=== PATIENT | male | born 1975 | race Caucasian/White ===

== ENCOUNTER 2023-03-16 14:22 | Inpatient (IN) | payer MEDICARE, MEDICAID, SELFPAY ==
[2023-03-16 14:37] VITALS: BP 143/76; PULSE 61; RESP 18; TEMP 36.5; O2SAT 93; BMI 34.2
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
[2023-03-16 15:23] LABS: Basophils % 0.4 %; Eosinophils # 0.1 10^3/uL (0.0-0.8); Eosinophils % 0.7 %; Hematocrit 42.4 % (37-53); Lymphocytes # 1.2 10^3/uL (0.8-4.8); Mean Corpuscular HGB Conc 33.7 g/dL (30-55); Mean Corpuscular Hemoglobin 30.2 pg (27-33); Mean Corpuscular Volume 89.6 fl (82-101); Mean Platelet Volume 9.9 fL (7.4-10.4); Monocytes # 0.6 10^3/uL (0.2-0.9); Monocytes % 8.4 %; Neutrophils # 4.98 10^3/uL (1.8-7.7); Neutrophils % 72.4 %; Nucleated Red Blood Cells % 0 %; Platelet Count 265 10^3/cmm (157-399); Red Blood Count 4.73 10^6/uL (3.85-5.65); Red Cell Distribution Width 12.5 % (12.1-15.1); White Blood Count 6.89 10^3/uL (3.29-11.43)
[2023-03-16 15:47] LABS: Alanine Aminotransferase 16 U/L (0-41); Albumin Level 4.1 g/dL (3.5-5.2); Alkaline Phosphatase 72 U/L (40-130); Anion Gap 16.1 (5-19); Aspartate Amino Transferase 15 U/L (0-40); Blood Urea Nitrogen 7 mg/dL (6-20); Carbon Dioxide 25 mmol/L (22-29); Chloride 99 mmol/L (98-107); Globulin 2.3 g/dL (1.3-4.6); Glomerular Filtration Rate 103.6 mL/min (90-130); Glucose 119 mg/dL (65-115); Osmolality Calculated 281 mOsm/kg (285-295); Potassium 4.1 mmol/L (3.5-5.1); Sodium 136 mmol/L (136-145); Total Bilirubin 0.7 mg/dL (0.15-1.2); Total Protein 6.4 g/dL (6.6-8.7)
[2023-03-16 15:49] LABS: Acetaminophen < 5.0 ug/mL (10-30); Salicylate < 0.3 mg/dL (3-10)
--- NOTE | 2023-03-16 16:21 | PC.PHAR ---
Addendum entered by Vale Verduzco 03/16/23 16:24: PT USES A CPAP MACHINE!!!! Original Note: PT COMES FROM FACILITY IN [place] WHICH CAN'T PROVIDE 2 OF HIS MEDICATIONS. MIRTAZAPINE 15 MG FOR DEPRESSION AND PAROXETINE 40 MG FOR ANXIETY. ADDED TO PT LIST BUT HAVE NO KNOWN LAST FILL DATE. INFORMATION PROVIDED BY FACILITY 03/16/23
[2023-03-16 16:23] VITALS: BP 116/75; PULSE 88; RESP 18; TEMP 36.6; O2SAT 92
[2023-03-16 18:00] VITALS: O2SAT 92
--- NOTE | 2023-03-16 18:18 | PC.NURSE ---
PT CAME TO THE ER WITH A CAREGIVER FROM [employer]. PT WAS RECENTLY RELEASED FROM [facility] A WEEK AGO. UPON ADMIT TO THE UNIT PT INFORMED STAFF HE HAS A GUARDIAN. PT GUARDIAN CONTACTED AND PAPERWORK FAXED OVER. PT STATED THAT HE CAME FOR SUICIDAL THOUGHTS THAT HAVE LASTED ABOUT A WEEK. PT STATES THAT HE WEARS OXYGEN CONTINUOUSLY AT 3 L AND A BIPAP AT NIGHT.
[2023-03-16 20:32] VITALS: BP 108/65; PULSE 56; RESP 17; TEMP 37.2; O2SAT 96
[2023-03-16] MEDS: trazodone 50 mg Tablet PO (20:37)
[2023-03-16 20:50] VITALS: PULSE 68; RESP 22; O2SAT 96
[2023-03-17 06:00] VITALS: BP 118/69; PULSE 60; RESP 18; O2SAT 96
[2023-03-17 09:01] VITALS: PULSE 74; RESP 18; O2SAT 97
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
--- NOTE | 2023-03-17 13:58 | ECG_ITS ---
[facility] Test Date: 2023-03-17 Pat Name: Ronnie Guzman Department: Room: 129 Gender: Male Manager Database: : 1975 Requested By: Syed Monge Order Number: [id number] Jamila MD: Bobo Bird M.D. Measurements Intervals [place] Rate: 62 P: 45 OR: 180 QRS: 77 QRSD: 102 T: 52 QT: 378 QTc: 384 Interpretive Statements SINUS RHYTHM WITH OCCASIONAL VENTRICULAR PREMATURE COMPLEXES LOW QRS VOLTAGE IN EXTREMITY LEADS [QRS DEFLECTION < 0.5 mV IN LIMB LEADS] No previous ECG available for comparison Electronically Signed On 03-17-2023 15:29:15 CRUDE OIL TREATER by Bobo Bird M.D. [email or web address]. d. partlow developmental centerBUYSTANDsuburban community hospital & brentwood hospitalChipolo/store/OM/[id number]
[2023-03-17 14:00] VITALS: BP 166/76; PULSE 53; RESP 17; O2SAT 98
--- NOTE | 2023-03-17 16:56 | PC.NURSE ---
Desirae from [employer] called. her number is [phone]
[2023-03-17 19:46] VITALS: BP 137/81; PULSE 53; RESP 16; TEMP 36.6; O2SAT 96
[2023-03-17] MEDS: trazodone 50 mg Tablet PO (20:28)
[2023-03-17 21:52] VITALS: PULSE 76; RESP 24; O2SAT 96
--- NOTE | 2023-03-18 03:57 | PC.NURSE ---
PT WAS GIVEN TRAZODONE 50 MG AT 2057, PT HAS RESTED ON AND OFF THROUGH OUT THE SHIFT. PT WAS OBSERVED FIXATED ON HIS CPAP MASK, RESPIRATORY THERAPIST CAME DOWN AND FIXED MASK, THIS RN ADJUSTED AND FIXED MASK SEVERAL TIMES. PT HAS SLEPT APPROXIMATELY 5-6 HOURS THIS SHIFT. PT CONTINUES TO REST WITH EYES CLOSED WITH NO DISTRESS NOTED. TRAZODONE DEEMED EFFECTIVE.
--- NOTE | 2023-03-18 05:42 | PC.NURSE ---
PT TOOK CPAP OFF AT 540 THIS AM. STATED I'M DONE WITH THAT. RN APPLIED O2 TO THE WALL AT 3L VIA NC ORDERED. PT RESP RATE HAS BEEN EVEN AND NON LABORED WITH SPO2 96% ON 3L MOS VIA NC. LUNGS CLEAR IN BILATERAL UPPER LOBES AND DIMINISHED AND DISTANT IN BILATERAL LOWER BASES.
[2023-03-18 06:00] VITALS: BP 118/73; PULSE 50; RESP 20; O2SAT 96
[2023-03-18 10:05] VITALS: PULSE 72; RESP 16; O2SAT 98
[2023-03-18 14:00] VITALS: BP 158/81; PULSE 90; RESP 18; TEMP 36.7; O2SAT 93
--- NOTE | 2023-03-18 17:59 | P.NPUPN_ITS ---
Subjective NPU 2 Subjective: Patient presented today reporting that he is doing better. We discussed his situation back to the house and he reports that he does not have any ill feelings towards that gentleman. We discussed adding his Seroquel which he thought was a good idea. We discussed the fact that he needed to make choices that were better and he said he understood that. We discussed getting the information from his guardian about his previous health seeking behaviors and his previous location and countless 911 calls and we discussed that if he did not figure out a way to avoid this pattern that he would end up in some kind of a locked facility and not where he is wanting to be. We discussed the likelihood of discharge in the next 48 hours. Mental Status Exam 2 MSE Comments: This is an obese white male in hospital scrubs with limited grooming but adequate eye contact. No abnormal movements except for mild psychomotor retardation. Cooperative with exam in no acute distress. Speech was slightly decreased rate and volume. Mood described as much better, affect slightly subdued but euthymic. Thought process linear. Thought content: Patient denied suicidal or homicidal ideation, there were no delusions reported or noted, he denied any auditory or visual hallucinations. Attention and concentration were intact and memory appeared mostly reliable but none were formally tested. He is alert and oriented x 3. Insight and judgment appear limited, impulse control is limited versus impaired. Intellectual ability is limited versus impaired. Vitals/I&O/Wt Last Vital Signs Temp 97.9 F 03/17/23 19:46 Pulse 72 03/18/23 10:05 Resp 16 03/18/23 10:05 BP 118/73 03/18/23 06:00 Pulse Ox 98 03/18/23 10:05 O2 Del Method Nasal Cannula 03/18/23 10:05 O2 Flow Rate 3 03/18/23 10:05 FiO2 32 03/17/23 21:52 Data NPU 03/16/23 15:17 03/16/23 15:17 A&P Assessment and plan (1) Borderline intellectual functioning: (2) Mild intellectual disability: (3) Intermittent explosive disorder: (4) Suicidal ideation: Plan This is a 47-year-old white male with a history of mild intellectual disorder versus borderline intellectual functioning significant history mental health challenges and psychosocial challenges including living in a longterm who presents from a new longterm with current struggles to adjust. 1. Continue current medication. Add Seroquel 100 mg p.o. nightly. 2. Continue one-to-one with his oxygen tubing for safety. 3. Individual, group and milieu therapy. 4. Get collateral information about previous medications prior to [facility]. 5. Consider discharge. Involuntary Hold Information 2 96 Hour Hold: 96 Hour Involuntary Admission: No Attestations NPU 2 Medical Necessity Statement*: Inpatient hospitalization is medically necessary and the clinically appropriate attention at this time. We will monitor/initiate medications and make changes as indicated. Likely length of stay 1-4 days. Coding Level of Care Code Acute Code for Chg Fwd Diagnoses Borderline intellectual functioning R41.83 Mild intellectual disability F70 Intermittent explosive disorder F63.81 Suicidal ideation R45.851
[2023-03-18 20:21] VITALS: BP 131/73; PULSE 74; RESP 20; TEMP 36.8; O2SAT 95
--- NOTE | 2023-03-18 20:31 | PC.NURSE ---
IN DAY ROOM WATCHING TV WITH SITTER AT BEDSIDE DUE TO HAVING O2 AT 3L VIA NC. PT DENIES SI/HI AND AVH AT THIS TIME. RATES ANXIETY 10/10 THIS RN TO GIVE VISTARIL WITH HS MEDS REQUESTED BY PT. RATES ANXIETY 9/10. PT STATES I'M STILL WAITING FOR THAT TO RESTART MY MEDS. PT WAS ASSURED THAT WOULD ADJUST MEDS IF NEEDED. PT REQUESTED TRAZODONE FOR SLEEP WELL. PT IS OBSERVED HAVING EDEMA +1 TO LOWER EXTREMITIES. PT STATED OH THEY ARE ALWAYS LIKE THAT. AND THEN LAUGHED. PT HAS BEEN EATING MULTIPLE SNACKS, SANDWICHES, CHIPS AND CRACKERS. PT WAS EDUCATE ON EATING SALTY PROCESSED FOODS AND SWELLING CAN OCCUR WHEN EATEN IN EXCESS. PT STATED I'VE ALWAYS EATEN WHAT I WANTED AND I'M GOING TO KEEP EATING WHAT I WANT. ALL QUESTIONS ANSWERED AND SUPPORT VOICED.
[2023-03-18] MEDS: acetaminophen 325 mg Tablet 650 MG PO (21:07)
[2023-03-18] MEDS: hyDROXYzine 25 mg Capsule 50 MG PO (21:07)
[2023-03-18] MEDS: trazodone 50 mg Tablet PO (21:07)
[2023-03-18 21:26] VITALS: PULSE 68; RESP 21; O2SAT 98
--- NOTE | 2023-03-18 21:36 | PC.NURSE ---
PT CONTINUES TO REQUEST HE BE PUT BACK ON SEROQUEL. RN REVIEWED PRESCRIPTION HISTORY, PT WAS PRESCRIBED 150 MG OF SEROQUEL BACK IN JANUARY OF THIS YEAR. ALL INFORMATION REPORTED TO DR. MARIE. NEW ORDERS RECEIVED TO START SEROQUEL 100 MG PO Q HS INSOMNIA. ORDERS PLACED. EDUCATION PROVIDED TO PT. VERBALIZED UNDERSTANDING. ALL QUESTIONS ANSWERED AND SUPPORT WAS VOICED.
[2023-03-18] MEDS: quetiapine 100 mg Tablet PO (21:51)
[2023-03-19 04:20] VITALS: PULSE 71; RESP 19; O2SAT 99
[2023-03-19 06:00] VITALS: BP 131/70; PULSE 73; RESP 20; O2SAT 100
--- NOTE | 2023-03-19 06:23 | PC.NURSE ---
TRAZODONE AND VISTARIL 50 MG THAT WAS GIVEN LAST NIGHT IS DEEMED EFFECTIVE. PT WAS ALSO STARTED ON 100 MG OF SERQUEL. PT HAS SLEPT APPROXIMATELY 9.5 HOURS FOR THE SHIFT WITH CPAP ON AND SITTER AT BEDSIDE.
[2023-03-19 11:53] LABS: Glucose Point of Care 117 mg/dL (70-110)
[2023-03-19] MEDS: PARoxetine 20 mg Tablet PO (12:22)
[2023-03-19] MEDS: atorvastatin 40 mg Tablet 20 MG PO (12:22)
[2023-03-19] MEDS: FUROsemide 40 mg Tablet PO (12:22)
--- NOTE | 2023-03-19 13:39 | W.PM.NPUDCS ---
Diagnoses at Discharge Discharge Diagnosis (1) Borderline intellectual functioning: Status: Acute (2) Mild intellectual disability: Status: Acute (3) Intermittent explosive disorder: Status: Acute (4) Suicidal ideation: Status: Acute Reason for Visit Reason for Visit: SI Involuntary Hold Information 96 Hour Hold: 96 Hour Involuntary Admission: No Mental Status Exam MSE Comments: This is an obese white male in hospital scrubs with limited grooming but adequate eye contact. No abnormal movements except for mild psychomotor retardation. Cooperative with exam in no acute distress. Speech was slightly decreased rate and volume. Mood described as much better, affect slightly subdued but euthymic. Thought process linear. Thought content: Patient denied suicidal or homicidal ideation, there were no delusions reported or noted, he denied any auditory or visual hallucinations. Attention and concentration were intact and memory appeared mostly reliable but none were formally tested. He is alert and oriented x 3. Insight and judgment appear limited, impulse control is limited versus impaired. Intellectual ability is limited versus impaired. Discharge Data Studies Completed and Pending: Laboratory Results WBC 6.89 10^3/uL (3.2 9-11.43) 03/16/23 15:17 RBC 4.73 10^6/uL (3.8 5-5.65) 03/16/23 15:17 Hgb 14.30 g/dL (11.27 -16.99) 03/16/23 15:17 Hct 42.4 % (37-53) 03/16/23 15:17 MCV 89.6 fl (82-101) 03/16/23 15:17 MCH 30.2 pg (27-33) 03/16/23 15:17 MCHC 33.7 g/dL (30-55) 03/16/23 15:17 RDW 12.5 % (12.1-15.1 ) 03/16/23 15:17 Plt Count 265 10^3/cmm (157 -399) 03/16/23 15:17 MPV 9.9 fL (7.4-10.4) 03/16/23 15:17 Neut % (Auto) 72.4 % 03/16/23 15:17 Lymph % (Auto) 18.0 % 03/16/23 15:17 [place] % (Auto) 8.4 % 03/16/23 15:17 Eos % (Auto) 0.7 % 03/16/23 15:17 Baso % (Auto) 0.4 % 03/16/23 15:17 Neut # (Auto) 4.98 10^3/uL (1.8 -7.7) 03/16/23 15:17 Lymph # (Auto) 1.2 10^3/uL (0.8- 4.8) 03/16/23 15:17 [place] # (Auto) 0.6 10^3/uL (0.2- 0.9) 03/16/23 15:17 Eos # (Auto) 0.1 10^3/uL (0.0- 0.8) 03/16/23 15:17 Baso # (Auto) 0.0 10^3/uL (0.0- 0.1) 03/16/23 15:17 Nucleated RBC % (a uto) 0 % 03/16/23 15:17 Nucleated RBCs # 0.0 /100WBC 03/16/23 15:17 Sodium 136 mmol/L (136-1 45) 03/16/23 15:17 Potassium 4.1 mmol/L (3.5-5 .1) 03/16/23 15:17 Chloride 99 mmol/L (98-107 ) 03/16/23 15:17 Carbon Dioxide 25 mmol/L (22-29) 03/16/23 15:17 Anion Gap 16.1 (5-19) 03/16/23 15:17 BUN 7 mg/dL (6-20) 03/16/23 15:17 Creatinine 0.8 mg/dL (0.7-1. 2) 03/16/23 15:17 GFR Calculation 103.6 mL/min (90- 130) 03/16/23 15:17 Glucose 119 mg/dL (65-115 ) H 03/16/23 15:17 POC Glucose 117 mg/dL (70-110 ) H 03/19/23 11:49 Calculated Osmolal ity 281 mOsm/kg (285- 295) L 03/16/23 15:17 Calcium 9.0 mg/dL (8.5-10 .5) 03/16/23 15:17 Total Bilirubin 0.7 mg/dL (0.15-1 .2) 03/16/23 15:17 AST 15 U/L (0-40) 03/16/23 15:17 ALT 16 U/L (0-41) 03/16/23 15:17 Alkaline Phosphata se 72 U/L (40-130) 03/16/23 15:17 Total Protein 6.4 g/dL (6.6-8.7 ) L 03/16/23 15:17 Albumin 4.1 g/dL (3.5-5.2 ) 03/16/23 15:17 Globulin 2.3 g/dL (1.3-4.6 ) 03/16/23 15:17 Salicylates < 0.3 mg/dL (3-10 ) L 03/16/23 15:17 Acetaminophen < 5.0 ug/mL (10-3 0) L 03/16/23 15:17 Vitals: Last Vital Signs Temp 98.3 F 03/18/23 20:21 Pulse 73 03/19/23 06:00 Resp 20 H 03/19/23 06:00 BP 131/70 03/19/23 06:00 Pulse Ox 100 03/19/23 06:00 O2 Del Method BiPAP 03/19/23 06:00 O2 Flow Rate 3 03/18/23 10:05 FiO2 32 03/19/23 04:20 Discharge Plan Discharge Patient Disposition: Home Condition: Stable Prescriptions: New quetiapine 100 mg Tablet 100 mg PO BEDTIME 30 Days Qty: 30 1RF paroxetine HCl 20 mg Tablet 20 mg PO DAILY 30 Days Qty: 30 1RF Continued furosemide 40 mg tablet 40 mg PO DAILY metformin 500 mg tablet 500 mg PO BID Aspir-81 81 mg Tablet,Delayed Release (Dr/Ec) 81 mg PO DAILY simvastatin 20 mg tablet 20 mg PO DAILY lisinopril 10 mg tablet 10 mg PO DAILY mirtazapine 15 mg Tablet 15 mg PO DAILY Discontinued citalopram 20 mg Tablet 20 mg PO DAILY paroxetine HCl 40 mg Tablet 40 mg PO DAILY Discharge Orders: Discharge Order (Routine); Ordered 03/19/23 Ordered By: Syed Monge Other Ambulatory Orders: DME: Porfirio (Order) Location: None Selected Ordered By: Syed Monge Referrals: [facility] [Outside] - 03/22/23 12:30 pm (Initial appointment 03/22/23 @ 12:30 w/ Betty Jiménez) Raj Kent MD [Referring] - 03/24/23 1:00 pm (Establishing care/hospital follow up.) Discharge Diet: Regular Discharge Activity: Resume usual activity Patient Instructions: Opioid Safety Discharge Attestations NPU Time Spent in Discharge Care*: less than 30 min Specific Discharge Activities: Specific discharge activities: educating patient, discussing with top case assembler/social workers/dc planners, documenting/other paperwork and evaluating patient/reviewing data Coding Level of Care Code Acute Code for Chg Fwd Diagnoses Borderline intellectual functioning R41.83 Mild intellectual disability F70 Intermittent explosive disorder F63.81 Suicidal ideation R45.851
[2023-03-19 13:44] VITALS: BP 131/70; PULSE 73; RESP 20; O2SAT 100
[2023-03-19 14:00] VITALS: BP 113/66; PULSE 45; RESP 16; TEMP 36.6; O2SAT 95
--- NOTE | 2023-03-19 14:08 | DCPLANNER ---
Imm was printed and given to patient and copy placed in file.
--- NOTE | 2023-03-19 15:48 | PC.NURSE ---
written discharge instructions discussed and left with patient. pt states understanding and compliance. prescription from pharmacy delivered and given to patient.
--- NOTE | 2023-03-19 16:04 | PC.NURSE ---
spoke with desirae from [facility] with clarification on home O2 delivery. Desirae stated his ISP Paperwork states 3liters prn. Desirae stated when he sees his new primary care wednesday they will notify him and let New Primary write orders if he wants him on O2 at that time. pt o2 running at 94% roomair at this time.
== END 2023-03-18 17:16 | disposition home or self-care (01) | DRG 884 ==
LOC: ER 15:16 → NP 15:51
PROVIDERS: Admitting Provider Psychiatry & Neurology Psychiatry; Emergency Provider Family Medicine; Visit Provider Psychiatry & Neurology Psychiatry
DX: F70 Mild intellectual disabilities (principal); R45.851 Suicidal ideations; Z91.51 Personal history of suicidal behavior; Z91.148 Patient's other noncompliance with medication regimen for other reason; F63.81 Intermittent explosive disorder
CPT/HCPCS: 36415; 36416; 80053; 80307; 82962; 85025; 93005; 94660; 94664; 97110; 97150; 97161; 97165; 99285

== ENCOUNTER 2023-03-20 20:23 | Emergency (ER) | payer MEDICARE, MEDICAID, SELFPAY ==
[2023-03-20 20:25] VITALS: BP 122/67; PULSE 46; RESP 22; TEMP 36.7; O2SAT 92
--- NOTE | 2023-03-20 20:46 | ED.C_ITS ---
HPI - Psych General: Chief Complaint: Psychiatric Symptoms Stated Complaint: SI Time Seen by Provider: 03/20/23 20:40 Source: patient and other (care staff) Mode of arrival: ambulatory Limitations: other (intellectual disability) History of Present Illness: Patient is a 47-year-old male who presents to ED today stating he is suicidal. He reportedly texted the suicide hotline. Patient was just admitted to [facility] for identical complaints. He was discharged yesterday. Patient has a history of intellectual disability. According to documentation while NPU patient has a history of medical seeking behaviors including countless calls to 911 and previous suicide threats. Care staff states that all of his medications in his home are locked up including [id number]-[id number] medications. She states he does still have access to sharps/knives but that these can easily be locked up as well. complaint: suicidal ideation Duration: constant History of same: Yes Relieving factors: none Exacerbating factors: none Associated psychiatric symptoms: suicidal ideation Associated symptoms: Reports depression and suicidal ideation; Deny auditory hallucinations, visual hallucinations or homicidal ideation Treatments prior to arrival: none If self harm: admits thoughts of self harm Review of Systems Const: Denies: fever(s) or chills Card: Denies: chest pain, palpitations, lightheadedness or syncope Resp: Denies: dyspnea GI: Denies: abdominal pain, nausea, vomiting or diarrhea Skin/Breast: Denies: rash Neuro: Denies: headache(s) Psych: Reports: depression and suicidal ideation; Denies: anxiety, visual hallucinations, auditory hallucinations or homicidal ideation Physical Exam Const: COMMON NORMALS: no acute distress and alert EXAM LIMITATIONS: other limitations (pt with intellectual disability) GENERAL APPEARANCE: cooperative NUTRITIONAL APPEARANCE: obese Neuro: SENSORIUM/ORIENTATION: Yes alert Psych: COMMON NORMALS: mental status grossly normal, cooperative, normal affect and speech normal APPEARANCE: Yes grossly normal ATTITUDE: Yes calm ACTIVITY/MOTOR BEHAVIOR: Yes Avoids eye contact (attititude/behavior) SPEECH: Yes normal speech MOOD & AFFECT: Yes euthymic mood INSIGHT: Limited insight present (Psych) JUDGEMENT: Limited judgement present (Psych) Course Consultations: Consultation #1: Dr. Monge-stated there was no indication for re-admission; states previous records were obtained from other facilities in regards to patient's psych history and he has a long standing history of medical seeking behaviors including calling 911 hundreds of times; felt if meds/sharps/knifes were locked up in the home then he could safely be discharged Vital Signs: Vital signs: Vital Signs Temperature 98.1 F 03/20/23 20:25 Pulse Rate 46 L 03/20/23 20:25 Respiratory Rate 22 H 03/20/23 20:25 Blood Pressure 122/67 03/20/23 20:25 Pulse Oximetry 92 03/20/23 20:25 Oxygen Delivery Me thod Room Air 03/20/23 20:25 MDM - Psych Medical Decision Making Patient was just released from NPU yesterday. I spoke to the psychiatrist who treated him while he was there, Dr. Monge, I did not feel patient needed to be readmitted at this time. All of his medications in his home are already locked up. Spoke to care staff extensively about removing all sharp/knives in the home as well. She verbalized understanding. Recommend he follow-up with the primary care provider who follows [facility] this week for reevaluation. I will place referral to get him services with [facility]. No radiology studies performed this visit Discharge Plan Discharge Patient Disposition: Home Clinical Impression: Suicidal ideation, Intermittent explosive disorder, Borderline intellectual functioning Condition: Stable Prescriptions: No Action furosemide 40 mg tablet 40 mg PO DAILY metformin 500 mg tablet 500 mg PO BID aspirin 81 mg Tablet,Delayed Release (Dr/Ec) 81 mg PO DAILY simvastatin 20 mg tablet 20 mg PO DAILY lisinopril 10 mg tablet 10 mg PO DAILY mirtazapine 15 mg Tablet 15 mg PO DAILY quetiapine 100 mg Tablet 100 mg PO BEDTIME 30 Days Qty: 30 1RF paroxetine HCl 20 mg Tablet 20 mg PO DAILY 30 Days Qty: 30 1RF Discharge Orders: Discharge ED (Routine); Ordered 03/20/23 Ordered By: Shikha De Jesus Activity Restrictions/Additional Instructions: TO [facility] STA[facility] CARING FOR PATIENT: Per recommendations of psychiatrist, all sharps/knives need to be locked up and removed from patient. He needs to continue to not have access to his pills/medications including bfoi-oqt-qaxxxon medicine. He needs to follow-up with the medical provider through [facility]. I will place referral to [facility] to get him set up with psychiatric services. Coding Level of Care Code ED Phone Counselor for Nathan Agudelo
--- NOTE | 2023-03-22 08:18 | DCPLANNER ---
Message was sent to [facility] scheduling on 03/22/23 at 0818. Clinic to contact patient.
== END 2023-03-20 21:24 | disposition home or self-care (01) ==
PROVIDERS: Emergency Provider Physician Assistant
DX: R45.851 Suicidal ideations (principal); F63.81 Intermittent explosive disorder; R41.83 Borderline intellectual functioning
CPT/HCPCS: 99283

== ENCOUNTER 2023-03-29 11:52 | Emergency (ER) | payer MEDICARE, MEDICAID, SELFPAY ==
[2023-03-29 11:53] VITALS: BP 122/76; PULSE 46; RESP 18; TEMP 36.8; O2SAT 94; BMI 41.1
--- NOTE | 2023-03-29 12:00 | W.ED.PSYCHS ---
HPI - Psych General: Chief Complaint: Psychiatric Symptoms Stated Complaint: si with plan Time Seen by Provider: 03/29/23 11:52 Source: patient and EMS Mode of arrival: EMS Limitations: no limitations History of Present Illness: 47-year-old male who is very well known ER history intellectual disability lives in a senior living with [facility] he has been seen here multiple times with suicidal thoughts he was admitted a week ago discharged from our psych unit. He states that he is just continually been depressed with passing suicidal thoughts denies any specific plan currently. Physical Exam Const: COMMON NORMALS: no acute distress, patient oriented x3 and healthy appearing HENMT: COMMON NORMALS: normocephalic and atraumatic HEAD & SCALP: normocephalic and atraumatic Neck/C-Spine: COMMON NORMALS: full ROM and supple Chest: COMMONS NORMALS: normal inspection of the chest Resp: COMMON NORMALS: normal respiratory effort Extremity: COMMON NORMALS: normal to inspection and full ROM Neuro: COMMON NORMALS: patient oriented x3, moves all extremities and no focal motor deficits Psych: COMMON NORMALS: mental status grossly normal, Normal thought process present and cooperative THOUGHT PROCESS: Normal thought process present Skin: COMMON NORMALS: no rashes or lesions noted and no wounds GENERAL SKIN EXAM: no rashes or lesions noted Course Vital Signs: Vital signs: Vital Signs Temperature 98.3 F 03/29/23 11:53 Pulse Rate 46 L 03/29/23 11:53 Respiratory Rate 18 03/29/23 11:53 Blood Pressure 122/76 03/29/23 11:53 Pulse Oximetry 94 03/29/23 11:53 Oxygen Delivery Me thod Room Air 03/29/23 11:53 MDM - Psych Medical Decision Making 47-year-old male presented here with depression he is well-appearing here he is very well-known to ER discussed case with Dr. Monge who knows patient is well does not feel that he is truly suicidal [facility] staff is here and wants to take him back home as well would discharge him with them Medical Records I reviewed the patient's medical records. No radiology studies performed this visit Discharge Plan Discharge Patient Disposition: Home Clinical Impression: Depression Condition: Stable Prescriptions: No Action furosemide 40 mg tablet 40 mg PO DAILY metformin 500 mg tablet 500 mg PO BID aspirin 81 mg Tablet,Delayed Release (Dr/Ec) 81 mg PO DAILY simvastatin 20 mg tablet 20 mg PO DAILY lisinopril 10 mg tablet 10 mg PO DAILY mirtazapine 15 mg Tablet 15 mg PO DAILY quetiapine 100 mg Tablet 100 mg PO BEDTIME 30 Days Qty: 30 1RF paroxetine HCl 20 mg Tablet 20 mg PO DAILY 30 Days Qty: 30 1RF Discharge Orders: Discharge ED (Routine); Ordered 03/29/23 Ordered By: Keyana Mcmillan Discharge Diet: Advance as tolerated Discharge Activity: Resume usual activity Patient Instructions: Depression (ED) Coding Level of Care Code ED Assistive Technology Specialist for Natahn Agudelo
== END 2023-03-29 12:08 | disposition home or self-care (01) ==
PROVIDERS: Emergency Provider Emergency Medicine
DX: F32.A Depression, unspecified (principal); Z79.82 Long term (current) use of aspirin; Z79.84 Long term (current) use of oral hypoglycemic drugs
CPT/HCPCS: 99283

== ENCOUNTER → 2023-06-07 09:20 | Outpatient (BNVA) | payer MEDICARE, MEDICAID, OTHER, SELFPAY | PROVIDERS: Visit Provider Nurse Practitioner | DX: F63.81 Intermittent explosive disorder (principal); F33.1 Major depressive disorder, recurrent, moderate; Z79.899 Other long term (current) drug therapy | CPT/HCPCS: 80061; 83036 ==

== ENCOUNTER → 2023-07-05 11:43 | Outpatient (BNVA) | payer MEDICARE, MEDICAID, SELFPAY | PROVIDERS: Referring Provider Family Medicine; Visit Provider Internal Medicine Cardiovascular Disease | DX: R07.9 Chest pain, unspecified (principal); I11.0 Hypertensive heart disease with heart failure; I50.9 Heart failure, unspecified; I25.118 Atherosclerotic heart disease of native coronary artery with other forms of angina pectoris; E78.5 Hyperlipidemia, unspecified; I49.9 Cardiac arrhythmia, unspecified; R94.31 Abnormal electrocardiogram [ECG] [EKG] | CPT/HCPCS: 93005; 99204 ==

== ENCOUNTER 2023-07-09 08:44 | Outpatient (CLI) | payer MEDICARE, MEDICAID, SELFPAY ==
--- NOTE | 2023-07-09 11:45 | USCV_ITS ---
Ronnie Guzman Age: 47 Gender: M : 1975 Exam Date: 07/09/2023 11:04 Ordering Phys: Franck Redman MD ([email or web address]) Technologist: CT [place]am [place] [facility] [place] Indication: hf BP: 119 / 63 HR: 72 Rhythm: Sinus Technical Quality: Adequate MEASUREMENTS (Male / Female) Normal Values 2D ECHO LVOT Diameter 2.6 cm LV Ejection Fraction MOD 2C 49.5 % LV Ejection Fraction 2C AL 49.3 % LA Diameter 3.3 cm RA Systolic Volume 4C AL 73.1 ml RA Systolic Volume 4C MOD 68.9 ml Aorta at Sinotubular Diameter 3.8 cm IVC Diameter 1.9 cm M-MODE LA Ao Ratio MM 0.8 AV Cusp Separation MM 2.7 cm DOPPLER AV Peak Velocity 115.0 cm/s LVOT Peak Velocity 88.0 cm/s AV Area Cont Eq vti 3.9 cm squared AV Area Cont Eq pk 4.0 cm squared MV Peak Velocity 66.0 cm/s MV Area PHT 3.7 cm squared Mitral E to A Ratio 0.9 TV Peak Velocity 156.5 cm/s TR Peak Velocity 172.0 cm/s TR Peak Gradient 11.8 mmHg Right Atrial Pressure 3.0 mmHg Pulmonary Artery Systolic Pressu 14.8 mmHg PV Peak Velocity 110.5 cm/s FINDINGS Left Ventricle Normal LV size with a slightly diminished ejection fraction of 49%. Mild diffuse hypokinesia of the left 22. Right Ventricle The right ventricle is normal in size and function. Right Atrium Mildly increased right atrial size. Left Atrium Mildly increased left atrial size. Mitral Valve No gross abnormalities noted Aortic Valve Thickened aortic valve. Tricuspid Valve No gross abnormalities noted Pulmonic Valve No gross abnormalities noted Pericardium No pericardial effusion. Aorta Normal aortic annulus size. IVC Normal inferior vena cava. CONCLUSIONS Normal LV size with a slightly diminished ejection fraction of 49%. Mild diffuse hypokinesia of the left ventricle. Mild biatrial enlargement. Thickened aortic valve. There is no pericardial effusion. There are no intracardiac masses. Estimated pulmonary artery peak systolic pressure probably within normal limits No similar previous studies are available for comparison Dr Franck Redman MD [facility] (Electronically Signed) Final Date: 09 July 2023 17:09 S
== END 2023-07-09 08:45 | disposition home or self-care (01) ==
LOC: RAD 08:45
PROVIDERS: Visit Provider Internal Medicine Cardiovascular Disease
DX: R06.09 Other forms of dyspnea (principal); I35.8 Other nonrheumatic aortic valve disorders; I51.7 Cardiomegaly; Z12.11 Encounter for screening for malignant neoplasm of colon; R10.9 Unspecified abdominal pain
CPT/HCPCS: 93306; 99204

== ENCOUNTER → 2023-07-13 09:11 | Outpatient (BNVA) | payer MEDICARE, MEDICAID, SELFPAY | PROVIDERS: PCP Family Medicine; Visit Provider Podiatrist Foot & Ankle Surgery | DX: L60.3 Nail dystrophy; E11.69 Type 2 diabetes mellitus with other specified complication; Z79.84 Long term (current) use of oral hypoglycemic drugs | CPT/HCPCS: 99203 ==

== ENCOUNTER 2023-07-21 10:00 | Outpatient (CLI) | payer MEDICARE, MEDICAID, SELFPAY ==
--- NOTE | 2023-07-21 | ECG_ITS ---
[facility] Test Date: 2023-07-21 Pat Name: Ronnie Guzman Department: Room: Gender: Male Research And Development Director: : 1975 Requested By: Franck Redman Order Number: [id number] Jamila MD: Franck Redman M.D. Interpretive Statements NAME OF STUDY: LEXISCAN SESTAMIBI STRESS TEST INDICATION: CP/CHF/ASHD, PROCEDURE: At the baseline, the EKG revealed sinus bradycardia, poor R wave progression and nonspecific ST-T changes. The baseline heart was 50 bpm with a blood pressue of 122/86 mm of Hg Lexiscan was infused over a period of 20 seconds. A total of 0.4 milligrams of Lexiscan was infused. The stress phase was continued for a total of 5 minutes. Heart rate at the end of the stress phase was 90 bpm with a blood pressure 109/77 mm of Hg. The EKG at the peak infusion revealed no significant changes. Occasional PVCs were noted during the Lexiscan infusion Sestamibi was injected 20 seconds after the Lexiscan infusion. Heart rate at the end of the recovery phase was 88 bpm with a blood pressure of 112/77 mm of Hg. CONCLUSION: 1. No significant EKG changes with the LexiScan infusion 2. No LexiScan induced chest pain .occasional PVCs were noted during the Lexiscan infusion . 3. Normal blood pressure and heart rate response 4. Sestamibi/sestamibi perfusion scan pending; see separate report. Electronically Signed On 08-02-2023 8:59:03 CDT by Franck Redman M.D. [id number]
--- NOTE | 2023-07-21 10:11 | NMCV_ITS ---
NM pete perf SPECT r/s* [id number] Ronnie Guzman Age: 47 Gender: M : 1975 Exam Date: 07/21/2023 10:49 Ordering Phys: Franck Redman MD ([email or web address]) Technologist: KATHERINE Liu Exam Location: [facility] Indications: CORONARY ANGIOPLASTY STATUS STRESS TEST Please [facility] for [facility] IMAGE PROTOCOL Rest/Stress 1 Lexiscan Day Radiopharmaceutical Dose (mCi) Administration Site Administered by Rest: Tc-99m 10.8 IV KATHERINE Vo Sestamibi Stress:Tc-99m 33.0 IV KATHERINE Vo Sestamibi Rest: 21-Jul-2023 60 Discovery 630 Stress: 21-Jul-2023 30 Discovery 630 0.4mg Lexiscan. Supine position only as patient was unable to lay prone. SPECT RESULTS Technical Quality: Excellent Raw Data Analysis: Normal Image Corrections: No attenuation or motion correction applied Summed Stress Score: 10 Summed Rest Score: 16 Summed Difference Score: 0 PERFUSION FINDINGS Moderate area of moderate to severely decreased tracer uptake involving the inferior, mid inferolateral, apical lateral and LV apex with no significant reversibility FUNCTIONAL RESULTS (calculated via Gated SPECT) Stress Image LV EF (%): 52 Stress EDV (mL):178 TID: 1.02 Stress ESV (mL):85 FUNCTIONAL FINDINGS: Segmental wall motion analysis revealed mild hypokinesia of the LV apex IMPRESSIONS 1. Myocardial perfusion imaging revealing moderate area of persistent decreased tracer uptake involving the inferior, inferolateral , apical lateral and LV apex suggesting myocardial scarring in distribution of the right coronary artery/circumflex artery. 2. Normal LV ejection fraction 52%. 3. LV wall motion analysis revealing mild hypokinesia of the LV apex. 4. Mildly dilated LV cavity with end-systolic volume of 85 ml. No significant coronary ischemia based on the above finding Dr Franck Redman MD [facility] (Electronically Signed) Final Date: 21 July 2023 18:58 S
[2023-07-21 10:23] VITALS: BMI 43.8
[2023-07-21] MEDS: regadenoson 0.4 Mg/5 ml Syringe 0.400000000000000022 MG IVP (11:32)
[2023-07-21 11:57] VITALS: BP 116/75; PULSE 92
== END 2023-07-21 10:01 | disposition home or self-care (01) ==
LOC: CDL 10:01
PROVIDERS: PCP Family Medicine; Visit Provider Internal Medicine Cardiovascular Disease
DX: Z98.61 Coronary angioplasty status (principal)
CPT/HCPCS: 36415; 78452; 93017; 96374; A9500; J2785

== ENCOUNTER 2023-08-06 10:06 | Emergency (ER) | payer MEDICARE, MEDICAID, SELFPAY ==
[2023-08-06 10:10] VITALS: BP 132/72; PULSE 74; RESP 15; TEMP 36.6; O2SAT 91
--- NOTE | 2023-08-06 10:22 | ED_ITS ---
HPI - Eye Problem General: Chief complaint: Eye Problems Stated complaint: blurred vision/ eye sx yesterday Time Seen by Provider: 08/06/23 10:13 Source: patient and other (care staff) Mode of arrival: EMS Limitations: other (Intellectual disability) History of Present Illness: Patient is a 47-year-old male here via EMS for complaints of blurry vision and blood around my eye . Patient has an intellectual disability so history is somewhat difficult to ascertain. It sounds like he had a bilateral blepharoplasty by Dr. Shah yesterday. He tells me I lost a lot of weight and my eyelids were drooping so they removed them . He states he is having ecchymosis surrounding his eye and some edema making it hard to see. Does not complain of pain. MD chief complaint: vision change Onset (ago): day(s) (surgery yesterday) Onset description: gradual Duration: constant Location: both eyes Eye Symptoms: blurry vision Mechanism: none Severity: mild Associated symptoms: Reports no associated symptoms Treatments Prior to Arrival: none Review of Systems Eyes: Reports: blurry vision; Denies: blind spots, photophobia, eye discharge, floaters or seeing flashes PFSH ED PFSH: Medical History Moderate episode of recurrent major depressive disorder Psychiatric care Family History Brother Diabetes Denies family history of CAD (coronary artery disease) Congestive heart failure (CHF) Anemia Aneurysm Arrhythmia Atrial fibrillation TIA (transient ischemic attack) Heart disease Sudden cardiac Chronic kidney disease (CKD) Congenital heart disease Carotid artery disease Pulmonary embolism Cardiomyopathy Social History Smoking and tobacco/nicotine status: never used tobacco/nicotine Alcohol intake: never Physical Exam Const: COMMON NORMALS: no acute distress and alert EXAM LIMITATIONS: other limitations (Intellectual disability) GENERAL APPEARANCE: cooperative NUTRITIONAL APPEARANCE: obese Eye: COMMON NORMALS: Equal, round and reactive pupils present, EOMs intact bilaterally and conjunctivae normal GENERAL EYE: normal light reflex CONJUNCTIVA: Yes conjunctivae normal PUPIL: Yes Equal, round and reactive pupils present DIRECT OPHTHALMOSCOPY: Yes normal light reflex OTHER: Patient has intact sutures to his superior orbit consistent with recent bilateral blepharoplasty. He has bilateral periorbital ecchymosis that appears normal postoperative. Edema is minimal. Patient tells me he feels like his vision is blurry because he cannot fully open his eyelids due to the swelling. When I physically hold eyelids open he states that he can see me clearly. He is watching cartoons in his room and reportedly can see them fairly well. Neuro: SENSORIUM/ORIENTATION: Yes alert Course Vital Signs: Vital signs: Vital Signs Temperature 97.9 F 08/06/23 10:10 Pulse Rate 74 08/06/23 10:10 Respiratory Rate 15 08/06/23 10:10 Blood Pressure 132/72 08/06/23 10:10 Pulse Oximetry 91 08/06/23 10:10 Oxygen Delivery Me thod Room Air 08/06/23 10:10 MDM - Eye Problem Medical Decision Making Patient's eyes look to be healing really well postop day 1 from bilateral blepharoplasty. I don't have any emergent concerns at this time. Digital Marketing Executive did call Dr. Shah' clinic and they will see patient for a quick evaluation following his discharge from the ED. He was instructed to go straight to their office. No radiology studies performed this visit Discharge Plan Discharge Patient Disposition: Home Clinical Impression: Status post blepharoplasty of both eyes Condition: Stable Prescriptions: No Action quetiapine [Seroquel] 200 mg tablet 200 mg PO .HS Qty: 30 2RF paroxetine HCl [Paxil] 40 mg tablet 40 mg PO .HS Qty: 30 2RF mirtazapine 15 mg tablet 15 mg PO .HS Qty: 30 2RF naproxen 500 mg tablet 500 mg PO ONCE PRN magnesium citrate Solution 300 ml PO DAILY PRN (Reason: constipation) Qty: 296 2RF Rx Instructions: take as directed for colonoscopy bisacodyl [Dulcolax (bisacodyl)] 5 mg tablet,delayed release (DR/EC) 5 mg PO DAILY Qty: 4 0RF furosemide 40 mg tablet 40 mg PO DAILY metformin 500 mg tablet 500 mg PO BID aspirin 81 mg Tablet,Delayed Release (Dr/Ec) 81 mg PO DAILY simvastatin 20 mg tablet 20 mg PO DAILY lisinopril 10 mg tablet 10 mg PO DAILY Discharge Orders: Discharge ED (Routine); Ordered 08/06/23 Ordered By: Shikha De Jesus Referrals: Raj Kent MD [Primary Care Provider] - Activity Restrictions/Additional Instructions: Go straight to Dr. Shah's eye clinic for further evaluation. Coding Level of Care Code ED Robotic Toy Inventor for Nathan Agudelo
== END 2023-08-06 10:48 | disposition home or self-care (01) ==
PROVIDERS: Emergency Provider Physician Assistant; PCP Family Medicine
DX: H53.8 Other visual disturbances (principal); Z98.890 Other specified postprocedural states; Z79.82 Long term (current) use of aspirin; Z79.84 Long term (current) use of oral hypoglycemic drugs
CPT/HCPCS: 99281

== ENCOUNTER 2023-08-07 17:24 | Emergency (ER) | payer MEDICARE, MEDICAID, SELFPAY ==
[2023-08-07 17:25] VITALS: BP 115/69; PULSE 54; RESP 18; TEMP 36.9; O2SAT 92
--- NOTE | 2023-08-07 17:58 | ECG_ITS ---
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 Measurements Intervals [place] Rate: 56 P: 42 NC: 203 QRS: 0 QRSD: 98 T: 47 QT: 390 QTc: 378 Interpretive Statements SINUS BRADYCARDIA WITH OCCASIONAL VENTRICULAR PREMATURE COMPLEXES INDETERMINATE AXIS LOW QRS VOLTAGE [QRS DEFLECTION < 0.5/1.0 mV IN LIMB/CHEST LEADS] ANTEROSEPTAL MYOCARDIAL INFARCTION , PROBABLY OLD [40+ ms Q WAVE IN V1-V4] Compared to ECG 07/05/2023 11:47:01 Indeterminate axis now present Myocardial infarct finding now present Sinus rhythm no longer present Electronically Signed On 08-07-2023 19:41:20 CDT by Franck Redman M.D. [id number]
--- NOTE | 2023-08-07 18:07 | PC.NURSE ---
spoke to guardian over the phone - permission to treat
--- NOTE | 2023-08-07 18:40 | W.ED.PSYCHS ---
HPI - Psych General: Chief Complaint: Psychiatric Symptoms Stated Complaint: si Time Seen by Provider: 08/07/23 17:35 History of Present Illness: 47-year-old male presents emergency department via EMS services from his residential facility where he has a 24-hour staff member. Patient has recently had blepharoplasty and upper eyelid lift. He states he has had increased stress because of his health problems and occurrence of his eye surgeries. He states that he has been having thoughts of killing himself and his plan is to cut his throat or hang himself. Patient is very cooperative and does not appear to be in any acute distress at present. Associated symptoms: Reports suicidal ideation; Deny auditory hallucinations, visual hallucinations or homicidal ideation Review of Systems General: Reports: 10 or more systems reviewed and unremarkable except in HPI and below Eyes: Reports: other (Postoperative swelling) Psych: Reports: tactile hallucinations and suicidal ideation; Denies: visual hallucinations, auditory hallucinations or homicidal ideation [facility] PFSH: Medical History Moderate episode of recurrent major depressive disorder Psychiatric care Family History Brother Diabetes Denies family history of CAD (coronary artery disease) Congestive heart failure (CHF) Anemia Aneurysm Arrhythmia Atrial fibrillation TIA (transient ischemic attack) Heart disease Sudden cardiac Chronic kidney disease (CKD) Congenital heart disease Carotid artery disease Pulmonary embolism Cardiomyopathy Social History Smoking and tobacco/nicotine status: never used tobacco/nicotine Alcohol intake: never Physical Exam Narrative: EXAM NARRATIVE: General: Alert, no acute distress. Skin: Warm, dry, Intact. Head: Normocephalic, atraumatic. Neck: Supple, trachea midline. Eye: Extraocular movements are intact. PERRLA, upper lid blepharoplasty with sutures intact and in place no obvious signs of infection he does have significant bruising to the periorbital area of both eyes. Ears, nose, mouth and throat: mucosa moist. Cardiovascular: Regular, Normal peripheral perfusion. Respiratory: Lungs are clear to auscultation, respirations are non-labored, breath sounds are equal, Symmetrical chest wall expansion. Gastrointestinal: Soft, Nontender, Non distended, Normal bowel sounds. Musculoskeletal: Normal ROM, no deformity. Neurological: Alert and oriented, No focal neurological deficit observed. Psychiatric: Cooperative, appropriate mood & affect. Suicidal ideation without access to plan. Course Vital Signs: Vital signs: Vital Signs Temperature 98.4 F 08/07/23 17:25 Pulse Rate 55 L 08/07/23 19:32 Respiratory Rate 17 08/07/23 19:32 Blood Pressure 114/74 08/07/23 19:32 Pulse Oximetry 95 08/07/23 19:32 Oxygen Delivery Me thod Room Air 08/07/23 17:25 MDM - Psych Medical Decision Making Physical exam completed and documented I did obtain medical psychiatric clearance labs to include CBC CMP urinalysis urine drug screen alcohol level salicylate level and Tylenol level. I did have a detailed discussion with Dr. Monge the psychiatrist on-call regarding the patient and Dr. Monge's recommendation would be that he be discharged home placed on 50 mg of Paxil and have his 24-hour care staff ensure that he maintains a safe environment without access to devices that would allow him to harm himself. I did contact the on-call sales service supervisor for roman Prater at [phone] and advised her of the recommendations for Dr. Monge and Josi advise she would contact the patient's guardian and we will discharge the patient back to his care facility. Medical Records I reviewed the patient's medical records. Lab Data I reviewed the patient's lab results. 08/07/23 18:24 08/07/23 18:24 Laboratory Results WBC 5.70 10^3/uL (3.29-11.43) 08/07/23 18: RBC 4.44 10^6/uL (3.85-5.65) 08/07/23 18:24 Hgb 13.00 g/dL (11.27-16.99) 08/07/23 18: Hct 39.6 % (37-53) 08/07/23 18: MCV 89.2 fl (82-101) 08/07/23 18: MCH 29.3 pg (27-33) 08/07/23 18: MCHC 32.8 g/dL (30-55) 08/07/23 18: RDW 13.8 % (12.1-15.1) 08/07/23 18: Plt Count 242 10^3/cmm (157-399) 08/07/23 18:24 MPV 10.1 fL (7.4-10.4) 08/07/23 18:24 Neut % (Auto) 59.6 % 08/07/23 18:24 Lymph % (Auto) 30.9 % 08/07/23 18:24 [place] % (Auto) 7.0 % 08/07/23 18: Eos % (Auto) 1.4 % 08/07/23 18: Baso % (Auto) 0.9 % 08/07/23 18:24 Neut # (Auto) 3.40 10^3/uL (1.8-7.7) 08/07/23 18: Lymph # (Auto) 1.8 10^3/uL (0.8-4.8) 08/07/23 18: [place] # (Auto) 0.4 10^3/uL (0.2-0.9) 08/07/23 18: Eos # (Auto) 0.1 10^3/uL (0.0-0.8) 08/07/23 18: Baso # (Auto) 0.1 10^3/uL (0.0-0.1) 08/07/23 18: Nucleated RBC % (auto) 0 % 08/07/23 18: Nucleated RBCs # 0.0 /100WBC 08/07/23 18:24 Sodium 139 mmol/L (136-145) 08/07/23 18:24 Potassium 4.0 mmol/L (3.5-5.1) 08/07/23 18:24 Chloride 102 mmol/L (98-107) 08/07/23 18:24 Carbon Dioxide 27 mmol/L (22-29) 08/07/23 18:24 Anion Gap 14.0 (5-19) 08/07/23 18:24 BUN 11 mg/dL (6-20) 08/07/23 18:24 Creatinine 0.7 mg/dL (0.7-1.2) 08/07/23 18:24 GFR Calculation 120.9 mL/min (90-130) 08/07/23 18:24 Glucose 91 mg/dL (65-115) 08/07/23 18:24 Calculated Osmolality 287 mOsm/kg (285-295) 08/07/23 18:24 Calcium 8.4 mg/dL (8.5-10.5) L 08/07/23 18:24 Total Bilirubin 0.6 mg/dL (0.15-1.2) 08/07/23 18:24 AST 13 U/L (0-40) 08/07/23 18:24 ALT 19 U/L (0-41) 08/07/23 18:24 Alkaline Phosphatase 75 U/L (40-130) 08/07/23 18:24 Total Protein 6.4 g/dL (6.6-8.7) L 08/07/23 18:24 Albumin 4.1 g/dL (3.5-5.2) 08/07/23 18: Globulin 2.3 g/dL (1.3-4.6) 08/07/23 18:24 TSH 3.84 uIU/mL (0.27-4.20) 08/07/23 18:24 Salicylates < 0.3 mg/dL (3-10) L 08/07/23 18:24 Acetaminophen < 5.0 ug/mL (10-30) L 08/07/23 18:24 Ethyl Alcohol < 10 mg/dL (0-10) 08/07/23 18:24 No radiology studies performed this visit EKG Data EKG 1: Interpretation: Twelve-lead EKG obtained at 1758 and reviewed at 1800 demonstrates sinus bradycardia, first-degree AV block. With occasional PVC, ventricular rate 56 bpm, ND interval 203, QRS duration 98, QT 390, QTc 382 Discharge Plan Discharge Patient Disposition: Home Clinical Impression: Acute stress disorder, Suicidal ideation Condition: Stable Prescriptions: New Paxil 40 mg tablet 50 mg PO DAILY Qty: 30 0RF No Action quetiapine [Seroquel] 200 mg tablet 200 mg PO .HS Qty: 30 2RF paroxetine HCl [Paxil] 40 mg tablet 40 mg PO .HS Qty: 30 2RF mirtazapine 15 mg tablet 15 mg PO .HS Qty: 30 2RF naproxen 500 mg tablet 500 mg PO ONCE PRN magnesium citrate Solution 300 ml PO DAILY PRN (Reason: constipation) Qty: 296 2RF Rx Instructions: take as directed for colonoscopy bisacodyl [Dulcolax (bisacodyl)] 5 mg tablet,delayed release (DR/EC) 5 mg PO DAILY Qty: 4 0RF furosemide 40 mg tablet 40 mg PO DAILY metformin 500 mg tablet 500 mg PO BID aspirin 81 mg Tablet,Delayed Release (Dr/Ec) 81 mg PO DAILY simvastatin 20 mg tablet 20 mg PO DAILY lisinopril 10 mg tablet 10 mg PO DAILY Discharge Orders: Discharge ED (Routine); Ordered 08/07/23 Ordered By: Shaun Olivares Referrals: Raj Kent MD [Primary Care Provider] - Discharge Diet: Usual diet Discharge Activity: Resume usual activity Patient Instructions: Opioid Safety, Pain Management Activity Restrictions/Additional Instructions: Activity Restrictions/Additional Instructions: Thank you for choosing [facility] for your healthcare needs today. Please realize that you were seen in the Emergency Department and that we are providing you with an emergency medical screening exam and this may not be a complete and all inclusive of all the testing and or medical work-up that you may need to determine your ailment or severity of your illness. It is very important that you follow-up as instructed with your Primary care provider or Specialist for additional evaluation and to discuss your medical treatment plan. Coding Level of Care Code ED Field Crop I Farmworker for Nathan Agudelo
[2023-08-07 19:08] LABS: Basophils # 0.1 10^3/uL (0.0-0.1); Basophils % 0.9 %; Eosinophils # 0.1 10^3/uL (0.0-0.8); Eosinophils % 1.4 %; Hematocrit 39.6 % (37-53); Lymphocytes # 1.8 10^3/uL (0.8-4.8); Lymphocytes % 30.9 %; Mean Corpuscular HGB Conc 32.8 g/dL (30-55); Mean Corpuscular Hemoglobin 29.3 pg (27-33); Mean Corpuscular Volume 89.2 fl (82-101); Mean Platelet Volume 10.1 fL (7.4-10.4); Monocytes # 0.4 10^3/uL (0.2-0.9); Neutrophils % 59.6 %; Nucleated Red Blood Cells % 0 %; Platelet Count 242 10^3/cmm (157-399); Red Blood Count 4.44 10^6/uL (3.85-5.65); Red Cell Distribution Width 13.8 % (12.1-15.1)
[2023-08-07 19:32] VITALS: BP 114/74; PULSE 55; RESP 17; O2SAT 95
[2023-08-07 19:37] LABS: Alanine Aminotransferase 19 U/L (0-41); Albumin Level 4.1 g/dL (3.5-5.2); Alkaline Phosphatase 75 U/L (40-130); Aspartate Amino Transferase 13 U/L (0-40); Blood Urea Nitrogen 11 mg/dL (6-20); Calcium 8.4 mg/dL (8.5-10.5); Carbon Dioxide 27 mmol/L (22-29); Chloride 102 mmol/L (98-107); Creatinine Clr Calc Pharmacy 194.0526; Globulin 2.3 g/dL (1.3-4.6); Glomerular Filtration Rate 120.9 mL/min (90-130); Glucose 91 mg/dL (65-115); Osmolality Calculated 287 mOsm/kg (285-295); Sodium 139 mmol/L (136-145); Thyroid Stimulating Hormone 3.84 uIU/mL (0.27-4.20); Total Bilirubin 0.6 mg/dL (0.15-1.2); Total Protein 6.4 g/dL (6.6-8.7)
[2023-08-07 19:39] LABS: Acetaminophen < 5.0 ug/mL (10-30); Alcohol Level < 10 mg/dL (0-10); Salicylate < 0.3 mg/dL (3-10)
== END 2023-08-07 19:33 | disposition home or self-care (01) ==
PROVIDERS: Emergency Medicine; Emergency Provider Internal Medicine; PCP Family Medicine
DX: R45.851 Suicidal ideations (principal); F43.0 Acute stress reaction; Z79.82 Long term (current) use of aspirin; Z79.84 Long term (current) use of oral hypoglycemic drugs
CPT/HCPCS: 36415; 80053; 80307; 84443; 85025; 93005; 99284

== ENCOUNTER 2023-08-25 09:33 | Outpatient (RCR) | payer MEDICARE, MEDICAID, SELFPAY | END 2023-09-10 23:59 | disposition home or self-care (01) | LOC: SPT 09:33 | PROVIDERS: PCP Family Medicine; Visit Provider Family Medicine | DX: M75.101 Unspecified rotator cuff tear or rupture of right shoulder, not specified as traumatic (principal) | CPT/HCPCS: 97110; 97161 ==

== ENCOUNTER → 2023-09-07 09:48 | Outpatient (BNVA) | payer MEDICARE, MEDICAID, SELFPAY | PROVIDERS: PCP Family Medicine; Visit Provider Nurse Practitioner Family | DX: I11.0 Hypertensive heart disease with heart failure (principal); I50.9 Heart failure, unspecified; I25.118 Atherosclerotic heart disease of native coronary artery with other forms of angina pectoris; Z87.891 Personal history of nicotine dependence | CPT/HCPCS: 99214 ==

== ENCOUNTER 2023-09-11 06:00 | Outpatient (RCR) | payer MEDICARE, MEDICAID, SELFPAY | END 2023-09-23 23:59 | disposition home or self-care (01) | LOC: SPT 06:00 | PROVIDERS: PCP Family Medicine; Visit Provider Family Medicine | DX: M75.101 Unspecified rotator cuff tear or rupture of right shoulder, not specified as traumatic (principal) | CPT/HCPCS: 97110 ==

== ENCOUNTER 2023-09-22 07:27 | Day surgery (SDC) | payer MEDICARE, MEDICAID, SELFPAY ==
[2023-09-22 07:47] VITALS: BP 134/89; PULSE 56; RESP 18; TEMP 36.1; O2SAT 95; BMI 43.8
[2023-09-22] MEDS: sodium chloride 0.9% 1,000 ML 30 ML IV (07:53)
--- NOTE | 2023-09-22 07:56 | ANES.PREANE2 ---
Pre-Anesthetic Assessment Height/Weight: Height 1.83 m Weight 146.51 kg Temp Pulse Resp BP Pulse Ox O2 Del Method 97 F L 56 L 18 134/89 95 Room Air 09/22/23 07:47 09/22/23 07:47 09/22/23 07:47 09/22/23 07:47 09/22/23 07:47 09/22/23 07:47 Operation Date: 09/22/23 08:30 Proposed Procedures p EGD(Not Applicable) - Gokul Lim DO s Colonoscopy(Not Applicable) - Gokul Lim DO Was Beta Carter taken within 24 hours: N/A Was Clonidine taken within 24 hours: N/A Last intake: Intake Last Liquid Date 09/21/23 Last Liquid Time 19:00 Last Solid Date 09/20/23 Last Solid Time 18:00 Social No alcohol and No tobacco Exam alert, oriented x 3, clear to auscultation bilaterally and regular rate & rhythm dev delay. caregiver at bedside Airway Submandibular: within normal limits Cervical ROM: within normal limits Mallampati: Class II Comments: Comments: poor dentition but denies loose teeth History/ROS No significant history except as noted and No significant complaints Pulmonary Chronic Obstructive Pulmonary Disease and Sleep Apnea oxygen 3 L NC as needed. Bipap during sleep. Not wearing any oxygen today CV/HEM Stable Angina, Coronary Artery Disease, Congestive Heart Failure and Hypertension just finished a holter monitor. sees cardiology in a few weeks. multiple cardiac stents more than a year ago None reported Hepatic None reported GI Gastroesophageal Reflux Disease Metabolic Diabetes Mellitus and Morbid Obesity [facility] None reported Neuropsych Anxiety, Deficit and Depression Anesthetic Plan ASA status: 3 Anesthesia: Anesthesia Evaluation and MAC Risk of > 500 ml blood loss (7ml/kg in children): Yes, adequate IV access and fluids planned Medications/Allergies Home Medications Medication Instructions Recorded Confirmed Last Taken Type aspirin 81 mg tablet,delayed 81 mg PO DAILY 03/16/23 09/20/23 09/18/23 History release furosemide 40 mg tablet 40 mg PO DAILY 03/16/23 09/20/23 09/21/23 History lisinopril 10 mg tablet 10 mg PO DAILY 03/16/23 09/20/23 09/21/23 History metformin 500 mg tablet 500 mg PO BID 03/16/23 09/20/23 09/20/23 History simvastatin 20 mg tablet 20 mg PO DAILY 03/16/23 09/20/23 09/21/23 History paroxetine HCl 40 mg tablet (Paxil) 40 mg PO .HS #30 tabs 06/07/23 09/20/23 09/21/23 Rx mirtazapine 15 mg tablet 15 mg PO .HS #30 tabs 08/31/23 09/20/23 09/21/23 Rx buspirone 5 mg tablet 5 mg PO BID #60 tabs 09/02/23 09/20/23 09/21/23 Rx quetiapine 200 mg tablet (Seroquel) 200 mg PO .HS #30 tabs 09/10/23 09/20/23 09/21/23 Rx diphenhydramine HCl 2 % topical 1 applic topical TID PRN itching 09/20/23 09/20/23 09/21/23 Rx gel (Benadryl) #103 mL paroxetine HCl 10 mg tablet 10 mg PO BEDTIME 09/20/23 09/20/23 09/21/23 History Allergies Allergy/AdvReac Type Severity Reaction Status Date / Time No Known Allergies Allergy Verified 09/20/23 14:50 Current Medications Generic Name Dose Route Start Last Admin Trade Name Freq PRN Reason Stop Dose Admin Sodium Chloride 1,000 mls @ 30 mls/hr 09/22/23 07:30 09/22/23 07:53 Sodium Chloride 0.9% IV 09/23/23 07:29 30 mls/hr .Q24H CINTHYA Administration PFSH Anesthesia Medical History Moderate episode of recurrent major depressive disorder Psychiatric care Family History Brother Diabetes Denies family history of CAD (coronary artery disease) Congestive heart failure (CHF) Anemia Aneurysm Arrhythmia Atrial fibrillation TIA (transient ischemic attack) Heart disease Sudden cardiac Chronic kidney disease (CKD) Congenital heart disease Carotid artery disease Pulmonary embolism Cardiomyopathy Social History Smoking and tobacco/nicotine status: former use of tobacco/nicotine Alcohol intake: never Data Anesthesia Cardiac Studies: Echocardiogram 07/09/23 Sestamibi Stress Test (Cardiology) 07/21/23
[2023-09-22 07:59] LABS: Glucose Point of Care 109 mg/dL (70-110)
--- NOTE | 2023-09-22 08:17 | PM.HP ---
Providers/Chief Complaint Primary Care Provider: Raj Kent MD Chief Complaint: R10.9, Z12.11 History of Present Illness Ronnie Guzman is a 47 year old male Review of Systems General: Reports: 10 or more systems reviewed and unremarkable except in HPI and below Medications/Allergies Home Medications Medication Instructions Recorded Confirmed Last Taken Type aspirin 81 mg tablet,delayed 81 mg PO DAILY 03/16/23 09/20/23 09/18/23 History release furosemide 40 mg tablet 40 mg PO DAILY 03/16/23 09/20/23 09/21/23 History lisinopril 10 mg tablet 10 mg PO DAILY 03/16/23 09/20/23 09/21/23 History metformin 500 mg tablet 500 mg PO BID 03/16/23 09/20/23 09/20/23 History simvastatin 20 mg tablet 20 mg PO DAILY 03/16/23 09/20/23 09/21/23 History paroxetine HCl 40 mg tablet (Paxil) 40 mg PO .HS #30 tabs 06/07/23 09/20/23 09/21/23 Rx mirtazapine 15 mg tablet 15 mg PO .HS #30 tabs 08/31/23 09/20/23 09/21/23 Rx buspirone 5 mg tablet 5 mg PO BID #60 tabs 09/02/23 09/20/23 09/21/23 Rx quetiapine 200 mg tablet (Seroquel) 200 mg PO .HS #30 tabs 09/10/23 09/20/23 09/21/23 Rx diphenhydramine HCl 2 % topical 1 applic topical TID PRN itching 09/20/23 09/20/23 09/21/23 Rx gel (Benadryl) #103 mL paroxetine HCl 10 mg tablet 10 mg PO BEDTIME 09/20/23 09/20/23 09/21/23 History Allergies Allergy/AdvReac Type Severity Reaction Status Date / Time No Known Allergies Allergy Verified 09/20/23 14:50 PFSH Acute PFSH: Medical History Moderate episode of recurrent major depressive disorder Psychiatric care Family History Brother Diabetes Denies family history of CAD (coronary artery disease) Congestive heart failure (CHF) Anemia Aneurysm Arrhythmia Atrial fibrillation TIA (transient ischemic attack) Heart disease Sudden cardiac Chronic kidney disease (CKD) Congenital heart disease Carotid artery disease Pulmonary embolism Cardiomyopathy Social History Smoking and tobacco/nicotine status: former use of tobacco/nicotine Alcohol intake: never Vitals/I&O/Wt Last Vital Signs Temp 97 F L 09/22/23 07:47 Pulse 56 L 09/22/23 07:47 Resp 18 09/22/23 07:47 BP 134/89 09/22/23 07:47 Pulse Ox 95 09/22/23 07:47 O2 Del Method Room Air 09/22/23 07:47 Weight last 48 hrs Weight 323 lb A&P Assessment and plan (1) Abdominal pain: (2) Colon cancer screening: Plan EGD and colonoscopy Attestations Medical Necessity Statement*: Home Coding Level of Care Code Acute Code for Chg Fwd Diagnoses Abdominal pain R10.9 Colon cancer screening Z12.11
[2023-09-22 08:41] VITALS: BP 102/70; PULSE 53; RESP 14; TEMP 36.4; O2SAT 92
[2023-09-22 08:56] VITALS: BP 126/64; PULSE 56; RESP 18; O2SAT 96
[2023-09-22 09:07] VITALS: BP 120/84; PULSE 60; RESP 18; O2SAT 94
--- NOTE | 2023-09-22 15:39 | ANE.PACU2 ---
Inpatient post-anesthesia follow up: Airway intact: Yes Vital signs: Temperature 97.5 F Pulse Rate 60 Respiratory Rate 18 Blood Pressure 120/84 Pulse Oximetry 94 Oxygen Delivery Me thod Room Air Oxygen Flow Rate 4 Fraction of Inspir ed Oxygen Hydration adequate: Yes Nausea and vomiting: No Pain level: 2 Mental status: Baseline
== END 2023-09-22 09:34 | disposition home or self-care (01) ==
PROVIDERS: PCP Family Medicine; Visit Provider Surgery
PROC: 0DJ08ZZ Inspection of Upper Intestinal Tract, Via Natural or Artificial Opening Endoscopic (ICD-10-PCS; CPT 43235; principal; 2023-09-22 08:30)
PROC: 0DJD8ZZ Inspection of Lower Intestinal Tract, Via Natural or Artificial Opening Endoscopic (ICD-10-PCS; CPT 45378; 2023-09-22 08:30)
DX: Z12.11 Encounter for screening for malignant neoplasm of colon (principal); R10.9 Unspecified abdominal pain; J44.9 Chronic obstructive pulmonary disease, unspecified; G47.30 Sleep apnea, unspecified; Z99.81 Dependence on supplemental oxygen; I11.0 Hypertensive heart disease with heart failure; I50.9 Heart failure, unspecified; K21.9 Gastro-esophageal reflux disease without esophagitis; E11.9 Type 2 diabetes mellitus without complications; E66.01 Morbid (severe) obesity due to excess calories; Z68.41 Body mass index [BMI] 40.0-44.9, adult; Z79.82 Long term (current) use of aspirin; Z87.891 Personal history of nicotine dependence
CPT/HCPCS: 36416; 43239; 45378; 82962; 88305; G0121; J2704; J3010; J3535; J7030

== ENCOUNTER 2023-09-28 19:08 | Inpatient (IN) | payer MEDICARE, MEDICAID, SELFPAY ==
[2023-09-28 19:09] VITALS: BP 137/80; PULSE 69; RESP 16; TEMP 36.6; O2SAT 96; BMI 6268.4
--- NOTE | 2023-09-28 19:18 | ED.C_ITS ---
HPI - Psych 2 General: Chief Complaint: Psychiatric Symptoms Stated Complaint: Overdose, SI Time Seen by Provider: 09/28/23 19:09 Source: EMS Mode of arrival: EMS Limitations: no limitations History of Present Illness: 47-year-old male who is resident perfect partners he states he has been depressed he attempted to overdose today to kill himself he taken roughly 30 of his vitamin D and glucosamine. He states he just does not want to live anymore and wants to . Patient is awake and alert no complaints at this time otherwise Associated symptoms: Reports depression and suicidal ideation Review of Systems 2 Const: Denies: fever(s), chills, body aches or change in appetite ENMT: Denies: throat pain or dental pain Card: Denies: chest pain Resp: Denies: dyspnea GI: Denies: abdominal pain, nausea, vomiting or diarrhea Musc: Denies: neck pain or back pain Skin/Breast: Denies: rash Neuro: Denies: headache(s) Psych: Reports: depression and suicidal ideation PFSH ED 2 PFSH: Medical History Moderate episode of recurrent major depressive disorder Psychiatric care Family History Brother Diabetes Denies family history of CAD (coronary artery disease) Congestive heart failure (CHF) Anemia Aneurysm Arrhythmia Atrial fibrillation TIA (transient ischemic attack) Heart disease Sudden cardiac Chronic kidney disease (CKD) Congenital heart disease Carotid artery disease Pulmonary embolism Cardiomyopathy Social History Smoking and tobacco/nicotine status: former use of tobacco/nicotine Alcohol intake: never Physical Exam 2 Const: COMMON NORMALS: no acute distress, patient oriented x3 and healthy appearing HENMT: COMMON NORMALS: normocephalic and atraumatic HEAD & SCALP: n ormocephalic and atraumatic Eye: COMMON NORMALS: conjunctivae normal CONJUNCTIVA: Yes conjunctivae normal Neck/C-Spine: COMMON NORMALS: full ROM and supple Chest: COMMONS NORMALS: normal inspection of the chest and normal palpation of entire chest wall Resp: COMMON NORMALS: normal respiratory effort, No retractions, No use of accessory muscles and clear to auscultation bilaterally AUSCULTATION: clear to auscultation bilaterally Cardio: COMMON NORMALS: regular rate, regular rhythm and No murmurs present (Cardio) RATE: regular rate RHYTHM: regular rhythm Extremity: COMMON NORMALS: normal to inspection and full ROM Neuro: COMMON NORMALS: patient oriented x3, moves all extremities and no focal motor deficits Psych: COMMON NORMALS: mental status grossly normal, Normal thought process present and cooperative THOUGHT PROCESS: Normal thought process present T HOUGHT CONTENT: Yes Suicidality present Skin: COMMON NORMALS: no rashes or lesions noted and no wounds GENERAL SKIN EXAM: no rashes or lesions noted Course 2 Vital Signs: Vital signs: Vital Signs Temperature 97.8 F 09/28/23 19:09 Pulse Rate 69 09/28/23 19:09 Respiratory Rate 16 09/28/23 19:09 Blood Pressure 137/80 09/28/23 19:09 Pulse Oximetry 96 09/28/23 19:09 Oxygen Delivery Me thod Room Air 09/28/23 19:09 [facility] - Psych Medical Decision Making Patient presents here with suicidal attempt with suicidality he is well- appearing here medically cleared no signs of toxic doses did speak to psychiatrist will admit to the psych frias at this time Medical Records I reviewed the patient's medical records. Lab Data I reviewed the patient's lab results. 09/28/23 19:35 09/28/23 19:35 Laboratory Results WBC 5.53 10^3/uL (3.29-11.43) 09/28/23 19:35 RBC 4.45 10^6/uL (3.85-5.65) 09/28/23 19:35 Hgb 13.10 g/dL (11.27-16.99) 09/28/23 19:35 Hct 39.6 % (37-53) 09/28/23 19:35 MCV 89.0 fl (82-101) 09/28/23 19:35 MCH 29.4 pg (27-33) 09/28/23 19:35 MCHC 33.1 g/dL (30-55) 09/28/23 19:35 RDW 13.5 % (12.1-15.1) 09/28/23 19:35 Plt Count 205 10^3/cmm (157-399) 09/28/23 19:35 MPV 10.0 fL (7.4-10.4) 09/28/23 19:35 Neut % (Auto) 63.3 % 09/28/23 19:35 Lymph % (Auto) 25.3 % 09/28/23 19:35 [place] % (Auto) 8.9 % 09/28/23 19:35 Eos % (Auto) 1.4 % 09/28/23 19:35 Baso % (Auto) 0.7 % 09/28/23 19:35 Neut # (Auto) 3.50 10^3/uL (1.8-7.7) 09/28/23 19:35 Lymph # (Auto) 1.4 10^3/uL (0.8-4.8) 09/28/23 19:35 [place] # (Auto) 0.5 10^3/uL (0.2-0.9) 09/28/23 19:35 Eos # (Auto) 0.1 10^3/uL (0.0-0.8) 09/28/23 19:35 Baso # (Auto) 0.0 10^3/uL (0.0-0.1) 09/28/23 19:35 Nucleated RBC % (auto) 0 % 09/28/23 19:35 Nucleated RBCs # 0.0 /100WBC 09/28/23 19:35 Sodium 138 mmol/L (136-145) 09/28/23 19:35 Potassium 3.8 mmol/L (3.5-5.1) 09/28/23 19:35 Chloride 102 mmol/L (98-107) 09/28/23 19:35 Carbon Dioxide 26 mmol/L (22-29) 09/28/23 19:35 Anion Gap 13.8 (5-19) 09/28/23 19:35 BUN 14 mg/dL (6-20) 09/28/23 19:35 Creatinine 0.8 mg/dL (0.7-1.2) 09/28/23 19:35 GFR Calculation 103.6 mL/min (90-130) 09/28/23 19:35 Glucose 127 mg/dL (65-115) H 09/28/23 19:35 Calculated Osmolality 288 mOsm/kg (285-295) 09/28/23 19:35 Calcium 8.7 mg/dL (8.5-10.5) 09/28/23 19:35 Total Bilirubin 0.5 mg/dL (0.15-1.2) 09/28/23 19:35 AST 18 U/L (0-40) 09/28/23 19:35 ALT 19 U/L (0-41) 09/28/23 19:35 Alkaline Phosphatase 71 U/L (40-130) 09/28/23 19:35 Total Protein 6.2 g/dL (6.6-8.7) L 09/28/23 19:35 Albumin 4.0 g/dL (3.5-5.2) 09/28/23 19:35 Globulin 2.2 g/dL (1.3-4.6) 09/28/23 19:35 Salicylates < 0.3 mg/dL (3-10) L 09/28/23 19:35 Acetaminophen < 5.0 ug/mL (10-30) L 09/28/23 19:35 Ethyl Alcohol < 10 mg/dL (0-10) 09/28/23 19:35 No radiology studies performed this visit Discharge Plan Discharge Patient Disposition: Admitted As Inpatient Clinical Impression: Suicidal ideation Condition: Stable Prescriptions: No Action buspirone 5 mg tablet 5 mg PO BID Qty: 60 1RF paroxetine HCl [Paxil] 40 mg tablet 40 mg PO .HS Qty: 30 2RF Rx Instructions: Take with 10mg Benadryl 2 % gel 1 applic topical TID PRN (Reason: itching) Qty: 103 0RF mirtazapine 15 mg tablet 15 mg PO .HS Qty: 30 2RF quetiapine [Seroquel] 200 mg tablet 200 mg PO .HS Qty: 30 2RF furosemide 40 mg tablet 40 mg PO DAILY metformin 500 mg tablet 500 mg PO BID aspirin 81 mg Tablet,Delayed Release (Dr/Ec) 81 mg PO DAILY simvastatin 20 mg tablet 20 mg PO DAILY lisinopril 10 mg tablet 10 mg PO DAILY paroxetine HCl 10 mg tablet 10 mg PO BEDTIME Rx Instructions: take with 40mg Referrals: Raj Kent MD [Primary Care Provider] - Coding Level of Care Code ED Market Asset Protection Manager for [facility]
[2023-09-28 19:44] LABS: Basophils % 0.7 %; Eosinophils # 0.1 10^3/uL (0.0-0.8); Eosinophils % 1.4 %; Hematocrit 39.6 % (37-53); Lymphocytes # 1.4 10^3/uL (0.8-4.8); Lymphocytes % 25.3 %; Mean Corpuscular HGB Conc 33.1 g/dL (30-55); Mean Corpuscular Hemoglobin 29.4 pg (27-33); Monocytes # 0.5 10^3/uL (0.2-0.9); Monocytes % 8.9 %; Neutrophils % 63.3 %; Nucleated Red Blood Cells % 0 %; Platelet Count 205 10^3/cmm (157-399); Red Blood Count 4.45 10^6/uL (3.85-5.65); Red Cell Distribution Width 13.5 % (12.1-15.1); White Blood Count 5.53 10^3/uL (3.29-11.43)
[2023-09-28 20:08] LABS: Alanine Aminotransferase 19 U/L (0-41); Alkaline Phosphatase 71 U/L (40-130); Anion Gap 13.8 (5-19); Aspartate Amino Transferase 18 U/L (0-40); Blood Urea Nitrogen 14 mg/dL (6-20); Calcium 8.7 mg/dL (8.5-10.5); Carbon Dioxide 26 mmol/L (22-29); Chloride 102 mmol/L (98-107); Creatinine Clr Calc Pharmacy 169.2103; Globulin 2.2 g/dL (1.3-4.6); Glomerular Filtration Rate 103.6 mL/min (90-130); Glucose 127 mg/dL (65-115); Osmolality Calculated 288 mOsm/kg (285-295); Potassium 3.8 mmol/L (3.5-5.1); Sodium 138 mmol/L (136-145); Total Bilirubin 0.5 mg/dL (0.15-1.2); Total Protein 6.2 g/dL (6.6-8.7)
[2023-09-28 20:09] LABS: Acetaminophen < 5.0 ug/mL (10-30); Alcohol Level < 10 mg/dL (0-10); Salicylate < 0.3 mg/dL (3-10)
[2023-09-28 20:22] LABS: Amphetamines Screen Urine Negative (Negative); Barbiturates Screen Urine Negative (Negative); Benzodiazepines Screen Urine Negative (Negative); Cocaine Screen Urine Negative (Negative); Opiate Screen Urine Negative (Negative); PCP Screen Urine Negative (Negative); THC Screen Urine Negative (Negative)
--- NOTE | 2023-09-28 20:25 | XRR_ITS ---
PROCEDURE INFORMATION: Exam: XR Right Shoulder Exam date and time: 09/28/2023 8:30 PM Age: 47 years old Clinical indication: Pain; Shoulder; Right; Additional info: Injury TECHNIQUE: Imaging protocol: Radiologic exam of the right shoulder. Views: 2 or more views. COMPARISON: No relevant prior studies available. FINDINGS: Bones/joints: Normal. Soft tissues: Normal. XR/XR shoulder RT min 2V* [id number] IMPRESSION: No acute findings.
--- NOTE | 2023-09-28 20:35 | PC.NURSE ---
spoke with public admin, Nallely Mcgee, gave permission to treat patient entirely.
[2023-09-28 20:53] VITALS: BP 128/82; PULSE 73; RESP 18; TEMP 36.6; O2SAT 93
[2023-09-28 21:54] VITALS: BP 128/82; PULSE 73; RESP 18; TEMP 36.6; O2SAT 93
[2023-09-29 06:00] VITALS: BP 107/73; PULSE 61; RESP 17; O2SAT 94
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
[2023-09-29 07:44] LABS: Glucose Point of Care 100 mg/dL (70-110)
[2023-09-29] MEDS: ibuprofen 600 mg Tablet PO (08:56)
[2023-09-29] MEDS: aspirin 81 mg EC Tablet PO (10:08)
[2023-09-29] MEDS: atorvastatin 40 mg Tablet 20 MG PO (10:08)
[2023-09-29] MEDS: lisinopril 10 mg Tablet PO (10:09)
[2023-09-29] MEDS: FUROsemide 40 mg Tablet PO (10:09)
[2023-09-29] MEDS: acetaminophen 325 mg Tablet 650 MG PO (12:11)
[2023-09-29 14:00] VITALS: BP 108/70; PULSE 50; RESP 16; TEMP 36.6; O2SAT 94
[2023-09-29 18:10] LABS: Glucose Point of Care 179 mg/dL (70-110)
[2023-09-29] MEDS: BuSPIRONE 10 mg Tablet 5 MG PO (18:19)
[2023-09-29] MEDS: metformin 500 mg Tablet PO (18:19)
[2023-09-29] MEDS: hyDROXYzine 25 mg Capsule 50 MG PO (19:45)
[2023-09-29 19:46] VITALS: PULSE 66
[2023-09-29] MEDS: quetiapine 100 mg Tablet 200 MG PO (20:26)
[2023-09-29] MEDS: PARoxetine 20 mg Tablet 10 MG PO (20:27)
[2023-09-29] MEDS: PARoxetine 20 mg Tablet 40 MG PO (20:27)
[2023-09-29] MEDS: mirtazapine 15 mg Tablet PO (20:27)
[2023-09-29 20:52] VITALS: BP 108/64; PULSE 50; RESP 20; TEMP 36.4; O2SAT 93
[2023-09-30 06:00] VITALS: BP 113/74; PULSE 71; RESP 18; O2SAT 95
[2023-09-30 08:02] LABS: Glucose Point of Care 121 mg/dL (70-110)
[2023-09-30] MEDS: BuSPIRONE 10 mg Tablet 5 MG PO (08:25)
[2023-09-30] MEDS: atorvastatin 40 mg Tablet 20 MG PO (08:25)
[2023-09-30] MEDS: metformin 500 mg Tablet PO (08:26)
[2023-09-30] MEDS: aspirin 81 mg EC Tablet PO (08:26)
[2023-09-30] MEDS: lisinopril 10 mg Tablet PO (08:26)
[2023-09-30] MEDS: FUROsemide 40 mg Tablet PO (08:26)
[2023-09-30] MEDS: ibuprofen 600 mg Tablet PO (08:29)
--- NOTE | 2023-09-30 12:14 | DCPLANNER ---
Cm printed IMM and was given to [facility] and copy placed in pts chart.
[2023-09-30] MEDS: acetaminophen 325 mg Tablet 650 MG PO (12:39)
--- NOTE | 2023-09-30 13:01 | P.NPUDS_ITS ---
Diagnoses at Discharge Discharge Diagnosis (1) Borderline intellectual functioning: Status: Acute (2) Mild intellectual disability: Status: Acute (3) Intermittent explosive disorder: Status: Acute (4) Suicidal ideation: Status: Resolved Reason for Visit Reason for Visit: Overdose, SI Involuntary Hold Information 96 Hour Hold: 96 Hour Involuntary Admission: No Mental Status Exam MSE Comments: This is an obese white male in hospital scrubs with limited grooming and eye contact. No abnormal movements except for mild psychomotor retardation. Cooperative with exam in no acute distress. Speech was slightly normal rate and volume. Mood described as better, affect euthymic with a lot of smiling possible nervous smiling. Thought process linear. Thought content: Patient denied suicidal or homicidal ideation but did report feeling suicidal when he took the pills/supplements, there were no delusions reported or noted, he denied any auditory or visual hallucinations. Attention and concentration were intact and memory appeared mostly reliable but none were formally tested. He is alert and oriented x 3. Insight and judgment appear limited, impulse control is limited versus impaired. Intellectual ability is limited versus impaired. Discharge Data Studies Completed and Pending: Completed Studies During Hospitalization Category Date Time Status XR shoulder RT mi n 2V* [id number] Routin e Exams 09/28/23 20:25 Completed Radiology Impressions Shoulder X-Ray 09/28/23 20:25 IMPRESSION: No acute findings. Laboratory Results WBC 5.53 10^3/uL (3.2 9-11.43) 09/28/23 19:35 RBC 4.45 10^6/uL (3.8 5-5.65) 09/28/23 19:35 Hgb 13.10 g/dL (11.27 -16.99) 09/28/23 19:35 Hct 39.6 % (37-53) 09/28/23 19:35 MCV 89.0 fl (82-101) 09/28/23 19:35 MCH 29.4 pg (27-33) 09/28/23 19:35 MCHC 33.1 g/dL (30-55) 09/28/23 19:35 RDW 13.5 % (12.1-15.1 ) 09/28/23 19:35 Plt Count 205 10^3/cmm (157 -399) 09/28/23 19:35 MPV 10.0 fL (7.4-10.4 ) 09/28/23 19:35 Neut % (Auto) 63.3 % 09/28/23 19:35 Lymph % (Auto) 25.3 % 09/28/23 19:35 Falls % (Auto) 8.9 % 09/28/23 19:35 Eos % (Auto) 1.4 % 09/28/23 19:35 Baso % (Auto) 0.7 % 09/28/23 19:35 Neut # (Auto) 3.50 10^3/uL (1.8 -7.7) 09/28/23 19:35 Lymph # (Auto) 1.4 10^3/uL (0.8- 4.8) 09/28/23 19:35 Falls # (Auto) 0.5 10^3/uL (0.2- 0.9) 09/28/23 19:35 Eos # (Auto) 0.1 10^3/uL (0.0- 0.8) 09/28/23 19:35 Baso # (Auto) 0.0 10^3/uL (0.0- 0.1) 09/28/23 19:35 Nucleated RBC % (a uto) 0 % 09/28/23 19:35 Nucleated RBCs # 0.0 /100WBC 09/28/23 19:35 Sodium 138 mmol/L (136-1 45) 09/28/23 19:35 Potassium 3.8 mmol/L (3.5-5 .1) 09/28/23 19:35 Chloride 102 mmol/L (98-10 7) 09/28/23 19:35 Carbon Dioxide 26 mmol/L (22-29) 09/28/23 19:35 Anion Gap 13.8 (5-19) 09/28/23 19:35 BUN 14 mg/dL (6-20) 09/28/23 19:35 Creatinine 0.8 mg/dL (0.7-1. 2) 09/28/23 19:35 GFR Calculation 103.6 mL/min (90- 130) 09/28/23 19:35 Glucose 127 mg/dL (65-115 ) H 09/28/23 19:35 POC Glucose 121 mg/dL (70-110 ) H 09/30/23 07:57 Calculated Osmolal ity 288 mOsm/kg (285- 295) 09/28/23 19:35 Calcium 8.7 mg/dL (8.5-10 .5) 09/28/23 19:35 Total Bilirubin 0.5 mg/dL (0.15-1 .2) 09/28/23 19:35 AST 18 U/L (0-40) 09/28/23 19:35 ALT 19 U/L (0-41) 09/28/23 19:35 Alkaline Phosphata se 71 U/L (40-130) 09/28/23 19:35 Total Protein 6.2 g/dL (6.6-8.7 ) L 09/28/23 19:35 Albumin 4.0 g/dL (3.5-5.2 ) 09/28/23 19:35 Globulin 2.2 g/dL (1.3-4.6 ) 09/28/23 19:35 Salicylates < 0.3 mg/dL (3-10 ) L 09/28/23 19:35 Urine Opiates Scre en Negative ng/mL (N egative) 09/28/23 20:04 Acetaminophen < 5.0 ug/mL (10-3 0) L 09/28/23 19:35 Ur Barbiturates Sc reen Negative ng/mL (N egative) 09/28/23 20:04 Ur Phencyclidine S crn Negative ng/mL (N egative) 09/28/23 20:04 Ur Amphetamines Sc reen Negative ng/mL (N egative) 09/28/23 20:04 U Benzodiazepines Scrn Negative ng/mL (N egative) 09/28/23 20:04 Urine Cocaine Scre en Negative ng/mL (N egative) 09/28/23 20:04 U Marijuana (THC) Screen Negative ng/mL (N egative) 09/28/23 20:04 Ethyl Alcohol < 10 mg/dL (0-10) 09/28/23 19:35 Vitals: Last Vital Signs Temp 97.5 F L 09/29/23 20:52 Pulse 71 09/30/23 06:00 Resp 18 09/30/23 06:00 BP 113/74 09/30/23 06:00 Pulse Ox 95 09/30/23 06:00 O2 Del Method CPAP 09/30/23 06:00 Discharge Plan Discharge Patient Disposition: Home Condition: Stable Prescriptions: Continued buspirone 5 mg tablet 5 mg PO BID Qty: 60 1RF paroxetine HCl [Paxil] 40 mg tablet 40 mg PO .HS Qty: 30 2RF Rx Instructions: Take with 10mg Benadryl 2 % gel 1 applic topical TID PRN (Reason: itching) Qty: 103 0RF mirtazapine 15 mg tablet 15 mg PO .HS Qty: 30 2RF quetiapine [Seroquel] 200 mg tablet 200 mg PO .HS Qty: 30 2RF furosemide 40 mg tablet 40 mg PO DAILY metformin 500 mg tablet 500 mg PO BID aspirin 81 mg Tablet,Delayed Release (Dr/Ec) 81 mg PO DAILY simvastatin 20 mg tablet 20 mg PO DAILY lisinopril 10 mg tablet 10 mg PO DAILY paroxetine HCl 10 mg tablet 10 mg PO BEDTIME Rx Instructions: take with 40mg Discharge Orders: Discharge Order (Routine); Ordered 09/30/23 Ordered By: Syed Monge Referrals: Annie Cohen PMHNP [Staff Physician] - 10/06/23 1:15 pm (Follow up) Raj Kent MD [Primary Care Provider] - 10/01/23 8:30 am (Follow up.) Discharge Diet: Regular Discharge Activity: Resume usual activity Patient Instructions: Opioid Safety Discharge Attestations NPU Time Spent in Discharge Care*: less than 30 min Specific Discharge Activities: Specific discharge activities: educating patient, discussing with casework specialist/social workers/dc planners, documenting/other paperwork and evaluating patient/reviewing data Coding Level of Care Code Acute Code for Chg Fwd Diagnoses Borderline intellectual functioning R41.83 Mild intellectual disability F70 Intermittent explosive disorder F63.81 Suicidal ideation R45.851
[2023-09-30 13:18] VITALS: BP 113/74; PULSE 71; RESP 18; O2SAT 95
[2023-09-30 13:39] VITALS: BP 124/94; PULSE 56; RESP 16; TEMP 36.5; O2SAT 96
== END 2023-09-30 13:52 | disposition home or self-care (01) | DRG 884 ==
LOC: ER 20:13 → NP 20:24
PROVIDERS: Admitting Provider Psychiatry & Neurology Psychiatry; Emergency Provider Emergency Medicine; PCP Family Medicine; Visit Provider Psychiatry & Neurology Psychiatry
DX: F70 Mild intellectual disabilities (principal); R45.851 Suicidal ideations; Z91.51 Personal history of suicidal behavior; F63.81 Intermittent explosive disorder; T45.2X2A Poisoning by vitamins, intentional self-harm, initial encounter; T39 Poisoning by, adverse effect of and underdosing of nonopioid analgesics, antipyretics and antirheumatics; Y92.9 Unspecified place or not applicable; Z87.891 Personal history of nicotine dependence; F32.9 Major depressive disorder, single episode, unspecified
CPT/HCPCS: 36415; 36416; 73030; 80053; 80306; 80307; 82962; 85025; 97150; 97165; 99285

== ENCOUNTER → 2023-10-04 11:19 | Outpatient (BNVA) | payer MEDICARE, MEDICAID, OTHER, SELFPAY | PROVIDERS: PCP Family Medicine; Visit Provider Nurse Practitioner Family | DX: M79.641 Pain in right hand (principal) | CPT/HCPCS: 73130 ==

== ENCOUNTER 2023-10-11 19:33 | Emergency (ER) | payer MEDICARE, MEDICAID, SELFPAY ==
[2023-10-11 19:34] VITALS: BP 177/150; PULSE 88; RESP 18; TEMP 36.7; O2SAT 92; BMI 47.5
--- NOTE | 2023-10-11 19:35 | ECG_ITS ---
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 Measurements Intervals [place] Rate: 87 P: 17 [place]: 160 QRS: 65 QRSD: 100 T: 35 QT: 361 QTc: 435 Interpretive Statements SINUS RHYTHM WITH FREQUENT VENTRICULAR PREMATURE COMPLEXES LOW QRS VOLTAGE [QRS DEFLECTION < 0.5/1.0 mV IN LIMB/CHEST LEADS] PATTERN CONSISTENT WITH PULMONARY DISEASE Compared to ECG 08/07/2023 17:58:40 Sinus bradycardia no longer present Indeterminate axis no longer present Myocardial infarct finding no longer present Electronically Signed On 10-12-2023 21:54:02 CDT by Franck Redman M.D. [id number]
--- NOTE | 2023-10-11 19:35 | XRR_ITS ---
PROCEDURE INFORMATION: Exam: XR Chest Exam date and time: 10/11/2023 7:51 PM Age: 47 years old Clinical indication: Pain; Shortness of breath; Chest pressure; Additional info: Cp TECHNIQUE: Imaging protocol: Radiologic exam of the chest. Views: 1 view. COMPARISON: CR (CHEST, ) 09/28/2023 8:30 PM FINDINGS: Lungs: Mild bilateral peribronchial thicking and/or mild increased perihilar linear markings suggesting bronchitis and/or viral pneumonitis and/or reactive airway disease. Pleural spaces: Unremarkable. No pleural effusion. No pneumothorax. Heart/Mediastinum: Unremarkable. No cardiomegaly. Bones/joints: Levoscoliosis. XR/XR chest 1V portable [id number] IMPRESSION: Mild bilateral peribronchial thicking and/or mild increased perihilar linear markings suggesting bronchitis and/or viral pneumonitis and/or reactive airway disease.
[2023-10-11 19:55] LABS: Basophils % 0.5 %; Eosinophils # 0.1 10^3/uL (0.0-0.8); Eosinophils % 1.2 %; Hematocrit 40.2 % (37-53); Lymphocytes # 1.6 10^3/uL (0.8-4.8); Lymphocytes % 27.4 %; Mean Corpuscular HGB Conc 33.3 g/dL (30-55); Mean Corpuscular Hemoglobin 29.6 pg (27-33); Mean Corpuscular Volume 88.7 fl (82-101); Mean Platelet Volume 10.2 fL (7.4-10.4); Monocytes # 0.4 10^3/uL (0.2-0.9); Monocytes % 6.7 %; Neutrophils # 3.84 10^3/uL (1.8-7.7); Nucleated Red Blood Cells % 0 %; Platelet Count 235 10^3/cmm (157-399); Red Blood Count 4.53 10^6/uL (3.85-5.65); Red Cell Distribution Width 13.3 % (12.1-15.1); White Blood Count 5.99 10^3/uL (3.29-11.43)
[2023-10-11 20:07] LABS: INR 0.95 (0.8-1.2)
[2023-10-11 20:12] LABS: Troponin(5th) Baseline 13 ng/L (0-15)
--- NOTE | 2023-10-11 20:16 | ED_ITS ---
HPI - Chest Pain 2 General: Chief Complaint: Chest Pain Stated Complaint: CP Time Seen by Provider: 10/11/23 19:34 Source: patient Mode of arrival: ambulatory Limitations: no limitations History of Present Illness: 47-year-old male is well-known to the ER has a history of intellectual disability also has a history of congestive heart failure he states that today has been having some chest pains along with shortness of breath. He states he taken a walk earlier today and the pain and dyspnea and worsened after. He states been a pressure type pain he rates it a 2 out of 10 currently did receive nitro and aspirin in route. Associated symptoms: Reports dyspnea; Deny abdominal pain, fever(s), nausea or vomiting Review of Systems 2 Const: Denies: fever(s), chills, body aches or change in appetite ENMT: Denies: throat pain or dental pain Card: Reports: chest pain Resp: Reports: dyspnea GI: Denies: abdominal pain, nausea, vomiting or diarrhea Musc: Denies: neck pain or back pain Skin/Breast: Denies: rash Neuro: Denies: headache(s) PFSH ED 2 PFSH: Medical History Moderate episode of recurrent major depressive disorder Psychiatric care Family History Brother Diabetes Denies family history of CAD (coronary artery disease) Congestive heart failure (CHF) Anemia Aneurysm Arrhythmia Atrial fibrillation TIA (transient ischemic attack) Heart disease Sudden cardiac Chronic kidney disease (CKD) Congenital heart disease Carotid artery disease Pulmonary embolism Cardiomyopathy Social History Smoking and tobacco/nicotine status: former use of tobacco/nicotine Alcohol intake: never Physical Exam 2 Const: COMMON NORMALS: no acute distress, patient oriented x3 and healthy appearing HENMT: COMMON NORMALS: normocephalic and atraumatic HEAD & SCALP: n ormocephalic and atraumatic Eye: COMMON NORMALS: Equal, round and reactive pupils present and EOMs intact bilaterally PUPIL: Yes Equal, round and reactive pupils present Neck/C-Spine: COMMON NORMALS: full ROM and supple Chest: COMMONS NORMALS: normal inspection of the chest and normal palpation of entire chest wall Resp: COMMON NORMALS: normal respiratory effort, No retractions, No use of accessory muscles and clear to auscultation bilaterally AUSCULTATION: clear to auscultation bilaterally Cardio: COMMON NORMALS: regular rate, regular rhythm and No murmurs present (Cardio) RATE: regular rate RHYTHM: regular rhythm GI: COMMON NORMALS: Normal to inspection, nondistended, normoactive bowel sounds present, Soft to palpation, non-tender and no masses PALPATION: Yes Soft to palpation Extremity: COMMON NORMALS: normal to inspection and full ROM Neuro: COMMON NORMALS: patient oriented x3, moves all extremities and no focal motor deficits Psych: COMMON NORMALS: mental status grossly normal, Normal thought process present and cooperative THOUGHT PROCESS: Normal thought process present Skin: COMMON NORMALS: no rashes or lesions noted and no wounds GENERAL SKIN EXAM: no rashes or lesions noted Course 2 Vital Signs: Vital signs: Vital Signs Temperature 98.1 F 10/11/23 19:34 Pulse Rate 70 10/11/23 21:00 Respiratory Rate 16 10/11/23 21:00 Blood Pressure 117/65 10/11/23 21:00 Pulse Oximetry 92 10/11/23 21:00 Oxygen Delivery Me thod Room Air 10/11/23 19:34 MDM - Chest Pain Medical Decision Making Patient presents with some chest pain has been well-appearing here his D-dimer is negative troponins are negative he is not requiring any oxygen here is no signs of acute coronary syndrome or pulm embolism patient stable for discharge follow-up PCP return if worsening Medical Records I reviewed the patient's medical records. Lab Data I reviewed the patient's lab results. 10/11/23 19:18 10/11/23 19:18 Radiology Impressions Chest X-Ray 10/11/23 19:35 IMPRESSION: Mild bilateral peribronchial thicking and/or mild increased perihilar linear markings suggesting bronchitis and/or viral pneumonitis and/or reactive airway disease. Laboratory Results WBC 5.99 10^3/uL (3.29-11.43) 10/11/23 19:18 RBC 4.53 10^6/uL (3.85-5.65) 10/11/23 19:18 Hgb 13.40 g/dL (11.27-16.99) 10/11/23 19:18 Hct 40.2 % (37-53) 10/11/23 19:18 MCV 88.7 fl (82-101) 10/11/23 19:18 MCH 29.6 pg (27-33) 10/11/23 19:18 MCHC 33.3 g/dL (30-55) 10/11/23 19:18 RDW 13.3 % (12.1-15.1) 10/11/23 19:18 Plt Count 235 10^3/cmm (157-399) 10/11/23 19:18 MPV 10.2 fL (7.4-10.4) 10/11/23 19:18 Neut % (Auto) 64.0 % 10/11/23 19:18 Lymph % (Auto) 27.4 % 10/11/23 19:18 [place] % (Auto) 6.7 % 10/11/23 19:18 Eos % (Auto) 1.2 % 10/11/23 19:18 Baso % (Auto) 0.5 % 10/11/23 19:18 Neut # (Auto) 3.84 10^3/uL (1.8-7.7) 10/11/23 19:18 Lymph # (Auto) 1.6 10^3/uL (0.8-4.8) 10/11/23 19:18 [place] # (Auto) 0.4 10^3/uL (0.2-0.9) 10/11/23 19:18 Eos # (Auto) 0.1 10^3/uL (0.0-0.8) 10/11/23 19:18 Baso # (Auto) 0.0 10^3/uL (0.0-0.1) 10/11/23 19:18 Nucleated RBC % (auto) 0 % 10/11/23 19:18 Nucleated RBCs # 0.0 /100WBC 10/11/23 19:18 PT 12.90 SECONDS (12.1-14.9) 10/11/23 19:18 INR 0.95 (0.8-1.2) 10/11/23 19:18 D-Dimer 0.35 ug/mLFEU (0-0.59) 10/11/23 19:18 Sodium 136 mmol/L (136-145) 10/11/23 19:18 Potassium 4.6 mmol/L (3.5-5.1) 10/11/23 19:18 Chloride 101 mmol/L (98-107) 10/11/23 19:18 Carbon Dioxide 23 mmol/L (22-29) 10/11/23 19:18 Anion Gap 16.6 (5-19) 10/11/23 19:18 BUN 13 mg/dL (6-20) 10/11/23 19:18 Creatinine 0.8 mg/dL (0.7-1.2) 10/11/23 19:18 GFR Calculation 103.6 mL/min (90-130) 10/11/23 19:18 Glucose 104 mg/dL (65-115) 10/11/23 19:18 Calculated Osmolality 282 mOsm/kg (285-295) L 10/11/23 19:18 Calcium 8.6 mg/dL (8.5-10.5) 10/11/23 19:18 Total Bilirubin 0.5 mg/dL (0.15-1.2) 10/11/23 19:18 AST 13 U/L (0-40) 10/11/23 19:18 ALT 12 U/L (0-41) 10/11/23 19:18 Alkaline Phosphatase 110 U/L (40-130) 10/11/23 19:18 Troponin T Baseline 13 ng/L (0-15) 10/11/23 19:18 Troponin T 120 Minute 9.81 ng/L (0-15) 10/11/23 21:25 Delta Troponin T -3.19 ABS# (0-10) L 10/11/23 21:25 NT-Pro-B Natriuret Pep < 36 pg/mL (0-125) 10/11/23 19:18 Total Protein 6.4 g/dL (6.6-8.7) L 10/11/23 19:18 Albumin 4.3 g/dL (3.5-5.2) 10/11/23 19:18 Globulin 2.1 g/dL (1.3-4.6) 10/11/23 19:18 Lipase 37 U/L (13-60) 10/11/23 19:18 No radiology studies performed this visit EKG Data EKG 1: I personally reviewed and interpreted this EKG as follows: EKG interpretation date: 10/11/23 EKG interpretation time: 19:44 Interpretation: nsr hr [address] elevation qrs 100 qtc 405 Discharge Plan Discharge Patient Disposition: Home Clinical Impression: Chest pain Condition: Stable Prescriptions: No Action buspirone 5 mg tablet 5 mg PO BID Qty: 60 1RF paroxetine HCl [Paxil] 40 mg tablet 40 mg PO .HS Qty: 30 2RF Rx Instructions: Take with 10mg Benadryl 2 % gel 1 applic topical TID PRN (Reason: itching) Qty: 103 0RF paroxetine HCl 10 mg tablet 10 mg PO BEDTIME Qty: 30 2RF Rx Instructions: take with 40mg quetiapine [Seroquel] 50 mg tablet 50 mg PO BID Qty: 60 2RF cetirizine [All Day Allergy (cetirizine)] 10 mg tablet 10 mg PO DAILY PRN (Reason: allergy symptoms) Qty: 60 0RF triamcinolone acetonide 0.1 % cream 1 applic topical BID 7 Days Qty: 30 0RF Rx Instructions: Apply to affected area as directed. mirtazapine 15 mg tablet 15 mg PO .HS Qty: 30 2RF quetiapine [Seroquel] 200 mg tablet 200 mg PO .HS Qty: 30 2RF furosemide 40 mg tablet 40 mg PO DAILY metformin 500 mg tablet 500 mg PO BID aspirin 81 mg Tablet,Delayed Release (Dr/Ec) 81 mg PO DAILY simvastatin 20 mg tablet 20 mg PO DAILY lisinopril 10 mg tablet 10 mg PO DAILY Discharge Orders: Discharge ED (Routine); Ordered 10/11/23 Ordered By: Keyana Mcmillan Referrals: Raj Kent MD [Primary Care Provider] - Discharge Diet: Advance as tolerated Discharge Activity: Resume usual activity Patient Instructions: Chest Pain (ED) Coding Level of Care Code ED Distribution Estimator for Nathan Agudelo
[2023-10-11 20:22] LABS: Alanine Aminotransferase 12 U/L (0-41); Albumin Level 4.3 g/dL (3.5-5.2); Alkaline Phosphatase 110 U/L (40-130); Anion Gap 16.6 (5-19); Aspartate Amino Transferase 13 U/L (0-40); Blood Urea Nitrogen 13 mg/dL (6-20); Calcium 8.6 mg/dL (8.5-10.5); Carbon Dioxide 23 mmol/L (22-29); Chloride 101 mmol/L (98-107); Creatinine Clr Calc Pharmacy 177.7056; Globulin 2.1 g/dL (1.3-4.6); Glomerular Filtration Rate 103.6 mL/min (90-130); Glucose 104 mg/dL (65-115); Lipase 37 U/L (13-60); NT Pro B Type Natriuretic Pept < 36 pg/mL (0-125); Osmolality Calculated 282 mOsm/kg (285-295); Potassium 4.6 mmol/L (3.5-5.1); Sodium 136 mmol/L (136-145); Total Bilirubin 0.5 mg/dL (0.15-1.2); Total Protein 6.4 g/dL (6.6-8.7)
[2023-10-11 20:34] VITALS: BP 124/72; PULSE 88; RESP 20; O2SAT 91
[2023-10-11 20:37] LABS: D Dimer 0.35 ug/mLFEU (0-0.59)
[2023-10-11 21:00] VITALS: BP 117/65; PULSE 70; RESP 16; O2SAT 92
[2023-10-11 21:30] VITALS: BP 116/64; PULSE 53; RESP 18; O2SAT 92
[2023-10-11 21:53] LABS: Troponin 5 2HR 9.81 ng/L (0-15)
[2023-10-11 21:56] LABS: Troponin 5 2HR Delta -3.19 ABS# (0-10)
[2023-10-11 22:00] VITALS: BP 123/74; PULSE 62; RESP 20; O2SAT 91
[2023-10-11 22:30] VITALS: BP 119/76; PULSE 63; RESP 20; O2SAT 92
== END 2023-10-11 22:50 | disposition home or self-care (01) ==
PROVIDERS: Emergency Provider Emergency Medicine; PCP Family Medicine
DX: R07.9 Chest pain, unspecified (principal); Z79.82 Long term (current) use of aspirin; Z79.84 Long term (current) use of oral hypoglycemic drugs; Z87.891 Personal history of nicotine dependence
CPT/HCPCS: 36415; 71045; 80053; 83690; 83880; 84484; 85025; 85378; 85610; 93005; 99285

== ENCOUNTER 2023-10-13 18:51 | Emergency (ER) | payer MEDICARE, MEDICAID, SELFPAY ==
--- NOTE | 2023-10-13 18:49 | ECG_ITS ---
[facility] Test Date: 2023-10-13 Pat Name: Ronnie Guzman Department: Room: Gender: Male [employer] Att[employer]: : 1975 Requested By: Alvarado Prakash Order Number: [id number] Jamila MD: Yaya Cadena M.D. Measurements Intervals [place] Rate: 76 P: 13 [place]: 176 QRS: 86 QRSD: 92 T: 59 QT: 355 QTc: 401 Interpretive Statements SINUS RHYTHM LOW QRS VOLTAGE [QRS DEFLECTION < 0.5/1.0 mV IN LIMB/CHEST LEADS] ANTEROSEPTAL MYOCARDIAL INFARCTION , OF INDETERMINATE AGE [40+ ms Q WAVE IN V1-V4] Compared to ECG 10/11/2023 19:44:27 Myocardial infarct finding still present ST (T wave) deviation now present Ventricular premature complex(es) no longer present Electronically Signed On 10-13-2023 19:40:06 CDT by Yaya Cadena M.D. [id number]
[2023-10-13 18:52] VITALS: BP 104/64; PULSE 58; RESP 16; TEMP 36.8; O2SAT 96; BMI 43.7
--- NOTE | 2023-10-13 18:56 | XRR_ITS ---
PROCEDURE INFORMATION: Exam: XR Chest Exam date and time: 10/13/2023 7:36 PM Age: 47 years old Clinical indication: Dyspnea/cough TECHNIQUE: Imaging protocol: Radiologic exam of the chest. Views: 1 view. COMPARISON: CR (CHEST, ) 10/11/2023 7:51 PM FINDINGS: Lungs: Unremarkable. No consolidation. Pleural spaces: Unremarkable. No pleural effusion. No pneumothorax. Heart/Mediastinum: Unremarkable. No cardiomegaly. Bones/joints: Unremarkable. XR/XR chest 1V portable [id number] IMPRESSION: No acute findings.
--- NOTE | 2023-10-13 18:59 | PC.NURSE ---
Pt on bedside radiographer cardiac catheterization
[2023-10-13 19:05] LABS: Basophils % 0.4 %; Eosinophils # 0.1 10^3/uL (0.0-0.8); Eosinophils % 1.5 %; Hematocrit 39.6 % (37-53); Lymphocytes # 1.6 10^3/uL (0.8-4.8); Lymphocytes % 28.6 %; Mean Corpuscular HGB Conc 33.6 g/dL (30-55); Mean Corpuscular Hemoglobin 29.9 pg (27-33); Mean Platelet Volume 10.1 fL (7.4-10.4); Monocytes # 0.4 10^3/uL (0.2-0.9); Monocytes % 7.7 %; Neutrophils # 3.36 10^3/uL (1.8-7.7); Neutrophils % 61.6 %; Nucleated Red Blood Cells % 0 %; Platelet Count 220 10^3/cmm (157-399); Red Blood Count 4.45 10^6/uL (3.85-5.65); Red Cell Distribution Width 13.5 % (12.1-15.1); White Blood Count 5.45 10^3/uL (3.29-11.43)
--- NOTE | 2023-10-13 19:17 | W.ED.CHESTPA ---
Documented by User: Alvarado Khoury DO 10/18/23 05:55 HPI - Chest Pain General: Chief Complaint: Chest Pain Stated Complaint: CP Time Seen by Provider: 10/13/23 18:54 Source: patient Mode of arrival: EMS History of Present Illness: 47 yo present to the ER via EMS with intermittent chest pain. He was seen 2 days ago with complaint of chest pain he also has some back discomfort similar to what he had a couple of days ago. He localizes the pain to the left substernal region radiating to his back he has not noticed anything over the last 3 days it seems to exacerbate or relieve it he does report that is little bit worse tonight. Patient has a history of coronary artery disease. Patient had a Lexiscan sestamibi stress test with no evidence of coronary ischemia this was done on July 21, 2023, it did show a fixed perfusion defect in the distribution of the RCA/circumflex without reversibility. According to old records from the cardiology clinic she previously had 2 stents placed at a hospital in [place] in 2016. MD complaint: chest pain Pertinent past history: coronary artery disease Timing of current episode: episodic Onset: during rest Pain location: substernal Pain radiation: none Associated symptoms: Deny abdominal pain, diaphoresis, dyspnea, fever(s), leg edema, nausea, palpitations, sense of impending doom, syncope or vomiting Review of Systems Const: Denies: fever(s), chills, fatigue, malaise or diaphoresis Card: Reports: chest pain; Denies: palpitations, irregular heart rhythm, edema, swelling of feet/ankles or syncope Resp: Denies: dyspnea GI: Denies: abdominal pain, nausea or vomiting : Denies: flank pain, dysuria, urinary frequency or urinary urgency Musc: Denies: neck pain or back pain Skin/Breast: Denies: rash PFSH ED PFSH: Medical History Moderate episode of recurrent major depressive disorder Psychiatric care Family History Brother Diabetes Denies family history of CAD (coronary artery disease) Congestive heart failure (CHF) Anemia Aneurysm Arrhythmia Atrial fibrillation TIA (transient ischemic attack) Heart disease Sudden cardiac Chronic kidney disease (CKD) Congenital heart disease Carotid artery disease Pulmonary embolism Cardiomyopathy Social History Smoking and tobacco/nicotine status: former use of tobacco/nicotine Alcohol intake: never Physical Exam Const: COMMON NORMALS: no acute distress GENERAL APPEARANCE: cooperative and comfortable ORIENTATION/CONSCIOUSNESS: Yes awake, Yes oriented to person, Yes oriented to place and Yes oriented to time HENMT: COMMON NORMALS: normocephalic, atraumatic and hearing grossly normal bilaterally HEAD & SCALP: normocephalic and atraumatic Resp: COMMON NORMALS: normal respiratory effort, No retractions, No use of accessory muscles and clear to auscultation bilaterally AUSCULTATION: clear to auscultation bilaterally Cardio: COMMON NORMALS: regular rate, regular rhythm and No murmurs present (Cardio) RATE: regular rate RHYTHM: regular rhythm GI: COMMON NORMALS: Soft to palpation and No hepatosplenomegaly present AUSCULTATION: Yes normoactive bowel sounds PALPATION: Yes Soft to palpation, No Tenderness to palpation present (GI), No Guarding due to palpation present (GI) and Yes No hepatosplenomegaly present Extremity: COMMON NORMALS: normal to inspection, capillary refill normal, no clubbing, cyanosis or edema, no calf tenderness and no pedal edema Neuro: SENSORIUM/ORIENTATION: Yes oriented to person, Yes oriented to place and Yes oriented to time Skin: COMMON NORMALS: no rashes or lesions noted GENERAL SKIN EXAM: no rashes or lesions noted Course Vital Signs: Vital signs: Vital Signs Temperature 98.3 F 10/13/23 18:52 Pulse Rate 59 L 10/13/23 21:20 Respiratory Rate 16 10/13/23 21:20 Blood Pressure 116/85 10/13/23 21:20 Pulse Oximetry 94 10/13/23 21:20 Oxygen Delivery Me thod Room Air 10/13/23 20:00 MDM - Chest Pain Medical Decision Making Care signed out to Dr. Augustin at change of shift. See final notes for diagnosis and disposition. Medical Records I reviewed the patient's medical records. Lab Data I reviewed the patient's lab results. 10/13/23 18:40 10/13/23 18:40 Radiology Impressions Chest X-Ray 10/13/23 18:56 IMPRESSION: No acute findings. Laboratory Results WBC 5.45 10^3/uL (3.29-11.43) 10/13/23 18:40 RBC 4.45 10^6/uL (3.85-5.65) 10/13/23 18:40 Hgb 13.30 g/dL (11.27-16.99) 10/13/23 18:40 Hct 39.6 % (37-53) 10/13/23 18:40 MCV 89.0 fl (82-101) 10/13/23 18:40 MCH 29.9 pg (27-33) 10/13/23 18:40 MCHC 33.6 g/dL (30-55) 10/13/23 18:40 RDW 13.5 % (12.1-15.1) 10/13/23 18:40 Plt Count 220 10^3/cmm (157-399) 10/13/23 18:40 MPV 10.1 fL (7.4-10.4) 10/13/23 18:40 Neut % (Auto) 61.6 % 10/13/23 18:40 Lymph % (Auto) 28.6 % 10/13/23 18:40 [place] % (Auto) 7.7 % 10/13/23 18:40 Eos % (Auto) 1.5 % 10/13/23 18:40 Baso % (Auto) 0.4 % 10/13/23 18:40 Neut # (Auto) 3.36 10^3/uL (1.8-7.7) 10/13/23 18:40 Lymph # (Auto) 1.6 10^3/uL (0.8-4.8) 10/13/23 18:40 [place] # (Auto) 0.4 10^3/uL (0.2-0.9) 10/13/23 18:40 Eos # (Auto) 0.1 10^3/uL (0.0-0.8) 10/13/23 18:40 Baso # (Auto) 0.0 10^3/uL (0.0-0.1) 10/13/23 18:40 Nucleated RBC % (auto) 0 % 10/13/23 18:40 Nucleated RBCs # 0.0 /100WBC 10/13/23 18:40 Sodium 137 mmol/L (136-145) 10/13/23 18:40 Potassium 4.3 mmol/L (3.5-5.1) 10/13/23 18:40 Chloride 101 mmol/L (98-107) 10/13/23 18:40 Carbon Dioxide 25 mmol/L (22-29) 10/13/23 18:40 Anion Gap 15.3 (5-19) 10/13/23 18:40 BUN 11 mg/dL (6-20) 10/13/23 18:40 Creatinine 0.7 mg/dL (0.7-1.2) 10/13/23 18:40 GFR Calculation 120.9 mL/min (90-130) 10/13/23 18:40 Glucose 97 mg/dL (65-115) 10/13/23 18:40 Calculated Osmolality 283 mOsm/kg (285-295) L 10/13/23 18:40 Calcium 8.7 mg/dL (8.5-10.5) 10/13/23 18:40 Total Bilirubin 0.5 mg/dL (0.15-1.2) 10/13/23 18:40 AST 14 U/L (0-40) 10/13/23 18:40 ALT 11 U/L (0-41) 10/13/23 18:40 Alkaline Phosphatase 84 U/L (40-130) 10/13/23 18:40 Troponin T Baseline 10 ng/L (0-15) 10/13/23 18:40 Troponin T 120 Minute 9.93 ng/L (0-15) 10/13/23 20:35 Delta Troponin T -0.07 ABS# (0-10) L 10/13/23 20:35 Total Protein 6.3 g/dL (6.6-8.7) L 10/13/23 18:40 Albumin 4.3 g/dL (3.5-5.2) 10/13/23 18:40 Globulin 2.0 g/dL (1.3-4.6) 10/13/23 18:40 Urine Color Yellow (Yellow) 10/13/23 20:37 Urine Appearance Clear (CLEAR) 10/13/23 20:37 Urine pH 6.5 (5-7) 10/13/23 20:37 Ur Specific [place] 1.010 (1.005-1.030) 10/13/23 20:37 Urine Protein Neg (Negative) 10/13/23 20:37 Urine Glucose (UA) Norm (Normal) 10/13/23 20:37 Urine Ketones Negative (Negative) 10/13/23 20:37 Urine Blood Neg (Negative) 10/13/23 20:37 Urine Nitrate Negative (Negative) 10/13/23 20:37 Urine Bilirubin Neg (Negative) 10/13/23 20:37 Urine Urobilinogen Norm mg/dL (Negative) 10/13/23 20:37 Ur Leukocyte Esterase Negative (Negative) 10/13/23 20:37 Discharge Plan Discharge Patient Disposition: Home Clinical Impression: Atypical chest pain Condition: Stable Prescriptions: No Action buspirone 5 mg tablet 5 mg PO BID Qty: 60 1RF paroxetine HCl [Paxil] 40 mg tablet 40 mg PO .HS Qty: 30 2RF Rx Instructions: Take with 10mg Benadryl 2 % gel 1 applic topical TID PRN (Reason: itching) Qty: 103 0RF paroxetine HCl 10 mg tablet 10 mg PO BEDTIME Qty: 30 2RF Rx Instructions: take with 40mg quetiapine [Seroquel] 50 mg tablet 50 mg PO BID Qty: 60 2RF cetirizine [All Day Allergy (cetirizine)] 10 mg tablet 10 mg PO DAILY PRN (Reason: allergy symptoms) Qty: 60 0RF triamcinolone acetonide 0.1 % cream 1 applic topical BID 7 Days Qty: 30 0RF Rx Instructions: Apply to affected area as directed. mirtazapine 15 mg tablet 15 mg PO .HS Qty: 30 2RF quetiapine [Seroquel] 200 mg tablet 200 mg PO .HS Qty: 30 2RF furosemide 40 mg tablet 40 mg PO DAILY metformin 500 mg tablet 500 mg PO BID aspirin 81 mg Tablet,Delayed Release (Dr/Ec) 81 mg PO DAILY simvastatin 20 mg tablet 20 mg PO DAILY lisinopril 10 mg tablet 10 mg PO DAILY ketorolac 10 mg tablet 10 mg PO TID PRN (Reason: pain) Qty: 10 0RF Discharge Orders: Discharge ED (Routine); Ordered 10/13/23 Ordered By: Alonso Augustin Referrals: Raj Kent MD [Primary Care Provider] - 1 week Patient Instructions: Chest Pain (ED) Activity Restrictions/Additional Instructions: Your evaluation was essentially benign did not reveal an acute cardiac cause of your chest pain. Please follow-up with your family practice physician in the next 7 to 10 days for further evaluation and treatment. If your chest pain returns please feel free to return back to the ER. Coding Level of Care Code ED Interceptor Operator for Chg Fwd Documented by User: Alonso Augustin DO 10/14/23 03:15 HPI - Chest Pain General: Chief Complaint: Chest Pain Stated Complaint: CP Time Seen by Provider: 10/13/23 18:54 PFSH ED PFSH: Medical History Moderate episode of recurrent major depressive disorder Psychiatric care Family History Brother Diabetes Denies family history of CAD (coronary artery disease) Congestive heart failure (CHF) Anemia Aneurysm Arrhythmia Atrial fibrillation TIA (transient ischemic attack) Heart disease Sudden cardiac Chronic kidney disease (CKD) Congenital heart disease Carotid artery disease Pulmonary embolism Cardiomyopathy Social History Smoking and tobacco/nicotine status: former use of tobacco/nicotine Alcohol intake: never Course Vital Signs: Vital signs: Vital Signs Temperature 98.3 F 10/13/23 18:52 Pulse Rate 59 L 10/13/23 21:20 Respiratory Rate 16 10/13/23 21:20 Blood Pressure 116/85 10/13/23 21:20 Pulse Oximetry 94 10/13/23 21:20 Oxygen Delivery Wi thod Room Air 10/13/23 20:00 MDM - Chest Pain Medical Decision Making Care signed out to Dr. Augustin at change of shift. See final notes for diagnosis and disposition. Care transferred over to wa at shift change, lab work was reviewed including serial EKGs, serial troponins, chest x-ray, physical exam reviewed and discussed these results with the patient and caregiver. No acute cardiac cause was found for patient's chest pain, it is felt to be more than likely noncardiac in nature. Patient be discharged back to his facility and should follow-up with his PCP in 7 to 10 days. Lab Data 10/13/23 18:40 10/13/23 18:40 Radiology Impressions Chest X-Ray 10/13/23 18:56 IMPRESSION: No acute findings. Laboratory Results WBC 5.45 10^3/uL (3.29-11.43) 10/13/23 18:40 RBC 4.45 10^6/uL (3.85-5.65) 10/13/23 18:40 Hgb 13.30 g/dL (11.27-16.99) 10/13/23 18:40 Hct 39.6 % (37-53) 10/13/23 18:40 MCV 89.0 fl (82-101) 10/13/23 18:40 MCH 29.9 pg (27-33) 10/13/23 18:40 MCHC 33.6 g/dL (30-55) 10/13/23 18:40 RDW 13.5 % (12.1-15.1) 10/13/23 18:40 Plt Count 220 10^3/cmm (157-399) 10/13/23 18:40 MPV 10.1 fL (7.4-10.4) 10/13/23 18:40 Neut % (Auto) 61.6 % 10/13/23 18:40 Lymph % (Auto) 28.6 % 10/13/23 18:40 [place] % (Auto) 7.7 % 10/13/23 18:40 Eos % (Auto) 1.5 % 10/13/23 18:40 Baso % (Auto) 0.4 % 10/13/23 18:40 Neut # (Auto) 3.36 10^3/uL (1.8-7.7) 10/13/23 18:40 Lymph # (Auto) 1.6 10^3/uL (0.8-4.8) 10/13/23 18:40 [place] # (Auto) 0.4 10^3/uL (0.2-0.9) 10/13/23 18:40 Eos # (Auto) 0.1 10^3/uL (0.0-0.8) 10/13/23 18:40 Baso # (Auto) 0.0 10^3/uL (0.0-0.1) 10/13/23 18:40 Nucleated RBC % (auto) 0 % 10/13/23 18:40 Nucleated RBCs # 0.0 /100WBC 10/13/23 18:40 Sodium 137 mmol/L (136-145) 10/13/23 18:40 Potassium 4.3 mmol/L (3.5-5.1) 10/13/23 18:40 Chloride 101 mmol/L (98-107) 10/13/23 18:40 Carbon Dioxide 25 mmol/L (22-29) 10/13/23 18:40 Anion Gap 15.3 (5-19) 10/13/23 18:40 BUN 11 mg/dL (6-20) 10/13/23 18:40 Creatinine 0.7 mg/dL (0.7-1.2) 10/13/23 18:40 GFR Calculation 120.9 mL/min (90-130) 10/13/23 18:40 Glucose 97 mg/dL (65-115) 10/13/23 18:40 Calculated Osmolality 283 mOsm/kg (285-295) L 10/13/23 18:40 Calcium 8.7 mg/dL (8.5-10.5) 10/13/23 18:40 Total Bilirubin 0.5 mg/dL (0.15-1.2) 10/13/23 18:40 AST 14 U/L (0-40) 10/13/23 18:40 ALT 11 U/L (0-41) 10/13/23 18:40 Alkaline Phosphatase 84 U/L (40-130) 10/13/23 18:40 Troponin T Baseline 10 ng/L (0-15) 10/13/23 18:40 Troponin T 120 Minute 9.93 ng/L (0-15) 10/13/23 20:35 Delta Troponin T -0.07 ABS# (0-10) L 10/13/23 20:35 Total Protein 6.3 g/dL (6.6-8.7) L 10/13/23 18:40 Albumin 4.3 g/dL (3.5-5.2) 10/13/23 18:40 Globulin 2.0 g/dL (1.3-4.6) 10/13/23 18:40 Urine Color Yellow (Yellow) 10/13/23 20:37 Urine Appearance Clear (CLEAR) 10/13/23 20:37 Urine pH 6.5 (5-7) 10/13/23 20:37 Ur Specific [place] 1.010 (1.005-1.030) 10/13/23 20:37 Urine Protein Neg (Negative) 10/13/23 20:37 Urine Glucose (UA) Norm (Normal) 10/13/23 20:37 Urine Ketones Negative (Negative) 10/13/23 20:37 Urine Blood Neg (Negative) 10/13/23 20:37 Urine Nitrate Negative (Negative) 10/13/23 20:37 Urine Bilirubin Neg (Negative) 10/13/23 20:37 Urine Urobilinogen Norm mg/dL (Negative) 10/13/23 20:37 Ur Leukocyte Esterase Negative (Negative) 10/13/23 20:37 All radiology interpretation(s) finalized by discharge Discharge Plan Discharge Patient Disposition: Home Clinical Impression: Atypical chest pain Condition: Stable Prescriptions: No Action buspirone 5 mg tablet 5 mg PO BID Qty: 60 1RF paroxetine HCl [Paxil] 40 mg tablet 40 mg PO .HS Qty: 30 2RF Rx Instructions: Take with 10mg Benadryl 2 % gel 1 applic topical TID PRN (Reason: itching) Qty: 103 0RF paroxetine HCl 10 mg tablet 10 mg PO BEDTIME Qty: 30 2RF Rx Instructions: take with 40mg quetiapine [Seroquel] 50 mg tablet 50 mg PO BID Qty: 60 2RF cetirizine [All Day Allergy (cetirizine)] 10 mg tablet 10 mg PO DAILY PRN (Reason: allergy symptoms) Qty: 60 0RF triamcinolone acetonide 0.1 % cream 1 applic topical BID 7 Days Qty: 30 0RF Rx Instructions: Apply to affected area as directed. mirtazapine 15 mg tablet 15 mg PO .HS Qty: 30 2RF quetiapine [Seroquel] 200 mg tablet 200 mg PO .HS Qty: 30 2RF furosemide 40 mg tablet 40 mg PO DAILY metformin 500 mg tablet 500 mg PO BID aspirin 81 mg Tablet,Delayed Release (Dr/Ec) 81 mg PO DAILY simvastatin 20 mg tablet 20 mg PO DAILY lisinopril 10 mg tablet 10 mg PO DAILY ketorolac 10 mg tablet 10 mg PO TID PRN (Reason: pain) Qty: 10 0RF Discharge Orders: Discharge ED (Routine); Ordered 10/13/23 Ordered By: Alonso Augustin Referrals: Raj Kent MD [Primary Care Provider] - 1 week Patient Instructions: Chest Pain (ED) Activity Restrictions/Additional Instructions: Your evaluation was essentially benign did not reveal an acute cardiac cause of your chest pain. Please follow-up with your family practice physician in the next 7 to 10 days for further evaluation and treatment. If your chest pain returns please feel free to return back to the ER. Coding Level of Care Code ED Interceptor Operator for Nathan Agudelo
[2023-10-13 19:28] VITALS: BP 120/75; PULSE 54; RESP 20; O2SAT 93
[2023-10-13 19:28] LABS: Troponin(5th) Baseline 10 ng/L (0-15)
[2023-10-13 19:29] LABS: Alanine Aminotransferase 11 U/L (0-41); Albumin Level 4.3 g/dL (3.5-5.2); Alkaline Phosphatase 84 U/L (40-130); Anion Gap 15.3 (5-19); Aspartate Amino Transferase 14 U/L (0-40); Blood Urea Nitrogen 11 mg/dL (6-20); Calcium 8.7 mg/dL (8.5-10.5); Carbon Dioxide 25 mmol/L (22-29); Chloride 101 mmol/L (98-107); Creatinine Clr Calc Pharmacy 193.7183; Glomerular Filtration Rate 120.9 mL/min (90-130); Glucose 97 mg/dL (65-115); Osmolality Calculated 283 mOsm/kg (285-295); Potassium 4.3 mmol/L (3.5-5.1); Sodium 137 mmol/L (136-145); Total Bilirubin 0.5 mg/dL (0.15-1.2); Total Protein 6.3 g/dL (6.6-8.7)
[2023-10-13 20:00] VITALS: BP 127/86; PULSE 55; O2SAT 96
[2023-10-13 20:48] LABS: Add Urine Microscopic? NO; Charge for UA Resulting for Rev
[2023-10-13 20:50] LABS: Bilirubin Urine Neg (Negative); Blood Urine Neg (Negative); Glucose Urine UA Norm (Normal); Ketones Urine Negative (Negative); Leukocyte Esterase Urine Negative (Negative); Nitrate Urine Negative (Negative); Protein Urine Neg (Negative); Urine Appearance Clear (CLEAR); Urine Color Yellow (Yellow); Urobilinogen Urine Norm (Negative); pH Urine 6.5 (5-7)
[2023-10-13 20:58] LABS: Troponin 5 2HR 9.93 ng/L (0-15); Troponin 5 2HR Delta -0.07 ABS# (0-10)
[2023-10-13 21:20] VITALS: BP 116/85; PULSE 59; RESP 16; O2SAT 94
== END 2023-10-13 21:22 | disposition home or self-care (01) ==
PROVIDERS: Emergency Provider Family Medicine; PCP Family Medicine
DX: R07.89 Other chest pain (principal); Z79.82 Long term (current) use of aspirin; Z79.84 Long term (current) use of oral hypoglycemic drugs; Z87.891 Personal history of nicotine dependence
CPT/HCPCS: 36415; 71045; 80053; 81003; 84484; 85025; 93005; 99285

== ENCOUNTER 2023-10-16 20:59 | Emergency (ER) | payer MEDICARE, MEDICAID, SELFPAY ==
--- NOTE | 2023-10-16 20:58 | ECG_ITS ---
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 Measurements Intervals [place] Rate: 82 P: 35 MD: 191 QRS: 24 QRSD: 101 T: 14 QT: 395 QTc: 461 Interpretive Statements SINUS RHYTHM WITH FREQUENT VENTRICULAR PREMATURE COMPLEXES INDETERMINATE AXIS LOW QRS VOLTAGE [QRS DEFLECTION < 0.5/1.0 mV IN LIMB/CHEST LEADS] PATTERN CONSISTENT WITH PULMONARY DISEASE MINIMAL ST DEPRESSION [0.025+ mV ST DEPRESSION] Compared to ECG 10/13/2023 18:49:57 Ventricular premature complex(es) now present Indeterminate axis now present ST (T wave) deviation now present Myocardial infarct finding no longer present Electronically Signed On 10-17-2023 19:20:45 CDT by Bobo Bird M.D. [id number]
[2023-10-16 21:00] VITALS: BP 118/84; PULSE 49; RESP 18; TEMP 37.1; O2SAT 94; BMI 38.0
[2023-10-16 21:14] LABS: Basophils % 0.4 %; Eosinophils # 0.1 10^3/uL (0.0-0.8); Eosinophils % 1.6 %; Hematocrit 38.1 % (37-53); Lymphocytes # 1.6 10^3/uL (0.8-4.8); Lymphocytes % 29.5 %; Mean Corpuscular HGB Conc 33.9 g/dL (30-55); Mean Corpuscular Hemoglobin 29.8 pg (27-33); Mean Platelet Volume 10.4 fL (7.4-10.4); Monocytes # 0.4 10^3/uL (0.2-0.9); Monocytes % 7.7 %; Neutrophils # 3.37 10^3/uL (1.8-7.7); Neutrophils % 60.6 %; Nucleated Red Blood Cells % 0 %; Platelet Count 213 10^3/cmm (157-399); Red Blood Count 4.33 10^6/uL (3.85-5.65); Red Cell Distribution Width 13.2 % (12.1-15.1); White Blood Count 5.56 10^3/uL (3.29-11.43)
--- NOTE | 2023-10-16 21:19 | W.ED.CHESTPA ---
HPI - Chest Pain General: Chief Complaint: Chest Pain Stated Complaint: CP Time Seen by Provider: 10/16/23 21:02 History of Present Illness: 47-year-old male with a history of coronary disease. He presents with chest discomfort. He has presented with chest discomfort twice previously this week. He says that it feels like an elephant is sitting on his chest. He is short of breath. He denies cough. Denies fever. Pain is to the left side of his chest, somewhat worse with breathing. Associated symptoms: Reports abdominal pain, dyspnea, nausea and palpitations; Deny fever(s) or vomiting Review of Systems Const: Denies: fever(s) ENMT: Denies: throat pain Card: Reports: chest pain and palpitations Resp: Reports: dyspnea; Denies: productive cough or non-productive cough GI: Reports: abdominal pain and nausea; Denies: vomiting PFSH ED PFSH: Medical History Moderate episode of recurrent major depressive disorder Psychiatric care Family History Brother Diabetes Denies family history of CAD (coronary artery disease) Congestive heart failure (CHF) Anemia Aneurysm Arrhythmia Atrial fibrillation TIA (transient ischemic attack) Heart disease Sudden cardiac Chronic kidney disease (CKD) Congenital heart disease Carotid artery disease Pulmonary embolism Cardiomyopathy Social History Smoking and tobacco/nicotine status: former use of tobacco/nicotine Alcohol intake: never Physical Exam Const: GENERAL APPEARANCE: cooperative; not ill appearing and not frail appearing HENMT: COMMON NORMALS: normocephalic, atraumatic and Normal external nose present HEAD & SCALP: normocephalic and atraumatic FACE & SINUS: normal facial exam and face symmetric NOSE: Normal external nose present Eye: COMMON NORMALS: Equal, round and reactive pupils present and EOMs intact bilaterally PUPIL: Yes Equal, round and reactive pupils present Neck/C-Spine: GENERAL: Yes trachea midline Chest: CHEST: Yes Symmetrical chest wall rise Resp: COMMON NORMALS: normal respiratory effort, No retractions, No use of accessory muscles and clear to auscultation bilaterally AUSCULTATION: clear to auscultation bilaterally Cardio: COMMON NORMALS: regular rate and regular rhythm RATE: regular rate RHYTHM: regular rhythm GI: COMMON NORMALS: Normal to inspection, nondistended, normoactive bowel sounds present Extremity: COMMON NORMALS: no pedal edema Neuro: CIERA COMA SCALE: document GCS findings [place] coma scale eye opening: Spontaneous [place] coma scale verbal response: Orientated [place] coma scale motor response: Obey commands [place] coma scale total score: 15 SENSORY EXAM: Yes extremities (intact) Psych: COMMON NORMALS: speech normal SPEECH: Yes normal speech Skin: COMMON NORMALS: no rashes or lesions noted GENERAL SKIN EXAM: no rashes or lesions noted Course Vital Signs: Vital signs: Vital Signs Temperature 98.8 F 10/16/23 21:00 Pulse Rate 56 L 10/17/23 00:00 Respiratory Rate 16 10/17/23 00:00 Blood Pressure 133/86 10/17/23 00:00 Pulse Oximetry 93 10/17/23 00:00 MDM - Chest Pain Medical Decision Making Patient presents with chest discomfort. It is reproducible on exam. He is given GI cocktail with some improvement as well. His EKG shows a sinus rhythm with frequent PVCs. Rate is 80. No ST elevation. Rate does get down into the low 50s at times. PVCs continue to be frequent. These may be symptomatic for the patient. His potassium and magnesium are normal. Other laboratory is not remarkable. His BNP is nondetectable. His troponin remained 11 at 2 hours after his initial. Chest x-ray Is negative. Relief of pain with GI cocktail and morphine here. He will be allowed discharge. Outpatient follow-up. Lab Data 10/16/23 20:48 10/16/23 20:48 Radiology Impressions Chest X-Ray 10/16/23 23:29 IMPRESSION: No acute cardiopulmonary abnormality. Laboratory Results WBC 5.56 10^3/uL (3.29-11.43) 10/16/23 20:48 RBC 4.33 10^6/uL (3.85-5.65) 10/16/23 20:48 Hgb 12.90 g/dL (11.27-16.99) 10/16/23 20:48 Hct 38.1 % (37-53) 10/16/23 20:48 MCV 88.0 fl (82-101) 10/16/23 20:48 MCH 29.8 pg (27-33) 10/16/23 20:48 MCHC 33.9 g/dL (30-55) 10/16/23 20:48 RDW 13.2 % (12.1-15.1) 10/16/23 20:48 Plt Count 213 10^3/cmm (157-399) 10/16/23 20:48 MPV 10.4 fL (7.4-10.4) 10/16/23 20:48 Neut % (Auto) 60.6 % 10/16/23 20:48 Lymph % (Auto) 29.5 % 10/16/23 20:48 [place] % (Auto) 7.7 % 10/16/23 20:48 Eos % (Auto) 1.6 % 10/16/23 20:48 Baso % (Auto) 0.4 % 10/16/23 20:48 Neut # (Auto) 3.37 10^3/uL (1.8-7.7) 10/16/23 20:48 Lymph # (Auto) 1.6 10^3/uL (0.8-4.8) 10/16/23 20:48 [place] # (Auto) 0.4 10^3/uL (0.2-0.9) 10/16/23 20:48 Eos # (Auto) 0.1 10^3/uL (0.0-0.8) 10/16/23 20:48 Baso # (Auto) 0.0 10^3/uL (0.0-0.1) 10/16/23 20:48 Nucleated RBC % (auto) 0 % 10/16/23 20:48 Nucleated RBCs # 0.0 /100WBC 10/16/23 20:48 Sodium 136 mmol/L (136-145) 10/16/23 20:48 Potassium 4.3 mmol/L (3.5-5.1) 10/16/23 20:48 Chloride 101 mmol/L (98-107) 10/16/23 20:48 Carbon Dioxide 24 mmol/L (22-29) 10/16/23 20:48 Anion Gap 15.3 (5-19) 10/16/23 20:48 BUN 11 mg/dL (6-20) 10/16/23 20:48 Creatinine 0.8 mg/dL (0.7-1.2) 10/16/23 20:48 GFR Calculation 103.6 mL/min (90-130) 10/16/23 20:48 Glucose 111 mg/dL (65-115) 10/16/23 20:48 Calculated Osmolality 282 mOsm/kg (285-295) L 10/16/23 20:48 Calcium 8.9 mg/dL (8.5-10.5) 10/16/23 20:48 Magnesium 1.8 mg/dL (1.7-2.3) 10/16/23 20:48 Total Bilirubin 0.4 mg/dL (0.15-1.2) 10/16/23 20:48 AST 19 U/L (0-40) 10/16/23 20:48 ALT 16 U/L (0-41) 10/16/23 20:48 Alkaline Phosphatase 88 U/L (40-130) 10/16/23 20:48 Troponin T Baseline 11 ng/L (0-15) 10/16/23 20:48 Troponin T 120 Minute 10.52 ng/L (0-15) 10/16/23 22:22 Delta Troponin T -0.48 ABS# (0-10) L 10/16/23 22:22 NT-Pro-B Natriuret Pep < 36 pg/mL (0-125) 10/16/23 20:48 Total Protein 6.0 g/dL (6.6-8.7) L 10/16/23 20:48 Albumin 4.1 g/dL (3.5-5.2) 10/16/23 20:48 Globulin 1.9 g/dL (1.3-4.6) 10/16/23 20:48 All radiology interpretation(s) finalized by discharge Discharge Plan Discharge Patient Disposition: Home Clinical Impression: Chest pain Condition: Stable Prescriptions: New ketorolac 10 mg tablet 10 mg PO TID PRN (Reason: pain) Qty: 10 0RF No Action buspirone 5 mg tablet 5 mg PO BID Qty: 60 1RF paroxetine HCl [Paxil] 40 mg tablet 40 mg PO .HS Qty: 30 2RF Rx Instructions: Take with 10mg Benadryl 2 % gel 1 applic topical TID PRN (Reason: itching) Qty: 103 0RF paroxetine HCl 10 mg tablet 10 mg PO BEDTIME Qty: 30 2RF Rx Instructions: take with 40mg quetiapine [Seroquel] 50 mg tablet 50 mg PO BID Qty: 60 2RF cetirizine [All Day Allergy (cetirizine)] 10 mg tablet 10 mg PO DAILY PRN (Reason: allergy symptoms) Qty: 60 0RF triamcinolone acetonide 0.1 % cream 1 applic topical BID 7 Days Qty: 30 0RF Rx Instructions: Apply to affected area as directed. mirtazapine 15 mg tablet 15 mg PO .HS Qty: 30 2RF quetiapine [Seroquel] 200 mg tablet 200 mg PO .HS Qty: 30 2RF furosemide 40 mg tablet 40 mg PO DAILY metformin 500 mg tablet 500 mg PO BID aspirin 81 mg Tablet,Delayed Release (Dr/Ec) 81 mg PO DAILY simvastatin 20 mg tablet 20 mg PO DAILY lisinopril 10 mg tablet 10 mg PO DAILY Discharge Orders: Discharge ED (Routine); Ordered 10/17/23 Ordered By: Reggie August Referrals: Raj Kent MD [Primary Care Provider] - 1-3 days Patient Instructions: Chest Pain (ED), Opioid Safety, Pain Management Activity Restrictions/Additional Instructions: Take medication as directed scheduled for the next 48 hours, then as needed for pain. Return for worsening pain despite treatment, worsening shortness of breath despite treatment, fever, other concerning symptoms. See your doctor this coming week. Coding Level of Care Code ED Button Facing Machine Operator for Nathan Agudelo
[2023-10-16 21:31] VITALS: BP 126/73; PULSE 57; RESP 17; O2SAT 92
[2023-10-16] MEDS: morphine 4 mg/mL SDV 1 mL IVP (21:31)
[2023-10-16] MEDS: lidocaine 2% viscous 15 ML, aluminum-mag hydrox-simethicon 30 ML, sucralfate oral liq 1 GM PO (21:31)
[2023-10-16] MEDS: ondansetron 2 mg/ML SDV 2 mL 4 MG IVP (21:31)
[2023-10-16 21:32] LABS: Troponin(5th) Baseline 11 ng/L (0-15)
[2023-10-16 21:36] LABS: Magnesium 1.8 mg/dL (1.7-2.3)
[2023-10-16 21:47] LABS: Alanine Aminotransferase 16 U/L (0-41); Albumin Level 4.1 g/dL (3.5-5.2); Alkaline Phosphatase 88 U/L (40-130); Blood Urea Nitrogen 11 mg/dL (6-20); Calcium 8.9 mg/dL (8.5-10.5); Carbon Dioxide 24 mmol/L (22-29); Chloride 101 mmol/L (98-107); Creatinine Clr Calc Pharmacy 157.1997; Globulin 1.9 g/dL (1.3-4.6); Glomerular Filtration Rate 103.6 mL/min (90-130); Glucose 111 mg/dL (65-115); NT Pro B Type Natriuretic Pept < 36 pg/mL (0-125); Osmolality Calculated 282 mOsm/kg (285-295); Sodium 136 mmol/L (136-145); Total Bilirubin 0.4 mg/dL (0.15-1.2)
[2023-10-16 21:52] LABS: Anion Gap 15.3 (5-19); Aspartate Amino Transferase 19 U/L (0-40); Potassium 4.3 mmol/L (3.5-5.1)
[2023-10-16 22:07] VITALS: BP 120/76; PULSE 53; RESP 16; O2SAT 93
--- NOTE | 2023-10-16 22:13 | ECG_ITS ---
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 Measurements Intervals [place] Rate: 53 P: 0 MA: 0 QRS: 203 QRSD: 105 T: 152 QT: 402 QTc: 378 Interpretive Statements ATRIAL FIBRILLATION WITH SLOW VENTRICULAR RESPONSE INDETERMINATE AXIS LOW QRS VOLTAGE IN PRECORDIAL LEADS [QRS DEFLECTION < 1.0 mV IN CHEST LEADS] LEFT POSTERIOR FASCICULAR BLOCK [QRS AXIS > 109, INFERIOR Q] Compared to ECG 10/16/2023 20:58:26 Left posterior fascicular block now present Sinus rhythm no longer present Ventricular premature complex(es) no longer present ST (T wave) deviation no longer present Electronically Signed On 10-17-2023 19:28:41 CDT by Bobo Bird M.D. [id number]
[2023-10-16 22:30] VITALS: BP 122/89; PULSE 54; RESP 17; O2SAT 92
[2023-10-16 22:46] LABS: Troponin 5 2HR 10.52 ng/L (0-15)
[2023-10-16 22:51] LABS: Troponin 5 2HR Delta -0.48 ABS# (0-10)
[2023-10-16 23:12] VITALS: BP 125/85; PULSE 54; RESP 18; O2SAT 96
--- NOTE | 2023-10-16 23:29 | XRR_ITS ---
PROCEDURE INFORMATION: Exam: XR Chest Exam date and time: 10/16/2023 11:39 PM Age: 47 years old Clinical indication: Chest pressure; Patient HX: Chest pain; SOB TECHNIQUE: Imaging protocol: Radiologic exam of the chest. Views: 1 view. COMPARISON: CR (CHEST, ) 10/13/2023 7:36 PM FINDINGS: Lungs: Clear, symmetrically inflated lungs. Pleural spaces: No pleural effusion. No pneumothorax. Heart/Mediastinum: Cardiac silhouette is normal in size for technique. Bones/joints: Age appropriate. XR/XR chest 1V portable [id number] IMPRESSION: No acute cardiopulmonary abnormality.
[2023-10-16] MEDS: ketorolac 30 mg/mL INJ IVP (23:53)
[2023-10-17] VITALS: BP 133/86; PULSE 56; RESP 16; O2SAT 93
== END 2023-10-17 00:47 | disposition home or self-care (01) ==
PROVIDERS: Emergency Provider Emergency Medicine; PCP Family Medicine
DX: R07.9 Chest pain, unspecified (principal); Z79.82 Long term (current) use of aspirin; Z79.84 Long term (current) use of oral hypoglycemic drugs; Z87.891 Personal history of nicotine dependence
CPT/HCPCS: 71045; 80053; 83735; 83880; 84484; 85025; 93005; 96374; 96375; 99285; J1885; J2270; J2405

== ENCOUNTER 2023-10-19 15:03 | Inpatient (IN) | payer MEDICARE, MEDICAID, SELFPAY ==
[2023-10-19 15:06] VITALS: BP 131/83; PULSE 51; RESP 16; TEMP 36.9; O2SAT 91
--- NOTE | 2023-10-19 15:17 | ED.C_ITS ---
HPI - Psych 2 General: Chief Complaint: Psychiatric Symptoms Stated Complaint: SI/HI Time Seen by Provider: 10/19/23 15:06 Source: patient and EMS Mode of arrival: EMS Limitations: no limitations History of Present Illness: 47-year-old male who is well-known to [facility] with history of intellectual disability along with intermittent explosive disorder he lives at a [facility] he states he got mad at his roommate today as they were fighting over the thermostat he states that he does not want to go back and having thoughts of harming himself he denies any worsening improving factors Associated symptoms: Reports depression and suicidal ideation Review of Systems 2 Const: Denies: fever(s), chills, body aches or change in appetite ENMT: Denies: throat pain or dental pain Card: Denies: chest pain Resp: Denies: dyspnea GI: Denies: abdominal pain, nausea, vomiting or diarrhea Musc: Denies: neck pain or back pain Skin/Breast: Denies: rash Neuro: Denies: headache(s) Psych: Reports: depression and suicidal ideation PFSH ED 2 PFSH: Medical History Moderate episode of recurrent major depressive disorder Psychiatric care Family History Brother Diabetes Denies family history of CAD (coronary artery disease) Congestive heart failure (CHF) Anemia Aneurysm Arrhythmia Atrial fibrillation TIA (transient ischemic attack) Heart disease Sudden cardiac Chronic kidney disease (CKD) Congenital heart disease Carotid artery disease Pulmonary embolism Cardiomyopathy Social History Smoking and tobacco/nicotine status: former use of tobacco/nicotine Alcohol intake: never Physical Exam 2 Const: COMMON NORMALS: no acute distress, patient oriented x3 and healthy appearing HENMT: COMMON NORMALS: normocephalic and atraumatic HEAD & SCALP: n ormocephalic and atraumatic Eye: COMMON NORMALS: Equal, round and reactive pupils present and EOMs intact bilaterally PUPIL: Yes Equal, round and reactive pupils present Neck/C-Spine: COMMON NORMALS: full ROM and supple Chest: COMMONS NORMALS: normal inspection of the chest Resp: COMMON NORMALS: normal respiratory effort Cardio: COMMON NORMALS: regular rate, regular rhythm and No murmurs present (Cardio) RATE: regular rate RHYTHM: regular rhythm Extremity: COMMON NORMALS: normal to inspection and full ROM Neuro: COMMON NORMALS: patient oriented x3, moves all extremities and no focal motor deficits Psych: COMMON NORMALS: mental status grossly normal, Normal thought process present and cooperative THOUGHT PROCESS: Normal thought process present Skin: COMMON NORMALS: no rashes or lesions noted and no wounds GENERAL SKIN EXAM: no rashes or lesions noted Course 2 Vital Signs: Vital signs: Vital Signs Temperature 98.4 F 10/19/23 15:06 Pulse Rate 51 L 10/19/23 15:06 Respiratory Rate 16 10/19/23 15:06 Blood Pressure 131/83 10/19/23 15:06 Pulse Oximetry 91 10/19/23 15:06 MDM - Psych Medical Decision Making Patient presents here with suicidal ideations he was seen by Dr. Johnson in the ER who agrees to admit patient is medically cleared and will admit at this time Medical Records I reviewed the patient's medical records. Lab Data I reviewed the patient's lab results. 10/19/23 15:21 10/19/23 15:21 Laboratory Results WBC 4.82 10^3/uL (3.29-11.43) 10/19/23 15:21 RBC 4.47 10^6/uL (3.85-5.65) 10/19/23 15:21 Hgb 13.20 g/dL (11.27-16.99) 10/19/23 15:21 Hct 40.0 % (37-53) 10/19/23 15:21 MCV 89.5 fl (82-101) 10/19/23 15:21 MCH 29.5 pg (27-33) 10/19/23 15:21 MCHC 33.0 g/dL (30-55) 10/19/23 15:21 RDW 13.2 % (12.1-15.1) 10/19/23 15:21 Plt Count 216 10^3/cmm (157-399) 10/19/23 15:21 MPV 10.0 fL (7.4-10.4) 10/19/23 15:21 Neut % (Auto) 69.1 % 10/19/23 15:21 Lymph % (Auto) 20.7 % 10/19/23 15:21 [place] % (Auto) 7.7 % 10/19/23 15:21 Eos % (Auto) 1.5 % 10/19/23 15:21 Baso % (Auto) 0.8 % 10/19/23 15:21 Neut # (Auto) 3.33 10^3/uL (1.8-7.7) 10/19/23 15:21 Lymph # (Auto) 1.0 10^3/uL (0.8-4.8) 10/19/23 15:21 [place] # (Auto) 0.4 10^3/uL (0.2-0.9) 10/19/23 15:21 Eos # (Auto) 0.1 10^3/uL (0.0-0.8) 10/19/23 15:21 Baso # (Auto) 0.0 10^3/uL (0.0-0.1) 10/19/23 15:21 Nucleated RBC % (auto) 0 % 10/19/23 15:21 Nucleated RBCs # 0.0 /100WBC 10/19/23 15:21 Sodium 136 mmol/L (136-145) 10/19/23 15:21 Potassium 3.9 mmol/L (3.5-5.1) 10/19/23 15:21 Chloride 97 mmol/L (98-107) L 10/19/23 15:21 Carbon Dioxide 30 mmol/L (22-29) H 10/19/23 15:21 Anion Gap 12.9 (5-19) 10/19/23 15:21 BUN 18 mg/dL (6-20) 10/19/23 15:21 Creatinine 1.0 mg/dL (0.7-1.2) 10/19/23 15:21 GFR Calculation 80.1 mL/min (90-130) L 10/19/23 15:21 Glucose 92 mg/dL (65-115) 10/19/23 15:21 Calculated Osmolality 284 mOsm/kg (285-295) L 10/19/23 15:21 Calcium 9.1 mg/dL (8.5-10.5) 10/19/23 15:21 Total Bilirubin 0.6 mg/dL (0.15-1.2) 10/19/23 15:21 AST 12 U/L (0-40) 10/19/23 15:21 ALT 12 U/L (0-41) 10/19/23 15:21 Alkaline Phosphatase 68 U/L (40-130) 10/19/23 15:21 Total Protein 6.4 g/dL (6.6-8.7) L 10/19/23 15:21 Albumin 4.0 g/dL (3.5-5.2) 10/19/23 15:21 Globulin 2.4 g/dL (1.3-4.6) 10/19/23 15:21 Salicylates < 0.3 mg/dL (3-10) L 10/19/23 15:21 Urine Opiates Screen Negative ng/mL (Negative) 10/19/23 15:35 Acetaminophen < 5.0 ug/mL (10-30) L 10/19/23 15:21 Ur Barbiturates Screen Negative ng/mL (Negative) 10/19/23 15:35 Ur Phencyclidine Scrn Negative ng/mL (Negative) 10/19/23 15:35 Ur Amphetamines Screen Negative ng/mL (Negative) 10/19/23 15:35 U Benzodiazepines Scrn Negative ng/mL (Negative) 10/19/23 15:35 Urine Cocaine Screen Negative ng/mL (Negative) 10/19/23 15:35 U Marijuana (THC) Screen Negative ng/mL (Negative) 10/19/23 15:35 Ethyl Alcohol < 10 mg/dL (0-10) 10/19/23 15:21 No radiology studies performed this visit EKG Data EKG 1: I personally reviewed and interpreted this EKG as follows: EKG interpretation date: 10/19/23 EKG interpretation time: 15:37 Interpretation: sinus bertha hr [address] or t wave abnormalities qrs 102 qtc 358 Discharge Plan Discharge Patient Disposition: Admitted As Inpatient Clinical Impression: Suicidal ideation Condition: Stable Prescriptions: No Action buspirone 5 mg tablet 5 mg PO BID Qty: 60 1RF paroxetine HCl [Paxil] 40 mg tablet 40 mg PO .HS Qty: 30 2RF Rx Instructions: Take with 10mg Benadryl 2 % gel 1 applic topical TID PRN (Reason: itching) Qty: 103 0RF paroxetine HCl 10 mg tablet 10 mg PO BEDTIME Qty: 30 2RF Rx Instructions: take with 40mg quetiapine [Seroquel] 50 mg tablet 50 mg PO BID Qty: 60 2RF cetirizine [All Day Allergy (cetirizine)] 10 mg tablet 10 mg PO DAILY PRN (Reason: allergy symptoms) Qty: 60 0RF triamcinolone acetonide 0.1 % cream 1 applic topical BID 7 Days Qty: 30 0RF Rx Instructions: Apply to affected area as directed. mirtazapine 15 mg tablet 15 mg PO .HS Qty: 30 2RF quetiapine [Seroquel] 200 mg tablet 200 mg PO .HS Qty: 30 2RF furosemide 40 mg tablet 40 mg PO DAILY metformin 500 mg tablet 500 mg PO BID aspirin 81 mg Tablet,Delayed Release (Dr/Ec) 81 mg PO DAILY simvastatin 20 mg tablet 20 mg PO DAILY lisinopril 10 mg tablet 10 mg PO DAILY ketorolac 10 mg tablet 10 mg PO TID PRN (Reason: pain) Qty: 10 0RF Referrals: Raj Kent MD [Primary Care Provider] - Coding Level of Care Code ED Tannery Gummer for Nathan Agudelo
[2023-10-19 15:27] LABS: Basophils % 0.8 %; Eosinophils # 0.1 10^3/uL (0.0-0.8); Eosinophils % 1.5 %; Lymphocytes % 20.7 %; Mean Corpuscular Hemoglobin 29.5 pg (27-33); Mean Corpuscular Volume 89.5 fl (82-101); Monocytes # 0.4 10^3/uL (0.2-0.9); Monocytes % 7.7 %; Neutrophils # 3.33 10^3/uL (1.8-7.7); Neutrophils % 69.1 %; Nucleated Red Blood Cells % 0 %; Platelet Count 216 10^3/cmm (157-399); Red Blood Count 4.47 10^6/uL (3.85-5.65); Red Cell Distribution Width 13.2 % (12.1-15.1); White Blood Count 4.82 10^3/uL (3.29-11.43)
--- NOTE | 2023-10-19 15:37 | ECG_ITS ---
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 Measurements Intervals [place] Rate: 51 P: 62 MD: 199 QRS: 128 QRSD: 102 T: 44 QT: 382 QTc: 352 Interpretive Statements SINUS BRADYCARDIA WITH SINUS ARRHYTHMIA POSSIBLE RIGHT VENTRICULAR HYPERTROPHY [SOME/ALL OF: PROMINENT R IN V1, LATE TRANSITION, RAD, NEIL, SSS] SEPTAL MYOCARDIAL INFARCTION , PROBABLY OLD [40+ ms Q WAVE IN V1/V2] Compared to ECG 10/16/2023 22:13:58 Myocardial infarct finding now present Atrial fibrillation no longer present Indeterminate axis no longer present Left posterior fascicular block no longer present Electronically Signed On 10-19-2023 23:41:49 CDT by Franck Redman M.D. [id number]
[2023-10-19 15:46] LABS: Acetaminophen < 5.0 ug/mL (10-30); Alanine Aminotransferase 12 U/L (0-41); Alcohol Level < 10 mg/dL (0-10); Alkaline Phosphatase 68 U/L (40-130); Anion Gap 12.9 (5-19); Aspartate Amino Transferase 12 U/L (0-40); Blood Urea Nitrogen 18 mg/dL (6-20); Calcium 9.1 mg/dL (8.5-10.5); Carbon Dioxide 30 mmol/L (22-29); Chloride 97 mmol/L (98-107); Creatinine Clr Calc Pharmacy 135.6028; Globulin 2.4 g/dL (1.3-4.6); Glomerular Filtration Rate 80.1 mL/min (90-130); Glucose 92 mg/dL (65-115); Osmolality Calculated 284 mOsm/kg (285-295); Potassium 3.9 mmol/L (3.5-5.1); Salicylate < 0.3 mg/dL (3-10); Sodium 136 mmol/L (136-145); Total Bilirubin 0.6 mg/dL (0.15-1.2); Total Protein 6.4 g/dL (6.6-8.7)
[2023-10-19 16:22] LABS: Amphetamines Screen Urine Negative (Negative); Barbiturates Screen Urine Negative (Negative); Benzodiazepines Screen Urine Negative (Negative); Cocaine Screen Urine Negative (Negative); Opiate Screen Urine Negative (Negative); PCP Screen Urine Negative (Negative); THC Screen Urine Negative (Negative)
[2023-10-19 16:58] LABS: SARS Covid-2 Antigen negative (Negative)
[2023-10-19 16:59] LABS: Influenza A by IFA negative (Negative); Influenza B by IFA negative (Negative)
[2023-10-19 17:00] LABS: RSV Transfer Patient (ED) Negative (Negative)
--- NOTE | 2023-10-19 19:54 | PC.NURSE ---
pt belongings pt dressed out in npu scrubs. pt cane, clothing and shoes placed with stickers in/ near cabinet.
[2023-10-19 20:42] VITALS: BP 130/74; PULSE 48; RESP 16; O2SAT 92
[2023-10-19 22:00] VITALS: BP 123/65; PULSE 52; RESP 18; TEMP 36.4; O2SAT 92
[2023-10-20 01:30] VITALS: PULSE 52; O2SAT 92
[2023-10-20 06:00] VITALS: BP 125/72; PULSE 46; RESP 14; TEMP 36.6; O2SAT 97
--- NOTE | 2023-10-20 12:36 | ECG_ITS ---
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 Measurements Intervals [place] Rate: 54 P: 60 HI: 198 QRS: 70 QRSD: 106 T: 57 QT: 413 QTc: 393 Interpretive Statements SINUS BRADYCARDIA WITH OCCASIONAL VENTRICULAR PREMATURE COMPLEXES LOW QRS VOLTAGE [QRS DEFLECTION < 0.5/1.0 mV IN LIMB/CHEST LEADS] SEPTAL MYOCARDIAL INFARCTION , PROBABLY OLD [40+ ms Q WAVE IN V1/V2] Compared to ECG 10/19/2023 15:37:49 Ventricular premature complex(es) now present Low QRS voltage now present Sinus arrhythmia no longer present Atrial abnormality no longer present Myocardial infarct finding still present Electronically Signed On 10-20-2023 17:11:23 CDT by Bobo Bird M.D. [id number]
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
[2023-10-20] MEDS: lisinopril 10 mg Tablet PO (13:33)
[2023-10-20] MEDS: aspirin 81 mg EC Tablet PO (13:33)
[2023-10-20] MEDS: FUROsemide 40 mg Tablet PO (13:34)
[2023-10-20] MEDS: atorvastatin 40 mg Tablet 20 MG PO (13:35)
--- NOTE | 2023-10-20 13:44 | PC.NURSE ---
Called Bernarda Small's office at 1346 for approval to begin administering risperdal to patient. Social deputy, Wanda Taveras, confirmed Bernarda Small was agreeable to the doctor beginning this medication for patient.
[2023-10-20 14:00] VITALS: BP 160/92; PULSE 44; RESP 16; TEMP 36.6; O2SAT 96
[2023-10-20] MEDS: metformin 500 mg Tablet PO (17:09)
[2023-10-20] MEDS: PARoxetine 20 mg Tablet 60 MG PO (20:00)
[2023-10-20] MEDS: risperiDONE 1 mg Tablet PO (20:00)
[2023-10-20] MEDS: trazodone 50 mg Tablet PO (20:02)
[2023-10-20 21:29] VITALS: BP 110/70; PULSE 67; RESP 15; TEMP 36.9; O2SAT 93
[2023-10-20 22:50] VITALS: PULSE 60; O2SAT 91
[2023-10-21 06:00] VITALS: BP 110/70; PULSE 52; RESP 14; TEMP 36.4; O2SAT 95
[2023-10-21] MEDS: FUROsemide 40 mg Tablet PO (08:55)
[2023-10-21] MEDS: aspirin 81 mg EC Tablet PO (08:56)
[2023-10-21] MEDS: atorvastatin 40 mg Tablet 20 MG PO (08:56)
[2023-10-21] MEDS: metformin 500 mg Tablet PO ×2 (08:56→17:34)
[2023-10-21] MEDS: acetaminophen 325 mg Tablet 650 MG PO (08:56)
[2023-10-21] MEDS: lisinopril 10 mg Tablet PO (08:57)
[2023-10-21 09:20] VITALS: BP 124/75; PULSE 76; RESP 18; TEMP 36.5; O2SAT 96
[2023-10-21 14:00] VITALS: BP 126/77; PULSE 74; RESP 17; TEMP 36.6; O2SAT 96
--- NOTE | 2023-10-21 19:38 | W.PM.NPUPNS ---
Subjective NPU Subjective: Patient presented today reporting that he was doing okay. He discussed being aware of the medication changes and being supportive of making changes that might assist in his functionality. He acknowledges that he was here for continued outbursts and aggressive behavior. He denied any side effects to the medication or medication changes. We discussed that referrals for possible changes in his residential setting are likely underway. He denies any significant issues at this time. Mental Status Exam MSE Comments: This is an obese white male in hospital scrubs with limited grooming and eye contact. No abnormal movements except for mild psychomotor retardation. Cooperative with exam in no acute distress. Speech was normal in rate and normal in volume. Mood described as depressed. His affect was restricted in range with inappropriate smiling. Thought process was linear. Thought content: Patient denied suicidal or homicidal ideation There were no delusions reported or noted, he denied any auditory or visual hallucinations. Attention and concentration were intact and memory appeared mostly reliable but none were formally tested. He is alert and oriented x 3. Insight and judgment appear limited, impulse control is impaired with reports of wanting to punch donnelly. Intellectual ability is commensurate with mild cognitive impairment. Vitals/I&O/Wt Last Vital Signs Temp 98 F 10/21/23 14:00 Pulse 74 10/21/23 14:00 Resp 17 10/21/23 14:00 BP 126/77 10/21/23 14:00 Pulse Ox 96 10/21/23 14:00 O2 Del Method Room Air 10/21/23 09:20 O2 Flow Rate 3 10/20/23 22:50 Data NPU 10/19/23 15:21 10/19/23 15:21 A&P Assessment and plan (1) Borderline intellectual functioning: (2) Mild intellectual disability: (3) Intermittent explosive disorder: (4) Suicidal ideation: Plan This is a 47-year-old white male with a history of mild cognitive impairment, depression and intermittent explosive disorder who presents 20 days after recent discharge with continued explosive violent outbursts, and suicidal ideation in shelter setting. 1. Psychiatric medication adjustments are necessary. Will initiate other outpatient medications but will make changes regarding aggression. First, increased paxil to 60mg at night to target depression. Hold Seroquel at this time as it has limited efficacy in aggression in this population. Started Risperdal to target aggression. Disconinue Buspar. 2. Continue every 15 minute checks for safety 3. Individual, group and milieu therapy. 4. Get collateral information from shelter regarding his previous functioning to assess risk. Involuntary Hold Information 96 Hour Hold: 96 Hour Involuntary Admission: No Attestations NPU Medical Necessity Statement*: Inpatient hospitalization is medically necessary and the clinically appropriate attention at this time. We will monitor/initiate medications and make changes as indicated. Likely length of stay 4-6 days. Coding Level of Care Code Acute Code for Chg Fwd Diagnoses Borderline intellectual functioning R41.83 Mild intellectual disability F70 Intermittent explosive disorder F63.81 Suicidal ideation R45.851
[2023-10-21] MEDS: risperiDONE 1 mg Tablet PO (20:02)
[2023-10-21] MEDS: PARoxetine 20 mg Tablet 60 MG PO (20:02)
[2023-10-21 21:05] VITALS: PULSE 79; O2SAT 96
[2023-10-21 21:58] VITALS: BP 110/66; PULSE 52; RESP 14; O2SAT 94
[2023-10-22 06:00] VITALS: BP 119/70; PULSE 76; RESP 17; TEMP 36.8; O2SAT 98
[2023-10-22] MEDS: aspirin 81 mg EC Tablet PO (08:18)
[2023-10-22] MEDS: atorvastatin 40 mg Tablet 20 MG PO (08:18)
[2023-10-22] MEDS: lisinopril 10 mg Tablet PO (08:18)
[2023-10-22] MEDS: metformin 500 mg Tablet PO ×2 (08:18→17:55)
[2023-10-22] MEDS: FUROsemide 40 mg Tablet PO (08:18)
[2023-10-22 14:00] VITALS: BP 108/67; PULSE 67; RESP 18; TEMP 36.7; O2SAT 97
--- NOTE | 2023-10-22 18:15 | P.NPUPN_ITS ---
Subjective NPU 2 Subjective: Patient presented today reporting that he is doing all right. We had a discussion about the different medication changes that Dr. Lema is made and he reports feeling significantly better. We discussed making sure that we were able to create a longer amount of time without need for hospitalization with these changes and that the current tentative plan for discharge is Wednesday. He was okay with that plan denied any side effects to the current medication or any issues that he is noting with the changes. Mental Status Exam 2 MSE Comments: This is an obese white male in hospital scrubs with limited grooming and eye contact. No abnormal movements except for mild psychomotor retardation. Cooperative with exam in no acute distress. Speech was normal in rate and normal in volume. Mood described as depressed. His affect was restricted in range with inappropriate smiling. Thought process was linear. Thought content: Patient denied suicidal or homicidal ideation There were no delusions reported or noted, he denied any auditory or visual hallucinations. Attention and concentration were intact and memory appeared mostly reliable but none were formally tested. He is alert and oriented x 3. Insight and judgment appear limited, impulse control is impaired with reports of wanting to punch donnelly. Intellectual ability is commensurate with mild cognitive impairment. 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 1. Psychiatric medication adjustments are necessary. Will initiate other outpatient medications but will make changes regarding aggression. First, increased paxil to 60mg at night to target depression. Hold Seroquel at this time as it has limited efficacy in aggression in this population. Started Risperdal to target aggression. Disconinue Buspar. 2. Continue every 15 minute checks for safety 3. Individual, group and milieu therapy. 4. Get collateral information from halfway regarding his previous functioning to assess risk. Involuntary Hold Information 2 96 Hour Hold: 96 Hour Involuntary Admission: No Attestations NPU 2 Medical Necessity Statement*: Inpatient hospitalization is medically necessary and the clinically appropriate attention at this time. We will monitor/initiate medications and make changes as indicated. Likely length of stay 3-5 days. Coding Level of Care Code Acute Code for Chg Fwd Diagnoses Borderline intellectual functioning R41.83 Mild intellectual disability F70 Intermittent explosive disorder F63.81 Suicidal ideation R45.851
[2023-10-22 20:02] VITALS: BP 113/67; PULSE 57; RESP 17; TEMP 36.7; O2SAT 95
[2023-10-22] MEDS: risperiDONE 1 mg Tablet PO (20:34)
[2023-10-22] MEDS: PARoxetine 20 mg Tablet 60 MG PO (20:34)
[2023-10-23 06:00] VITALS: BP 119/77; PULSE 54; RESP 16; TEMP 37.1; O2SAT 95
[2023-10-23] MEDS: lisinopril 10 mg Tablet PO (08:20)
[2023-10-23] MEDS: FUROsemide 40 mg Tablet PO (08:20)
[2023-10-23] MEDS: aspirin 81 mg EC Tablet PO (08:20)
[2023-10-23] MEDS: atorvastatin 40 mg Tablet 20 MG PO (08:20)
[2023-10-23] MEDS: metformin 500 mg Tablet PO ×2 (08:21→17:18)
--- NOTE | 2023-10-23 09:57 | P.NPUPN_ITS ---
Subjective NPU 2 Subjective: Patient presented today reporting that he is feeling and doing better. There have been no issues with behaviors or attitude per staff reports and direct observation. He continues to be quite focused on when he gets to go home. We discussed the likelihood of discharge on Wednesday and he reports that he is doing well on the medication changes denying any side effects or other issues. Mental Status Exam 2 MSE Comments: This is an obese white male in hospital scrubs with limited grooming and eye contact. No abnormal movements except for mild psychomotor retardation. Cooperative with exam in no acute distress. Speech was normal in rate and normal in volume. Mood described as depressed. His affect was restricted in range with inappropriate smiling. Thought process was linear. Thought content: Patient denied suicidal or homicidal ideation There were no delusions reported or noted, he denied any auditory or visual hallucinations. Attention and concentration were intact and memory appeared mostly reliable but none were formally tested. He is alert and oriented x 3. Insight and judgment appear limited, impulse control is impaired with reports of wanting to punch donnelly. Intellectual ability is commensurate with mild cognitive impairment. 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 1. Psychiatric medication adjustments are necessary. Will initiate other outpatient medications but will make changes regarding aggression. First, increased paxil to 60mg at night to target depression. Hold Seroquel at this time as it has limited efficacy in aggression in this population. Started Risperdal to target aggression. Disconinue Buspar. 2. Continue every 15 minute checks for safety 3. Individual, group and milieu therapy. 4. Get collateral information from long-term regarding his previous functioning to assess risk. Involuntary Hold Information 2 96 Hour Hold: 96 Hour Involuntary Admission: No Attestations NPU 2 Medical Necessity Statement*: Inpatient hospitalization is medically necessary and the clinically appropriate attention at this time. We will monitor/initiate medications and make changes as indicated. Likely length of stay 2-4 days. Coding Level of Care Code Acute Code for Chg Fwd Diagnoses Borderline intellectual functioning R41.83 Mild intellectual disability F70 Intermittent explosive disorder F63.81 Suicidal ideation R45.851
[2023-10-23 14:00] VITALS: BP 111/68; PULSE 59; RESP 16; TEMP 36.6; O2SAT 94
[2023-10-23] MEDS: PARoxetine 20 mg Tablet 60 MG PO (20:14)
[2023-10-23] MEDS: risperiDONE 1 mg Tablet PO (20:14)
[2023-10-23 20:17] LABS: Glucose Point of Care 116 mg/dL (70-110)
[2023-10-23 22:00] VITALS: BP 113/69; PULSE 60; RESP 17; TEMP 37.1; O2SAT 94
[2023-10-24 06:00] VITALS: BP 111/68; PULSE 79; RESP 16; O2SAT 97
[2023-10-24 08:10] LABS: Glucose Point of Care 170 mg/dL (70-110)
[2023-10-24] MEDS: lisinopril 10 mg Tablet PO (08:36)
[2023-10-24] MEDS: metformin 500 mg Tablet PO ×2 (08:36→18:21)
[2023-10-24] MEDS: atorvastatin 40 mg Tablet 20 MG PO (08:36)
[2023-10-24] MEDS: FUROsemide 40 mg Tablet PO (08:36)
[2023-10-24] MEDS: aspirin 81 mg EC Tablet PO (08:37)
--- NOTE | 2023-10-24 08:50 | ECG_ITS ---
[facility] Test Date: 2023-10-24 Pat Name: Ronnie Guzman Department: Room: 129 Gender: Male Immunologist: : 1975 Requested By: Syed Monge Order Number: [id number] Jamila MD: Alla Zelaya M.D. Measurements Intervals [place] Rate: 68 P: 51 HI: 203 QRS: 70 QRSD: 106 T: 47 QT: 370 QTc: 395 Interpretive Statements SINUS RHYTHM WITH OCCASIONAL VENTRICULAR PREMATURE COMPLEXES LOW QRS VOLTAGE [QRS DEFLECTION < 0.5/1.0 mV IN LIMB/CHEST LEADS] POSSIBLE ANTERIOR MYOCARDIAL INFARCTION , PROBABLY OLD [30 ms Q WAVE IN V3/V4, OR R < 0.2 mV IN V4] Compared to ECG 10/20/2023 12:47:05 Sinus bradycardia no longer present Myocardial infarct finding still present Electronically Signed On 10-24-2023 13:21:32 CDT by Alla Zelaya M.D. [email or web address]/[id number]
--- NOTE | 2023-10-24 09:32 | PC.NURSE ---
@0832 pt notified staff of chest pain and sob, KSENIA Lopez stated lung sounds clear when assessed,pt vital signs taken at that time. bp 125/69 pulse 63 temp 97.8 o2 96% room air resp 16. discharge planner assisted pt to room, stat ekg order placed. as this DRY WALL FINISHER was in room assessing pt he stated having pressure in middle of chest like an elephant does not radiate up or down chest, does state have pain in right upper abdominal quadrant. at this time pt states Oh I think I am going to pass out ohhh . falling onto his side on the bed. at that time rolled pt onto his back, pt breathing and pulse palpable. Let discharge planner know of pt condition, pt did not respond to question when asked by this vault maker sternum rub applied to chest pt responded to first rub by flinching back, when asked pt to open his eyes pt open his eyes, all question asked by KSENIA Lopez, discharge planner Aiyana and this DRY WALL FINISHER were answered correctly. Ekg preformed showing sinus rhythm with occasional ventricular premature complexes. Dr. Monge notified of pt condition and findings of EKG. Continue to monitor pt.
--- NOTE | 2023-10-24 10:27 | PC.NURSE ---
pt up at nurses station requesting a snack for snack time. denies any chest pressure, pain or discomfort.
[2023-10-24 14:00] VITALS: BP 115/67; PULSE 73; RESP 16; TEMP 36.6; O2SAT 92
--- NOTE | 2023-10-24 17:27 | W.PM.NPUPNS ---
Subjective NPU Subjective: Patient presented today reporting that he is continuing to feel better. He continues to be interested and desires to return home. No reports of issues from staff. He did have an episode where he complained of chest pain but there was no correlate and laboratory studies. No change in his vital signs. We discussed the likelihood of discharge tomorrow which made him happy. He denied any side effects to the medications or medication changes. Mental Status Exam MSE Comments: This is an obese white male in hospital scrubs with limited grooming and eye contact. No abnormal movements except for mild psychomotor retardation. Poor hygiene with identified body odor cooperative with exam in no acute distress. Speech was normal in rate and normal in volume. Mood described as much better. His affect appeared euthymic. Thought process was linear. Thought content: Patient denied suicidal or homicidal ideation There were no delusions reported or noted, he denied any auditory or visual hallucinations. Attention and concentration were intact and memory appeared mostly reliable but none were formally tested. He is alert and oriented x 3. Insight and judgment appear limited, impulse control is impaired with reports of wanting to punch donnelly. Intellectual ability is commensurate with mild cognitive impairment. 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 1. Psychiatric medication adjustments are necessary. Will initiate other outpatient medications but will make changes regarding aggression. First, increased paxil to 60mg at night to target depression. Hold Seroquel at this time as it has limited efficacy in aggression in this population. Started Risperdal to target aggression. Disconinue Buspar. 2. Continue every 15 minute checks for safety 3. Individual, group and milieu therapy. 4. Get collateral information from skilled nursing regarding his previous functioning to assess risk. Involuntary Hold Information 96 Hour Hold: 96 Hour Involuntary Admission: No Attestations NPU Medical Necessity Statement*: Inpatient hospitalization is medically necessary and the clinically appropriate attention at this time. We will monitor/initiate medications and make changes as indicated. Likely length of stay 1-3 days. Coding Level of Care Code Acute Code for Chg Fwd Diagnoses Borderline intellectual functioning R41.83 Mild intellectual disability F70 Intermittent explosive disorder F63.81 Suicidal ideation R45.851
[2023-10-24] MEDS: alum-mag-hydroxide-sime 30 mL UDC PO (18:18)
[2023-10-24 20:04] VITALS: BP 125/69; PULSE 66; RESP 18; TEMP 36.9; O2SAT 94
[2023-10-24] MEDS: ibuprofen 600 mg Tablet PO (20:10)
[2023-10-24] MEDS: PARoxetine 20 mg Tablet 60 MG PO (20:11)
[2023-10-24] MEDS: risperiDONE 1 mg Tablet PO (20:11)
[2023-10-24 21:57] VITALS: PULSE 72; O2SAT 95
[2023-10-24 22:04] VITALS: BP 102/63; PULSE 89; RESP 18; TEMP 36.6; O2SAT 93
[2023-10-25 06:00] VITALS: BP 116/69; PULSE 57; RESP 18; TEMP 36.8; O2SAT 95
[2023-10-25] MEDS: metformin 500 mg Tablet PO (08:03)
[2023-10-25] MEDS: atorvastatin 40 mg Tablet 20 MG PO (08:03)
[2023-10-25] MEDS: lisinopril 10 mg Tablet PO (08:03)
[2023-10-25] MEDS: FUROsemide 40 mg Tablet PO (08:03)
[2023-10-25] MEDS: acetaminophen 325 mg Tablet 650 MG PO (08:03)
[2023-10-25] MEDS: aspirin 81 mg EC Tablet PO (08:03)
--- NOTE | 2023-10-25 09:40 | ECG_ITS ---
[facility] Test Date: 2023-10-25 Pat Name: Ronnie Guzman Department: Room: 129 Gender: Male Inspector Automatic Typewriter: : 1975 Requested By: Syed Monge Order Number: [id number] Jamila MD: Bobo Bird M.D. Measurements Intervals [place] Rate: 65 P: 38 MD: 189 QRS: 96 QRSD: 106 T: 51 QT: 384 QTc: 401 Interpretive Statements SINUS RHYTHM WITH OCCASIONAL VENTRICULAR PREMATURE COMPLEXES BORDERLINE RIGHT AXIS DEVIATION [QRS AXIS > 90] LOW QRS VOLTAGE [QRS DEFLECTION < 0.5/1.0 mV IN LIMB/CHEST LEADS] POSSIBLE ANTERIOR MYOCARDIAL INFARCTION , PROBABLY OLD [30 ms Q WAVE IN V3/V4, OR R < 0.2 mV IN V4] Compared to ECG 10/24/2023 08:50:52 No significant changes Electronically Signed On 10-25-2023 9:51:31 CDT by Bobo Bird M.D. [id number]
--- NOTE | 2023-10-25 09:43 | PC.NURSE ---
Patient c/o chest pain at a 10 to this RN. This RN put in an order for a stat ekg and called respiratory therapy immediately. Patient then started to get up to walk and this RN asked him to sit back down until we could get the ekg. He refused and walked to the restroom. Patient used the restroom and then sat back down in the dayroom until RT arrived.
--- NOTE | 2023-10-25 10:42 | PC.NURSE ---
This RN reported to charge nurse the findings of the ekg so she could relay the information to Dr. Monge and inquire about getting parameters. Patient has been hyperfixated on having chest pain, as evidenced by multiple ekgs ordered within his current stay and a history of notes stating his complaints.
--- NOTE | 2023-10-25 13:26 | W.PM.NPUDCS ---
Diagnoses at Discharge Discharge Diagnosis (1) Borderline intellectual functioning: Status: Acute (2) Mild intellectual disability: Status: Acute (3) Intermittent explosive disorder: Status: Acute (4) Suicidal ideation: Status: Resolved Reason for Visit Reason for Visit: SI/HI Involuntary Hold Information 96 Hour Hold: 96 Hour Involuntary Admission: No Mental Status Exam MSE Comments: This is an obese white male in hospital scrubs with limited grooming and eye contact. No abnormal movements except for mild psychomotor retardation. Poor hygiene with identified body odor cooperative with exam in no acute distress. Speech was normal in rate and normal in volume. Mood described as much better. His affect appeared euthymic. Thought process was linear. Thought content: Patient denied suicidal or homicidal ideation There were no delusions reported or noted, he denied any auditory or visual hallucinations. Attention and concentration were intact and memory appeared mostly reliable but none were formally tested. He is alert and oriented x 3. Insight and judgment appear limited, impulse control is impaired with reports of wanting to punch donnelly. Intellectual ability is commensurate with mild cognitive impairment. Discharge Data Studies Completed and Pending: Laboratory Results WBC 4.82 10^3/uL (3.2 9-11.43) 10/19/23 15:21 RBC 4.47 10^6/uL (3.8 5-5.65) 10/19/23 15:21 Hgb 13.20 g/dL (11.27 -16.99) 10/19/23 15:21 Hct 40.0 % (37-53) 10/19/23 15:21 MCV 89.5 fl (82-101) 10/19/23 15:21 MCH 29.5 pg (27-33) 10/19/23 15:21 MCHC 33.0 g/dL (30-55) 10/19/23 15:21 RDW 13.2 % (12.1-15.1 ) 10/19/23 15:21 Plt Count 216 10^3/cmm (157 -399) 10/19/23 15:21 MPV 10.0 fL (7.4-10.4 ) 10/19/23 15:21 Neut % (Auto) 69.1 % 10/19/23 15:21 Lymph % (Auto) 20.7 % 10/19/23 15:21 Titus % (Auto) 7.7 % 10/19/23 15:21 Eos % (Auto) 1.5 % 10/19/23 15:21 Baso % (Auto) 0.8 % 10/19/23 15:21 Neut # (Auto) 3.33 10^3/uL (1.8 -7.7) 10/19/23 15:21 Lymph # (Auto) 1.0 10^3/uL (0.8- 4.8) 10/19/23 15:21 Titus # (Auto) 0.4 10^3/uL (0.2- 0.9) 10/19/23 15:21 Eos # (Auto) 0.1 10^3/uL (0.0- 0.8) 10/19/23 15:21 Baso # (Auto) 0.0 10^3/uL (0.0- 0.1) 10/19/23 15:21 Nucleated RBC % (a uto) 0 % 10/19/23 15:21 Nucleated RBCs # 0.0 /100WBC 10/19/23 15:21 Sodium 136 mmol/L (136-1 45) 10/19/23 15:21 Potassium 3.9 mmol/L (3.5-5 .1) 10/19/23 15:21 Chloride 97 mmol/L (98-107 ) L 10/19/23 15:21 Carbon Dioxide 30 mmol/L (22-29) H 10/19/23 15:21 Anion Gap 12.9 (5-19) 10/19/23 15:21 BUN 18 mg/dL (6-20) 10/19/23 15:21 Creatinine 1.0 mg/dL (0.7-1. 2) 10/19/23 15:21 GFR Calculation 80.1 mL/min (90-1 30) L 10/19/23 15:21 Glucose 92 mg/dL (65-115) 10/19/23 15:21 POC Glucose 170 mg/dL (70-110 ) H 10/24/23 08:06 Calculated Osmolal ity 284 mOsm/kg (285- 295) L 10/19/23 15:21 Calcium 9.1 mg/dL (8.5-10 .5) 10/19/23 15:21 Total Bilirubin 0.6 mg/dL (0.15-1 .2) 10/19/23 15:21 AST 12 U/L (0-40) 10/19/23 15:21 ALT 12 U/L (0-41) 10/19/23 15:21 Alkaline Phosphata se 68 U/L (40-130) 10/19/23 15:21 Total Protein 6.4 g/dL (6.6-8.7 ) L 10/19/23 15:21 Albumin 4.0 g/dL (3.5-5.2 ) 10/19/23 15:21 Globulin 2.4 g/dL (1.3-4.6 ) 10/19/23 15:21 Salicylates < 0.3 mg/dL (3-10 ) L 10/19/23 15:21 Urine Opiates Scre en Negative ng/mL (N egative) 10/19/23 15:35 Acetaminophen < 5.0 ug/mL (10-3 0) L 10/19/23 15:21 Ur Barbiturates Sc reen Negative ng/mL (N egative) 10/19/23 15:35 Ur Phencyclidine S crn Negative ng/mL (N egative) 10/19/23 15:35 Ur Amphetamines Sc reen Negative ng/mL (N egative) 10/19/23 15:35 U Benzodiazepines Scrn Negative ng/mL (N egative) 10/19/23 15:35 Urine Cocaine Scre en Negative ng/mL (N egative) 10/19/23 15:35 U Marijuana (THC) Screen Negative ng/mL (N egative) 10/19/23 15:35 Ethyl Alcohol < 10 mg/dL (0-10) 10/19/23 15:21 Influenza Type A A g negative (Negati ve) 10/19/23 16:14 Influenza Type B A g negative (Negati ve) 10/19/23 16:14 RSV Antigen Negative (Negati ve) 10/19/23 16:14 SARS-CoV-2 Ag (Rap id) negative (Negati ve) 10/19/23 16:14 Vitals: Last Vital Signs Temp 98.3 F 10/25/23 06:00 Pulse 57 L 10/25/23 06:00 Resp 18 10/25/23 06:00 BP 116/69 10/25/23 06:00 Pulse Ox 95 10/25/23 06:00 O2 Del Method Room Air 10/24/23 14:00 O2 Flow Rate 3 10/24/23 21:57 Discharge Plan Discharge Patient Disposition: Home Condition: Stable Prescriptions: New paroxetine HCl 20 mg Tablet 60 mg PO 1999 30 Days Qty: 90 1RF risperidone 1 mg Tablet 1 mg PO BEDTIME 30 Days Qty: 30 1RF Continued cetirizine [All Day Allergy (cetirizine)] 10 mg tablet 10 mg PO DAILY PRN (Reason: allergy symptoms) Qty: 60 0RF furosemide 40 mg tablet 40 mg PO DAILY metformin 500 mg tablet 500 mg PO BID aspirin 81 mg Tablet,Delayed Release (Dr/Ec) 81 mg PO DAILY simvastatin 20 mg tablet 20 mg PO DAILY lisinopril 10 mg tablet 10 mg PO DAILY ketorolac 10 mg tablet 10 mg PO TID PRN (Reason: pain) Qty: 10 0RF Discontinued buspirone 5 mg tablet 5 mg PO BID Qty: 60 1RF paroxetine HCl [Paxil] 40 mg tablet 40 mg PO .HS Qty: 30 2RF Rx Instructions: Take with 10mg paroxetine HCl 10 mg tablet 10 mg PO BEDTIME Qty: 30 2RF Rx Instructions: take with 40mg quetiapine [Seroquel] 50 mg tablet 50 mg PO BID Qty: 60 2RF mirtazapine 15 mg tablet 15 mg PO .HS Qty: 30 2RF Discharge Orders: Discharge Order (Routine); Ordered 10/25/23 Ordered By: Syed Monge Referrals: Annie Cohen PMHNP [Staff Physician] - Raj Kent MD [Primary Care Provider] - Discharge Diet: Diabetic Discharge Activity: Resume usual activity Patient Instructions: Opioid Safety Discharge Attestations NPU Time Spent in Discharge Care*: less than 30 min Specific Discharge Activities: Specific discharge activities: educating patient, discussing with casework specialist/social workers/dc planners, documenting/other paperwork and evaluating patient/reviewing data Coding Level of Care Code Acute Code for Chg Fwd Diagnoses Borderline intellectual functioning R41.83 Mild intellectual disability F70 Intermittent explosive disorder F63.81 Suicidal ideation R45.851
[2023-10-25 14:00] VITALS: BP 139/86; PULSE 96; RESP 16; TEMP 36.6; O2SAT 93
[2023-10-25 14:01] VITALS: BP 116/69; PULSE 57; RESP 18; TEMP 36.8; O2SAT 95
--- NOTE | 2023-10-25 14:02 | DCPLANNER ---
IMM was printed and informed ISL and guardian of pt rights and copy placed in pt?s file.
== END 2023-10-25 16:27 | disposition home or self-care (01) | DRG 881 ==
LOC: ER 16:45 → ER IP 17:37 → NP 21:20
PROVIDERS: Admitting Provider Psychiatry & Neurology Psychiatry; Emergency Provider Emergency Medicine; PCP Family Medicine; Visit Provider Psychiatry & Neurology Psychiatry
DX: F32.A Depression, unspecified (principal); R45.851 Suicidal ideations; F70 Mild intellectual disabilities; F63.81 Intermittent explosive disorder; E11.9 Type 2 diabetes mellitus without complications; Z79.84 Long term (current) use of oral hypoglycemic drugs; E78.00 Pure hypercholesterolemia, unspecified; I10 Essential (primary) hypertension; Z79.82 Long term (current) use of aspirin; G47.30 Sleep apnea, unspecified; Z87.891 Personal history of nicotine dependence
CPT/HCPCS: 36415; 36416; 80053; 80306; 80307; 82962; 85025; 87426; 87804; 87899; 93005; 94660; 97150; 97165; 99291

== ENCOUNTER 2023-10-26 19:12 | Emergency (ER) | payer MEDICARE, MEDICAID, SELFPAY ==
[2023-10-26 19:13] VITALS: BP 122/66; PULSE 68; RESP 18; TEMP 36.7; O2SAT 98; BMI 48.8
--- NOTE | 2023-10-26 19:13 | XRR_ITS ---
PROCEDURE INFORMATION: Exam: XR Chest Exam date and time: 10/26/2023 7:17 PM Age: 47 years old Clinical indication: Pain; Chest pressure; Additional info: Cp TECHNIQUE: Imaging protocol: Radiologic exam of the chest. Views: 1 view. COMPARISON: CR (CHEST, ) 10/16/2023 11:39 PM FINDINGS: Lungs: No focal consolidation. Pleural spaces: No evidence of pneumothorax. No evidence of pleural effusion. Heart/Mediastinum: Cardiomediastinal silhouette is within normal limits. Bones/joints: No evidence of acute osseous abnormality. XR/XR chest 1V portable [id number] IMPRESSION: 1. No acute cardiopulmonary abnormality.
--- NOTE | 2023-10-26 19:15 | ED_ITS ---
HPI - Chest Pain 2 General: Chief Complaint: Chest Pain Stated Complaint: CP Time Seen by Provider: 10/26/23 19:13 Source: patient and EMS Mode of arrival: EMS Limitations: no limitations History of Present Illness: 47-year-old male is well-known to the ER and actually just got out of the psych frias yesterday states been having chest pains for the last 2 days. States been a sharp pain across his chest he states pain is currently a 3 out of 10 he denies any worse improved factors denies any increasing shortness of breath denies any nausea or vomiting. Associated symptoms: Deny abdominal pain, dyspnea, fever(s), nausea or vomiting Review of Systems 2 Const: Denies: fever(s), chills, body aches or change in appetite ENMT: Denies: throat pain or dental pain Card: Reports: chest pain Resp: Denies: dyspnea GI: Denies: abdominal pain, nausea, vomiting or diarrhea : Denies: dysuria Musc: Denies: neck pain or back pain Skin/Breast: Denies: rash Neuro: Denies: headache(s) PFSH ED 2 PFSH: Medical History Moderate episode of recurrent major depressive disorder Psychiatric care Family History Brother Diabetes Denies family history of CAD (coronary artery disease) Congestive heart failure (CHF) Anemia Aneurysm Arrhythmia Atrial fibrillation TIA (transient ischemic attack) Heart disease Sudden cardiac Chronic kidney disease (CKD) Congenital heart disease Carotid artery disease Pulmonary embolism Cardiomyopathy Social History Smoking and tobacco/nicotine status: former use of tobacco/nicotine Alcohol intake: never Physical Exam 2 Const: COMMON NORMALS: no acute distress, patient oriented x3 and healthy appearing HENMT: COMMON NORMALS: normocephalic and atraumatic HEAD & SCALP: n ormocephalic and atraumatic Eye: COMMON NORMALS: Equal, round and reactive pupils present and EOMs intact bilaterally PUPIL: Yes Equal, round and reactive pupils present Neck/C-Spine: COMMON NORMALS: full ROM and supple Chest: COMMONS NORMALS: normal inspection of the chest and normal palpation of entire chest wall Resp: COMMON NORMALS: normal respiratory effort, No retractions, No use of accessory muscles and clear to auscultation bilaterally AUSCULTATION: clear to auscultation bilaterally Cardio: COMMON NORMALS: regular rate, regular rhythm and No murmurs present (Cardio) RATE: regular rate RHYTHM: regular rhythm GI: COMMON NORMALS: Normal to inspection, nondistended, normoactive bowel sounds present, Soft to palpation, non-tender and no masses PALPATION: Yes Soft to palpation Extremity: COMMON NORMALS: normal to inspection and full ROM Neuro: COMMON NORMALS: patient oriented x3, moves all extremities and no focal motor deficits Psych: COMMON NORMALS: mental status grossly normal, Normal thought process present and cooperative THOUGHT PROCESS: Normal thought process present Skin: COMMON NORMALS: no rashes or lesions noted and no wounds GENERAL SKIN EXAM: no rashes or lesions noted Course 2 Vital Signs: Vital signs: Vital Signs Temperature 98.0 F 10/26/23 19:13 Pulse Rate 80 10/26/23 19:50 Respiratory Rate 18 10/26/23 19:50 Blood Pressure 130/78 10/26/23 19:50 Pulse Oximetry 94 10/26/23 19:50 Oxygen Delivery Me thod Room Air 10/26/23 19:50 MDM - Chest Pain Medical Decision Making Patient presents here with chest pain is atypical in nature his troponin here is negative he has no signs of ACS he stable for discharge follow-up with PCP return if worsening. Medical Records I reviewed the patient's medical records. Lab Data I reviewed the patient's lab results. 10/26/23 19:25 10/26/23 19:25 Radiology Impressions Chest X-Ray 10/26/23 19:13 IMPRESSION: 1. No acute cardiopulmonary abnormality. Laboratory Results WBC 6.08 10^3/uL (3.29-11.43) 10/26/23 19:25 RBC 4.48 10^6/uL (3.85-5.65) 10/26/23 19:25 Hgb 13.30 g/dL (11.27-16.99) 10/26/23 19:25 Hct 39.7 % (37-53) 10/26/23 19:25 MCV 88.6 fl (82-101) 10/26/23 19:25 MCH 29.7 pg (27-33) 10/26/23 19:25 MCHC 33.5 g/dL (30-55) 10/26/23 19:25 RDW 13.2 % (12.1-15.1) 10/26/23 19:25 Plt Count 229 10^3/cmm (157-399) 10/26/23 19:25 MPV 10.4 fL (7.4-10.4) 10/26/23 19:25 Neut % (Auto) 59.9 % 10/26/23 19:25 Lymph % (Auto) 28.1 % 10/26/23 19:25 [place] % (Auto) 9.9 % 10/26/23 19:25 Eos % (Auto) 1.2 % 10/26/23 19:25 Baso % (Auto) 0.7 % 10/26/23: Neut # (Auto) 3.65 10^3/uL (1.8-7.7) 10/26/23 19:25 Lymph # (Auto) 1.7 10^3/uL (0.8-4.8) 10/26/23 19:25 [place] # (Auto) 0.6 10^3/uL (0.2-0.9) 10/26/23 19:25 Eos # (Auto) 0.1 10^3/uL (0.0-0.8) 10/26/23 19:25 Baso # (Auto) 0.0 10^3/uL (0.0-0.1) 10/26/23 19:25 Nucleated RBC % (auto) 0 % 10/26/23: Nucleated RBCs # 0.0 /100WBC 10/26/23 19:25 Sodium 136 mmol/L (136-145) 10/26/23 19:25 Chloride 99 mmol/L (98-107) 10/26/23 19:25 Carbon Dioxide 27 mmol/L (22-29) 10/26/23 19:25 BUN 16 mg/dL (6-20) 10/26/23 19:25 Creatinine 0.9 mg/dL (0.7-1.2) 10/26/23 19:25 GFR Calculation 90.4 mL/min (90-130) 10/26/23 19:25 Calcium 8.9 mg/dL (8.5-10.5) 07/16/24 19:25 Total Bilirubin 0.7 mg/dL (0.15-1.2) 10/26/23 19:25 ALT 14 U/L (0-41) 10/26/23 19:25 Alkaline Phosphatase 102 U/L (40-130) 10/26/23 19:25 Troponin T Baseline 9 ng/L (0-15) 10/26/23 19:25 Albumin 4.2 g/dL (3.5-5.2) 10/26/23 19:25 Globulin 2.0 g/dL (1.3-4.6) 10/26/23 19:25 Lipase 37 U/L (13-60) 10/26/23 19:25 All radiology interpretation(s) finalized by discharge EKG Data EKG 1: I personally reviewed and interpreted this EKG as follows: EKG interpretation date: 10/26/23 EKG interpretation time: 19:17 Interpretation: nsr with pvc hr [address] elevation qrs 106 qtc 403 Discharge Plan Discharge Patient Disposition: Home Clinical Impression: Chest pain Condition: Stable Prescriptions: No Action cetirizine [All Day Allergy (cetirizine)] 10 mg tablet 10 mg PO DAILY PRN (Reason: allergy symptoms) Qty: 60 0RF paroxetine HCl [Paxil] 40 mg tablet 40 mg PO DAILY Qty: 30 1RF Rx Instructions: Take with Paxil 20mg daily. paroxetine HCl [Paxil] 20 mg tablet 20 mg PO DAILY Qty: 30 1RF Rx Instructions: Take with Paxil 40mg daily. furosemide 40 mg tablet 40 mg PO DAILY metformin 500 mg tablet 500 mg PO BID aspirin 81 mg Tablet,Delayed Release (Dr/Ec) 81 mg PO DAILY simvastatin 20 mg tablet 20 mg PO DAILY lisinopril 10 mg tablet 10 mg PO DAILY ketorolac 10 mg tablet 10 mg PO TID PRN (Reason: pain) Qty: 10 0RF risperidone 1 mg Tablet 1 mg PO BEDTIME 30 Days Qty: 30 1RF Discharge Orders: Discharge ED (Routine); Ordered 10/26/23 Ordered By: Keyana Mcmillan Referrals: Raj Kent MD [Primary Care Provider] - 4-7 days Discharge Diet: Advance as tolerated Discharge Activity: Resume usual activity Patient Instructions: Chest Pain (ED) Coding Level of Care Code 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
--- NOTE | 2023-10-26 19:17 | ECG_ITS ---
[facility] Test Date: 2023-10-26 Pat Name: Ronnie Guzman Department: Room: Gender: Male Assistant Gm Of Content & Delivery: : 1975 Requested By: Keyana Mcmillan Order Number: [id number] Jamila MD: Franck Redman M.D. Measurements Intervals [place] Rate: 84 P: 26 RI: 157 QRS: 79 QRSD: 106 T: 55 QT: 362 QTc: 428 Interpretive Statements SINUS RHYTHM WITH FREQUENT VENTRICULAR PREMATURE COMPLEXES LOW QRS VOLTAGE [QRS DEFLECTION < 0.5/1.0 mV IN LIMB/CHEST LEADS] POSSIBLE ANTERIOR MYOCARDIAL INFARCTION , PROBABLY OLD [30 ms Q WAVE IN V3/V4, OR R < 0.2 mV IN V4] Compared to ECG 10/25/2023 09:46:11 No significant changes Electronically Signed On 10-26-2023 21:34:11 CDT by Franck Redman M.D. [id number] f
[2023-10-26 19:20] VITALS: BP 122/66; PULSE 68; RESP 18; O2SAT 91
[2023-10-26 19:35] VITALS: BP 152/88; PULSE 86; RESP 16; O2SAT 92
[2023-10-26 19:36] LABS: Basophils % 0.7 %; Eosinophils # 0.1 10^3/uL (0.0-0.8); Eosinophils % 1.2 %; Hematocrit 39.7 % (37-53); Lymphocytes # 1.7 10^3/uL (0.8-4.8); Lymphocytes % 28.1 %; Mean Corpuscular HGB Conc 33.5 g/dL (30-55); Mean Corpuscular Hemoglobin 29.7 pg (27-33); Mean Corpuscular Volume 88.6 fl (82-101); Mean Platelet Volume 10.4 fL (7.4-10.4); Monocytes # 0.6 10^3/uL (0.2-0.9); Monocytes % 9.9 %; Neutrophils # 3.65 10^3/uL (1.8-7.7); Neutrophils % 59.9 %; Nucleated Red Blood Cells % 0 %; Platelet Count 229 10^3/cmm (157-399); Red Blood Count 4.48 10^6/uL (3.85-5.65); Red Cell Distribution Width 13.2 % (12.1-15.1); White Blood Count 6.08 10^3/uL (3.29-11.43)
[2023-10-26 19:50] VITALS: BP 130/78; PULSE 80; RESP 18; O2SAT 94
[2023-10-26 19:56] LABS: Alanine Aminotransferase 14 U/L (0-41); Albumin Level 4.2 g/dL (3.5-5.2); Alkaline Phosphatase 102 U/L (40-130); Blood Urea Nitrogen 16 mg/dL (6-20); Calcium 8.9 mg/dL (8.5-10.5); Carbon Dioxide 27 mmol/L (22-29); Chloride 99 mmol/L (98-107); Creatinine Clr Calc Pharmacy 160.5645; Glomerular Filtration Rate 90.4 mL/min (90-130); Glucose 122 mg/dL (65-115); Lipase 37 U/L (13-60); Osmolality Calculated 284 mOsm/kg (285-295); Sodium 136 mmol/L (136-145); Total Bilirubin 0.7 mg/dL (0.15-1.2); Total Protein 6.2 g/dL (6.6-8.7); Troponin(5th) Baseline 9 ng/L (0-15)
[2023-10-26 20:05] VITALS: BP 130/78; PULSE 80; RESP 18; TEMP 36.7; O2SAT 94
[2023-10-26 20:05] LABS: Glucose Point of Care 137 mg/dL (70-110)
[2023-10-26 20:07] LABS: Anion Gap 14.2 (5-19); Aspartate Amino Transferase 15 U/L (0-40); Potassium 4.2 mmol/L (3.5-5.1)
== END 2023-10-26 20:11 | disposition home or self-care (01) ==
PROVIDERS: Emergency Provider Emergency Medicine; PCP Family Medicine
DX: R07.89 Other chest pain (principal); Z79.899 Other long term (current) drug therapy; Z79.82 Long term (current) use of aspirin; Z87.891 Personal history of nicotine dependence
CPT/HCPCS: 36415; 36416; 71045; 80053; 82962; 83690; 84484; 85025; 93005; 99285

== ENCOUNTER 2023-10-27 19:29 | Emergency (ER) | payer MEDICARE, MEDICAID, SELFPAY ==
[2023-10-27] VITALS (7 sets, daily range): BP systolic 92–122; BP diastolic 49–84; PULSE 53–99; RESP 15–27; TEMP 36.9; O2SAT 90–94; BMI 30.4
--- NOTE | 2023-10-27 19:35 | XRR_ITS ---
PROCEDURE INFORMATION: Exam: XR Chest Exam date and time: 10/27/2023 8:24 PM Age: 47 years old Clinical indication: Pain; Chest pressure; Additional info: Cp TECHNIQUE: Imaging protocol: Radiologic exam of the chest. Views: 1 view. COMPARISON: CR (CHEST, ) 10/26/2023 7:17 PM FINDINGS: Lungs: Low lung volumes with basilar atelectasis. Consolidation. Pleural spaces: No pleural effusion or pneumothorax. Heart/Mediastinum: The heart is magnified. Bones/joints: No acute osseous abnormalities are seen. XR/XR chest 1V portable [id number] IMPRESSION: No acute cardiopulmonary disease.
[2023-10-27 19:48] LABS: Basophils % 0.7 %; Eosinophils # 0.1 10^3/uL (0.0-0.8); Eosinophils % 1.9 %; Hematocrit 41.3 % (37-53); Lymphocytes # 1.6 10^3/uL (0.8-4.8); Lymphocytes % 28.2 %; Mean Corpuscular HGB Conc 33.2 g/dL (30-55); Mean Corpuscular Hemoglobin 29.4 pg (27-33); Mean Corpuscular Volume 88.6 fl (82-101); Mean Platelet Volume 10.3 fL (7.4-10.4); Monocytes # 0.5 10^3/uL (0.2-0.9); Monocytes % 8.2 %; Neutrophils # 3.46 10^3/uL (1.8-7.7); Neutrophils % 60.6 %; Nucleated Red Blood Cells % 0 %; Platelet Count 230 10^3/cmm (157-399); Red Blood Count 4.66 10^6/uL (3.85-5.65); Red Cell Distribution Width 13.2 % (12.1-15.1); White Blood Count 5.71 10^3/uL (3.29-11.43)
--- NOTE | 2023-10-27 19:54 | ECG_ITS ---
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 Measurements Intervals [place] Rate: 91 P: 27 NV: 140 QRS: 90 QRSD: 104 T: 67 QT: 340 QTc: 419 Interpretive Statements SINUS RHYTHM WITH FREQUENT VENTRICULAR PREMATURE COMPLEXES LOW QRS VOLTAGE [QRS DEFLECTION < 0.5/1.0 mV IN LIMB/CHEST LEADS] Compared to ECG 10/26/2023 19:17:33 Myocardial infarct finding no longer present Electronically Signed On 10-28-2023 22:18:21 CDT by Franck Redman M.D. [email or web address]/store/[id number]
[2023-10-27 20:09] LABS: Troponin(5th) Baseline 10 ng/L (0-15)
[2023-10-27 20:16] LABS: Alanine Aminotransferase 15 U/L (0-41); Albumin Level 4.4 g/dL (3.5-5.2); Alkaline Phosphatase 95 U/L (40-130); Anion Gap 16.7 (5-19); Aspartate Amino Transferase 15 U/L (0-40); Blood Urea Nitrogen 16 mg/dL (6-20); Carbon Dioxide 24 mmol/L (22-29); Chloride 100 mmol/L (98-107); Globulin 2.1 g/dL (1.3-4.6); Glomerular Filtration Rate 90.4 mL/min (90-130); Glucose 119 mg/dL (65-115); Osmolality Calculated 286 mOsm/kg (285-295); Potassium 3.7 mmol/L (3.5-5.1); Sodium 137 mmol/L (136-145); Total Bilirubin 0.8 mg/dL (0.15-1.2); Total Protein 6.5 g/dL (6.6-8.7)
--- NOTE | 2023-10-27 21:29 | ED_ITS ---
HPI - Chest Pain 2 General: Chief Complaint: Chest Pain Stated Complaint: CP Time Seen by Provider: 10/27/23 19:35 History of Present Illness: Presents to the ER by EMS with chest pain for the last 5 hours. Patient is from [employer] Caregiver states that he has been drinking a lot more Gi[employer] than normal. He was given 3 and 25 mg aspirin, 0.4 mg nitro on route as well as a fluid bolus. Upon arrival currently rated the pain still 10 out of 10 however he appears in no acute distress. Patient is a a frequent flyer of the ER for chest pain. Review of Systems 2 General: Reports: 10 or more systems reviewed and unremarkable except in HPI and below PFSH ED 2 PFSH: Medical History Moderate episode of recurrent major depressive disorder Psychiatric care Family History Brother Diabetes Denies family history of CAD (coronary artery disease) Congestive heart failure (CHF) Anemia Aneurysm Arrhythmia Atrial fibrillation TIA (transient ischemic attack) Heart disease Sudden cardiac Chronic kidney disease (CKD) Congenital heart disease Carotid artery disease Pulmonary embolism Cardiomyopathy Social History Smoking and tobacco/nicotine status: former use of tobacco/nicotine Alcohol intake: never Physical Exam 2 Const: COMMON NORMALS: no acute distress, average body habitus, patient oriented x3, no limitations, healthy appearing, alert and well nourished Neck/C-Spine: COMMON NORMALS: no JVD Chest: COMMONS NORMALS: normal inspection of the chest and normal palpation of entire chest wall Resp: COMMON NORMALS: normal respiratory effort, No retractions, No use of accessory muscles and clear to auscultation bilaterally AUSCULTATION: clear to auscultation bilaterally Cardio: COMMON NORMALS: no JVD, regular rate, regular rhythm, S1 normal heart sound present, S2 normal heart sound present, No gallops present (Cardio), No clicks present (Cardio), No murmurs present (Cardio) and No rub (Cardio) R ATE: regular rate RHYTHM: regular rhythm HEART SOUNDS: S1 normal heart sound present and S2 normal heart sound present GI: COMMON NORMALS: Normal to inspection, nondistended, normoactive bowel sounds present, Soft to palpation, non-tender, No hepatosplenomegaly present and no masses PALPATION: Yes Soft to palpation and Yes No hepatosplenomegaly present Neuro: COMMON NORMALS: patient oriented x3 SENSORIUM/ORIENTATION: Yes alert Course 2 Vital Signs: Vital signs: Vital Signs Temperature 98.4 F 10/27/23 20:10 Pulse Rate 56 L 10/27/23 21:30 Respiratory Rate 15 10/27/23 21:30 Blood Pressure 122/49 10/27/23 21:30 Pulse Oximetry 92 10/27/23 21:30 Oxygen Delivery Me thod Room Air 10/27/23 20:30 MDM - Chest Pain Medical Decision Making Patient was brought in for chest pain lightheaded dizziness, patient had lab work chest x-ray EKG all of which was essentially benign. Patient will be discharged home. Differential Diagnosis Unlikely acute massive pulmonary embolism, acute respiratory failure, acute myocardial infarction, cardiac arrest or sudden cardiac Medical Records I reviewed the patient's medical records. Lab Data I reviewed the patient's lab results. 10/27/23 19:15 10/27/23 19:15 Radiology Impressions Chest X-Ray 10/27/23 19:35 IMPRESSION: No acute cardiopulmonary disease. Laboratory Results WBC 5.71 10^3/uL (3.29-11.43) 10/27/23 19:15 RBC 4.66 10^6/uL (3.85-5.65) 10/27/23 19:15 Hgb 13.70 g/dL (11.27-16.99) 10/27/23 19:15 Hct 41.3 % (37-53) 10/27/23 19:15 MCV 88.6 fl (82-101) 10/27/23 19:15 MCH 29.4 pg (27-33) 10/27/23 19:15 MCHC 33.2 g/dL (30-55) 10/27/23 19:15 RDW 13.2 % (12.1-15.1) 10/27/23 19:15 Plt Count 230 10^3/cmm (157-399) 10/27/23 19:15 MPV 10.3 fL (7.4-10.4) 10/27/23 19:15 Neut % (Auto) 60.6 % 10/27/23 19:15 Lymph % (Auto) 28.2 % 10/27/23 19:15 [place] % (Auto) 8.2 % 10/27/23 19:15 Eos % (Auto) 1.9 % 10/27/23 19:15 Baso % (Auto) 0.7 % 10/27/23 19:15 Neut # (Auto) 3.46 10^3/uL (1.8-7.7) 10/27/23 19:15 Lymph # (Auto) 1.6 10^3/uL (0.8-4.8) 10/27/23 19:15 [place] # (Auto) 0.5 10^3/uL (0.2-0.9) 10/27/23 19:15 Eos # (Auto) 0.1 10^3/uL (0.0-0.8) 10/27/23 19:15 Baso # (Auto) 0.0 10^3/uL (0.0-0.1) 10/27/23 19:15 Nucleated RBC % (auto) 0 % 10/27/23 19:15 Nucleated RBCs # 0.0 /100WBC 10/27/23 19:15 Sodium 137 mmol/L (136-145) 10/27/23 19:15 Potassium 3.7 mmol/L (3.5-5.1) 10/27/23 19:15 Chloride 100 mmol/L (98-107) 10/27/23 19:15 Carbon Dioxide 24 mmol/L (22-29) 10/27/23 19:15 Anion Gap 16.7 (5-19) 10/27/23 19:15 BUN 16 mg/dL (6-20) 10/27/23 19:15 Creatinine 0.9 mg/dL (0.7-1.2) 10/27/23 19:15 GFR Calculation 90.4 mL/min (90-130) 10/27/23 19:15 Glucose 119 mg/dL (65-115) H 10/27/23 19:15 Calculated Osmolality 286 mOsm/kg (285-295) 10/27/23 19:15 Calcium 9.0 mg/dL (8.5-10.5) 10/27/23 19:15 Total Bilirubin 0.8 mg/dL (0.15-1.2) 10/27/23 19:15 AST 15 U/L (0-40) 10/27/23 19:15 ALT 15 U/L (0-41) 10/27/23 19:15 Alkaline Phosphatase 95 U/L (40-130) 10/27/23 19:15 Troponin T Baseline 10 ng/L (0-15) 10/27/23 19:15 Total Protein 6.5 g/dL (6.6-8.7) L 10/27/23 19:15 Albumin 4.4 g/dL (3.5-5.2) 10/27/23 19:15 Globulin 2.1 g/dL (1.3-4.6) 10/27/23 19:15 All radiology interpretation(s) finalized by discharge EKG Data EKG 1: I personally reviewed and interpreted this EKG as follows: EKG interpretation date: 10/27/23 EKG interpretation time: 19:54 Interpretation: Ventricular rate 91 bpm, OH interval 140, QRS duration 104, QTc 389, sinus rhythm with occasional PVC Discharge Plan Discharge Patient Disposition: Home Clinical Impression: Atypical chest pain Condition: Stable Prescriptions: No Action cetirizine [All Day Allergy (cetirizine)] 10 mg tablet 10 mg PO DAILY PRN (Reason: allergy symptoms) Qty: 60 0RF paroxetine HCl [Paxil] 40 mg tablet 40 mg PO DAILY Qty: 30 1RF Rx Instructions: Take with Paxil 20mg daily. paroxetine HCl [Paxil] 20 mg tablet 20 mg PO DAILY Qty: 30 1RF Rx Instructions: Take with Paxil 40mg daily. furosemide 40 mg tablet 40 mg PO DAILY metformin 500 mg tablet 500 mg PO BID aspirin 81 mg Tablet,Delayed Release (Dr/Ec) 81 mg PO DAILY simvastatin 20 mg tablet 20 mg PO DAILY lisinopril 10 mg tablet 10 mg PO DAILY ketorolac 10 mg tablet 10 mg PO TID PRN (Reason: pain) Qty: 10 0RF risperidone 1 mg Tablet 1 mg PO BEDTIME 30 Days Qty: 30 1RF Discharge Orders: Discharge ED (Routine); Ordered 10/27/23 Ordered By: Alonso Augustin Referrals: Raj Kent MD [Primary Care Provider] - 1 week Patient Instructions: Chest Pain (DC) Activity Restrictions/Additional Instructions: Your evaluation ER did not show any acute cause of cardiac related chest pain, it is felt that your chest pain is noncardiac in nature. Please follow-up with your family proximal physician in the next 7 days for further evaluation and treatment. Coding Level of Care Code ED Senior Ui Web Developer for Nathan Agudelo
== END 2023-10-27 21:43 | disposition home or self-care (01) ==
PROVIDERS: Emergency Medicine; Emergency Provider Emergency Medicine; PCP Family Medicine
DX: R07.89 Other chest pain (principal); Z79.84 Long term (current) use of oral hypoglycemic drugs; Z79.82 Long term (current) use of aspirin; I49.3 Ventricular premature depolarization; Z87.891 Personal history of nicotine dependence
CPT/HCPCS: 71045; 80053; 84484; 85025; 93005; 99285

== ENCOUNTER → 2023-10-28 16:10 | Outpatient (BNVA) | payer MEDICARE, MEDICAID, SELFPAY | PROVIDERS: PCP Family Medicine; Visit Provider Registered Nurse Neonatal Intensive Care | DX: M79.641 Pain in right hand (principal) | CPT/HCPCS: 73130 ==

== ENCOUNTER → 2023-11-01 09:35 | Outpatient (BNVA) | payer MEDICARE, MEDICAID, SELFPAY | PROVIDERS: PCP Family Medicine; Visit Provider Surgery | DX: Z09 Encounter for follow-up examination after completed treatment for conditions other than malignant neoplasm (principal); K80.20 Calculus of gallbladder without cholecystitis without obstruction | CPT/HCPCS: 73030; 99214 ==

== ENCOUNTER 2023-11-02 19:22 | Emergency (ER) | payer MEDICARE, MEDICAID, SELFPAY ==
[2023-11-02 19:22] VITALS: BP 112/85; PULSE 81; RESP 18; TEMP 36.4; O2SAT 92; BMI 47.5
--- NOTE | 2023-11-02 19:46 | XRR_ITS ---
PROCEDURE INFORMATION: Exam: XR Chest Exam date and time: 11/02/2023 7:50 PM Age: 47 years old Clinical indication: Pain; Chest pressure; Additional info: Cp TECHNIQUE: Imaging protocol: Radiologic exam of the chest. Views: 1 view. COMPARISON: CR (CHEST, ) 10/27/2023 8:24 PM FINDINGS: Lungs: Unremarkable. No consolidation. Pleural spaces: Unremarkable. No pleural effusion. No pneumothorax. Heart/Mediastinum: Unremarkable. No cardiomegaly. Bones/joints: Unremarkable. XR/XR chest 1V portable [id number] IMPRESSION: No acute findings.
--- NOTE | 2023-11-02 19:46 | ECG_ITS ---
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 Measurements Intervals [place] Rate: 81 P: 31 PA: 208 QRS: 53 QRSD: 95 T: 38 QT: 348 QTc: 406 Interpretive Statements SINUS RHYTHM WITH OCCASIONAL VENTRICULAR PREMATURE COMPLEXES LOW QRS VOLTAGE IN PRECORDIAL LEADS [QRS DEFLECTION < 1.0 mV IN CHEST LEADS] ANTEROSEPTAL MYOCARDIAL INFARCTION , PROBABLY OLD [40+ ms Q WAVE IN V1-V4] Compared to ECG 10/27/2023 19:54:25 Myocardial infarct finding now present ST (T wave) deviation now present Electronically Signed On 11-03-2023 10:32:20 CDT by Bobo Bird M.D. [id number] f
[2023-11-02 19:54] LABS: Basophils % 0.5 %; Eosinophils # 0.1 10^3/uL (0.0-0.8); Eosinophils % 1.3 %; Hematocrit 40.3 % (37-53); Lymphocytes # 1.5 10^3/uL (0.8-4.8); Lymphocytes % 24.1 %; Mean Corpuscular Hemoglobin 29.8 pg (27-33); Mean Corpuscular Volume 87.6 fl (82-101); Mean Platelet Volume 10.1 fL (7.4-10.4); Monocytes # 0.6 10^3/uL (0.2-0.9); Monocytes % 8.8 %; Neutrophils # 4.07 10^3/uL (1.8-7.7); Nucleated Red Blood Cells % 0 %; Platelet Count 238 10^3/cmm (157-399); Red Cell Distribution Width 13.2 % (12.1-15.1); White Blood Count 6.26 10^3/uL (3.29-11.43)
--- NOTE | 2023-11-02 19:59 | ED_ITS ---
HPI - Chest Pain 2 General: Chief Complaint: Chest Pain Stated Complaint: CP Time Seen by Provider: 11/02/23 19:24 Source: patient Mode of arrival: ambulatory Limitations: no limitations History of Present Illness: 47-year-old male that is very well-known to the ER states been having chest pain throughout the day. He has been seen multiple times for chest pain he is resting comfortably in his room states pain is a 3 out of 10 he denies any shortness of breath denies any nausea denies any worse improving factors. Associated symptoms: Deny abdominal pain, dyspnea, fever(s), nausea or vomiting Review of Systems 2 Const: Denies: fever(s), chills, body aches or change in appetite ENMT: Denies: throat pain or dental pain Card: Reports: chest pain Resp: Denies: dyspnea GI: Denies: abdominal pain, nausea, vomiting or diarrhea : Denies: dysuria Musc: Denies: neck pain or back pain Skin/Breast: Denies: rash Neuro: Denies: headache(s) PFSH ED 2 PFSH: Medical History Moderate episode of recurrent major depressive disorder Psychiatric care Family History Brother Diabetes Denies family history of CAD (coronary artery disease) Congestive heart failure (CHF) Anemia Aneurysm Arrhythmia Atrial fibrillation TIA (transient ischemic attack) Heart disease Sudden cardiac Chronic kidney disease (CKD) Congenital heart disease Carotid artery disease Pulmonary embolism Cardiomyopathy Social History Smoking and tobacco/nicotine status: never used tobacco/nicotine Alcohol intake: never Physical Exam 2 Const: COMMON NORMALS: no acute distress, patient oriented x3 and healthy appearing HENMT: COMMON NORMALS: normocephalic and atraumatic HEAD & SCALP: n ormocephalic and atraumatic Neck/C-Spine: COMMON NORMALS: full ROM and supple Chest: COMMONS NORMALS: normal inspection of the chest Resp: COMMON NORMALS: normal respiratory effort, No retractions, No use of accessory muscles and clear to auscultation bilaterally AUSCULTATION: clear to auscultation bilaterally Cardio: COMMON NORMALS: regular rate, regular rhythm and No murmurs present (Cardio) RATE: regular rate RHYTHM: regular rhythm GI: COMMON NORMALS: Normal to inspection, nondistended, normoactive bowel sounds present, Soft to palpation, non-tender and no masses PALPATION: Yes Soft to palpation Extremity: COMMON NORMALS: normal to inspection and full ROM Neuro: COMMON NORMALS: patient oriented x3, moves all extremities and no focal motor deficits Psych: COMMON NORMALS: mental status grossly normal, Normal thought process present and cooperative THOUGHT PROCESS: Normal thought process present Skin: COMMON NORMALS: no rashes or lesions noted and no wounds GENERAL SKIN EXAM: no rashes or lesions noted Course 2 Vital Signs: Vital signs: Vital Signs Temperature 97.6 F 11/02/23 19:22 Pulse Rate 52 L 11/02/23 21:04 Respiratory Rate 21 H 11/02/23 21:04 Blood Pressure 126/80 11/02/23 21:04 Pulse Oximetry 91 11/02/23 21:04 Oxygen Delivery Me thod Room Air 11/02/23 21:04 MDM - Chest Pain Medical Decision Making Patient presents for chest pain is atypical in nature his troponins here are normal no signs of ACS he stable for discharge she is follow-up with his PCP and return if worsening he understands agrees to plan Medical Records I reviewed the patient's medical records. Lab Data I reviewed the patient's lab results. 11/02/23 19:12 11/02/23 19:12 Radiology Impressions Chest X-Ray 11/02/23 19:46 IMPRESSION: No acute findings. Laboratory Results WBC 6.26 10^3/uL (3.29-11.43) 11/02/23 19:12 RBC 4.60 10^6/uL (3.85-5.65) 11/02/23 19:12 Hgb 13.70 g/dL (11.27-16.99) 11/02/23 19:12 Hct 40.3 % (37-53) 11/02/23 19:12 MCV 87.6 fl (82-101) 11/02/23 19:12 MCH 29.8 pg (27-33) 11/02/23 19:12 MCHC 34.0 g/dL (30-55) 11/02/23 19:12 RDW 13.2 % (12.1-15.1) 11/02/23 19:12 Plt Count 238 10^3/cmm (157-399) 11/02/23 19:12 MPV 10.1 fL (7.4-10.4) 11/02/23 19:12 Neut % (Auto) 65.0 % 11/02/23 19:12 Lymph % (Auto) 24.1 % 11/02/23 19:12 [place] % (Auto) 8.8 % 11/02/23 19:12 Eos % (Auto) 1.3 % 11/02/23 19:12 Baso % (Auto) 0.5 % 11/02/23 19:12 Neut # (Auto) 4.07 10^3/uL (1.8-7.7) 11/02/23 19:12 Lymph # (Auto) 1.5 10^3/uL (0.8-4.8) 11/02/23 19:12 [place] # (Auto) 0.6 10^3/uL (0.2-0.9) 11/02/23 19:12 Eos # (Auto) 0.1 10^3/uL (0.0-0.8) 11/02/23 19:12 Baso # (Auto) 0.0 10^3/uL (0.0-0.1) 11/02/23 19:12 Nucleated RBC % (auto) 0 % 11/02/23 19:12 Nucleated RBCs # 0.0 /100WBC 11/02/23 19:12 Sodium 135 mmol/L (136-145) L 11/02/23 19:12 Potassium 4.1 mmol/L (3.5-5.1) 11/02/23 19:12 Chloride 97 mmol/L (98-107) L 11/02/23 19:12 Carbon Dioxide 27 mmol/L (22-29) 11/02/23 19:12 Anion Gap 15.1 (5-19) 11/02/23 19:12 BUN 18 mg/dL (6-20) 11/02/23 19:12 Creatinine 0.8 mg/dL (0.7-1.2) 11/02/23 19:12 GFR Calculation 103.6 mL/min (90-130) 11/02/23 19:12 Glucose 95 mg/dL (65-115) 11/02/23 19:12 Calculated Osmolality 282 mOsm/kg (285-295) L 11/02/23 19:12 Calcium 9.2 mg/dL (8.5-10.5) 11/02/23 19:12 Total Bilirubin 0.7 mg/dL (0.15-1.2) 11/02/23 19:12 AST 14 U/L (0-40) 11/02/23 19:12 ALT 13 U/L (0-41) 11/02/23 19:12 Alkaline Phosphatase 72 U/L (40-130) 11/02/23 19:12 Troponin T Baseline 12 ng/L (0-15) 11/02/23 19:12 Troponin T 120 Minute 14.05 ng/L (0-15) 11/02/23 21:15 Delta Troponin T 2.05 ABS# (0-10) 11/02/23 21:15 Total Protein 6.5 g/dL (6.6-8.7) L 11/02/23 19:12 Albumin 4.4 g/dL (3.5-5.2) 11/02/23 19:12 Globulin 2.1 g/dL (1.3-4.6) 11/02/23 19:12 All radiology interpretation(s) finalized by discharge EKG Data EKG 1: I personally reviewed and interpreted this EKG as follows: EKG interpretation date: 11/02/23 EKG interpretation time: 19:27 Interpretation: nsr hr [address] elevation qrs 95 qtc 386 Discharge Plan Discharge Patient Disposition: Home Clinical Impression: Chest pain Condition: Stable Prescriptions: No Action cetirizine [All Day Allergy (cetirizine)] 10 mg tablet 10 mg PO DAILY PRN (Reason: allergy symptoms) Qty: 60 0RF paroxetine HCl [Paxil] 30 mg tablet 60 mg PO DAILY furosemide 40 mg tablet 40 mg PO DAILY metformin 500 mg tablet 500 mg PO BID aspirin 81 mg Tablet,Delayed Release (Dr/Ec) 81 mg PO DAILY simvastatin 20 mg tablet 20 mg PO DAILY lisinopril 10 mg tablet 10 mg PO DAILY ketorolac 10 mg tablet 10 mg PO TID PRN (Reason: pain) Qty: 10 0RF risperidone 1 mg Tablet 1 mg PO BEDTIME 30 Days Qty: 30 1RF Discharge Orders: Discharge ED (Routine); Ordered 11/02/23 Ordered By: Keyana Mcmillan Referrals: Raj Kent MD [Primary Care Provider] - Discharge Diet: Advance as tolerated Discharge Activity: Resume usual activity Patient Instructions: Chest Pain (ED) Coding Level of Care Code ED Die Stamping Press Operator for Nathan Agudelo
[2023-11-02 20:04] LABS: Troponin(5th) Baseline 12 ng/L (0-15)
[2023-11-02 20:05] LABS: Alanine Aminotransferase 13 U/L (0-41); Albumin Level 4.4 g/dL (3.5-5.2); Alkaline Phosphatase 72 U/L (40-130); Anion Gap 15.1 (5-19); Aspartate Amino Transferase 14 U/L (0-40); Blood Urea Nitrogen 18 mg/dL (6-20); Calcium 9.2 mg/dL (8.5-10.5); Carbon Dioxide 27 mmol/L (22-29); Chloride 97 mmol/L (98-107); Creatinine Clr Calc Pharmacy 177.7056; Globulin 2.1 g/dL (1.3-4.6); Glomerular Filtration Rate 103.6 mL/min (90-130); Glucose 95 mg/dL (65-115); Osmolality Calculated 282 mOsm/kg (285-295); Potassium 4.1 mmol/L (3.5-5.1); Sodium 135 mmol/L (136-145); Total Bilirubin 0.7 mg/dL (0.15-1.2); Total Protein 6.5 g/dL (6.6-8.7)
[2023-11-02 20:37] VITALS: BP 120/87; PULSE 56; RESP 17; O2SAT 91
--- NOTE | 2023-11-02 21:02 | PC.NURSE ---
800cc clear pale yellow urine emptied from urinal.
[2023-11-02 21:04] VITALS: BP 126/80; PULSE 52; RESP 21; O2SAT 91
--- NOTE | 2023-11-02 21:31 | ECG_ITS ---
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 Measurements Intervals [place] Rate: 66 P: 22 LA: 167 QRS: 56 QRSD: 94 T: 57 QT: 401 QTc: 420 Interpretive Statements SINUS RHYTHM WITH OCCASIONAL VENTRICULAR PREMATURE COMPLEXES LOW QRS VOLTAGE IN PRECORDIAL LEADS [QRS DEFLECTION < 1.0 mV IN CHEST LEADS] PATTERN CONSISTENT WITH PULMONARY DISEASE SEPTAL MYOCARDIAL INFARCTION , PROBABLY OLD [40+ ms Q WAVE IN V1/V2] Compared to ECG 11/02/2023 19:27:30 ST (T wave) deviation no longer present Myocardial infarct finding still present Electronically Signed On 11-03-2023 10:34:10 CDT by Bobo Bird M.D. [id number]
[2023-11-02 21:50] LABS: Troponin 5 2HR 14.05 ng/L (0-15); Troponin 5 2HR Delta 2.05 ABS# (0-10)
[2023-11-02 22:08] VITALS: BP 103/72; PULSE 70; RESP 16; O2SAT 14
[2023-11-02 22:19] VITALS: BP 103/72; PULSE 54; O2SAT 92
== END 2023-11-02 22:10 | disposition home or self-care (01) ==
PROVIDERS: Emergency Provider Emergency Medicine; PCP Family Medicine
DX: R07.9 Chest pain, unspecified (principal); Z79.82 Long term (current) use of aspirin; Z79.84 Long term (current) use of oral hypoglycemic drugs
CPT/HCPCS: 36415; 71045; 80053; 84484; 85025; 93005; 99285

== ENCOUNTER 2023-11-06 11:23 | Emergency (ER) | payer MEDICARE, MEDICAID, SELFPAY ==
[2023-11-06 11:24] VITALS: BP 107/63; PULSE 92; RESP 18; TEMP 36.8; O2SAT 92; BMI 44.0
--- NOTE | 2023-11-06 11:27 | ECG_ITS ---
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 Measurements Intervals [place] Rate: 53 P: 11 FL: 160 QRS: 45 QRSD: 94 T: 53 QT: 410 QTc: 387 Interpretive Statements SINUS BRADYCARDIA WITH OCCASIONAL VENTRICULAR PREMATURE COMPLEXES INDETERMINATE AXIS LOW QRS VOLTAGE [QRS DEFLECTION < 0.5/1.0 mV IN LIMB/CHEST LEADS] ANTEROSEPTAL MYOCARDIAL INFARCTION , PROBABLY OLD Compared to ECG 11/02/2023 21:31:00 Indeterminate axis now present Sinus rhythm no longer present Myocardial infarct finding still present Electronically Signed On 11-06-2023 16:19:11 CDT by Alla Zelaya M.D. [id number]
--- NOTE | 2023-11-06 11:27 | XRR_ITS ---
PROCEDURE INFORMATION: Exam: XR Chest Exam date and time: 11/06/2023 11:37 AM Age: 47 years old Clinical indication: Chest pressure; Patient HX: Chest pain; HTN; Diabetes TECHNIQUE: Imaging protocol: Radiologic exam of the chest. Views: 1 view. COMPARISON: CR (CHEST, ) 11/02/2023 7:50 PM FINDINGS: Lungs: Unremarkable. No consolidation. Pleural spaces: Unremarkable. No pleural effusion. No pneumothorax. Heart/Mediastinum: Unremarkable. No cardiomegaly. Bones/joints: Unremarkable. XR/XR chest 1V portable [id number] IMPRESSION: No acute findings.
--- NOTE | 2023-11-06 11:36 | W.ED.CHESTPA ---
HPI - Chest Pain General: Chief Complaint: Chest Pain Stated Complaint: Chest pain Time Seen by Provider: 11/06/23 11:26 History of Present Illness: 47-year-old male presents emergency room with complaint of chest pain. This been a recurring issue with him. He had a stress test that does not show any significant coronary artery disease. He has intellectual disability is here with a caregiver caregiver states he made comments that he basically wanted to get out of the house today. Does have history hypertension history of diabetes as well. Not having any chest pain at this time no associated shortness of breath or diaphoresis Associated symptoms: Deny abdominal pain, dyspnea or fever(s) Review of Systems Const: Denies: fever(s) or chills Card: Reports: chest pain Resp: Denies: dyspnea GI: Denies: abdominal pain : Denies: dysuria, urinary frequency or urinary urgency Musc: Denies: neck pain or back pain Skin/Breast: Denies: rash PFSH ED PFSH: Medical History Moderate episode of recurrent major depressive disorder Psychiatric care Family History Brother Diabetes Denies family history of CAD (coronary artery disease) Congestive heart failure (CHF) Anemia Aneurysm Arrhythmia Atrial fibrillation TIA (transient ischemic attack) Heart disease Sudden cardiac Chronic kidney disease (CKD) Congenital heart disease Carotid artery disease Pulmonary embolism Cardiomyopathy Social History Smoking and tobacco/nicotine status: never used tobacco/nicotine Alcohol intake: never Physical Exam Const: COMMON NORMALS: no acute distress GENERAL APPEARANCE: cooperative and comfortable ORIENTATION/CONSCIOUSNESS: Yes awake, Yes oriented to person, Yes oriented to place and Yes oriented to time HENMT: COMMON NORMALS: normocephalic, atraumatic and hearing grossly normal bilaterally HEAD & SCALP: normocephalic and atraumatic Resp: COMMON NORMALS: normal respiratory effort, No retractions, No use of accessory muscles and clear to auscultation bilaterally AUSCULTATION: clear to auscultation bilaterally Cardio: COMMON NORMALS: regular rate, regular rhythm and No murmurs present (Cardio) RATE: regular rate RHYTHM: regular rhythm GI: COMMON NORMALS: Soft to palpation and No hepatosplenomegaly present AUSCULTATION: Yes normoactive bowel sounds PALPATION: Yes Soft to palpation, No Tenderness to palpation present (GI), No Guarding due to palpation present (GI) and Yes No hepatosplenomegaly present Extremity: COMMON NORMALS: normal to inspection, capillary refill normal, no clubbing, cyanosis or edema, no calf tenderness and no pedal edema Neuro: SENSORIUM/ORIENTATION: Yes oriented to person, Yes oriented to place and Yes oriented to time Skin: COMMON NORMALS: no rashes or lesions noted GENERAL SKIN EXAM: no rashes or lesions noted Course Vital Signs: Vital signs: Vital Signs Temperature 98.2 F 11/06/23 11:24 Pulse Rate 51 L 11/06/23 12:00 Respiratory Rate 20 H 11/06/23 12:00 Blood Pressure 107/63 11/06/23 12:00 Pulse Oximetry 93 11/06/23 12:00 Oxygen Delivery Me thod Room Air 11/06/23 12:00 MDM - Chest Pain Medical Decision Making Iliac enzymes and EKG are negative. No further chest comfort no chest discomfort at this time. Will discharge patient home follow-up with primary care. He has previously had multiple evaluations and normal stress test in July of this year. Follow-up with primary care cardiology. Medical Records I reviewed the patient's medical records. Lab Data I reviewed the patient's lab results. 11/06/23 11:00 11/06/23 11:40 Radiology Impressions Chest X-Ray 11/06/23 11:27 IMPRESSION: No acute findings. Laboratory Results WBC 5.04 10^3/uL (3.29-11.43) 11/06/23 11:00 RBC 4.36 10^6/uL (3.85-5.65) 11/06/23 11:00 Hgb 13.20 g/dL (11.27-16.99) 11/06/23 11:00 Hct 38.8 % (37-53) 11/06/23 11:00 MCV 89.0 fl (82-101) 11/06/23 11:00 MCH 30.3 pg (27-33) 11/06/23 11:00 MCHC 34.0 g/dL (30-55) 11/06/23 11:00 RDW 13.3 % (12.1-15.1) 11/06/23 11:00 Plt Count 209 10^3/cmm (157-399) 11/06/23 11:00 MPV 10.7 fL (7.4-10.4) H 11/06/23 11:00 Neut % (Auto) 68.3 % 11/06/23 11:00 Lymph % (Auto) 20.6 % 11/06/23 11:00 Butts % (Auto) 9.3 % 11/06/23 11:00 Eos % (Auto) 1.2 % 11/06/23 11:00 Baso % (Auto) 0.4 % 11/06/23 11:00 Neut # (Auto) 3.44 10^3/uL (1.8-7.7) 11/06/23 11:00 Lymph # (Auto) 1.0 10^3/uL (0.8-4.8) 11/06/23 11:00 Butts # (Auto) 0.5 10^3/uL (0.2-0.9) 11/06/23 11:00 Eos # (Auto) 0.1 10^3/uL (0.0-0.8) 11/06/23 11:00 Baso # (Auto) 0.0 10^3/uL (0.0-0.1) 11/06/23 11:00 Nucleated RBC % (auto) 0 % 11/06/23 11:00 Nucleated RBCs # 0.0 /100WBC 11/06/23 11:00 Sodium 137 mmol/L (136-145) 11/06/23 11:40 Potassium 4.4 mmol/L (3.5-5.1) 11/06/23 11:40 Chloride 103 mmol/L (98-107) 11/06/23 11:40 Carbon Dioxide 24 mmol/L (22-29) 11/06/23 11:40 Anion Gap 14.4 (5-19) 11/06/23 11:40 BUN 16 mg/dL (6-20) 11/06/23 11:40 Creatinine 0.8 mg/dL (0.7-1.2) 11/06/23 11:40 GFR Calculation 103.6 mL/min (90-130) 11/06/23 11:40 Glucose 94 mg/dL (65-115) 11/06/23 11:40 Calculated Osmolality 285 mOsm/kg (285-295) 11/06/23 11:40 Calcium 8.4 mg/dL (8.5-10.5) L 11/06/23 11:40 Total Bilirubin 0.6 mg/dL (0.15-1.2) 11/06/23 11:40 AST 13 U/L (0-40) 11/06/23 11:40 ALT 12 U/L (0-41) 11/06/23 11:40 Alkaline Phosphatase 74 U/L (40-130) 11/06/23 11:40 Troponin T Baseline 12 ng/L (0-15) 11/06/23 11:40 Troponin T 120 Minute 10.82 ng/L (0-15) 11/06/23 13:48 Delta Troponin T -1.18 ABS# (0-10) L 11/06/23 13:48 Total Protein 5.8 g/dL (6.6-8.7) L 11/06/23 11:40 Albumin 4.0 g/dL (3.5-5.2) 11/06/23 11:40 Globulin 1.8 g/dL (1.3-4.6) 11/06/23 11:40 All radiology interpretation(s) finalized by discharge Discharge Plan Discharge Patient Disposition: Home Clinical Impression: Atypical chest pain Condition: Stable Prescriptions: No Action cetirizine [All Day Allergy (cetirizine)] 10 mg tablet 10 mg PO DAILY PRN (Reason: allergy symptoms) Qty: 60 0RF paroxetine HCl [Paxil] 30 mg tablet 60 mg PO DAILY furosemide 40 mg tablet 40 mg PO DAILY metformin 500 mg tablet 500 mg PO BID aspirin 81 mg Tablet,Delayed Release (Dr/Ec) 81 mg PO DAILY simvastatin 20 mg tablet 20 mg PO DAILY lisinopril 10 mg tablet 10 mg PO DAILY ketorolac 10 mg tablet 10 mg PO TID PRN (Reason: pain) Qty: 10 0RF risperidone 1 mg Tablet 1 mg PO BEDTIME 30 Days Qty: 30 1RF Discharge Orders: Discharge ED (Routine); Ordered 11/06/23 Ordered By: Alvarado Khoury Referrals: Raj Kent MD [Primary Care Provider] - Patient Instructions: Opioid Safety, Pain Management Activity Restrictions/Additional Instructions: Thank you for choosing [facility] for your healthcare needs today. It is very important that you follow up as instructed or that you return to the Emergency Department should you have concerns or if your condition changes or worsens in any way. You were seen today for chest comfort EKG and cardiac enzymes were normal. 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 Continue other medications as previously prescribed. Coding Level of Care Code ED J2Ee Engineer for Nathan Agudelo
[2023-11-06 11:45] LABS: Basophils % 0.4 %; Eosinophils # 0.1 10^3/uL (0.0-0.8); Eosinophils % 1.2 %; Hematocrit 38.8 % (37-53); Lymphocytes % 20.6 %; Mean Corpuscular Hemoglobin 30.3 pg (27-33); Mean Platelet Volume 10.7 fL (7.4-10.4); Monocytes # 0.5 10^3/uL (0.2-0.9); Monocytes % 9.3 %; Neutrophils # 3.44 10^3/uL (1.8-7.7); Neutrophils % 68.3 %; Nucleated Red Blood Cells % 0 %; Platelet Count 209 10^3/cmm (157-399); Red Blood Count 4.36 10^6/uL (3.85-5.65); Red Cell Distribution Width 13.3 % (12.1-15.1); White Blood Count 5.04 10^3/uL (3.29-11.43)
[2023-11-06 12:00] VITALS: BP 107/63; PULSE 51; RESP 20; O2SAT 93
[2023-11-06 12:07] LABS: Alanine Aminotransferase 12 U/L (0-41); Alkaline Phosphatase 74 U/L (40-130); Anion Gap 14.4 (5-19); Aspartate Amino Transferase 13 U/L (0-40); Blood Urea Nitrogen 16 mg/dL (6-20); Calcium 8.4 mg/dL (8.5-10.5); Carbon Dioxide 24 mmol/L (22-29); Chloride 103 mmol/L (98-107); Creatinine Clr Calc Pharmacy 170.3825; Globulin 1.8 g/dL (1.3-4.6); Glomerular Filtration Rate 103.6 mL/min (90-130); Glucose 94 mg/dL (65-115); Osmolality Calculated 285 mOsm/kg (285-295); Potassium 4.4 mmol/L (3.5-5.1); Sodium 137 mmol/L (136-145); Total Bilirubin 0.6 mg/dL (0.15-1.2); Total Protein 5.8 g/dL (6.6-8.7)
[2023-11-06 12:09] LABS: Troponin(5th) Baseline 12 ng/L (0-15)
--- NOTE | 2023-11-06 13:27 | ECG_ITS ---
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 Measurements Intervals [place] Rate: 51 P: 0 ID: 0 QRS: 49 QRSD: 92 T: 55 QT: 409 QTc: 378 Interpretive Statements Sinus bradycardia VENTRICULAR PREMATURE COMPLEXES LOW QRS VOLTAGE [QRS DEFLECTION < 0.5/1.0 mV IN LIMB/CHEST LEADS] ANTEROSEPTAL MYOCARDIAL INFARCTION , PROBABLY OLD [40+ ms Q WAVE IN V1-V4] Compared to ECG 11/06/2023 11:40:25 Aberrant conduction of supraventricular beat(s) now present Electronically Signed On 11-06-2023 17:02:51 CDT by Alla Zelaya M.D. [id number]
[2023-11-06 14:16] LABS: Troponin 5 2HR 10.82 ng/L (0-15)
[2023-11-06 14:21] LABS: Troponin 5 2HR Delta -1.18 ABS# (0-10)
== END 2023-11-06 14:55 | disposition home or self-care (01) ==
PROVIDERS: Emergency Provider Family Medicine; PCP Family Medicine
DX: R07.89 Other chest pain (principal); Z79.82 Long term (current) use of aspirin; Z79.84 Long term (current) use of oral hypoglycemic drugs
CPT/HCPCS: 71045; 80053; 84484; 85025; 93005; 99285

== ENCOUNTER 2023-11-07 19:19 | Emergency (ER) | payer MEDICARE, MEDICAID, SELFPAY ==
[2023-11-07 19:21] VITALS: BP 127/83; PULSE 72; RESP 16; TEMP 36.8; O2SAT 93; BMI 44.0
--- NOTE | 2023-11-07 19:29 | XRR_ITS ---
PROCEDURE INFORMATION: Exam: XR Chest Exam date and time: 11/07/2023 8:11 PM Age: 47 years old Clinical indication: Shortness of breath; Patient HX: Chf; SOB TECHNIQUE: Imaging protocol: Radiologic exam of the chest. Views: 1 view. COMPARISON: CR (CHEST, ) 11/06/2023 11:37 AM FINDINGS: Lungs: Unremarkable. No consolidation. Pleural spaces: Unremarkable. No pleural effusion. No pneumothorax. Heart/Mediastinum: Unremarkable. No cardiomegaly. Bones/joints: Unremarkable. XR/XR chest 1V portable [id number] IMPRESSION: No acute findings.
--- NOTE | 2023-11-07 19:36 | W.ED.PSYCHS ---
Documented by User: [email or web address] Manzanares 11/07/23 21:11 HPI - Psych General: Chief Complaint: Psychiatric Symptoms Stated Complaint: SI Time Seen by Provider: 11/07/23 19:26 History of Present Illness: 47-year-old male patient comes in today for complaints of increased thoughts of suicide. Patient states that he was watching TV and became upset while watching TV. Patient reports he was missing his brother and father who have both passed. This upset patient and he hit the wall and then went for a walk. Patient Patient has a history of major depressive disorder, intermittent explosive disorder, borderline intellectual functioning, type 2 diabetes, hypertension, CAD, and CHF. Patient appears nontoxic. Patient appears no pain. Patient does report some nausea and constipation. Patient is cooperative at this time. Associated symptoms: Reports depression and suicidal ideation Review of Systems General: Reports: 10 or more systems reviewed and unremarkable except in HPI and below GI: Reports: nausea and constipation Psych: Reports: depression and suicidal ideation [facility] ED PFSH: Medical History Moderate episode of recurrent major depressive disorder Psychiatric care Family History Brother Diabetes Denies family history of CAD (coronary artery disease) Congestive heart failure (CHF) Anemia Aneurysm Arrhythmia Atrial fibrillation TIA (transient ischemic attack) Heart disease Sudden cardiac Chronic kidney disease (CKD) Congenital heart disease Carotid artery disease Pulmonary embolism Cardiomyopathy Social History Smoking and tobacco/nicotine status: never used tobacco/nicotine Alcohol intake: never Physical Exam Const: COMMON NORMALS: alert HENMT: COMMON NORMALS: normocephalic HEAD & SCALP: normocephalic Neck/C-Spine: COMMON NORMALS: full ROM Resp: COMMON NORMALS: normal respiratory effort and clear to auscultation bilaterally AUSCULTATION: clear to auscultation bilaterally Cardio: COMMON NORMALS: regular rate and regular rhythm RATE: regular rate RHYTHM: regular rhythm GI: COMMON NORMALS: Soft to palpation and non-tender PALPATION: Yes Soft to palpation Back/Pelvis: COMMON NORMALS: thoracic and lumbar spine normal to inspection Extremity: RIGHT UPPER EXTREMITY: Yes hand & digits (Abrasions to the third and fourth MCP joint area) Neuro: SENSORIUM/ORIENTATION: Yes alert Psych: COMMON NORMALS: cooperative and speech normal APPEARANCE: Yes unkempt ATTITUDE: Yes calm and Yes Guarded attititude/behavior present ACTIVITY/MOTOR BEHAVIOR: Yes Avoids eye contact (attititude/behavior) SPEECH: Yes normal speech MOOD & AFFECT: Yes depressed mood and Yes tearful (When talking about his father and brother) INSIGHT: Fair insight present (Psych) JUDGEMENT: Fair judgement present (Psych) Skin: TRAUMA: abrasion (Right hand) Course Vital Signs: Vital signs: Vital Signs Temperature 98.2 F 11/07/23 19:21 Pulse Rate 72 11/07/23 19:21 Respiratory Rate 16 11/07/23 19:21 Blood Pressure 127/83 11/07/23 19:21 Pulse Oximetry 93 11/07/23 19:21 Oxygen Delivery Me thod Room Air 11/07/23 19:21 MDM - Psych Medical Decision Making 47-year-old male patient comes in from a skilled nursing where he became upset while watching TV and hitting a wall and walking out of the skilled nursing. Patient was brought in by EMS. EMS states patient had been called to the scene for suicidal ideation. Patient is cooperative. On exam I noted some fresh abrasions to the right hand which at first patient stated that they were old. I reviewed the injuries with the patient stated that they look like they were fresh he did say he was upset and struck the wall prior to going for his walk outside. Differential diagnosis includes not limited to intermittent explosive disorder, major depressive disorder, suicidal ideation. On arrival of staff member it was reported patient was upset and went for a walk. Staff became concerned when patient started to be heading towards the highway. Staff member states that this is often normal for the patient. When discussing suicidal ideation with patient patient refuses to admit he is suicidal. Patient was wanting to go back home. I discussed this with staff member who felt comfortable patient coming back to the facility as this is often patient acts. Lab Data Radiology Impressions Chest X-Ray 11/07/23 19:29 IMPRESSION: No acute findings. KUB X-Ray 11/07/23 19:38 IMPRESSION: No evidence of obstruction. Moderate to large stool burden, predominantly within the rectum. Hand X-Ray 11/07/23 19:39 IMPRESSION: Unchanged abnormal contour of the 5th metacarpal head neck junction. Small osseous fragment overlies the lateral soft tissues adjacent to the head of the proximal phalanx of the 5th digit, similar compared to prior. No evidence of acute fractures or subluxations. Laboratory Results Urine Color Yellow (Yellow) 11/07/23 20:15 Urine Appearance Clear (CLEAR) 11/07/23 20:15 Urine pH 7 (5-7) 11/07/23 20:15 Ur Specific [place] 1.000 (1.005-1.030) L 11/07/23 20:15 Urine Protein Neg (Negative) 11/07/23 20:15 Urine Glucose (UA) Norm (Normal) 11/07/23 20:15 Urine Ketones Negative (Negative) 11/07/23 20:15 Urine Blood Neg (Negative) 11/07/23 20:15 Urine Nitrate Negative (Negative) 11/07/23 20:15 Urine Bilirubin Neg (Negative) 11/07/23 20:15 Urine Urobilinogen Neg mg/dL (Negative) 11/07/23 20:15 Ur Leukocyte Esterase Negative (Negative) 11/07/23 20:15 Urine Opiates Screen Negative ng/mL (Negative) 11/07/23 20:15 Ur Barbiturates Screen Negative ng/mL (Negative) 11/07/23 20:15 Ur Phencyclidine Scrn Negative ng/mL (Negative) 11/07/23 20:15 Ur Amphetamines Screen Negative ng/mL (Negative) 11/07/23 20:15 U Benzodiazepines Scrn Negative ng/mL (Negative) 11/07/23 20:15 Urine Cocaine Screen Negative ng/mL (Negative) 11/07/23 20:15 U Marijuana (THC) Screen Negative ng/mL (Negative) 11/07/23 20:15 SARS-CoV-2 Ag (Rapid) negative (Negative) 11/07/23 20:38 No radiology studies performed this visit Discharge Plan Discharge Patient Disposition: Home Clinical Impression: Intermittent explosive disorder, Borderline intellectual functioning Condition: Stable Prescriptions: No Action cetirizine [All Day Allergy (cetirizine)] 10 mg tablet 10 mg PO DAILY PRN (Reason: allergy symptoms) Qty: 60 0RF paroxetine HCl [Paxil] 30 mg tablet 60 mg PO DAILY furosemide 40 mg tablet 40 mg PO DAILY metformin 500 mg tablet 500 mg PO BID aspirin 81 mg Tablet,Delayed Release (Dr/Ec) 81 mg PO DAILY simvastatin 20 mg tablet 20 mg PO DAILY lisinopril 10 mg tablet 10 mg PO DAILY ketorolac 10 mg tablet 10 mg PO TID PRN (Reason: pain) Qty: 10 0RF risperidone 1 mg Tablet 1 mg PO BEDTIME 30 Days Qty: 30 1RF Discharge Orders: Discharge ED (Routine); Ordered 11/07/23 Ordered By: Steven Schaefer Referrals: Raj Kent MD [Primary Care Provider] - Discharge Diet: Usual diet Discharge Activity: Increase activity as tolerated Activity Restrictions/Additional Instructions: Intermittent explosive disorder. Follow-up with primary care and health informatics specialist for further recommendations of treatment. Patient may need to have further therapy in order to redirect anger when upset. Return to ER for worsening symptoms or new concerns. Coding Level of Care Code ED Game Author for Chg Fwd Documented by User: Reggie August DO 11/08/23 00:32 HPI - Psych General: Chief Complaint: Psychiatric Symptoms Stated Complaint: SI Time Seen by Provider: 11/07/23 19:26 PFSH ED PFSH: Medical History Moderate episode of recurrent major depressive disorder Psychiatric care Family History Brother Diabetes Denies family history of CAD (coronary artery disease) Congestive heart failure (CHF) Anemia Aneurysm Arrhythmia Atrial fibrillation TIA (transient ischemic attack) Heart disease Sudden cardiac Chronic kidney disease (CKD) Congenital heart disease Carotid artery disease Pulmonary embolism Cardiomyopathy Social History Smoking and tobacco/nicotine status: never used tobacco/nicotine Alcohol intake: never Course Vital Signs: Vital signs: Vital Signs Temperature 98.2 F 11/07/23 19:21 Pulse Rate 72 11/07/23 19:21 Respiratory Rate 16 11/07/23 19:21 Blood Pressure 127/83 11/07/23 19:21 Pulse Oximetry 93 11/07/23 19:21 Oxygen Delivery Me thod Room Air 11/07/23 19:21 MDM - Psych Medical Decision Making 47-year-old male patient comes in from a skilled nursing where he became upset while watching TV and hitting a wall and walking out of the skilled nursing. Patient was brought in by EMS. EMS states patient had been called to the scene for suicidal ideation. Patient is cooperative. On exam I noted some fresh abrasions to the right hand which at first patient stated that they were old. I reviewed the injuries with the patient stated that they look like they were fresh he did say he was upset and struck the wall prior to going for his walk outside. Differential diagnosis includes not limited to intermittent explosive disorder, major depressive disorder, suicidal ideation. On arrival of staff member it was reported patient was upset and went for a walk. Staff became concerned when patient started to be heading towards the highway. Staff member states that this is often normal for the patient. When discussing suicidal ideation with patient patient refuses to admit he is suicidal. Patient was wanting to go back home. I discussed this with staff member who felt comfortable patient coming back to the facility as this is often patient acts. This patient was originally seen by VENKATESH Mayer.? I agree with his history, evaluation, and treatment. Lab Data Radiology Impressions Chest X-Ray 11/07/23 19:29 IMPRESSION: No acute findings. KUB X-Ray 11/07/23 19:38 IMPRESSION: No evidence of obstruction. Moderate to large stool burden, predominantly within the rectum. Hand X-Ray 11/07/23 19:39 IMPRESSION: Unchanged abnormal contour of the 5th metacarpal head neck junction. Small osseous fragment overlies the lateral soft tissues adjacent to the head of the proximal phalanx of the 5th digit, similar compared to prior. No evidence of acute fractures or subluxations. Laboratory Results Urine Color Yellow (Yellow) 11/07/23 20:15 Urine Appearance Clear (CLEAR) 11/07/23 20:15 Urine pH 7 (5-7) 11/07/23 20:15 Ur Specific [place] 1.000 (1.005-1.030) L 11/07/23 20:15 Urine Protein Neg (Negative) 11/07/23 20:15 Urine Glucose (UA) Norm (Normal) 11/07/23 20:15 Urine Ketones Negative (Negative) 11/07/23 20:15 Urine Blood Neg (Negative) 11/07/23 20:15 Urine Nitrate Negative (Negative) 11/07/23 20:15 Urine Bilirubin Neg (Negative) 11/07/23 20:15 Urine Urobilinogen Neg mg/dL (Negative) 11/07/23 20:15 Ur Leukocyte Esterase Negative (Negative) 11/07/23 20:15 Urine Opiates Screen Negative ng/mL (Negative) 11/07/23 20:15 Ur Barbiturates Screen Negative ng/mL (Negative) 11/07/23 20:15 Ur Phencyclidine Scrn Negative ng/mL (Negative) 11/07/23 20:15 Ur Amphetamines Screen Negative ng/mL (Negative) 11/07/23 20:15 U Benzodiazepines Scrn Negative ng/mL (Negative) 11/07/23 20:15 Urine Cocaine Screen Negative ng/mL (Negative) 11/07/23 20:15 U Marijuana (THC) Screen Negative ng/mL (Negative) 11/07/23 20:15 SARS-CoV-2 Ag (Rapid) negative (Negative) 11/07/23 20:38 Discharge Plan Discharge Patient Disposition: Home Clinical Impression: Intermittent explosive disorder, Borderline intellectual functioning Condition: Stable Prescriptions: No Action cetirizine [All Day Allergy (cetirizine)] 10 mg tablet 10 mg PO DAILY PRN (Reason: allergy symptoms) Qty: 60 0RF paroxetine HCl [Paxil] 30 mg tablet 60 mg PO DAILY furosemide 40 mg tablet 40 mg PO DAILY metformin 500 mg tablet 500 mg PO BID aspirin 81 mg Tablet,Delayed Release (Dr/Ec) 81 mg PO DAILY simvastatin 20 mg tablet 20 mg PO DAILY lisinopril 10 mg tablet 10 mg PO DAILY ketorolac 10 mg tablet 10 mg PO TID PRN (Reason: pain) Qty: 10 0RF risperidone 1 mg Tablet 1 mg PO BEDTIME 30 Days Qty: 30 1RF Discharge Orders: Discharge ED (Routine); Ordered 11/07/23 Ordered By: Steven Schaefer Referrals: Raj Kent MD [Primary Care Provider] - Discharge Diet: Usual diet Discharge Activity: Increase activity as tolerated Activity Restrictions/Additional Instructions: Intermittent explosive disorder. Follow-up with primary care and health informatics specialist for further recommendations of treatment. Patient may need to have further therapy in order to redirect anger when upset. Return to ER for worsening symptoms or new concerns. Coding Level of Care Code ED Game Author for Nathan Agudelo
--- NOTE | 2023-11-07 19:38 | XRR_ITS ---
PROCEDURE INFORMATION: Exam: XR Abdomen Exam date and time: 11/07/2023 8:05 PM Age: 47 years old Clinical indication: Constipation and nausea; Patient HX: Nausea; Constipation TECHNIQUE: Imaging protocol: Radiologic exam of the abdomen. Views: Frontal supine view of the abdomen. 1 View. COMPARISON: CR (CHEST, ) 11/06/2023 11:37 AM FINDINGS: Gastrointestinal tract: No evidence of obstruction. Moderate to large stool burden, predominantly within the rectum. Bones/joints: Degenerative changes of the bilateral hips with joint space narrowing and subchondral sclerosis. XR/XR KUB [id number] IMPRESSION: No evidence of obstruction. Moderate to large stool burden, predominantly within the rectum.
--- NOTE | 2023-11-07 19:39 | XRR_ITS ---
PROCEDURE INFORMATION: Exam: XR Right Hand Exam date and time: 11/07/2023 8:11 PM Age: 47 years old Clinical indication: Right; Patient HX: RT hand pain; No known injury TECHNIQUE: Imaging protocol: Radiologic exam of the right hand. Views: 3 or more views. COMPARISON: CR XR hand RT min 3V* [id number] 10/28/2023 4:18 PM FINDINGS: Bones/joints: Unchanged abnormal contour of the 5th metacarpal head neck junction. Small osseous fragment overlies the lateral soft tissues adjacent to the head of the proximal phalanx of the 5th digit, similar compared to prior. No evidence of acute fractures or subluxations. Soft tissues: Normal. XR/XR hand RT min 3V* [id number] IMPRESSION: Unchanged abnormal contour of the 5th metacarpal head neck junction. Small osseous fragment overlies the lateral soft tissues adjacent to the head of the proximal phalanx of the 5th digit, similar compared to prior. No evidence of acute fractures or subluxations.
--- NOTE | 2023-11-07 19:58 | ECG_ITS ---
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 Measurements Intervals [place] Rate: 57 P: 16 RI: 191 QRS: 14 QRSD: 109 T: 41 QT: 399 QTc: 390 Interpretive Statements SINUS BRADYCARDIA WITH MARKED SINUS ARRHYTHMIA INDETERMINATE AXIS LOW QRS VOLTAGE [QRS DEFLECTION < 0.5/1.0 mV IN LIMB/CHEST LEADS] MODERATE INTRAVENTRICULAR CONDUCTION DELAY [105+ ms QRS DURATION, 80+ ms Q/S IN V1/V2, NO Q AND 60+ ms R IN I/aVL/V5/V6] Compared to ECG 11/06/2023 13:36:37 Indeterminate axis now present Intraventricular conduction delay now present Ventricular premature complex(es) no longer present Myocardial infarct finding no longer present Electronically Signed On 11-08-2023 7:53:20 CDT by Bobo Bird M.D. [email or web address]/store/[id number]
[2023-11-07 20:56] LABS: Add Urine Microscopic? NO; Charge for UA Resulting for Rev
[2023-11-07 20:58] LABS: Bilirubin Urine Neg (Negative); Blood Urine Neg (Negative); Glucose Urine UA Norm (Normal); Ketones Urine Negative (Negative); Leukocyte Esterase Urine Negative (Negative); Nitrate Urine Negative (Negative); Protein Urine Neg (Negative); Urine Appearance Clear (CLEAR); Urine Color Yellow (Yellow); Urobilinogen Urine Neg (Negative); pH Urine 7 (5-7)
[2023-11-07 21:07] LABS: Amphetamines Screen Urine Negative (Negative); Barbiturates Screen Urine Negative (Negative); Benzodiazepines Screen Urine Negative (Negative); Cocaine Screen Urine Negative (Negative); Opiate Screen Urine Negative (Negative); PCP Screen Urine Negative (Negative); THC Screen Urine Negative (Negative)
[2023-11-07 21:16] LABS: SARS Covid-2 Antigen negative (Negative)
== END 2023-11-07 21:27 | disposition home or self-care (01) ==
PROVIDERS: Emergency Provider Nurse Practitioner Family; PCP Family Medicine
DX: F63.81 Intermittent explosive disorder (principal); R41.83 Borderline intellectual functioning; Z79.82 Long term (current) use of aspirin; Z79.84 Long term (current) use of oral hypoglycemic drugs; Z11.52 Encounter for screening for COVID-19
CPT/HCPCS: 71045; 73130; 74018; 80306; 81003; 87426; 93005; 99285

== ENCOUNTER 2023-11-09 08:37 | Day surgery (SDC) | payer MEDICARE, MEDICAID, SELFPAY ==
[2023-11-09] VITALS (11 sets, daily range): BP systolic 118–151; BP diastolic 51–97; PULSE 45–89; RESP 17–19; TEMP 36.3–37; O2SAT 90–97; BMI 44.0
[2023-11-09] MEDS: sodium chloride 0.9% 1,000 ML 30 ML IV (09:08)
[2023-11-09 09:13] LABS: Glucose Point of Care 95 mg/dL (70-110)
--- NOTE | 2023-11-09 09:13 | ANES.PREANE2 ---
Pre-Anesthetic Assessment Height/Weight: Height 1.83 m Weight 147.418 kg Temp Pulse Resp BP Pulse Ox O2 Del Method 97.3 F L 45 L 17 130/63 97 Room Air 11/09/23 09:02 11/09/23 09:02 11/09/23 09:02 11/09/23 09:02 11/09/23 09:02 11/09/23 09:05 Operation Date: 11/09/23 10:10 Proposed Procedures p Laparoscopic Cholecystectomy 44806, K80.20(Not Applicable) - Gokul Lim DO Last intake: Intake Last Liquid Date 11/08/23 Last Liquid Time 18:00 Last Solid Date 11/08/23 Last Solid Time 18:00 CV/HEM Stable Angina (atypical), Congestive Heart Failure and Hypertension Stress test 2023 CONCLUSION: 1. No significant EKG changes with the LexiScan infusion 2. No LexiScan induced chest pain .occasional PVCs were noted during the Lexiscan infusion . 3. Normal blood pressure and heart rate response 4. Sestamibi/sestamibi perfusion scan pending; see separate report Echo CONCLUSIONS Normal LV size with a slightly diminished ejection fraction of 49%. Mild diffuse hypokinesia of the left ventricle. Mild biatrial enlargement. Thickened aortic valve. There is no pericardial effusion. There are no intracardiac masses. Estimated pulmonary artery peak systolic pressure probably within normal limits No similar previous studies are available for comparison Cardiac Event Monitor 1. The baseline rhythm was found to be normal sinus with an overall average heart rate of 60 bpm. Episodes of sinus bradycardia with the frequent PVCs and supraventricular ectopics. Ventricular ectopics accounted for 10% of the total heartbeats. Supraventricular ectopics accounted for 6% of the total heartbeats 2. The above-mentioned symptoms were found to be mostly associated with the sinus bradycardia and frequent PVCs 3. No similar previous studies are available for comparison Metabolic Diabetes Mellitus, Hyperlipidemia and Morbid Obesity Anesthetic Plan ASA status: 3 Anesthesia: General Risk of > 500 ml blood loss (7ml/kg in children): No Medications/Allergies Home Medications Medication Instructions Recorded Confirmed Last Taken Type aspirin 81 mg tablet,delayed 81 mg PO DAILY 03/16/23 11/08/23 11/08/23 History release furosemide 40 mg tablet 40 mg PO DAILY 03/16/23 11/09/23 11/09/23 History lisinopril 10 mg tablet 10 mg PO DAILY 03/16/23 11/08/23 11/08/23 History metformin 500 mg tablet 500 mg PO BID 03/16/23 11/08/23 11/08/23 History simvastatin 20 mg tablet 20 mg PO DAILY 03/16/23 11/09/23 11/09/23 History cetirizine 10 mg tablet (All Day 10 mg PO DAILY PRN allergy 10/06/23 11/08/23 Unknown Rx Allergy (cetirizine)) symptoms #60 tabs risperidone 1 mg tablet 1 mg PO BEDTIME 30 days #30 tabs 10/25/23 11/09/23 11/08/23 Rx paroxetine HCl 30 mg tablet (Paxil) 60 mg PO DAILY 10/28/23 11/08/23 11/08/23 History naproxen 500 mg tablet 500 mg PO BID 11/08/23 11/09/23 11/09/23 History nitroglycerin 0.4 mg sublingual 0.4 mg sublingual Q5M PRN Chest 11/08/23 11/08/23 11/07/23 History tablet Pain quetiapine 200 mg tablet 200 mg PO DAILY 11/08/23 11/08/23 11/08/23 History Allergies Allergy/AdvReac Type Severity Reaction Status Date / Time No Known Allergies Allergy Verified 11/09/23 08:49 Current Medications Generic Name Dose Route Start Last Admin Trade Name Freq PRN Reason Stop Dose Admin Sodium Chloride 1,000 mls @ 30 mls/hr 11/09/23 08:45 11/09/23 09:08 Sodium Chloride 0.9% IV 11/10/23 08:44 30 mls/hr .Q24H CINTHYA Administration PFSH Anesthesia Medical History Moderate episode of recurrent major depressive disorder Psychiatric care Family History Brother Diabetes Denies family history of CAD (coronary artery disease) Congestive heart failure (CHF) Anemia Aneurysm Arrhythmia Atrial fibrillation TIA (transient ischemic attack) Heart disease Sudden cardiac Chronic kidney disease (CKD) Congenital heart disease Carotid artery disease Pulmonary embolism Cardiomyopathy Social History Smoking and tobacco/nicotine status: never used tobacco/nicotine Alcohol intake: never Data Anesthesia Cardiac Studies: Echocardiogram 07/09/23 Sestamibi Stress Test (Cardiology) 07/21/23 Cardiac Event Monitor 09/14/23
--- NOTE | 2023-11-09 09:16 | W.PM.OPSUD ---
Surgery/Procedure H&P Update DATE OF PROCEDURE: November 09, 2023 DATE H&P PERFORMED: 11/01/23 H&P UPDATE INFORMATION: I have reviewed H&P completed within last 30 days, I have examined patient prior to procedure and No changes to prior documentation PLANNED PROCEDURE: Operation Date: 11/09/23 10:10 Proposed Procedures p Laparoscopic Cholecystectomy 24826, K80.20(Not Applicable) - Gokul Lim,
[2023-11-09] MEDS: ceFAZolin 3,000 MG in sodium chloride 0.9% (plus) 100 ML 200 MG IV (09:46)
[2023-11-09] MEDS: lidocaine-epi 2% PF 1:200,000 20 mL SDV XX (10:05)
--- NOTE | 2023-11-09 10:41 | P.OP_ITS ---
Operative Report Date of procedure: November 09, 2023 Surgeon: Gokul Lim DO Brief History: This is a very pleasant 47-year-old gentleman who presented my office with abdominal pain. He was diagnosed with symptomatic cholelithiasis. Laparoscopic cholecystectomy was indicated. The risks and benefits were explained and documented. Procedure: Preoperative diagnosis: Symptomatic cholelithiasis Postoperative diagnosis: Same Procedure performed: Laparoscopic cholecystectomy Surgeon: Dr. Gokul Lim DO Estimated blood loss: 5 mL Specimens: Gallbladder to pathology Complications: None apparent Description of procedure: Patient was wheeled into the operative room and placed on the OR table in a supine position. Abdomen was inspected prepped and draped in usual sterile fashion. Time-out was performed and all present were in agreement. A 15 blade scalp was used to make a stab incision in the left upper quadrant and intra- abdominal insufflation was achieved using a Veress needle. After localizing the tissue incisions were made and a 5 millimeter trocar was placed into the umbilicus as well as 2 in the right upper quadrant. A 12 millimeter trocar was placed in the epigastrium. Gallbladder was grasped and elevated. The triangle of Calot was carefully dissected using blunt dissection and electrocautery until the triangle of Calot clearly identified. The cystic duct was clipped proximally and double clipped distally. The duct was then ligated proximally. The cystic artery was doubly clipped and ligated. The gallbladder was then removed from the liver bed using electrocautery. The gallbladder was removed from the abdomen using an Endo-Catch bag through the epigastric incision. The liver bed was inspected and no bleeding was seen. The abdomen was irrigated and suctioned. All ports removed. Skin was washed and dried. Incisions were closed with 4-0 Monocryl in a subcuticular interrupted fashion. Skin glue was applied. Patient tolerated the procedure well.
[2023-11-09] MEDS: fentaNYL 50 mcg/mL INJ 2mL IVP (11:12)
--- NOTE | 2023-11-09 12:05 | ANE.PACU2 ---
Inpatient post-anesthesia follow up: Airway intact: Yes Vital signs: Temperature 97.5 F Pulse Rate 85 Respiratory Rate 18 Blood Pressure 120/51 Pulse Oximetry 92 Oxygen Delivery Me thod Room Air Oxygen Flow Rate 0.5 Fraction of Inspir ed Oxygen Hydration adequate: Yes Nausea and vomiting: No Pain level: 1 Mental status: Baseline
== END 2023-11-09 12:05 | disposition home or self-care (01) ==
PROVIDERS: PCP Family Medicine; Visit Provider Surgery
PROC: 0FT44ZZ Resection of Gallbladder, Percutaneous Endoscopic Approach (ICD-10-PCS; CPT 47562; principal; 2023-11-09 10:10)
DX: K80.10 Calculus of gallbladder with chronic cholecystitis without obstruction (principal); I11.0 Hypertensive heart disease with heart failure; I50.9 Heart failure, unspecified; E11.9 Type 2 diabetes mellitus without complications; E78.5 Hyperlipidemia, unspecified; E66.01 Morbid (severe) obesity due to excess calories; Z68.41 Body mass index [BMI] 40.0-44.9, adult; Z79.82 Long term (current) use of aspirin
CPT/HCPCS: 47562; 36416; 82962; 88304; J0330; J0690; J1100; J2250; J2405; J2704; J2710; J3010; J3490; J7030

== ENCOUNTER 2023-11-11 14:41 | Emergency (ER) | payer MEDICARE, MEDICAID, SELFPAY ==
--- NOTE | 2023-11-11 14:45 | ECG_ITS ---
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 Measurements Intervals [place] Rate: 53 P: 48 MA: 191 QRS: 46 QRSD: 100 T: 48 QT: 401 QTc: 379 Interpretive Statements SINUS BRADYCARDIA WITH OCCASIONAL VENTRICULAR PREMATURE COMPLEXES LOW QRS VOLTAGE [QRS DEFLECTION < 0.5/1.0 mV IN LIMB/CHEST LEADS] ANTEROSEPTAL MYOCARDIAL INFARCTION , PROBABLY OLD [40+ ms Q WAVE IN V1-V4] Compared to ECG 11/07/2023 19:58:04 Ventricular premature complex(es) now present Myocardial infarct finding now present Sinus arrhythmia no longer present Indeterminate axis no longer present Intraventricular conduction delay no longer present Electronically Signed On 11-11-2023 15:33:59 CDT by Boob Bird M.D. [id number] f
--- NOTE | 2023-11-11 14:45 | ED_ITS ---
HPI - Abdominal Pain 2 General: Chief Complaint: Abdominal Pain Stated Complaint: abd and chest pain Time Seen by Provider: 11/11/23 14:42 Source: patient and EMS Mode of arrival: EMS Limitations: no limitations History of Present Illness: 47-year-old male is very well-known to t ER he had a cholecystectomy done 2 days ago he states having some slight pain in his abdomen along with his chest. He denies any vomiting denies any diarrhea he is resting comfortably here. Associated Symptoms: Denies chills, diarrhea, dysuria, fever(s), nausea and vomiting Review of Systems 2 Const: Denies: fever(s), chills, body aches or change in appetite ENMT: Denies: throat pain or dental pain Card: Reports: chest pain Resp: Denies: dyspnea GI: Reports: abdominal pain; Denies: nausea, vomiting or diarrhea : Denies: dysuria Musc: Denies: neck pain or back pain Skin/Breast: Denies: rash Neuro: Denies: headache(s) PFSH ED 2 PFSH: Medical History Moderate episode of recurrent major depressive disorder Psychiatric care Family History Brother Diabetes Denies family history of CAD (coronary artery disease) Congestive heart failure (CHF) Anemia Aneurysm Arrhythmia Atrial fibrillation TIA (transient ischemic attack) Heart disease Sudden cardiac Chronic kidney disease (CKD) Congenital heart disease Carotid artery disease Pulmonary embolism Cardiomyopathy Social History Smoking and tobacco/nicotine status: never used tobacco/nicotine Alcohol intake: never Physical Exam 2 Const: COMMON NORMALS: no acute distress, patient oriented x3 and healthy appearing HENMT: COMMON NORMALS: normocephalic and atraumatic HEAD & SCALP: n ormocephalic and atraumatic Neck/C-Spine: COMMON NORMALS: full ROM and supple Chest: COMMONS NORMALS: normal inspection of the chest Resp: COMMON NORMALS: normal respiratory effort, No retractions, No use of accessory muscles and clear to auscultation bilaterally AUSCULTATION: clear to auscultation bilaterally Cardio: COMMON NORMALS: regular rate, regular rhythm and No murmurs present (Cardio) RATE: regular rate RHYTHM: regular rhythm GI: COMMON NORMALS: Normal to inspection, nondistended, normoactive bowel sounds present, Soft to palpation, non-tender and no masses PALPATION: Yes Soft to palpation OTHER: Incisions are clean dry and intact Extremity: COMMON NORMALS: normal to inspection and full ROM Neuro: COMMON NORMALS: patient oriented x3, moves all extremities and no focal motor deficits Psych: COMMON NORMALS: mental status grossly normal, Normal thought process present and cooperative THOUGHT PROCESS: Normal thought process present Skin: COMMON NORMALS: no rashes or lesions noted and no wounds GENERAL SKIN EXAM: no rashes or lesions noted Course 2 Vital Signs: Vital signs: Vital Signs Temperature 97.9 F 11/11/23 14:48 Pulse Rate 66 11/11/23 15:24 Respiratory Rate 18 11/11/23 15:24 Blood Pressure 121/65 11/11/23 15:24 Pulse Oximetry 91 11/11/23 15:24 Oxygen Delivery Me thod Room Air 11/11/23 14:48 MDM - Abdominal Pain Medical Decision Making Patient presents here with chest pains atypical in nature he is also having some abdominal pain abdominal exam is benign here blood works all normal he is well- appearing here stable for discharge Medical Records I reviewed the patient's medical records. Lab Data I reviewed the patient's lab results. 11/11/23 14:28 11/11/23 14:28 Labs/Radiology: Laboratory Results WBC 5.54 10^3/uL (3.29-11.43) 11/11/23 14:28 RBC 4.30 10^6/uL (3.85-5.65) 11/11/23 14:28 Hgb 12.70 g/dL (11.27-16.99) 11/11/23 14:28 Hct 38.2 % (37-53) 11/11/23 14:28 MCV 88.8 fl (82-101) 11/11/23 14:28 MCH 29.5 pg (27-33) 11/11/23 14:28 MCHC 33.2 g/dL (30-55) 11/11/23 14:28 RDW 13.5 % (12.1-15.1) 11/11/23 14:28 Plt Count 213 10^3/cmm (157-399) 11/11/23 14:28 MPV 10.1 fL (7.4-10.4) 11/11/23 14:28 Neut % (Auto) 63.1 % 11/11/23 14:28 Lymph % (Auto) 26.5 % 11/11/23 14:28 [place] % (Auto) 7.9 % 11/11/23 14:28 Eos % (Auto) 1.4 % 11/11/23 14:28 Baso % (Auto) 0.7 % 11/11/23 14:28 Neut # (Auto) 3.49 10^3/uL (1.8-7.7) 11/11/23 14:28 Lymph # (Auto) 1.5 10^3/uL (0.8-4.8) 11/11/23 14: [place] # (Auto) 0.4 10^3/uL (0.2-0.9) 11/11/23 14:28 Eos # (Auto) 0.1 10^3/uL (0.0-0.8) 11/11/23 14:28 Baso # (Auto) 0.0 10^3/uL (0.0-0.1) 11/11/23 14:28 Nucleated RBC % (auto) 0 % 11/11/23 14: Nucleated RBCs # 0.0 /100WBC 11/11/23 14:28 Sodium 140 mmol/L (136-145) 11/11/23 14:28 Potassium 4.2 mmol/L (3.5-5.1) 11/11/23 14:28 Chloride 102 mmol/L (98-107) 11/11/23 14:28 Carbon Dioxide 27 mmol/L (22-29) 11/11/23 14:28 Anion Gap 15.2 (5-19) 11/11/23 14:28 BUN 16 mg/dL (6-20) 11/11/23 14:28 Creatinine 0.9 mg/dL (0.7-1.2) 11/11/23 14:28 GFR Calculation 90.4 mL/min (90-130) 11/11/23 14:28 Glucose 96 mg/dL (65-115) 11/11/23 14:28 Calculated Osmolality 291 mOsm/kg (285-295) 11/11/23 14:28 Calcium 8.6 mg/dL (8.5-10.5) 11/11/23 14:28 Total Bilirubin 0.5 mg/dL (0.15-1.2) 11/11/23 14:28 AST 15 U/L (0-40) 11/11/23 14:28 ALT 16 U/L (0-41) 11/11/23 14:28 Alkaline Phosphatase 60 U/L (40-130) 11/11/23 14:28 Troponin T Baseline 9 ng/L (0-15) 11/11/23 14:28 Total Protein 6.3 g/dL (6.6-8.7) L 11/11/23 14:28 Albumin 3.9 g/dL (3.5-5.2) 11/11/23 14:28 Globulin 2.4 g/dL (1.3-4.6) 11/11/23 14:28 Lipase 24 U/L (13-60) 11/11/23 14:28 All radiology interpretation(s) finalized by discharge EKG Data EKG 1: I personally reviewed and interpreted this EKG as follows: EKG interpretation date: 11/11/23 EKG interpretation time: 14:45 Interpretation: sinus bertha hr [address] or t wave abnormalities qrs 100 qtc 385 Discharge Plan Discharge Patient Disposition: Home Clinical Impression: Chest pain, Abdominal pain Prescriptions: No Action cetirizine [All Day Allergy (cetirizine)] 10 mg tablet 10 mg PO DAILY PRN (Reason: allergy symptoms) Qty: 60 0RF paroxetine HCl [Paxil] 30 mg tablet 60 mg PO DAILY furosemide 40 mg tablet 40 mg PO DAILY metformin 500 mg tablet 500 mg PO BID aspirin 81 mg Tablet,Delayed Release (Dr/Ec) 81 mg PO DAILY simvastatin 20 mg tablet 20 mg PO DAILY lisinopril 10 mg tablet 10 mg PO DAILY quetiapine 200 mg Tablet 200 mg PO DAILY naproxen 500 mg Tablet 500 mg PO BID Hold Instructions: Resume on 11/12/23. nitroglycerin 0.4 mg Tablet, Sublingual 0.4 mg SUBLINGUAL Q5M PRN (Reason: Chest Pain) Rx Instructions: do not exceed 3 doses per episode hydrocodone-acetaminophen 7.5-325 mg tablet 1 tab PO Q6H PRN (Reason: pain) Qty: 20 0RF Colace 100 mg capsule 100 mg PO BID Qty: 14 0RF Miralax 17 gram/dose powder 4 g PO DAILY 7 Days Qty: 119 0RF risperidone 1 mg Tablet 1 mg PO BEDTIME 30 Days Qty: 30 1RF Discharge Orders: Discharge ED (Routine); Ordered 11/11/23 Ordered By: Keyana Mcmillan Referrals: Raj Kent MD [Primary Care Provider] - Discharge Diet: Advance as tolerated Discharge Activity: Resume usual activity Patient Instructions: Abdominal Pain (ED) Coding Level of Care Code ED [employer] Inspector for Nathan Agudelo
[2023-11-11 14:48] VITALS: BP 113/74; PULSE 46; RESP 18; TEMP 36.6; O2SAT 90; BMI 44.0
[2023-11-11 15:04] LABS: Basophils % 0.7 %; Eosinophils # 0.1 10^3/uL (0.0-0.8); Eosinophils % 1.4 %; Hematocrit 38.2 % (37-53); Lymphocytes # 1.5 10^3/uL (0.8-4.8); Lymphocytes % 26.5 %; Mean Corpuscular HGB Conc 33.2 g/dL (30-55); Mean Corpuscular Hemoglobin 29.5 pg (27-33); Mean Corpuscular Volume 88.8 fl (82-101); Mean Platelet Volume 10.1 fL (7.4-10.4); Monocytes # 0.4 10^3/uL (0.2-0.9); Monocytes % 7.9 %; Neutrophils # 3.49 10^3/uL (1.8-7.7); Neutrophils % 63.1 %; Nucleated Red Blood Cells % 0 %; Platelet Count 213 10^3/cmm (157-399); Red Cell Distribution Width 13.5 % (12.1-15.1); White Blood Count 5.54 10^3/uL (3.29-11.43)
[2023-11-11 15:24] VITALS: BP 121/65; PULSE 66; RESP 18; O2SAT 91
[2023-11-11 15:29] LABS: Troponin(5th) Baseline 9 ng/L (0-15)
[2023-11-11 15:53] LABS: Alanine Aminotransferase 16 U/L (0-41); Albumin Level 3.9 g/dL (3.5-5.2); Alkaline Phosphatase 60 U/L (40-130); Anion Gap 15.2 (5-19); Aspartate Amino Transferase 15 U/L (0-40); Blood Urea Nitrogen 16 mg/dL (6-20); Calcium 8.6 mg/dL (8.5-10.5); Carbon Dioxide 27 mmol/L (22-29); Chloride 102 mmol/L (98-107); Creatinine Clr Calc Pharmacy 151.4511; Globulin 2.4 g/dL (1.3-4.6); Glomerular Filtration Rate 90.4 mL/min (90-130); Glucose 96 mg/dL (65-115); Lipase 24 U/L (13-60); Osmolality Calculated 291 mOsm/kg (285-295); Potassium 4.2 mmol/L (3.5-5.1); Sodium 140 mmol/L (136-145); Total Bilirubin 0.5 mg/dL (0.15-1.2); Total Protein 6.3 g/dL (6.6-8.7)
[2023-11-11 16:26] VITALS: BP 121/65; PULSE 66; RESP 18; O2SAT 91
== END 2023-11-11 16:27 | disposition home or self-care (01) ==
PROVIDERS: Emergency Provider Emergency Medicine; PCP Family Medicine
DX: R07.89 Other chest pain (principal); R10.9 Unspecified abdominal pain
CPT/HCPCS: 80053; 83690; 84484; 85025; 93005; 99284

== ENCOUNTER 2023-11-14 15:41 | Emergency (ER) | payer MEDICARE, MEDICAID, SELFPAY ==
[2023-11-14 15:46] VITALS: BP 124/76; PULSE 57; RESP 18; O2SAT 93
--- NOTE | 2023-11-14 15:48 | ED.C_ITS ---
HPI - Psych General: Chief Complaint: Psychiatric Symptoms Stated Complaint: mhe Time Seen by Provider: 11/14/23 15:42 Source: patient and EMS Mode of arrival: EMS History of Present Illness: The report from EMS is that the patient was feeling depressed and sad because he had his gallbladder removed. He apparently called the suicide hotline and subsequently EMS was notified. The patient had a recent cholecystectomy on 08 November at this facility. 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 MD complaint: feels depressed Duration: intermittent and resolved prior to arrival Associated psychiatric symptoms: depression Associated symptoms: Reports depression Review of Systems General: Reports: 10 or more systems reviewed and unremarkable except in HPI a nd below Const: Denies: fever(s) or chills GI: Denies: abdominal pain, nausea, vomiting or diarrhea Psych: Reports: depression PFSH ED PFSH: Medical History Moderate episode of recurrent major depressive disorder Psychiatric care Family History Brother Diabetes Denies family history of CAD (coronary artery disease) Congestive heart failure (CHF) Anemia Aneurysm Arrhythmia Atrial fibrillation TIA (transient ischemic attack) Heart disease Sudden cardiac Chronic kidney disease (CKD) Congenital heart disease Carotid artery disease Pulmonary embolism Cardiomyopathy Social History Smoking and tobacco/nicotine status: never used tobacco/nicotine Alcohol intake: never Physical Exam Narrative: EXAM NARRATIVE: The patient is alert and cooperative. He is a bit fidgety but will concentrate and remain focused to answer questions when asked. Const: COMMON NORMALS: no acute distress, healthy appearing and alert NUTRITIONAL APPEARANCE: overweight HENMT: COMMON NORMALS: normocephalic, Normal nasal mucous membranes and turbinates present and moist oral mucous membranes HEAD & SCALP: normocephalic NOSE: Normal nasal mucous membranes and turbinates present Eye: COMMON NORMALS: Equal, round and reactive pupils present, conjunctivae normal and no scleral icterus CONJUNCTIVA: Yes conjunctivae normal PUPIL: Yes Equal, round and reactive pupils present Neck/C-Spine: COMMON NORMALS: full ROM and no JVD Chest: COMMONS NORMALS: normal inspection of the chest Resp: COMMON NORMALS: normal respiratory effort, No retractions and clear to auscultation bilaterally AUSCULTATION: clear to auscultation bilaterally Cardio: COMMON NORMALS: no JVD, regular rate, regular rhythm and Peripheral pulses 2+ throughout RATE: regular rate RHYTHM: regular rhythm PERIPHERAL PULSES: Peripheral pulses 2+ throughout GI: COMMON NORMALS: Soft to palpation and non-tender PALPATION: Yes Soft to palpation OTHER: Typical laparoscopic surgical scars noted in his anterior abdominal wall which are well-approximated without any erythema or drainage. No abdominal tenderness to palpation. : COMMON NORMALS: Yes no CVA tenderness BLADDER/KIDNEY EXAM: Yes no CVA tenderness Back/Pelvis: COMMON NORMALS: no CVA tenderness, no thoracic nor lumbar tenderness and thoraco-lumbar ROM normal Extremity: COMMON NORMALS: normal to inspection, full ROM, no calf tenderness and no pedal edema Neuro: COMMON NORMALS: moves all extremities, no focal motor deficits and no sensory deficits noted SENSORIUM/ORIENTATION: Yes alert Psych: COMMON NORMALS: cooperative, normal affect, speech normal, denies homicidal ideation and denies suicidal ideation SPEECH: Yes normal speech OTHER: Patient smiling and interactive makes eye contact through our conversation. He states that he was feeling a bit down because he had his gallbladder removed but he cannot really pinpoint why this was bothering him. States he has a lot going on and notes, weight heavy on him. He states that he really does not want to harm himself he was thinking about going outside but he does not want to do that because it is too hot. When directly asked what his desires are today he says well he does not really feel like he needs to be here and does not have any thoughts of harming himself or others and feels like that he would prefer to go back to his half-way. Skin: COMMON NORMALS: no rashes or lesions noted, turgor normal and no jaundice GENERAL SKIN EXAM: no rashes or lesions noted and turgor normal Course Vital Signs: Vital signs: Vital Signs Temperature 97.8 F 11/14/23 15:55 Pulse Rate 57 L 11/14/23 15:46 Respiratory Rate 18 11/14/23 15:46 Blood Pressure 124/76 11/14/23 15:46 Pulse Oximetry 93 11/14/23 15:46 MDM - Psych Medical Decision Making Patient was transported to the emergency department from half-way by EMS after some question of whether he was feeling a bit more depressed and has some issues regarding his recent cholecystectomy and that he was feeling a bit down because of this procedure. Patient has a longstanding history of borderline intellectual capacity and has been seen in the mental health facility at this hospital and has also followed by the behavioral health center. He takes quetiapine and risperidone on a daily basis and has been faithful to those mood altering medications. Clinical exam revealed no evidence that suggested a concern about a postoperative infection or other acute emergency medicine issue. After he arrived and settled down interviewed by both me as well as nursing staff who knew him he really stated the did not have any thoughts of harming himself did not really feel the need to be at this facility at this time. He states what ever thoughts he had have resolved. He currently lives in a half-way and I discussed returning him to that domicile with the staff there who are comfortable with that plan. At this time no additional mental health screening is indicated. I do not feel that he has a significant risk of self-harm given his current clinical picture in the emergency department today. He is not alone and lives in a half-way and has adequate support should he have any exacerbations of his chronic depression and feel the need for additional mental health intervention. No radiology studies performed this visit Discharge Plan Discharge Patient Disposition: Home Clinical Impression: Borderline intellectual functioning Depression Qualifiers: Depression Type: unspecified Qualified Code(s): F32.A - Depression, unspecified Condition: Stable Prescriptions: No Action cetirizine [All Day Allergy (cetirizine)] 10 mg tablet 10 mg PO DAILY PRN (Reason: allergy symptoms) Qty: 60 0RF paroxetine HCl [Paxil] 30 mg tablet 60 mg PO DAILY furosemide 40 mg tablet 40 mg PO DAILY metformin 500 mg tablet 500 mg PO BID aspirin 81 mg Tablet,Delayed Release (Dr/Ec) 81 mg PO DAILY simvastatin 20 mg tablet 20 mg PO DAILY lisinopril 10 mg tablet 10 mg PO DAILY quetiapine 200 mg Tablet 200 mg PO DAILY naproxen 500 mg Tablet 500 mg PO BID Hold Instructions: Resume on 11/12/23. nitroglycerin 0.4 mg Tablet, Sublingual 0.4 mg SUBLINGUAL Q5M PRN (Reason: Chest Pain) Rx Instructions: do not exceed 3 doses per episode hydrocodone-acetaminophen 7.5-325 mg tablet 1 tab PO Q6H PRN (Reason: pain) Qty: 20 0RF Colace 100 mg capsule 100 mg PO BID Qty: 14 0RF Miralax 17 gram/dose powder 4 g PO DAILY 7 Days Qty: 119 0RF risperidone 1 mg Tablet 1 mg PO BEDTIME 30 Days Qty: 30 1RF Discharge Orders: Discharge ED (Routine); Ordered 11/14/23 Ordered By: Virgil Garcia Referrals: Raj Kent MD [Primary Care Provider] - Discharge Diet: Usual diet Discharge Activity: Resume usual activity Patient Instructions: Opioid Safety, Pain Management Activity Restrictions/Additional Instructions: You should continue all your postoperative instructions. You should also continue to take all your usual medications. If it anytime you feel more sad and depressed or begin having thoughts of harming yourself or harming others call the half-way staff and/or suicide hotline and immediately seek additional care. Follow-up with behavioral health center as previously scheduled. Coding Level of Care Code ED Supervisor Coil Winding for Nathan Agudelo
[2023-11-14 15:55] VITALS: TEMP 36.6
== END 2023-11-14 16:35 | disposition home or self-care (01) ==
PROVIDERS: Emergency Provider Emergency Medicine; PCP Family Medicine
DX: F32.A Depression, unspecified (principal); R41.83 Borderline intellectual functioning; Z79.82 Long term (current) use of aspirin; Z79.84 Long term (current) use of oral hypoglycemic drugs
CPT/HCPCS: 99285

== ENCOUNTER → 2023-11-22 13:35 | Outpatient (BNVA) | payer MEDICARE, MEDICAID, SELFPAY | PROVIDERS: PCP Family Medicine; Visit Provider Surgery | DX: Z90.49 Acquired absence of other specified parts of digestive tract (principal); Z98.890 Other specified postprocedural states | CPT/HCPCS: 99024 ==

== ENCOUNTER → 2023-11-29 17:31 | Outpatient (BNVA) | payer MEDICARE, MEDICAID, SELFPAY | PROVIDERS: PCP Family Medicine; Visit Provider Family Medicine | DX: M79.642 Pain in left hand (principal) | CPT/HCPCS: 73130 ==

== ENCOUNTER 2023-11-30 13:48 | Emergency (ER) | payer MEDICARE, MEDICAID, SELFPAY ==
[2023-11-30] VITALS (8 sets, daily range): BP systolic 102–165; BP diastolic 60–92; PULSE 56–73; RESP 17–19; TEMP 36.8; O2SAT 92–95; BMI 43.8
--- NOTE | 2023-11-30 13:52 | XRR_ITS ---
PROCEDURE INFORMATION: Exam: XR Chest Exam date and time: 11/30/2023 1:54 PM Age: 47 years old Clinical indication: Pain; Angina pectoris; Additional info: Cp TECHNIQUE: Imaging protocol: Radiologic exam of the chest. Views: 1 view. COMPARISON: CR XR chest 1V portable [id number] 11/07/2023 8:11 PM FINDINGS: Lungs: Unremarkable. No consolidation. Pleural spaces: Unremarkable. No pleural effusion. No pneumothorax. Heart/Mediastinum: Unremarkable. No cardiomegaly. Bones/joints: Unremarkable. XR/XR chest 1V portable [id number] IMPRESSION: No acute findings.
--- NOTE | 2023-11-30 13:54 | ECG_ITS ---
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 Measurements Intervals [place] Rate: 82 P: 37 FL: 180 QRS: 56 QRSD: 100 T: 46 QT: 362 QTc: 423 Interpretive Statements SINUS RHYTHM WITH OCCASIONAL VENTRICULAR PREMATURE COMPLEXES LOW QRS VOLTAGE IN PRECORDIAL LEADS [QRS DEFLECTION < 1.0 mV IN CHEST LEADS] POSSIBLE ANTERIOR MYOCARDIAL INFARCTION , PROBABLY OLD [30 ms Q WAVE IN V3/V4, OR R < 0.2 mV IN V4] Compared to ECG 11/11/2023 14:45:10 Sinus bradycardia no longer present Myocardial infarct finding still present Electronically Signed On 11-30-2023 23:29:56 CDT by Franck Redman M.D. [id number]
--- NOTE | 2023-11-30 13:58 | ED_ITS ---
HPI - Chest Pain 2 General: Chief Complaint: Chest Pain Stated Complaint: Chest Pain Time Seen by Provider: 11/30/23 13:49 Source: patient and EMS Mode of arrival: EMS Limitations: no limitations History of Present Illness: 47-year-old male who is very well-known to ER has been here multiple times chest pain states started having a sharp pain in the center of his chest this morning along with some lightheadedness. He denies any headache denies any shortness of breath denies any worsening improving factors. Denies any abdominal pain Associated symptoms: Deny abdominal pain, dyspnea, fever(s), nausea or vomiting Related Data Home Medications Medication Instructions Recorded Confirmed aspirin 81 mg tablet,delayed 81 mg PO DAILY 03/16/23 11/29/23 release furosemide 40 mg tablet 40 mg PO DAILY 03/16/23 11/29/23 lisinopril 10 mg tablet 10 mg PO DAILY 03/16/23 11/29/23 metformin 500 mg tablet 500 mg PO BID 03/16/23 11/29/23 simvastatin 20 mg tablet 20 mg PO DAILY 03/16/23 11/29/23 paroxetine HCl 30 mg tablet (Paxil) 60 mg PO DAILY 10/28/23 11/29/23 naproxen 500 mg tablet 500 mg PO BID 11/08/23 11/29/23 nitroglycerin 0.4 mg sublingual 0.4 mg sublingual Q5M PRN Chest 11/08/23 11/29/23 tablet Pain quetiapine 200 mg tablet 200 mg PO DAILY 11/08/23 11/29/23 Previous Rx's Medication Instructions Recorded cetirizine 10 mg tablet (All Day 10 mg PO DAILY PRN allergy 10/06/23 Allergy (cetirizine)) symptoms #60 tabs docusate sodium 100 mg capsule 100 mg PO BID #14 caps 11/09/23 (Colace) risperidone 1 mg tablet (Risperdal) 1 mg PO BID #60 tabs 11/17/23 Allergies Allergy/AdvReac Type Severity Reaction Status Date / Time No Known Allergies Allergy Verified 11/29/23 17:26 Review of Systems 2 Const: Denies: fever(s), chills, body aches or change in appetite ENMT: Denies: throat pain or dental pain Card: Reports: chest pain Resp: Denies: dyspnea GI: Denies: abdominal pain, nausea, vomiting or diarrhea Musc: Denies: neck pain or back pain Skin/Breast: Denies: rash Neuro: Denies: headache(s) PFSH ED 2 PFSH: Medical History Moderate episode of recurrent major depressive disorder Psychiatric care Surgical History (Updated 11/30/23 @ 00:02 by JADYN Simmons) Hx laparoscopic cholecystectomy 11/09/23 Dr Lim Family History Brother Diabetes Denies family history of CAD (coronary artery disease) Congestive heart failure (CHF) Anemia Aneurysm Arrhythmia Atrial fibrillation TIA (transient ischemic attack) Heart disease Sudden cardiac Chronic kidney disease (CKD) Congenital heart disease Carotid artery disease Pulmonary embolism Cardiomyopathy Social History Smoking and tobacco/nicotine status: never used tobacco/nicotine Alcohol intake: never Physical Exam 2 Const: COMMON NORMALS: no acute distress, patient oriented x3 and healthy appearing HENMT: COMMON NORMALS: normocephalic and atraumatic HEAD & SCALP: n ormocephalic and atraumatic Eye: COMMON NORMALS: Equal, round and reactive pupils present and EOMs intact bilaterally PUPIL: Yes Equal, round and reactive pupils present Neck/C-Spine: COMMON NORMALS: full ROM and supple Chest: COMMONS NORMALS: normal inspection of the chest and normal palpation of entire chest wall Resp: COMMON NORMALS: normal respiratory effort, No retractions, No use of accessory muscles and clear to auscultation bilaterally AUSCULTATION: clear to auscultation bilaterally Cardio: COMMON NORMALS: regular rate, regular rhythm and No murmurs present (Cardio) RATE: regular rate RHYTHM: regular rhythm GI: COMMON NORMALS: Normal to inspection, nondistended, normoactive bowel sounds present, Soft to palpation, non-tender and no masses PALPATION: Yes Soft to palpation Extremity: COMMON NORMALS: normal to inspection and full ROM Neuro: COMMON NORMALS: patient oriented x3, moves all extremities and no focal motor deficits Psych: COMMON NORMALS: mental status grossly normal, Normal thought process present and cooperative THOUGHT PROCESS: Normal thought process present Skin: COMMON NORMALS: no rashes or lesions noted and no wounds GENERAL SKIN EXAM: no rashes or lesions noted Course 2 Vital Signs: Vital signs: Vital Signs Temperature 98.3 F 11/30/23 13:53 Pulse Rate 56 L 11/30/23 17:51 Respiratory Rate 18 11/30/23 17:00 Blood Pressure 129/79 11/30/23 17:51 Pulse Oximetry 92 11/30/23 17:51 Oxygen Delivery Me thod Room Air 11/30/23 17:00 MDM - Chest Pain Medical Decision Making Patient presents for chest pains atypical in nature his EKG his troponins are negative he has no signs of dissection or pulm embolism he stable for discharge follow-up with PCP return if worsening Medical Records I reviewed the patient's medical records. Lab Data I reviewed the patient's lab results. 11/30/23 14:20 11/30/23 14:20 Radiology Impressions Chest X-Ray 11/30/23 13:52 IMPRESSION: No acute findings. Laboratory Results WBC 4.92 10^3/uL (3.29-11.43) 11/30/23 14:20 RBC 4.59 10^6/uL (3.85-5.65) 11/30/23 14:20 Hgb 13.50 g/dL (11.27-16.99) 11/30/23 14:20 Hct 41.4 % (37-53) 11/30/23 14:20 MCV 90.2 fl (82-101) 11/30/23 14:20 MCH 29.4 pg (27-33) 11/30/23 14:20 MCHC 32.6 g/dL (30-55) 11/30/23 14:20 RDW 13.6 % (12.1-15.1) 11/30/23 14:20 Plt Count 239 10^3/cmm (157-399) 11/30/23 14:20 MPV 10.0 fL (7.4-10.4) 11/30/23 14:20 Neut % (Auto) 67.7 % 11/30/23 14:20 Lymph % (Auto) 20.1 % 11/30/23 14:20 Castro % (Auto) 9.6 % 11/30/23 14:20 Eos % (Auto) 1.8 % 11/30/23 14:20 Baso % (Auto) 0.6 % 11/30/23 14:20 Neut # (Auto) 3.33 10^3/uL (1.8-7.7) 11/30/23 14:20 Lymph # (Auto) 1.0 10^3/uL (0.8-4.8) 11/30/23 14:20 Castro # (Auto) 0.5 10^3/uL (0.2-0.9) 11/30/23 14:20 Eos # (Auto) 0.1 10^3/uL (0.0-0.8) 11/30/23 14:20 Baso # (Auto) 0.0 10^3/uL (0.0-0.1) 11/30/23 14:20 Nucleated RBC % (auto) 0 % 11/30/23 14:20 Nucleated RBCs # 0.0 /100WBC 11/30/23 14:20 Sodium 143 mmol/L (136-145) 11/30/23 14:20 Potassium 4.2 mmol/L (3.5-5.1) 11/30/23 14:20 Chloride 103 mmol/L (98-107) 11/30/23 14:20 Carbon Dioxide 29 mmol/L (22-29) 11/30/23 14:20 Anion Gap 15.2 (5-19) 11/30/23 14:20 BUN 11 mg/dL (6-20) 11/30/23 14:20 Creatinine 1.0 mg/dL (0.7-1.2) 11/30/23 14:20 GFR Calculation 80.1 mL/min (90-130) L 11/30/23 14:20 Glucose 99 mg/dL (65-115) 11/30/23 14:20 Calculated Osmolality 295 mOsm/kg (285-295) 11/30/23 14:20 Calcium 8.7 mg/dL (8.5-10.5) 11/30/23 14:20 Total Bilirubin 0.6 mg/dL (0.15-1.2) 11/30/23 14:20 AST 18 U/L (0-40) 11/30/23 14:20 ALT 23 U/L (0-41) 11/30/23 14:20 Alkaline Phosphatase 70 U/L (40-130) 11/30/23 14:20 Troponin T Baseline 16 ng/L (0-15) H 11/30/23 14:20 Troponin T 120 Minute 14.97 ng/L (0-15) 11/30/23 16:44 Delta Troponin T -1.03 ABS# (0-10) L 11/30/23 16:44 Total Protein 6.3 g/dL (6.6-8.7) L 11/30/23 14:20 Albumin 4.0 g/dL (3.5-5.2) 11/30/23 14:20 Globulin 2.3 g/dL (1.3-4.6) 11/30/23 14:20 Lipase 28 U/L (13-60) 11/30/23 14:20 All radiology interpretation(s) finalized by discharge EKG Data EKG 1: I personally reviewed and interpreted this EKG as follows: EKG interpretation date: 11/30/23 EKG interpretation time: 13:54 Interpretation: nsr hr [address] or t wave abnormalities qrs 100 qtc 400 Discharge Plan Discharge Patient Disposition: Home Clinical Impression: Chest pain Condition: Stable Prescriptions: No Action cetirizine [All Day Allergy (cetirizine)] 10 mg tablet 10 mg PO DAILY PRN (Reason: allergy symptoms) Qty: 60 0RF paroxetine HCl [Paxil] 30 mg tablet 60 mg PO DAILY risperidone [Risperdal] 1 mg tablet 1 mg PO BID Qty: 60 2RF furosemide 40 mg tablet 40 mg PO DAILY metformin 500 mg tablet 500 mg PO BID aspirin 81 mg Tablet,Delayed Release (Dr/Ec) 81 mg PO DAILY simvastatin 20 mg tablet 20 mg PO DAILY lisinopril 10 mg tablet 10 mg PO DAILY quetiapine 200 mg Tablet 200 mg PO DAILY naproxen 500 mg Tablet 500 mg PO BID Hold Instructions: Resume on 11/12/23. nitroglycerin 0.4 mg Tablet, Sublingual 0.4 mg SUBLINGUAL Q5M PRN (Reason: Chest Pain) Rx Instructions: do not exceed 3 doses per episode Colace 100 mg capsule 100 mg PO BID Qty: 14 0RF Discharge Orders: Discharge ED (Routine); Ordered 11/30/23 Ordered By: Keyana Mcmillan Referrals: Raj Kent MD [Primary Care Provider] - Discharge Diet: Advance as tolerated Discharge Activity: Resume usual activity Patient Instructions: Chest Pain (ED) Coding Level of Care Code ED Overlock Sleeve Setter for Chg Fwd
[2023-11-30 14:32] LABS: Basophils % 0.6 %; Eosinophils # 0.1 10^3/uL (0.0-0.8); Eosinophils % 1.8 %; Hematocrit 41.4 % (37-53); Lymphocytes % 20.1 %; Mean Corpuscular HGB Conc 32.6 g/dL (30-55); Mean Corpuscular Hemoglobin 29.4 pg (27-33); Mean Corpuscular Volume 90.2 fl (82-101); Monocytes # 0.5 10^3/uL (0.2-0.9); Monocytes % 9.6 %; Neutrophils # 3.33 10^3/uL (1.8-7.7); Neutrophils % 67.7 %; Nucleated Red Blood Cells % 0 %; Platelet Count 239 10^3/cmm (157-399); Red Blood Count 4.59 10^6/uL (3.85-5.65); Red Cell Distribution Width 13.6 % (12.1-15.1); White Blood Count 4.92 10^3/uL (3.29-11.43)
[2023-11-30 14:53] LABS: Troponin(5th) Baseline 16 ng/L (0-15)
[2023-11-30 14:54] LABS: Alanine Aminotransferase 23 U/L (0-41); Alkaline Phosphatase 70 U/L (40-130); Anion Gap 15.2 (5-19); Aspartate Amino Transferase 18 U/L (0-40); Blood Urea Nitrogen 11 mg/dL (6-20); Calcium 8.7 mg/dL (8.5-10.5); Carbon Dioxide 29 mmol/L (22-29); Chloride 103 mmol/L (98-107); Creatinine Clr Calc Pharmacy 135.8368; Globulin 2.3 g/dL (1.3-4.6); Glomerular Filtration Rate 80.1 mL/min (90-130); Glucose 99 mg/dL (65-115); Lipase 28 U/L (13-60); Osmolality Calculated 295 mOsm/kg (285-295); Potassium 4.2 mmol/L (3.5-5.1); Sodium 143 mmol/L (136-145); Total Bilirubin 0.6 mg/dL (0.15-1.2); Total Protein 6.3 g/dL (6.6-8.7)
--- NOTE | 2023-11-30 15:52 | ECG_ITS ---
[facility] Test Date: 2023-11-30 Pat Name: Ronnie Guzman Department: Room: Gender: Male Senior Clinician: : 1975 Requested By: Keyana Mcmillan Order Number: [id number] Jamila MD: Franck Redman M.D. Measurements Intervals [place] Rate: 55 P: 22 TN: 156 QRS: 60 QRSD: 101 T: 50 QT: 382 QTc: 366 Interpretive Statements SINUS BRADYCARDIA WITH OCCASIONAL VENTRICULAR PREMATURE COMPLEXES LOW QRS VOLTAGE [QRS DEFLECTION < 0.5/1.0 mV IN LIMB/CHEST LEADS] PATTERN CONSISTENT WITH PULMONARY DISEASE Compared to ECG 11/30/2023 13:54:02 Sinus rhythm no longer present Myocardial infarct finding no longer present Electronically Signed On 11-30-2023 23:41:54 CDT by Franck Redman M.D. [id number]
[2023-11-30 17:25] LABS: Troponin 5 2HR 14.97 ng/L (0-15)
[2023-11-30 17:27] LABS: Troponin 5 2HR Delta -1.03 ABS# (0-10)
== END 2023-11-30 17:52 | disposition home or self-care (01) ==
PROVIDERS: Emergency Provider Emergency Medicine; PCP Family Medicine
DX: R07.9 Chest pain, unspecified (principal); Z79.82 Long term (current) use of aspirin; Z79.84 Long term (current) use of oral hypoglycemic drugs
CPT/HCPCS: 36415; 71045; 80053; 83690; 84484; 85025; 93005; 99285

== ENCOUNTER 2023-12-07 15:39 | Emergency (ER) | payer MEDICARE, MEDICAID, SELFPAY ==
[2023-12-07 15:40] VITALS: BP 120/74; PULSE 97; RESP 18; TEMP 36.6; O2SAT 92
--- NOTE | 2023-12-07 15:41 | ECG_ITS ---
[facility] Test Date: 2023-12-07 Pat Name: Ronnie Guzman Department: Room: Gender: Male Director Of Training: : 1975 Requested By: Keyana Mcmillan Order Number: [id number] Jamila MD: Bobo Bird M.D. Measurements Intervals [place] Rate: 97 P: 54 DE: 173 QRS: 46 QRSD: 109 T: 54 QT: 354 QTc: 451 Interpretive Statements SINUS RHYTHM WITH OCCASIONAL VENTRICULAR PREMATURE COMPLEXES INDETERMINATE AXIS LOW QRS VOLTAGE [QRS DEFLECTION < 0.5/1.0 mV IN LIMB/CHEST LEADS] POSSIBLE INFERIOR MYOCARDIAL INFARCTION , PROBABLY OLD [30 ms Q WAVE IN II/aVF] Compared to ECG 11/30/2023 16:17:40 Indeterminate axis now present Myocardial infarct finding now present Sinus bradycardia no longer present Electronically Signed On 12-07-2023 16:26:19 CDT by Bobo Bird M.D. [id number]
[2023-12-07 16:11] LABS: Basophils % 0.5 %; Eosinophils % 0.3 %; Hematocrit 43.1 % (37-53); Lymphocytes # 1.1 10^3/uL (0.8-4.8); Lymphocytes % 19.6 %; Mean Corpuscular HGB Conc 33.4 g/dL (30-55); Mean Corpuscular Hemoglobin 29.6 pg (27-33); Mean Corpuscular Volume 88.5 fl (82-101); Mean Platelet Volume 9.9 fL (7.4-10.4); Monocytes # 0.5 10^3/uL (0.2-0.9); Monocytes % 8.3 %; Neutrophils # 4.11 10^3/uL (1.8-7.7); Neutrophils % 70.8 %; Nucleated Red Blood Cells % 0 %; Platelet Count 243 10^3/cmm (157-399); Red Blood Count 4.87 10^6/uL (3.85-5.65); Red Cell Distribution Width 13.1 % (12.1-15.1); White Blood Count 5.81 10^3/uL (3.29-11.43)
--- NOTE | 2023-12-07 16:28 | CTR_ITS ---
PROCEDURE INFORMATION: Exam: CT Head Without Contrast Exam date and time: 12/07/2023 4:37 PM Age: 47 years old Clinical indication: Syncope and collapse TECHNIQUE: Imaging protocol: Computed tomography of the head without contrast. Radiation optimization: All CT scans at this facility use at least one of these dose optimization techniques: automated exposure control; mA and/or kV adjustment per patient size (includes targeted exams where dose is matched to clinical indication); or iterative reconstruction. COMPARISON: No relevant prior studies available. RADIATION DOSE METRICS: Total DLP (mGy-cm): 1163 FINDINGS: Brain: No evidence of intra-axial or extra-axial hemorrhage. No mass effect or midline shift. Thompson-white differentiation is maintained. Basilar cisterns are patent. Cerebral ventricles: No hydrocephalus. Paranasal sinuses: The visualized paranasal sinuses are well aerated. Mastoid air cells: The visualized mastoids and middle ears are clear. Bones: Calvarium is intact. No evidence of acute fracture. Soft tissues: No gross soft tissue abnormality. CT/CT head wo con* [id number] IMPRESSION: 1. No acute intracranial abnormality.
--- NOTE | 2023-12-07 16:29 | ECG_ITS ---
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 Measurements Intervals [place] Rate: 59 P: 35 RI: 201 QRS: 100 QRSD: 113 T: 53 QT: 386 QTc: 385 Interpretive Statements SINUS BRADYCARDIA WITH OCCASIONAL VENTRICULAR PREMATURE COMPLEXES BORDERLINE RIGHT AXIS DEVIATION [QRS AXIS > 90] LOW QRS VOLTAGE [QRS DEFLECTION < 0.5/1.0 mV IN LIMB/CHEST LEADS] POSSIBLE ANTERIOR MYOCARDIAL INFARCTION , PROBABLY OLD [30 ms Q WAVE IN V3/V4, OR R < 0.2 mV IN V4] POSSIBLE INFERIOR MYOCARDIAL INFARCTION , PROBABLY OLD [30 ms Q WAVE IN II/aVF] Compared to ECG 12/07/2023 15:41:36 Sinus rhythm no longer present Indeterminate axis no longer present Myocardial infarct finding still present Electronically Signed On 12-08-2023 8:04:09 CDT by Bobo Bird M.D. [id number]
--- NOTE | 2023-12-07 16:29 | ED_ITS ---
HPI - Syncope 2 General: Chief Complaint: Syncope Stated Complaint: syncope Time Seen by Provider: 12/07/23 16:27 Source: patient Mode of arrival: ambulatory Limitations: no limitations History of Present Illness: 47-year-old male is very well-known to t he ER has been seen multiple times for complaint of chest pain he states he was walking today and had a syncopal event has been having chest pain throughout the day states pain sharp in nature he states he may have hit his head when he fell he is unsure he has a mild headache denies any shortness of breath he is in no distress currently Associated symptoms: Reports chest pain; Deny abdominal pain, fever(s), headache(s) or nausea Related Data Home Medications Medication Instructions Recorded Confirmed aspirin 81 mg tablet,delayed 81 mg PO DAILY 03/16/23 12/07/23 release furosemide 40 mg tablet 40 mg PO DAILY 03/16/23 12/07/23 lisinopril 10 mg tablet 10 mg PO DAILY 03/16/23 12/07/23 metformin 500 mg tablet 500 mg PO BID 03/16/23 12/07/23 simvastatin 20 mg tablet 20 mg PO DAILY 03/16/23 12/07/23 paroxetine HCl 30 mg tablet (Paxil) 60 mg PO DAILY 10/28/23 12/07/23 naproxen 500 mg tablet 500 mg PO BID 11/08/23 12/07/23 nitroglycerin 0.4 mg sublingual 0.4 mg sublingual Q5M PRN Chest 11/08/23 12/07/23 tablet Pain quetiapine 200 mg tablet 200 mg PO DAILY 11/08/23 12/07/23 Previous Rx's Medication Instructions Recorded cetirizine 10 mg tablet (All Day 10 mg PO DAILY PRN allergy 10/06/23 Allergy (cetirizine)) symptoms #60 tabs docusate sodium 100 mg capsule 100 mg PO BID #14 caps 11/09/23 (Colace) risperidone 1 mg tablet (Risperdal) 1 mg PO BID #60 tabs 11/17/23 acetaminophen 500 mg tablet 1,000 mg (2 x 500 mg) PO Q6H PRN 12/01/23 (Tylenol Extra Strength) fever #100 tabs Allergies Allergy/AdvReac Type Severity Reaction Status Date / Time No Known Allergies Allergy Verified 12/07/23 15:51 Review of Systems 2 Const: Denies: fever(s), chills, body aches or change in appetite ENMT: Denies: throat pain or dental pain Card: Reports: chest pain and syncope Resp: Denies: dyspnea GI: Denies: abdominal pain, nausea, vomiting or diarrhea Musc: Denies: neck pain or back pain Skin/Breast: Denies: rash Neuro: Denies: headache(s) PFSH ED 2 PFSH: Medical History Moderate episode of recurrent major depressive disorder Psychiatric care Surgical History Hx laparoscopic cholecystectomy 11/09/23 Dr Lim Family History Brother Diabetes Denies family history of CAD (coronary artery disease) Congestive heart failure (CHF) Anemia Aneurysm Arrhythmia Atrial fibrillation TIA (transient ischemic attack) Heart disease Sudden cardiac Chronic kidney disease (CKD) Congenital heart disease Carotid artery disease Pulmonary embolism Cardiomyopathy Social History Smoking and tobacco/nicotine status: unknown if used tobacco/nicotine Alcohol intake: never Physical Exam 2 Const: COMMON NORMALS: no acute distress, patient oriented x3 and healthy appearing HENMT: COMMON NORMALS: normocephalic and atraumatic HEAD & SCALP: n ormocephalic and atraumatic Neck/C-Spine: COMMON NORMALS: full ROM and supple Chest: COMMONS NORMALS: normal inspection of the chest and normal palpation of entire chest wall Resp: COMMON NORMALS: normal respiratory effort, No retractions, No use of accessory muscles and clear to auscultation bilaterally AUSCULTATION: clear to auscultation bilaterally Cardio: COMMON NORMALS: regular rate, regular rhythm and No murmurs present (Cardio) RATE: regular rate RHYTHM: regular rhythm GI: COMMON NORMALS: Normal to inspection, nondistended, normoactive bowel sounds present, Soft to palpation, non-tender and no masses PALPATION: Yes Soft to palpation Extremity: COMMON NORMALS: normal to inspection and full ROM Neuro: COMMON NORMALS: patient oriented x3, moves all extremities and no focal motor deficits Psych: COMMON NORMALS: mental status grossly normal, Normal thought process present and cooperative THOUGHT PROCESS: Normal thought process present Skin: COMMON NORMALS: no rashes or lesions noted and no wounds GENERAL SKIN EXAM: no rashes or lesions noted Course 2 Vital Signs: Vital signs: Vital Signs Temperature 97.8 F 12/07/23 15:40 Pulse Rate 97 12/07/23 15:40 Respiratory Rate 18 12/07/23 15:40 Blood Pressure 120/74 12/07/23 15:40 Pulse Oximetry 92 12/07/23 15:40 Oxygen Delivery Me thod Room Air 12/07/23 15:40 MDM - Syncope Medical Decision Making Patient presents here after syncopal event he is complaining of chest pain as well as troponin here is negative. Seen here multiple times for chest pain in the past he has no signs of ACS no signs of pulm embolism his head CT was normal he is stable for discharge follow-up with PCP return for worsening. Medical Records I reviewed the patient's medical records. Lab Data I reviewed the patient's lab results. 12/07/23 15:20 12/07/23 15:[address] 12/07/23 16:28 IMPRESSION: 1. No acute intracranial abnormality. Laboratory Results WBC 5.81 10^3/uL (3.29-11.43) 12/07/23 15:20 RBC 4.87 10^6/uL (3.85-5.65) 12/07/23 15:20 Hgb 14.40 g/dL (11.27-16.99) 12/07/23 15:20 Hct 43.1 % (37-53) 12/07/23 15:20 MCV 88.5 fl (82-101) 12/07/23 15:20 MCH 29.6 pg (27-33) 12/07/23 15:20 MCHC 33.4 g/dL (30-55) 12/07/23 15:20 RDW 13.1 % (12.1-15.1) 12/07/23 15:20 Plt Count 243 10^3/cmm (157-399) 12/07/23 15:20 MPV 9.9 fL (7.4-10.4) 12/07/23 15:20 Neut % (Auto) 70.8 % 12/07/23 15:20 Lymph % (Auto) 19.6 % 12/07/23 15:20 [place] % (Auto) 8.3 % 12/07/23 15:20 Eos % (Auto) 0.3 % 12/07/23 15:20 Baso % (Auto) 0.5 % 12/07/23 15:20 Neut # (Auto) 4.11 10^3/uL (1.8-7.7) 12/07/23 15:20 Lymph # (Auto) 1.1 10^3/uL (0.8-4.8) 12/07/23 15:20 [place] # (Auto) 0.5 10^3/uL (0.2-0.9) 12/07/23 15:20 Eos # (Auto) 0.0 10^3/uL (0.0-0.8) 12/07/23 15:20 Baso # (Auto) 0.0 10^3/uL (0.0-0.1) 12/07/23 15:20 Nucleated RBC % (auto) 0 % 12/07/23 15:20 Nucleated RBCs # 0.0 /100WBC 12/07/23 15:20 Sodium 137 mmol/L (136-145) 12/07/23 15:20 Potassium 3.7 mmol/L (3.5-5.1) 12/07/23 15:20 Chloride 99 mmol/L (98-107) 12/07/23 15:20 Carbon Dioxide 23 mmol/L (22-29) 12/07/23 15:20 Anion Gap 18.7 (5-19) 12/07/23 15:20 BUN 13 mg/dL (6-20) 12/07/23 15:20 Creatinine 0.8 mg/dL (0.7-1.2) 12/07/23 15:20 GFR Calculation 103.6 mL/min (90-130) 12/07/23 15:20 Glucose 106 mg/dL (65-115) 12/07/23 15:20 Calculated Osmolality 285 mOsm/kg (285-295) 12/07/23 15:20 Calcium 8.7 mg/dL (8.5-10.5) 12/07/23 15:20 Total Bilirubin 1.0 mg/dL (0.15-1.2) 12/07/23 15:20 AST 13 U/L (0-40) 12/07/23 15:20 ALT 14 U/L (0-41) 12/07/23 15:20 Alkaline Phosphatase 73 U/L (40-130) 12/07/23 15:20 Troponin T Baseline 11 ng/L (0-15) 12/07/23 15:20 Total Protein 7.1 g/dL (6.6-8.7) 12/07/23 15:20 Albumin 4.5 g/dL (3.5-5.2) 12/07/23 15:20 Globulin 2.6 g/dL (1.3-4.6) 12/07/23 15:20 All radiology interpretation(s) finalized by discharge Discharge Plan Discharge Patient Disposition: Home Clinical Impression: Syncope, Chest pain Condition: Stable Prescriptions: No Action cetirizine [All Day Allergy (cetirizine)] 10 mg tablet 10 mg PO DAILY PRN (Reason: allergy symptoms) Qty: 60 0RF paroxetine HCl [Paxil] 30 mg tablet 60 mg PO DAILY acetaminophen [Tylenol Extra Strength] 500 mg tablet 1,000 mg PO Q6H PRN (Reason: fever) Qty: 100 0RF risperidone [Risperdal] 1 mg tablet 1 mg PO BID Qty: 60 2RF furosemide 40 mg tablet 40 mg PO DAILY metformin 500 mg tablet 500 mg PO BID aspirin 81 mg Tablet,Delayed Release (Dr/Ec) 81 mg PO DAILY simvastatin 20 mg tablet 20 mg PO DAILY lisinopril 10 mg tablet 10 mg PO DAILY quetiapine 200 mg Tablet 200 mg PO DAILY naproxen 500 mg Tablet 500 mg PO BID Hold Instructions: Resume on 11/12/23. 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
[2023-12-07 16:34] LABS: Alanine Aminotransferase 14 U/L (0-41); Albumin Level 4.5 g/dL (3.5-5.2); Alkaline Phosphatase 73 U/L (40-130); Anion Gap 18.7 (5-19); Aspartate Amino Transferase 13 U/L (0-40); Blood Urea Nitrogen 13 mg/dL (6-20); Calcium 8.7 mg/dL (8.5-10.5); Carbon Dioxide 23 mmol/L (22-29); Chloride 99 mmol/L (98-107); Creatinine Clr Calc Pharmacy 168.3313; Globulin 2.6 g/dL (1.3-4.6); Glomerular Filtration Rate 103.6 mL/min (90-130); Glucose 106 mg/dL (65-115); Osmolality Calculated 285 mOsm/kg (285-295); Potassium 3.7 mmol/L (3.5-5.1); Sodium 137 mmol/L (136-145); Total Protein 7.1 g/dL (6.6-8.7)
[2023-12-07 17:18] LABS: Troponin(5th) Baseline 11 ng/L (0-15)
[2023-12-07 17:43] VITALS: BP 131/76; BP 135/68; PULSE 76; RESP 18; O2SAT 95; O2SAT 98
[2023-12-07 18:17] LABS: Troponin 5 2HR 10.07 ng/L (0-15)
[2023-12-07 18:21] LABS: Troponin 5 2HR Delta -0.93 ABS# (0-10)
== END 2023-12-07 17:44 | disposition home or self-care (01) ==
PROVIDERS: Emergency Provider Emergency Medicine; PCP Family Medicine
DX: R55 Syncope and collapse (principal); R07.9 Chest pain, unspecified; Z79.82 Long term (current) use of aspirin; Z79.84 Long term (current) use of oral hypoglycemic drugs
CPT/HCPCS: 36415; 70450; 80053; 84484; 85025; 93005; 99284

== ENCOUNTER → 2023-12-08 10:15 | Outpatient (BNVA) | payer MEDICARE, MEDICAID, SELFPAY | PROVIDERS: PCP Family Medicine; Visit Provider Internal Medicine Cardiovascular Disease | DX: I50.9 Heart failure, unspecified (principal); I25.118 Atherosclerotic heart disease of native coronary artery with other forms of angina pectoris; R06.02 Shortness of breath; I48.91 Unspecified atrial fibrillation; Z79.01 Long term (current) use of anticoagulants; I10 Essential (primary) hypertension; E78.5 Hyperlipidemia, unspecified; I49.9 Cardiac arrhythmia, unspecified | CPT/HCPCS: 99215 ==

== ENCOUNTER 2023-12-14 14:59 | Emergency (ER) | payer MEDICARE, MEDICAID, SELFPAY ==
[2023-12-14 15:06] VITALS: BP 126/73; PULSE 121; TEMP 36.7; O2SAT 92; BMI 43.7
--- NOTE | 2023-12-14 15:18 | CT_ITS ---
WS: [id number] Examination: CT head wo con* [id number] Reason for Exam: fall Date: 12/14/2023 Comparison: 12/07/2023. DLP: 1181.[address] scans at [facility] use at least one of these dose optimization techniques: automated e xposure control; mA and/or kV adjustment per patient size (includes targeted exams where dose is matc hed to clinical indication); or iterative reconstruction. Findings: There is no depressed skull fracture. The visualized paranasal sinuses are well aerated. The ventricles and sulci are similar to the previous study. The lateral ventricles appear mildly prom inent for the patient's age. There is no intracranial hemorrhage or hematoma. CT/CT head wo con* [id number] Impression: There is no intracranial hemorrhage or hematoma Appearance of the brain is similar to that of the previous study, please see ab kayleee.
--- NOTE | 2023-12-14 15:39 | W.ED.FALL ---
HPI - Fall General: Chief Complaint: Fall Stated Complaint: Fall Time Seen by Provider: 12/14/23 15:24 Source: patient and other (care staff) Mode of arrival: EMS Limitations: other (baseline cognitive delay) History of Present Illness: Patient is a 47-year-old male here via EMS along with his care staff for evaluation of a fall. Patient normally walks with the help of a cane. According to care staff, she witnessed patient let go of his cane and then slowly lower himself to the floor . There is no syncopal episode or loss of consciousness. Patient states he got dizzy and fell and questions whether he struck his head. Care staff stated she witnessed that he did not hit his head. He does complain of a headache. He has a small abrasion to his forehead that care staff is from his CPAP. Patient is not complaining of any chest pain, shortness of breath, difficulty breathing. He does arrive tachycardic. According to care staff, he does have a history of dizziness. Patient also has cardiac issues and recently followed up with cardiology and has plans for outpatient intervention. MD complaint: fall Onset (ago): hour(s) Fall witnessed: yes, by living facility staff Place fall occurred: home Loss of consciousness: None Prolonged down time: no Symptoms prior to fall: dizziness Associated symptoms-after fall: Reports headache(s); Denies abdominal pain, chest pain or neck pain Related Data Home Medications Medication Instructions Recorded Confirmed aspirin 81 mg tablet,delayed 81 mg PO DAILY 03/16/23 12/07/23 release furosemide 40 mg tablet 40 mg PO DAILY 03/16/23 12/07/23 lisinopril 10 mg tablet 10 mg PO DAILY 03/16/23 12/07/23 metformin 500 mg tablet 500 mg PO BID 03/16/23 12/07/23 simvastatin 20 mg tablet 20 mg PO DAILY 03/16/23 12/07/23 paroxetine HCl 30 mg tablet (Paxil) 60 mg PO DAILY 10/28/23 12/07/23 naproxen 500 mg tablet 500 mg PO BID 11/08/23 12/07/23 nitroglycerin 0.4 mg sublingual 0.4 mg sublingual Q5M PRN Chest 11/08/23 12/07/23 tablet Pain quetiapine 200 mg tablet 200 mg PO DAILY 11/08/23 12/07/23 Previous Rx's Medication Instructions Recorded cetirizine 10 mg tablet (All Day 10 mg PO DAILY PRN allergy 10/06/23 Allergy (cetirizine)) symptoms #60 tabs docusate sodium 100 mg capsule 100 mg PO BID #14 caps 11/09/23 (Colace) risperidone 1 mg tablet (Risperdal) 1 mg PO BID #60 tabs 11/17/23 acetaminophen 500 mg tablet 1,000 mg (2 x 500 mg) PO Q6H PRN 12/01/23 (Tylenol Extra Strength) fever #100 tabs Allergies Allergy/AdvReac Type Severity Reaction Status Date / Time No Known Allergies Allergy Verified 12/14/23 15:15 Review of Systems Const: Denies: fever(s), chills, body aches, fatigue or malaise Eyes: Denies: change in vision or blurry vision Card: Denies: chest pain, palpitations, irregular heart rhythm, edema, pre-syncope or dyspnea on exertion Resp: Denies: dyspnea GI: Denies: abdominal pain, vomiting or diarrhea Musc: Denies: neck pain, back pain, extremity pain or joint pain Skin/Breast: Denies: rash Neuro: Reports: headache(s) and dizziness (improved); Denies: numbness in extremities, weakness in extremities or sensory changes PFSH ED PFSH: Medical History Moderate episode of recurrent major depressive disorder Psychiatric care Surgical History Hx laparoscopic cholecystectomy 11/09/23 Dr Lim Family History Brother Diabetes Denies family history of CAD (coronary artery disease) Congestive heart failure (CHF) Anemia Aneurysm Arrhythmia Atrial fibrillation TIA (transient ischemic attack) Heart disease Sudden cardiac Chronic kidney disease (CKD) Congenital heart disease Carotid artery disease Pulmonary embolism Cardiomyopathy Social History Smoking and tobacco/nicotine status: never used tobacco/nicotine Alcohol intake: never Physical Exam Const: COMMON NORMALS: no acute distress, patient oriented x3 and alert GENERAL APPEARANCE: cooperative NUTRITIONAL APPEARANCE: obese morbidly obese (BMI 43.7) ORIENTATION/CONSCIOUSNESS: Yes awake and Yes oriented to person OTHER: baseline cognitive impairment HENMT: COMMON NORMALS: normocephalic and atraumatic HEAD & SCALP: normal to inspection, normocephalic and atraumatic FACE & SINUS: normal facial exam (apart from small L abrasion forehead) Eye: GENERAL EYE: appearance normal, both eyes and all related structures and normal light reflex DIRECT OPHTHALMOSCOPY: Yes normal light reflex Neck/C-Spine: COMMON NORMALS: full ROM CERVICAL SPINE: No Cervical spine tenderness Chest: COMMONS NORMALS: normal inspection of the chest and normal palpation of entire chest wall Resp: COMMON NORMALS: normal respiratory effort and clear to auscultation bilaterally AUSCULTATION: clear to auscultation bilaterally Cardio: COMMON NORMALS: regular rhythm RATE: tachycardic RHYTHM: regular rhythm Back/Pelvis: COMMON NORMALS: thoracic and lumbar spine normal to inspection Extremity: GENERAL: Yes normal exam except as noted Neuro: CIERA COMA SCALE: document GCS findings [place] coma scale eye opening: Spontaneous [place] coma scale verbal response: Orientated [place] coma scale motor response: Obey commands [place] coma scale total score: 15 COMMON NORMALS: patient oriented x3, moves all extremities, no focal motor deficits and no sensory deficits noted SENSORIUM/ORIENTATION: Yes alert and Yes oriented to person Course Vital Signs: Vital signs: Vital Signs Temperature 98.1 F 12/14/23 15:06 Pulse Rate 121 H 12/14/23 15:06 Blood Pressure 126/73 12/14/23 15:06 Pulse Oximetry 92 12/14/23 15:06 Oxygen Delivery Me thod Room Air 12/14/23 15:06 MDM - Fall Medical Decision Making Patient refused his EKG multiple times even with multiple nurse and myself prompting him. He tells me there is no reason-all it is going to show with PVCs and PACs . I attempted to explain to patient that he is tachycardic which is abnormal for him accompanied with the dizziness and fall I would like to rule out tachyarrhythmias and given his significant cardiac history, ischemia. He continues to refuse. Patient states he wants to go home. He has had a head CT and this was negative. His baseline trop is negative. Refuses to stay for a 2hr trop. Discussed also possibility of PE given tachycardia but unwilling to stay for ddimer. He does have a guardian through the state and we were able to contact her. She is unable to drive/be here and stated he could be discharged. We cannot force patient to undergo further care. Return precautions given to care staff and patient. Medical Records I reviewed the patient's medical records. Lab Data I reviewed the patient's lab results. 12/14/23 15:45 12/14/23 15:[address] 12/14/23 15:18 Impression: There is no intracranial hemorrhage or hematoma Appearance of the brain is similar to that of the previous study, please see above. Laboratory Results WBC 7.28 10^3/uL (3.29-11.43) 12/14/23 15:45 RBC 4.93 10^6/uL (3.85-5.65) 12/14/23 15:45 Hgb 14.50 g/dL (11.27-16.99) 12/14/23 15:45 Hct 44.0 % (37-53) 12/14/23 15:45 MCV 89.2 fl (82-101) 12/14/23 15:45 MCH 29.4 pg (27-33) 12/14/23 15:45 MCHC 33.0 g/dL (30-55) 12/14/23 15:45 RDW 13.5 % (12.1-15.1) 12/14/23 15:45 Plt Count 241 10^3/cmm (157-399) 12/14/23 15:45 MPV 10.1 fL (7.4-10.4) 12/14/23 15:45 Neut % (Auto) 80.8 % 12/14/23 15:45 Lymph % (Auto) 12.2 % 12/14/23 15:45 [place] % (Auto) 6.5 % 12/14/23 15:45 Eos % (Auto) 0.1 % 12/14/23 15:45 Baso % (Auto) 0.3 % 12/14/23 15:45 Neut # (Auto) 5.88 10^3/uL (1.8-7.7) 12/14/23 15:45 Lymph # (Auto) 0.9 10^3/uL (0.8-4.8) 12/14/23 15:45 [place] # (Auto) 0.5 10^3/uL (0.2-0.9) 12/14/23 15:45 Eos # (Auto) 0.0 10^3/uL (0.0-0.8) 12/14/23 15:45 Baso # (Auto) 0.0 10^3/uL (0.0-0.1) 12/14/23 15:45 Nucleated RBC % (auto) 0 % 12/14/23 15:45 Nucleated RBCs # 0.0 /100WBC 12/14/23 15:45 Sodium 144 mmol/L (136-145) 12/14/23 15:45 Potassium 3.9 mmol/L (3.5-5.1) 12/14/23 15:45 Chloride 103 mmol/L (98-107) 12/14/23 15:45 Carbon Dioxide 29 mmol/L (22-29) 12/14/23 15:45 Anion Gap 15.9 (5-19) 12/14/23 15:45 BUN 10 mg/dL (6-20) 12/14/23 15:45 Creatinine 0.9 mg/dL (0.7-1.2) 12/14/23 15:45 GFR Calculation 90.4 mL/min (90-130) 12/14/23 15:45 Glucose 130 mg/dL (65-115) H 12/14/23 15:45 Calculated Osmolality 299 mOsm/kg (285-295) H 12/14/23 15:45 Calcium 9.5 mg/dL (8.5-10.5) 12/14/23 15:45 Total Bilirubin 0.6 mg/dL (0.15-1.2) 12/14/23 15:45 AST 13 U/L (0-40) 12/14/23 15:45 ALT 15 U/L (0-41) 12/14/23 15:45 Alkaline Phosphatase 80 U/L (40-130) 12/14/23 15:45 Troponin T Baseline 12 ng/L (0-15) 12/14/23 15:45 Total Protein 7.1 g/dL (6.6-8.7) 12/14/23 15:45 Albumin 4.5 g/dL (3.5-5.2) 12/14/23 15:45 Globulin 2.6 g/dL (1.3-4.6) 12/14/23 15:45 All radiology interpretation(s) finalized by discharge Discharge Plan Discharge Patient Disposition: Home Clinical Impression: Dizziness, Tachycardia Fall Qualifiers: Encounter type: initial encounter Qualified Code(s): W19.XXXA - Unspecified fall, initial encounter Condition: Stable Prescriptions: No Action cetirizine [All Day Allergy (cetirizine)] 10 mg tablet 10 mg PO DAILY PRN (Reason: allergy symptoms) Qty: 60 0RF paroxetine HCl [Paxil] 30 mg tablet 60 mg PO DAILY acetaminophen [Tylenol Extra Strength] 500 mg tablet 1,000 mg PO Q6H PRN (Reason: fever) Qty: 100 0RF risperidone [Risperdal] 1 mg tablet 1 mg PO BID Qty: 60 2RF furosemide 40 mg tablet 40 mg PO DAILY metformin 500 mg tablet 500 mg PO BID aspirin 81 mg Tablet,Delayed Release (Dr/Ec) 81 mg PO DAILY simvastatin 20 mg tablet 20 mg PO DAILY lisinopril 10 mg tablet 10 mg PO DAILY quetiapine 200 mg Tablet 200 mg PO DAILY naproxen 500 mg Tablet 500 mg PO BID Hold Instructions: Resume on 11/12/23. nitroglycerin 0.4 mg Tablet, Sublingual 0.4 mg SUBLINGUAL Q5M PRN (Reason: Chest Pain) Rx Instructions: do not exceed 3 doses per episode Colace 100 mg capsule 100 mg PO BID Qty: 14 0RF Discharge Orders: Discharge ED (Routine); Ordered 12/14/23 Ordered By: Shikha De Jesus Referrals: Raj Kent MD [Primary Care Provider] - Activity Restrictions/Additional Instructions: As we discussed I would like patient to follow-up with primary care provider. He needs to return to the emergency department for onset of chest pain, shortness of breath, difficulty breathing, worsening dizziness or any further falls or syncopal episodes, or any other concerns care staff for patient may have. Coding Level of Care Code ED Manager Sales Training for Nathan Agudelo
--- NOTE | 2023-12-14 15:51 | PC.NURSE ---
PT NOTIFIED MULTIPLE TIMES OF EKG ORDER. PT REFUSED EKG STATING I KNOW WHAT IT IS AND I DON'T WANT IT. PT VERBALIZED UNDERSTANDING OF REASONING FOR THE EKG AND STILL REFUSED. PT IS A&O AT THIS TIME AND C/O HEADACHE. HAIM HAWKINS NOTIFIED OF MULTIPLE REFUSALS FOR EKG.
--- NOTE | 2023-12-14 15:58 | PC.NURSE ---
PATIENT REFUSING EKG.
[2023-12-14 16:06] LABS: Basophils % 0.3 %; Eosinophils % 0.1 %; Lymphocytes # 0.9 10^3/uL (0.8-4.8); Lymphocytes % 12.2 %; Mean Corpuscular Hemoglobin 29.4 pg (27-33); Mean Corpuscular Volume 89.2 fl (82-101); Mean Platelet Volume 10.1 fL (7.4-10.4); Monocytes # 0.5 10^3/uL (0.2-0.9); Monocytes % 6.5 %; Neutrophils # 5.88 10^3/uL (1.8-7.7); Neutrophils % 80.8 %; Nucleated Red Blood Cells % 0 %; Platelet Count 241 10^3/cmm (157-399); Red Blood Count 4.93 10^6/uL (3.85-5.65); Red Cell Distribution Width 13.5 % (12.1-15.1); White Blood Count 7.28 10^3/uL (3.29-11.43)
[2023-12-14 16:30] LABS: Troponin(5th) Baseline 12 ng/L (0-15)
[2023-12-14 16:31] LABS: Alanine Aminotransferase 15 U/L (0-41); Albumin Level 4.5 g/dL (3.5-5.2); Alkaline Phosphatase 80 U/L (40-130); Anion Gap 15.9 (5-19); Aspartate Amino Transferase 13 U/L (0-40); Blood Urea Nitrogen 10 mg/dL (6-20); Calcium 9.5 mg/dL (8.5-10.5); Carbon Dioxide 29 mmol/L (22-29); Chloride 103 mmol/L (98-107); Creatinine Clr Calc Pharmacy 150.6698; Globulin 2.6 g/dL (1.3-4.6); Glomerular Filtration Rate 90.4 mL/min (90-130); Glucose 130 mg/dL (65-115); Osmolality Calculated 299 mOsm/kg (285-295); Potassium 3.9 mmol/L (3.5-5.1); Sodium 144 mmol/L (136-145); Total Bilirubin 0.6 mg/dL (0.15-1.2); Total Protein 7.1 g/dL (6.6-8.7)
== END 2023-12-14 17:02 | disposition home or self-care (01) ==
PROVIDERS: Emergency Medicine; Emergency Provider Physician Assistant; PCP Family Medicine
DX: R42 Dizziness and giddiness (principal); R00.0 Tachycardia, unspecified; W18.39XA Other fall on same level, initial encounter; Z79.82 Long term (current) use of aspirin; Z79.84 Long term (current) use of oral hypoglycemic drugs; S00.81XA Abrasion of other part of head, initial encounter
CPT/HCPCS: 36415; 70450; 80053; 84484; 85025; 99284

== ENCOUNTER 2023-12-17 19:22 | Emergency (ER) | payer MEDICARE, MEDICAID, SELFPAY ==
[2023-12-17 19:23] VITALS: BP 121/71; PULSE 101; RESP 18; TEMP 37.1; O2SAT 88; BMI 40.6
--- NOTE | 2023-12-17 19:27 | XRR_ITS ---
PROCEDURE INFORMATION: Exam: XR Chest Exam date and time: 12/17/2023 7:52 PM Age: 47 years old Clinical indication: Chest pressure; Prior surgery; Surgery date: 6+ months; Surgery type: Gb; Patient HX: C/O chest pain TECHNIQUE: Imaging protocol: Radiologic exam of the chest. Views: 1 view. COMPARISON: CR XR chest 1V portable [id number] 11/30/2023 1:54 PM FINDINGS: Lungs: Clear, symmetrically inflated lungs. Pleural spaces: No pleural effusion. No pneumothorax. Heart/Mediastinum: Cardiac silhouette is normal in size for technique. Bones/joints: Age appropriate. XR/XR chest 1V portable [id number] IMPRESSION: No acute cardiopulmonary abnormality.
--- NOTE | 2023-12-17 19:40 | ECG_ITS ---
[facility] Test Date: 2023-12-17 Pat Name: Ronnie Guzman Department: Room: Gender: Male Pin Or Clip Fastener: : 1975 Requested By: Alonso Augustin Order Number: [id number] Jamila MD: SHARMILA GRIGSBY Measurements Intervals [place] Rate: 101 P: 25 ND: 164 QRS: 85 QRSD: 110 T: 26 QT: 333 QTc: 432 Interpretive Statements SINUS TACHYCARDIA WITH OCCASIONAL VENTRICULAR PREMATURE COMPLEXES INDETERMINATE AXIS LOW QRS VOLTAGE [QRS DEFLECTION < 0.5/1.0 mV IN LIMB/CHEST LEADS] PATTERN CONSISTENT WITH PULMONARY DISEASE INFERIOR MYOCARDIAL INFARCTION , PROBABLY OLD [40+ ms Q WAVE AND/OR ST/T ABNORMALITY IN II/aVF] Compared to ECG 12/07/2023 17:14:24 Indeterminate axis now present Sinus bradycardia no longer present Myocardial infarct finding still present Electronically Signed On 12-19-2023 18:54:34 CDT by SHARMILA GRIGSBY [email or web address] My [id number]
--- NOTE | 2023-12-17 19:45 | ED_ITS ---
HPI - Syncope 2 General: Chief Complaint: Syncope Stated Complaint: SYNCOPE Time Seen by Provider: 12/17/23 19:24 History of Present Illness: Patient was on a walk and said he had a syncopal episode and started having chest pain. Patient has long history both of the same. Patient has a guardian and lives in an assisted living house. He does have a history of CHF and diabetes, patient is pain-free and feeling like he is not going to pass out at the moment. Related Data Home Medications Medication Instructions Recorded Confirmed aspirin 81 mg tablet,delayed 81 mg PO DAILY 03/16/23 12/07/23 release furosemide 40 mg tablet 40 mg PO DAILY 03/16/23 12/07/23 lisinopril 10 mg tablet 10 mg PO DAILY 03/16/23 12/07/23 metformin 500 mg tablet 500 mg PO BID 03/16/23 12/07/23 simvastatin 20 mg tablet 20 mg PO DAILY 03/16/23 12/07/23 paroxetine HCl 30 mg tablet (Paxil) 60 mg PO DAILY 10/28/23 12/07/23 naproxen 500 mg tablet 500 mg PO BID 11/08/23 12/07/23 nitroglycerin 0.4 mg sublingual 0.4 mg sublingual Q5M PRN Chest 11/08/23 12/07/23 tablet Pain quetiapine 200 mg tablet 200 mg PO DAILY 11/08/23 12/07/23 Previous Rx's Medication Instructions Recorded cetirizine 10 mg tablet (All Day 10 mg PO DAILY PRN allergy 10/06/23 Allergy (cetirizine)) symptoms #60 tabs docusate sodium 100 mg capsule 100 mg PO BID #14 caps 11/09/23 (Colace) risperidone 1 mg tablet (Risperdal) 1 mg PO BID #60 tabs 11/17/23 acetaminophen 500 mg tablet 1,000 mg (2 x 500 mg) PO Q6H PRN 12/01/23 (Tylenol Extra Strength) fever #100 tabs Allergies Allergy/AdvReac Type Severity Reaction Status Date / Time No Known Allergies Allergy Verified 12/14/23 15:15 Review of Systems 2 General: Reports: 10 or more systems reviewed and unremarkable except in HPI and below PFSH ED 2 PFSH: Medical History Moderate episode of recurrent major depressive disorder Psychiatric care Surgical History Hx laparoscopic cholecystectomy 11/09/23 Dr Lim Family History Brother Diabetes Denies family history of CAD (coronary artery disease) Congestive heart failure (CHF) Anemia Aneurysm Arrhythmia Atrial fibrillation TIA (transient ischemic attack) Heart disease Sudden cardiac Chronic kidney disease (CKD) Congenital heart disease Carotid artery disease Pulmonary embolism Cardiomyopathy Social History Smoking and tobacco/nicotine status: never used tobacco/nicotine Alcohol intake: never Physical Exam 2 Const: COMMON NORMALS: no acute distress, average body habitus, patient oriented x3, no limitations, healthy appearing, alert and well nourished HENMT: COMMON NORMALS: normocephalic, atraumatic, hearing grossly normal bilaterally, external ears normal, Normal external nose present and moist oral mucous membranes HEAD & SCALP: normocephalic and atraumatic NOSE: Normal external nose present EXTERNAL EAR: Yes external ears normal Neck/C-Spine: COMMON NORMALS: no JVD Chest: COMMONS NORMALS: normal inspection of the chest and normal palpation of entire chest wall Resp: COMMON NORMALS: normal respiratory effort, No retractions, No use of accessory muscles and clear to auscultation bilaterally AUSCULTATION: clear to auscultation bilaterally Cardio: COMMON NORMALS: no JVD, regular rate, regular rhythm, S1 normal heart sound present, S2 normal heart sound present, No gallops present (Cardio), No clicks present (Cardio), No murmurs present (Cardio) and No rub (Cardio) R ATE: regular rate RHYTHM: regular rhythm HEART SOUNDS: S1 normal heart sound present and S2 normal heart sound present GI: COMMON NORMALS: Normal to inspection, nondistended, normoactive bowel sounds present, Soft to palpation, non-tender, No hepatosplenomegaly present and no masses PALPATION: Yes Soft to palpation and Yes No hepatosplenomegaly present Neuro: COMMON NORMALS: patient oriented x3 SENSORIUM/ORIENTATION: Yes alert Course 2 Vital Signs: Vital signs: Vital Signs Temperature 98.8 F 12/17/23 19:23 Pulse Rate 90 12/17/23 21:19 Respiratory Rate 16 12/17/23 21:19 Blood Pressure 121/71 12/17/23 19:23 Pulse Oximetry 92 12/17/23 21:19 MDM - Syncope Medical Decision Making Patient had a workup started. Before the second troponin came back patient wanted to leave and go home. Patient be signing out AMA. Medical Records I reviewed the patient's medical records. Lab Data I reviewed the patient's lab results. 12/17/23 19:31 12/17/23 19:31 Radiology Impressions Chest X-Ray 12/17/23 19:27 IMPRESSION: No acute cardiopulmonary abnormality. Laboratory Results WBC 7.50 10^3/uL (3.29-11.43) 12/17/23 19:31 RBC 4.66 10^6/uL (3.85-5.65) 12/17/23 19:31 Hgb 14.20 g/dL (11.27-16.99) 12/17/23 19:31 Hct 42.6 % (37-53) 12/17/23 19:31 MCV 91.4 fl (82-101) 12/17/23 19:31 MCH 30.5 pg (27-33) 12/17/23 19:31 MCHC 33.3 g/dL (30-55) 12/17/23 19:31 RDW 13.8 % (12.1-15.1) 12/17/23 19:31 Plt Count 229 10^3/cmm (157-399) 12/17/23 19:31 MPV 9.6 fL (7.4-10.4) 12/17/23 19:31 Neut % (Auto) 71.8 % 12/17/23 19:31 Lymph % (Auto) 18.8 % 12/17/23 19:31 [place] % (Auto) 8.0 % 12/17/23 19:31 Eos % (Auto) 0.8 % 12/17/23 19:31 Baso % (Auto) 0.5 % 12/17/23 19:31 Neut # (Auto) 5.38 10^3/uL (1.8-7.7) 12/17/23 19:31 Lymph # (Auto) 1.4 10^3/uL (0.8-4.8) 12/17/23 19:31 [place] # (Auto) 0.6 10^3/uL (0.2-0.9) 12/17/23 19:31 Eos # (Auto) 0.1 10^3/uL (0.0-0.8) 12/17/23 19:31 Baso # (Auto) 0.0 10^3/uL (0.0-0.1) 12/17/23 19:31 Nucleated RBC % (auto) 0 % 12/17/23 19:31 Nucleated RBCs # 0.0 /100WBC 12/17/23 19:31 Sodium 140 mmol/L (136-145) 12/17/23 19:31 Potassium 4.0 mmol/L (3.5-5.1) 12/17/23 19:31 Chloride 101 mmol/L (98-107) 12/17/23 19:31 Carbon Dioxide 23 mmol/L (22-29) 12/17/23 19:31 Anion Gap 20.0 (5-19) H 12/17/23 19:31 BUN 13 mg/dL (6-20) 12/17/23 19:31 Creatinine 0.9 mg/dL (0.7-1.2) 12/17/23 19:31 GFR Calculation 90.4 mL/min (90-130) 12/17/23 19:31 Glucose 133 mg/dL (65-115) H 12/17/23 19:31 Calculated Osmolality 292 mOsm/kg (285-295) 12/17/23 19:31 Calcium 8.8 mg/dL (8.5-10.5) 12/17/23 19:31 Total Bilirubin 0.6 mg/dL (0.15-1.2) 12/17/23 19:31 AST 14 U/L (0-40) 12/17/23 19:31 ALT 14 U/L (0-41) 12/17/23 19:31 Alkaline Phosphatase 73 U/L (40-130) 12/17/23 19:31 Troponin T Baseline 11 ng/L (0-15) 12/17/23 19:31 Troponin T 120 Minute 7.20 ng/L (0-15) 12/17/23 20:50 Delta Troponin T -3.80 ABS# (0-10) L 12/17/23 20:50 Total Protein 6.4 g/dL (6.6-8.7) L 12/17/23 19:31 Albumin 4.4 g/dL (3.5-5.2) 12/17/23 19:31 Globulin 2.0 g/dL (1.3-4.6) 12/17/23 19:31 All radiology interpretation(s) finalized by discharge Discharge Plan Discharge Patient Disposition: Left Against Medical Advice Clinical Impression: Left against medical advice Condition: Stable Prescriptions: No Action cetirizine [All Day Allergy (cetirizine)] 10 mg tablet 10 mg PO DAILY PRN (Reason: allergy symptoms) Qty: 60 0RF paroxetine HCl [Paxil] 30 mg tablet 60 mg PO DAILY acetaminophen [Tylenol Extra Strength] 500 mg tablet 1,000 mg PO Q6H PRN (Reason: fever) Qty: 100 0RF risperidone [Risperdal] 1 mg tablet 1 mg PO BID Qty: 60 2RF furosemide 40 mg tablet 40 mg PO DAILY metformin 500 mg tablet 500 mg PO BID aspirin 81 mg Tablet,Delayed Release (Dr/Ec) 81 mg PO DAILY simvastatin 20 mg tablet 20 mg PO DAILY lisinopril 10 mg tablet 10 mg PO DAILY quetiapine 200 mg Tablet 200 mg PO DAILY naproxen 500 mg Tablet 500 mg PO BID Hold Instructions: Resume on 11/12/23. nitroglycerin 0.4 mg Tablet, Sublingual 0.4 mg SUBLINGUAL Q5M PRN (Reason: Chest Pain) Rx Instructions: do not exceed 3 doses per episode Colace 100 mg capsule 100 mg PO BID Qty: 14 0RF Referrals: Raj Kent MD [Primary Care Provider] - 1 week Patient Instructions: Against Medical Advice (ED) Coding Level of Care Code ED Cnc Maintenance Mechanic for Nathan Agudelo
[2023-12-17 19:50] LABS: Basophils % 0.5 %; Eosinophils # 0.1 10^3/uL (0.0-0.8); Eosinophils % 0.8 %; Hematocrit 42.6 % (37-53); Lymphocytes # 1.4 10^3/uL (0.8-4.8); Lymphocytes % 18.8 %; Mean Corpuscular HGB Conc 33.3 g/dL (30-55); Mean Corpuscular Hemoglobin 30.5 pg (27-33); Mean Corpuscular Volume 91.4 fl (82-101); Mean Platelet Volume 9.6 fL (7.4-10.4); Monocytes # 0.6 10^3/uL (0.2-0.9); Neutrophils # 5.38 10^3/uL (1.8-7.7); Neutrophils % 71.8 %; Nucleated Red Blood Cells % 0 %; Platelet Count 229 10^3/cmm (157-399); Red Blood Count 4.66 10^6/uL (3.85-5.65); Red Cell Distribution Width 13.8 % (12.1-15.1)
[2023-12-17 20:09] LABS: Alanine Aminotransferase 14 U/L (0-41); Albumin Level 4.4 g/dL (3.5-5.2); Alkaline Phosphatase 73 U/L (40-130); Aspartate Amino Transferase 14 U/L (0-40); Blood Urea Nitrogen 13 mg/dL (6-20); Calcium 8.8 mg/dL (8.5-10.5); Carbon Dioxide 23 mmol/L (22-29); Chloride 101 mmol/L (98-107); Creatinine Clr Calc Pharmacy 144.9411; Glomerular Filtration Rate 90.4 mL/min (90-130); Glucose 133 mg/dL (65-115); Osmolality Calculated 292 mOsm/kg (285-295); Sodium 140 mmol/L (136-145); Total Bilirubin 0.6 mg/dL (0.15-1.2); Total Protein 6.4 g/dL (6.6-8.7)
[2023-12-17 20:18] LABS: Troponin(5th) Baseline 11 ng/L (0-15)
[2023-12-17 20:57] VITALS: PULSE 90; RESP 18; O2SAT 92
[2023-12-17 21:19] VITALS: PULSE 90; RESP 16; O2SAT 92
== END 2023-12-17 21:20 | disposition left against medical advice (07) ==
PROVIDERS: Emergency Provider Emergency Medicine; PCP Family Medicine
DX: R55 Syncope and collapse (principal); R07.9 Chest pain, unspecified; Z53.29 Procedure and treatment not carried out because of patient's decision for other reasons; Z79.84 Long term (current) use of oral hypoglycemic drugs; Z79.82 Long term (current) use of aspirin
CPT/HCPCS: 71045; 80053; 84484; 85025; 93005; 99285

== ENCOUNTER 2023-12-30 05:57 | Outpatient (CLI) | payer MEDICARE, MEDICAID, SELFPAY ==
--- NOTE | 2023-12-29 10:43 | PC.NURSE ---
Called patient but no answer, left voicemail to return call. Also called Bernarda Small (person to notify) but no answer.
[2023-12-30] VITALS (12 sets, daily range): BP systolic 110–122; BP diastolic 68–88; PULSE 60–77; RESP 15–18; TEMP 35.8; O2SAT 92–94; BMI 43.7
--- NOTE | 2023-12-30 06:17 | XACV_ITS ---
Gender: Male : 1975 Any Known Allergies: No known allergies Exam Priority: Routine Procedure(s): Procedure Description: Diagnostic procedure Procedure Description: Left Heart Catheterization Procedure Description: Left ventriculography Procedure Description: Coronary Angiography Diagnostic Cath Status: Elective Diagnostic Findings * The left main is a large-caliber short vessel with no significant stenotic lesions. * The left-sided descending artery is a medium to large caliber vessel which was found to be diffusely ectatic in the proximal segment. Minimal intimal irregularities are noted. No significant stenotic lesions were seen. * Intermedius artery is a small caliber vessel with no significant lesions. * The left circumflex artery is a medium to large caliber vessel with no significant stenotic lesions. * The right coronary artery is a large-caliber dominant vessel with no significant lesions. The PDA and the PLV branches also were found to have no significant lesions. Conclusions 1. This is a 48-year-old white male with a history of atherosclerotic heart disease, congestive heart failure, hypertension, dyslipidemia and ventricular arrhythmia presented with increasing episodes of chest pain requiring multiple ER visits. He had a Myocardial perfusion imaging which revealed a areas of fixed defects with small areas of reversible defects in the distribution of the right coronary artery, suggesting myocardial scarring with a possible preinfarction ischemia. Because of the patients history and ongoing symptoms, in order to further evaluate his coronary status, a cardiac catheterization was recommended. Patient underwent left heart catheterization with left and right coronary angiogram and LV angiogram today. The findings are as follows.. 2. Large and short left main. Large and ectatic proximal left anterior descending artery with minimal intimal irregularities. No significant lesions in the circumflex artery or the right coronary artery. Right dominant circulation. Mild diffuse hypokinesia of left ventricle with an ejection fraction of 45 to 50%. LVEDP of 12 mmHg. Diagnostic RX Recommendation: medical therapy and/or counseling LV EDP: 12 mmHg Ventriculography Ejection Fraction: 45.0 % Left Ventriculography Findings: * LV gram was performed the [place] projection. The LV cavity appears to be of normal size. There is mild diffuse hypokinesis of the left ventricle with an ejection fraction of 45 to 50%. LVEDP was 12 mmHg. There was no significant mitral valve prolapse or mitral regurgitation. Pressures Phase:Rest AO : 105 / 70 ( 83 ) @ 8:53:00 AM 97 / 71 ( 80 ) @ 9:02:00 AM 101 / 66 ( 82 ) @ 9:02:00 AM LV : 117 / -11 / 12 @ 9:01:00 AM 117 / -5 / 13 @ 9:02:00 AM 121 / -7 / 13 @ 9:02:00 AM Valves Phase:DefaultPhase AV : 26.0 @ 8:08:48 AM AV Mean Gradient: 12.0 @ 8:08:48 AM Clinical Evaluation EBL: 5mL-10mL Procedural Details Procedure Consent Obtained. Pre-Procedure Time Out. Identified patient by full name and date of as verbalized by the patient/guarantor. Does the consent match the physician's order: Yes. Accurate & Complete Informed Consent: Yes. Inpatient/Outpatient History & Physical on Chart: Yes. If H&P is completed, is and addenduem needed: No; If yes, is the addendum complete: N/A. Visualize and Verify Site with Patient/Guarantor: N/A. Relevant Radiology Images available: Yes. Pre-op teaching completed and patient verbalized understanding. The risks, benefits, and alternatives of sedation and/or procedure were discussed by physician. The patient agrees to continue. Procedure started. [facility] Clinical Fraility Score: 4: Vulnerable. Radiology Interventional Physician Indications: Other. Chest Pain Symptom Assessment: Typical Angina Symptoms. Correct patient, site and procedure confirmed by cath team. Current diagnosis: Chest Pain. PERRLA. Strong, equal hand configuration developer bilaterally. Lungs clear x 5 lobes. IV Site on Arrival: 22 gauge in the right hand. IV Fluids: 0.9% NaCl at KVO. 0 mL infused prior to dental laboratory technician apprentice. Pre Procedural Pulses: bilateral dorsalis pedis was 2+. Pre Procedural Pulses: bilateral posterior tibial was 2+. Pre Procedural Pulses: bilateral radial was 3+. Oxygen started at 2liters/min via nasal canula. right groin was prepped with chloroprep then draped in the usual sterile fashion. right radial was prepped with chloroprep then draped in the usual sterile fashion. Baseline sample Acquired. HR: 83 BPM. Physician arrived. Baseline sample Acquired. HR: 62 BPM. Lamar Copeland RT(R) was relieved by Sydnee Levine RN as monitoring person. Physician scrubbed in. Immediate Pre-Procedure Time Out. Correct Patient: Yes; Correct Procedure: Yes; Correct Site: Yes; Correct Patient Position: Yes; Correct Supplies: Yes; Dried Flammable Prep: Yes; Blood Products Available: N/A;. Lidocaine 1% infiltrated to the right radial. Arterial access obtained. A 5 egyptian Nile catheter in over wire. Multiple views taken of left coronary artery. Catheter removed over the exchange wire. A 5 egyptian JR4 catheter in over wire. Multiple views taken of right coronary artery. Catheter removed over the exchange wire. A 5 egyptian Angled Pig catheter in over wire. EDP Sample taken: LV 117/-12,12; HR: 86 BPM; SpO2: 94%. LV gram performed in [place] @ 10 mL/second for a total of 30 mL. EDP Sample taken: LV 117/-6,13; HR: 87 BPM; SpO2: 94%. Pullback taken: LV 121/-8,13; AO 97/71(80); Mean: 12mmHg, Peak to Peak: 26mmHg, SEP: 21sec/min; HR: 87 BPM; SpO2: 95%. Catheter removed over the exchange wire. Wire out. Physician scrubbed out. Post Procedure: Pulses reassessed and unchanged. PERRLA. Strong, equal hand configuration developer bilaterally. No VTE prophylaxis required. Medication's Wasted: Lidocaine 1% = 18 mL. Medication's Wasted: Nitro = 49.8 mg. Medication's Wasted: Heparin = 1000 unit. Total IV fluids: 75 mL. Post-op diagnosis: Cardiomyopathy, Mild CAD. Complications: None. Estimated blood loss: 5mL-10mL. Responsiveness - Normal response to verbal stimuli; alert and oriented, PERRLA. Airway - Unaffected, no intervention required; spontaneous ventilation. Circulation: W/N/L, pulses unchanged. Nausea/Vomiting: No. A TR Band was successful obtaining hemostatsis at the Right Radial artery insertion site. Procedure completed. Patient transferred by wheelchair to CPRU. Vital chart was stopped. Access Site Site: Right Radial artery Sheath Size: 6 Fr Hemostasis Method: TR Band Hemostasis Success: Successful Procedure Medications Start: 7:33 AM Stop: 7:33 AM Medication: Versed Amount: 1 mg Route: I.V. Start: 7:33 AM Stop: 7:33 AM Medication: Fentanyl Amount: 50 mcg Route: I.V. Start: 7:41 AM Stop: 7:41 AM Medication: Verapamil Amount: 5 mg Route: I.A. Start: 7:42 AM Stop: 7:42 AM Medication: Nitrogylcerin Amount: 200 mcg Route: I.A. Start: 7:44 AM Stop: 7:44 AM Medication: Heparin Amount: 5000 units Route: I.V. Start: 7:46 AM Stop: 7:46 AM Medication: Versed Amount: 1 mg Route: I.V. Start: 7:46 AM Stop: 7:46 AM Medication: Fentanyl Amount: 50 mcg Route: ISaravanan I, the attending physician, have reviewed and verified all procedure medications. Yes, all medications given per verbal order History/Risk Factors Hypertension: Yes Dyslipidemia: Yes Peripheral Arterial Disease (PAD): No Myocardial Infarction (GA): No Obesity: Yes Renal Disease: No Tobacco Use: Never Prior Interventions PCI: No CABG: No Valve Surgery: No Report Signatures Finalized by Dr Franck Redman MD [facility] on 12/30/2023 08:22 AM
[2023-12-30] MEDS: diphenhydrAMINE 50 mg Capsule PO (06:31)
[2023-12-30 06:46] LABS: Basophils % 0.6 %; Eosinophils # 0.1 10^3/uL (0.0-0.8); Eosinophils % 1.2 %; Hematocrit 44.5 % (37-53); Lymphocytes # 1.2 10^3/uL (0.8-4.8); Lymphocytes % 23.7 %; Mean Corpuscular HGB Conc 33.5 g/dL (30-55); Mean Corpuscular Hemoglobin 29.9 pg (27-33); Mean Corpuscular Volume 89.2 fl (82-101); Monocytes # 0.5 10^3/uL (0.2-0.9); Monocytes % 8.7 %; Neutrophils # 3.42 10^3/uL (1.8-7.7); Neutrophils % 65.6 %; Nucleated Red Blood Cells % 0 %; Platelet Count 224 10^3/cmm (157-399); Red Blood Count 4.99 10^6/uL (3.85-5.65); Red Cell Distribution Width 13.6 % (12.1-15.1)
[2023-12-30 07:00] LABS: Anion Gap 15.1 (5-19); Blood Urea Nitrogen 13 mg/dL (6-20); Calcium 9.1 mg/dL (8.5-10.5); Carbon Dioxide 27 mmol/L (22-29); Chloride 99 mmol/L (98-107); Creatinine Clr Calc Pharmacy 167.6809; Glomerular Filtration Rate 103.2 mL/min (90-130); Glucose 104 mg/dL (65-115); Osmolality Calculated 284 mOsm/kg (285-295); Potassium 4.1 mmol/L (3.5-5.1); Sodium 137 mmol/L (136-145)
--- NOTE | 2023-12-30 07:24 | W.PM.OPSUD ---
Surgery/Procedure H&P Update DATE OF PROCEDURE: December 30, 2023 DATE H&P PERFORMED: 11/01/23 H&P UPDATE INFORMATION: I have reviewed H&P completed within last 30 days, I have examined patient prior to procedure and No changes to prior documentation PREOP DIAGNOSIS: Atherosclerotic heart disease PRIMARY INDICATION FOR PROCEDURE: Chest pain, abnormal Myocardial perfusion imaging. History of atherosclerotic heart disease, previous PCI, CHF, hypertension [dyslipidemia PLANNED PROCEDURE: Operation Date: 12/30/23 07:00 Proposed Procedures p Cardiac Catheterization(Left) - Franck Redman MD PATIENT REASSESSED PRIOR TO SEDATION, WITH NO CHANGE NOTED: Yes PHYSICAL EXAM: alert, oriented x 3, clear to auscultation bilaterally and regular rate & rhythm AIRWAY EVAL/ANESTHESIA PLAN: normal airway, see other exam findings, ASA III, Monitored Anesthesia, Local Anesthesia, Risks, benefits & alternatives of sedation and/or procedure discussed and Patient agrees to continue as planned
--- NOTE | 2023-12-30 08:15 | SUR.PHASEII ---
Received the patient back from the cemetery laborer via wheelchair s/p Diagnostic [facility]. Patient ambulated to the cot without difficulty. A & 0 x 3. report developer placed and vital signs obtained. TR band intact to the right wrist. No bleeding or hematoma noted. Palpable radial pulse. No other assessment changes noted from pre cath assessment. Guardian at bedside. No concerns voiced at this time.
--- NOTE | 2023-12-30 09:21 | SUR.PHASEII ---
Letting the air out of the band per protocol. No other assessment changes at this time.
--- NOTE | 2023-12-30 10:18 | SUR.PHASEII ---
TR band off per protocol. Area cleansed with water and patted dry. No bleeding or hematoma noted. A large band aid was applied to the site and loosely secured with coban. Post radial cath activity instructions given to the patient with his understanding verbalized.
--- NOTE | 2023-12-30 11:15 | SUR.PHASEII ---
Patient dressed and ready for DC home. Awaiting Dr. Redman discharge orders.
== END 2023-12-30 05:58 | disposition home or self-care (01) ==
PROVIDERS: PCP Family Medicine; Visit Provider Internal Medicine Cardiovascular Disease
DX: I25.10 Atherosclerotic heart disease of native coronary artery without angina pectoris (principal); I11.0 Hypertensive heart disease with heart failure; I50.9 Heart failure, unspecified; E78.5 Hyperlipidemia, unspecified; E66.9 Obesity, unspecified; Z68.41 Body mass index [BMI] 40.0-44.9, adult
CPT/HCPCS: 36415; 80048; 85025; 93458; 96374; 99152; 99153; C1769; C1887; C1894; J1644; J2250; J3010; J3490; J7030; Q0163; Q9967

== ENCOUNTER 2024-01-03 13:05 | Inpatient (IN) | payer MEDICARE, MEDICAID, SELFPAY ==
[2024-01-03 13:09] VITALS: BP 113/69; PULSE 122; RESP 17; TEMP 36.4; O2SAT 98; BMI 43.4
[2024-01-03 13:54] LABS: Basophils % 0.4 %; Eosinophils % 0.2 %; Hematocrit 47.7 % (37-53); Lymphocytes # 1.2 10^3/uL (0.8-4.8); Lymphocytes % 13.8 %; Mean Corpuscular HGB Conc 34.4 g/dL (30-55); Mean Corpuscular Hemoglobin 30.1 pg (27-33); Mean Corpuscular Volume 87.5 fl (82-101); Mean Platelet Volume 9.8 fL (7.4-10.4); Monocytes # 0.6 10^3/uL (0.2-0.9); Monocytes % 7.5 %; Neutrophils # 6.55 10^3/uL (1.8-7.7); Neutrophils % 77.7 %; Nucleated Red Blood Cells % 0 %; Platelet Count 245 10^3/cmm (157-399); Red Blood Count 5.45 10^6/uL (3.85-5.65); Red Cell Distribution Width 13.3 % (12.1-15.1); White Blood Count 8.42 10^3/uL (3.29-11.43)
[2024-01-03 14:07] LABS: Alanine Aminotransferase 15 U/L (0-41); Albumin Level 4.5 g/dL (3.5-5.2); Alkaline Phosphatase 78 U/L (40-130); Anion Gap 19.8 (5-19); Aspartate Amino Transferase 14 U/L (0-40); Blood Urea Nitrogen 18 mg/dL (6-20); Calcium 9.3 mg/dL (8.5-10.5); Carbon Dioxide 22 mmol/L (22-29); Chloride 98 mmol/L (98-107); Creatinine Clr Calc Pharmacy 133.6811; Globulin 2.9 g/dL (1.3-4.6); Glomerular Filtration Rate 79.8 mL/min (90-130); Glucose 119 mg/dL (65-115); Osmolality Calculated 285 mOsm/kg (285-295); Potassium 3.8 mmol/L (3.5-5.1); Sodium 136 mmol/L (136-145); Total Bilirubin 0.8 mg/dL (0.15-1.2); Total Protein 7.4 g/dL (6.6-8.7)
[2024-01-03 14:08] LABS: Acetaminophen < 5.0 ug/mL (10-30); Salicylate < 0.3 mg/dL (3-10)
--- NOTE | 2024-01-03 14:14 | ED.C_ITS ---
HPI - Psych 2 General: Chief Complaint: Psychiatric Symptoms Stated Complaint: SI Time Seen by Provider: 01/03/24 13:16 History of Present Illness: 48-year-old male history of psychiatric illness close cognitive impairment presents to the emergency room with a caregiver from an [facility] with complaints of suicidal ideation. Earlier today in the crisis unit. He states he wants to harm himself by cutting himself this is been a recurrent issue in the past he has not advanced lethality in the past he does not have any access to sharp items by policy and is care plans because of these ongoing issues. Related Data Home Medications Medication Instructions Recorded Confirmed aspirin 81 mg tablet,delayed 81 mg PO DAILY 03/16/23 12/30/23 release furosemide 40 mg tablet 40 mg PO DAILY 03/16/23 12/30/23 lisinopril 10 mg tablet 10 mg PO DAILY 03/16/23 12/30/23 metformin 500 mg tablet 500 mg PO BID 03/16/23 12/30/23 simvastatin 20 mg tablet 20 mg PO DAILY 03/16/23 12/30/23 naproxen 500 mg tablet 500 mg PO BID 11/08/23 12/30/23 nitroglycerin 0.4 mg sublingual 0.4 mg sublingual Q5M PRN Chest 11/08/23 12/30/23 tablet Pain Previous Rx's Medication Instructions Recorded cetirizine 10 mg tablet (All Day 10 mg PO DAILY PRN allergy 10/06/23 Allergy (cetirizine)) symptoms #60 tabs risperidone 1 mg tablet (Risperdal) 1 mg PO BID #60 tabs 11/17/23 paroxetine HCl 30 mg tablet (Paxil) 60 mg (2 x 30 mg) PO DAILY #60 tabs 12/20/23 quetiapine 200 mg tablet 200 mg PO DAILY #30 tabs 12/29/23 acetaminophen 500 mg tablet 1,000 mg (2 x 500 mg) PO Q6H PRN 12/30/23 (Tylenol Extra Strength) fever #100 tabs Allergies Allergy/AdvReac Type Severity Reaction Status Date / Time No Known Allergies Allergy Verified 12/30/23 06:32 Review of Systems 2 Const: Denies: fever(s) or chills Card: Denies: chest pain Resp: Denies: dyspnea GI: Denies: abdominal pain : Denies: dysuria, urinary frequency or urinary urgency Musc: Denies: neck pain or back pain Skin/Breast: Denies: rash PFSH ED 2 PFSH: Medical History Moderate episode of recurrent major depressive disorder Psychiatric care Surgical History Hx laparoscopic cholecystectomy 11/09/23 Dr Lim Family History Brother Diabetes Denies family history of CAD (coronary artery disease) Congestive heart failure (CHF) Anemia Aneurysm Arrhythmia Atrial fibrillation TIA (transient ischemic attack) Heart disease Sudden cardiac Chronic kidney disease (CKD) Congenital heart disease Carotid artery disease Pulmonary embolism Cardiomyopathy Social History Smoking and tobacco/nicotine status: never used tobacco/nicotine Alcohol intake: never Physical Exam 2 Const: COMMON NORMALS: no acute distress GENERAL APPEARANCE: cooperative and comfortable ORIENTATION/CONSCIOUSNESS: Yes awake, Yes oriented to person, Yes oriented to place and Yes oriented to time HENMT: COMMON NORMALS: normocephalic, atraumatic and hearing grossly normal bilaterally HEAD & SCALP: normocephalic and atraumatic Resp: COMMON NORMALS: normal respiratory effort, No retractions, No use of accessory muscles and clear to auscultation bilaterally AUSCULTATION: clear to auscultation bilaterally Cardio: COMMON NORMALS: regular rate, regular rhythm and No murmurs present (Cardio) RATE: regular rate RHYTHM: regular rhythm GI: COMMON NORMALS: Soft to palpation and No hepatosplenomegaly present A USCULTATION: Yes normoactive bowel sounds PALPATION: Yes Soft to palpation, No Tenderness to palpation present (GI), No Guarding due to palpation present (GI) and Yes No hepatosplenomegaly present Extremity: COMMON NORMALS: normal to inspection, capillary refill normal, no clubbing, cyanosis or edema, no calf tenderness and no pedal edema Neuro: SENSORIUM/ORIENTATION: Yes oriented to person, Yes oriented to place and Yes oriented to time Skin: COMMON NORMALS: no rashes or lesions noted GENERAL SKIN EXAM: no rashes or lesions noted Course 2 Vital Signs: Vital signs: Vital Signs Temperature 97.6 F 01/03/24 13:09 Pulse Rate 122 H 01/03/24 13:09 Respiratory Rate 17 01/03/24 13:09 Blood Pressure 113/69 01/03/24 13:09 Pulse Oximetry 98 01/03/24 13:09 Oxygen Delivery Me thod Room Air 01/03/24 13:09 MDM - Psych Medical Decision Making Suicidal ideation with specific threat. He has not done anything to drink lethality to this point. Discussed Dr. Johnson he recommends admission orders written for admission will place COVID IV 6-hour hold Medical Records I reviewed the patient's medical records. Lab Data I reviewed the patient's lab results. 01/03/24 13:41 01/03/24 13:41 Laboratory Results WBC 8.42 10^3/uL (3.29-11.43) 01/03/24 13:41 RBC 5.45 10^6/uL (3.85-5.65) 01/03/24 13:41 Hgb 16.40 g/dL (11.27-16.99) 01/03/24 13:41 Hct 47.7 % (37-53) 01/03/24 13:41 MCV 87.5 fl (82-101) 01/03/24 13:41 MCH 30.1 pg (27-33) 01/03/24 13:41 MCHC 34.4 g/dL (30-55) 01/03/24 13:41 RDW 13.3 % (12.1-15.1) 01/03/24 13:41 Plt Count 245 10^3/cmm (157-399) 01/03/24 13:41 MPV 9.8 fL (7.4-10.4) 01/03/24 13:41 Neut % (Auto) 77.7 % 01/03/24 13:41 Lymph % (Auto) 13.8 % 01/03/24 13:41 [place] % (Auto) 7.5 % 01/03/24 13:41 Eos % (Auto) 0.2 % 01/03/24 13:41 Baso % (Auto) 0.4 % 01/03/24 13:41 Neut # (Auto) 6.55 10^3/uL (1.8-7.7) 01/03/24 13:41 Lymph # (Auto) 1.2 10^3/uL (0.8-4.8) 01/03/24 13:41 [place] # (Auto) 0.6 10^3/uL (0.2-0.9) 01/03/24 13:41 Eos # (Auto) 0.0 10^3/uL (0.0-0.8) 01/03/24 13:41 Baso # (Auto) 0.0 10^3/uL (0.0-0.1) 01/03/24 13:41 Nucleated RBC % (auto) 0 % 01/03/24 13:41 Nucleated RBCs # 0.0 /100WBC 01/03/24 13:41 Sodium 136 mmol/L (136-145) 01/03/24 13:41 Potassium 3.8 mmol/L (3.5-5.1) 01/03/24 13:41 Chloride 98 mmol/L (98-107) 01/03/24 13:41 Carbon Dioxide 22 mmol/L (22-29) 01/03/24 13:41 Anion Gap 19.8 (5-19) H 01/03/24 13:41 BUN 18 mg/dL (6-20) 01/03/24 13:41 Creatinine 1.0 mg/dL (0.7-1.2) 01/03/24 13:41 GFR Calculation 79.8 mL/min (90-130) L 01/03/24 13:41 Glucose 119 mg/dL (65-115) H 01/03/24 13:41 Calculated Osmolality 285 mOsm/kg (285-295) 01/03/24 13:41 Calcium 9.3 mg/dL (8.5-10.5) 01/03/24 13:41 Total Bilirubin 0.8 mg/dL (0.15-1.2) 01/03/24 13:41 AST 14 U/L (0-40) 01/03/24 13:41 ALT 15 U/L (0-41) 01/03/24 13:41 Alkaline Phosphatase 78 U/L (40-130) 01/03/24 13:41 Total Protein 7.4 g/dL (6.6-8.7) 01/03/24 13:41 Albumin 4.5 g/dL (3.5-5.2) 01/03/24 13:41 Globulin 2.9 g/dL (1.3-4.6) 01/03/24 13:41 Salicylates < 0.3 mg/dL (3-10) L 01/03/24 13:41 Acetaminophen < 5.0 ug/mL (10-30) L 01/03/24 13:41 No radiology studies performed this visit Discharge Plan Discharge Patient Disposition: Admitted As Inpatient Clinical Impression: Suicidal ideation, Intermittent explosive disorder, Mild intellectual disability Condition: Stable Prescriptions: No Action cetirizine [All Day Allergy (cetirizine)] 10 mg tablet 10 mg PO DAILY PRN (Reason: allergy symptoms) Qty: 60 0RF risperidone [Risperdal] 1 mg tablet 1 mg PO BID Qty: 60 2RF paroxetine HCl [Paxil] 30 mg tablet 60 mg PO DAILY Qty: 60 2RF quetiapine 200 mg tablet 200 mg PO DAILY Qty: 30 1RF acetaminophen [Tylenol Extra Strength] 500 mg tablet 1,000 mg PO Q6H PRN (Reason: fever) Qty: 100 0RF furosemide 40 mg tablet 40 mg PO DAILY metformin 500 mg tablet 500 mg PO BID Hold Instructions: Resume on 01/02/24. aspirin 81 mg Tablet,Delayed Release (Dr/Ec) 81 mg PO DAILY simvastatin 20 mg tablet 20 mg PO DAILY lisinopril 10 mg tablet 10 mg PO DAILY naproxen 500 mg Tablet 500 mg PO BID Hold Instructions: Resume on 11/12/23. nitroglycerin 0.4 mg Tablet, Sublingual 0.4 mg SUBLINGUAL Q5M PRN (Reason: Chest Pain) Rx Instructions: do not exceed 3 doses per episode Referrals: Raj Kent MD [Primary Care Provider] - Coding Level of Care Code ED Cdl A Driver for Nathan Agudelo
--- NOTE | 2024-01-03 16:25 | PC.NURSE ---
96 hr rights reviewed with patient @1500 with assistance of CAROLYN Arroyo All education reviewed. No verbalized concerns at this time to HS. Patient copy left at bedside with patient. Drink provided.
[2024-01-03 17:34] VITALS: BP 135/82; PULSE 167; RESP 16; TEMP 36.6; O2SAT 94
[2024-01-03 17:57] VITALS: BP 135/82; PULSE 167; RESP 16; O2SAT 94
[2024-01-03 17:59] LABS: Glucose Point of Care 123 mg/dL (70-110)
[2024-01-03] MEDS: risperiDONE 1 mg Tablet PO (18:22)
[2024-01-03] MEDS: metformin 500 mg Tablet PO (18:22)
[2024-01-03 19:50] VITALS: BP 113/79; PULSE 84; RESP 18; TEMP 36.7; O2SAT 94
[2024-01-03] MEDS: quetiapine 100 mg Tablet 200 MG PO (19:57)
[2024-01-03 20:00] LABS: Glucose Point of Care 132 mg/dL (70-110)
[2024-01-03 20:35] LABS: Amphetamines Screen Urine Negative (Negative); Barbiturates Screen Urine Negative (Negative); Benzodiazepines Screen Urine Negative (Negative); Cocaine Screen Urine Negative (Negative); Opiate Screen Urine Negative (Negative); PCP Screen Urine Negative (Negative); THC Screen Urine Negative (Negative)
[2024-01-03 20:45] VITALS: PULSE 91; RESP 25; O2SAT 97
--- NOTE | 2024-01-03 21:48 | PC.NURSE ---
This nurse notified respiratory that the patient's BIPAP machine was sounding an alarm do to the patients low heart rate. This nurse inform the RT that in the past this patients heart rate drops to the 40s and 50s occasionally. The respiratory therapist told this nurse that we could change the settings on the continuous pulse ox machine to alarm if the patients heart rate goes below 40 BPM.
[2024-01-03 23:38] VITALS: PULSE 66; RESP 14; O2SAT 96
[2024-01-04] VITALS (7 sets, daily range): BP systolic 99–105; BP diastolic 63–71; PULSE 67–93; RESP 12–18; TEMP 36.2–36.7; O2SAT 92–97
[2024-01-04] MEDS: atorvastatin 40 mg Tablet 20 MG PO (08:40)
[2024-01-04] MEDS: aspirin 81 mg EC Tablet PO (08:40)
[2024-01-04] MEDS: metformin 500 mg Tablet PO ×2 (08:41→17:38)
[2024-01-04] MEDS: FUROsemide 40 mg Tablet PO (08:41)
[2024-01-04] MEDS: PARoxetine 20 mg Tablet 60 MG PO (08:41)
[2024-01-04] MEDS: lisinopril 10 mg Tablet PO (08:41)
[2024-01-04] MEDS: risperiDONE 1 mg Tablet PO ×2 (08:41→17:38)
[2024-01-04 10:30] LABS: Glucose Point of Care 96 mg/dL (70-110)
[2024-01-04 17:08] LABS: Glucose Point of Care 115 mg/dL (70-110)
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
[2024-01-04 20:26] LABS: Glucose Point of Care 110 mg/dL (70-110)
[2024-01-04] MEDS: quetiapine 100 mg Tablet 200 MG PO (20:51)
[2024-01-04] MEDS: nicotine 2 mg Gum BUCCAL (20:52)
[2024-01-05 03:38] VITALS: PULSE 76; RESP 13; O2SAT 97
[2024-01-05 05:42] VITALS: BP 104/67; PULSE 97; RESP 16; O2SAT 98
[2024-01-05 07:29] LABS: Glucose Point of Care 102 mg/dL (70-110)
[2024-01-05] MEDS: PARoxetine 20 mg Tablet 60 MG PO (08:38)
[2024-01-05] MEDS: atorvastatin 40 mg Tablet 20 MG PO (08:39)
[2024-01-05] MEDS: lisinopril 10 mg Tablet PO (08:39)
[2024-01-05] MEDS: aspirin 81 mg EC Tablet PO (08:39)
[2024-01-05] MEDS: FUROsemide 40 mg Tablet PO (08:39)
[2024-01-05] MEDS: metformin 500 mg Tablet PO (08:39)
[2024-01-05] MEDS: risperiDONE 1 mg Tablet PO (08:39)
--- NOTE | 2024-01-05 10:56 | DCPLANNER ---
IMM completed over the phone 01/05/24 [id number] with Josi and a copy of rights was placed with pt's discharge plan.
[2024-01-05 11:47] VITALS: BP 104/67; PULSE 97; RESP 16; TEMP 36.7; O2SAT 98
[2024-01-05 13:43] VITALS: BP 122/72; PULSE 77; RESP 18; TEMP 36.8; O2SAT 97
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
== END 2024-01-05 16:10 | disposition home or self-care (01) | DRG 885 ==
LOC: ER 15:07 → NP 17:26
PROVIDERS: Admitting Provider Psychiatry & Neurology Psychiatry; Emergency Provider Family Medicine; PCP Family Medicine; Visit Provider Psychiatry & Neurology Psychiatry
DX: F33.9 Major depressive disorder, recurrent, unspecified (principal); R45.851 Suicidal ideations; Z68.41 Body mass index [BMI] 40.0-44.9, adult; F70 Mild intellectual disabilities; F63.81 Intermittent explosive disorder; E11.9 Type 2 diabetes mellitus without complications; I10 Essential (primary) hypertension; E78.00 Pure hypercholesterolemia, unspecified; G47.30 Sleep apnea, unspecified; E66.9 Obesity, unspecified; Z95.5 Presence of coronary angioplasty implant and graft; Z79.899 Other long term (current) drug therapy; Z90.49 Acquired absence of other specified parts of digestive tract; Z79.82 Long term (current) use of aspirin; Z87.891 Personal history of nicotine dependence; Z91.51 Personal history of suicidal behavior
CPT/HCPCS: 36415; 36416; 80053; 80306; 80307; 82962; 85025; 94660; 97150; 97165; 99285

== ENCOUNTER → 2024-01-06 11:26 | Outpatient (BNVA) | payer MEDICARE, MEDICAID, SELFPAY | PROVIDERS: PCP Family Medicine; Visit Provider Nurse Practitioner Family | DX: I25.118 Atherosclerotic heart disease of native coronary artery with other forms of angina pectoris (principal); F17.200 Nicotine dependence, unspecified, uncomplicated | CPT/HCPCS: 36415; 80048; 99214 ==

== ENCOUNTER 2024-01-07 13:13 | Inpatient (IN) | payer MEDICARE, MEDICAID, SELFPAY ==
[2024-01-07] VITALS (7 sets, daily range): BP systolic 109–118; BP diastolic 76–82; PULSE 60–107; RESP 8–20; TEMP 36.6; O2SAT 92–97; BMI 43.0
[2024-01-07 13:29] LABS: Basophils % 0.6 %; Eosinophils # 0.1 10^3/uL (0.0-0.8); Eosinophils % 0.8 %; Lymphocytes # 1.2 10^3/uL (0.8-4.8); Lymphocytes % 17.8 %; Mean Corpuscular HGB Conc 33.6 g/dL (30-55); Mean Corpuscular Hemoglobin 29.8 pg (27-33); Mean Corpuscular Volume 88.8 fl (82-101); Mean Platelet Volume 9.9 fL (7.4-10.4); Monocytes # 0.5 10^3/uL (0.2-0.9); Monocytes % 7.3 %; Neutrophils # 4.84 10^3/uL (1.8-7.7); Neutrophils % 73.3 %; Nucleated Red Blood Cells % 0 %; Platelet Count 256 10^3/cmm (157-399); Red Blood Count 5.07 10^6/uL (3.85-5.65); Red Cell Distribution Width 13.4 % (12.1-15.1); White Blood Count 6.59 10^3/uL (3.29-11.43)
--- NOTE | 2024-01-07 13:34 | ED.C_ITS ---
HPI - Psych 2 General: Chief Complaint: Psychiatric Symptoms Stated Complaint: SI WITH PLAN Time Seen by Provider: 01/07/24 13:14 History of Present Illness: Patient presents from his [place] [facility] stating he is suicidal with a plan. Patient's can take a knife and kill himself. Patient was just discharged from here couple days ago. Dr. Johnson saw him then. Dr. Johnson's been notified and is here he said normally he gets here chills abdomen changes mind and just wants to go home. He will be here at minimum until Wednesday. Dr. Johnson did accept him and we are to notify him if anything changes. Related Data Home Medications Medication Instructions Recorded Confirmed aspirin 81 mg tablet,delayed 81 mg PO DAILY 03/16/23 01/06/24 release furosemide 40 mg tablet 40 mg PO DAILY 03/16/23 01/06/24 lisinopril 10 mg tablet 10 mg PO DAILY 03/16/23 01/06/24 metformin 500 mg tablet 500 mg PO BID 03/16/23 01/06/24 simvastatin 20 mg tablet 20 mg PO DAILY 03/16/23 01/06/24 nitroglycerin 0.4 mg sublingual 0.4 mg sublingual Q5M PRN Chest 11/08/23 01/06/24 tablet Pain Previous Rx's Medication Instructions Recorded risperidone 1 mg tablet (Risperdal) 1 mg PO BID #60 tabs 11/17/23 paroxetine HCl 30 mg tablet (Paxil) 60 mg (2 x 30 mg) PO DAILY #60 tabs 12/20/23 quetiapine 200 mg tablet 200 mg PO DAILY #30 tabs 12/29/23 acetaminophen 500 mg tablet 1,000 mg (2 x 500 mg) PO Q6H PRN 12/30/23 (Tylenol Extra Strength) fever #100 tabs Allergies Allergy/AdvReac Type Severity Reaction Status Date / Time No Known Allergies Allergy Verified 01/07/24 13:25 Review of Systems 2 General: Reports: 10 or more systems reviewed and unremarkable except in HPI and below PFSH ED 2 PFSH: Medical History Moderate episode of recurrent major depressive disorder Psychiatric care Surgical History Hx laparoscopic cholecystectomy 11/09/23 Dr Lim Family History Brother Diabetes Denies family history of CAD (coronary artery disease) Congestive heart failure (CHF) Anemia Aneurysm Arrhythmia Atrial fibrillation TIA (transient ischemic attack) Heart disease Sudden cardiac Chronic kidney disease (CKD) Congenital heart disease Carotid artery disease Pulmonary embolism Cardiomyopathy Social History Smoking and tobacco/nicotine status: current every day tobacco/nicotine user Alcohol intake: never Physical Exam 2 Const: COMMON NORMALS: no acute distress, average body habitus, patient oriented x3, no limitations, healthy appearing, alert and well nourished HENMT: COMMON NORMALS: normocephalic, atraumatic, hearing grossly normal bilaterally, external ears normal, Normal external nose present and moist oral mucous membranes HEAD & SCALP: normocephalic and atraumatic NOSE: Normal external nose present EXTERNAL EAR: Yes external ears normal Neck/C-Spine: COMMON NORMALS: full ROM, no lymphadenopathy, supple, no meningeal signs, no JVD and Thyroid normal THYROID: Thyroid normal Chest: COMMONS NORMALS: normal inspection of the chest and normal palpation of entire chest wall Resp: COMMON NORMALS: normal respiratory effort, No retractions, No use of accessory muscles and clear to auscultation bilaterally AUSCULTATION: clear to auscultation bilaterally Cardio: COMMON NORMALS: no JVD, regular rate, regular rhythm, S1 normal heart sound present, S2 normal heart sound present, No gallops present (Cardio), No clicks present (Cardio), No murmurs present (Cardio) and No rub (Cardio) R ATE: regular rate RHYTHM: regular rhythm HEART SOUNDS: S1 normal heart sound present and S2 normal heart sound present GI: COMMON NORMALS: Normal to inspection, nondistended, normoactive bowel sounds present, Soft to palpation, non-tender, No hepatosplenomegaly present and no masses PALPATION: Yes Soft to palpation and Yes No hepatosplenomegaly present Neuro: COMMON NORMALS: patient oriented x3 SENSORIUM/ORIENTATION: Yes alert MENINGEAL SIGNS: Yes no meningeal signs Course 2 Vital Signs: Vital signs: Vital Signs Temperature 97.8 F 01/07/24 13:16 Pulse Rate 104 H 01/07/24 13:24 Respiratory Rate 20 H 01/07/24 13:24 Blood Pressure 118/79 01/07/24 13:24 Pulse Oximetry 94 01/07/24 13:24 Oxygen Delivery Me thod Room Air 01/07/24 13:16 MDM - Psych Medical Decision Making Patient brought by EMS from the his facility to the ED with suicidal ideation. Dr. Johnson was consulted who agreed to take the patient back to [facility]. Differential Diagnosis Likely suicidal ideation Medical Records I reviewed the patient's medical records. Lab Data I reviewed the patient's lab results. 01/07/24 13:24 01/07/24 13:24 Laboratory Results WBC 6.59 10^3/uL (3.29-11.43) 01/07/24 13:24 RBC 5.07 10^6/uL (3.85-5.65) 01/07/24 13:24 Hgb 15.10 g/dL (11.27-16.99) 01/07/24 13:24 Hct 45.0 % (37-53) 01/07/24 13:24 MCV 88.8 fl (82-101) 01/07/24 13:24 MCH 29.8 pg (27-33) 01/07/24 13:24 MCHC 33.6 g/dL (30-55) 01/07/24 13:24 RDW 13.4 % (12.1-15.1) 01/07/24 13:24 Plt Count 256 10^3/cmm (157-399) 01/07/24 13:24 MPV 9.9 fL (7.4-10.4) 01/07/24 13:24 Neut % (Auto) 73.3 % 01/07/24 13:24 Lymph % (Auto) 17.8 % 01/07/24 13:24 [place] % (Auto) 7.3 % 01/07/24 13:24 Eos % (Auto) 0.8 % 01/07/24 13:24 Baso % (Auto) 0.6 % 01/07/24 13:24 Neut # (Auto) 4.84 10^3/uL (1.8-7.7) 01/07/24 13:24 Lymph # (Auto) 1.2 10^3/uL (0.8-4.8) 01/07/24 13:24 [place] # (Auto) 0.5 10^3/uL (0.2-0.9) 01/07/24 13:24 Eos # (Auto) 0.1 10^3/uL (0.0-0.8) 01/07/24 13:24 Baso # (Auto) 0.0 10^3/uL (0.0-0.1) 01/07/24 13:24 Nucleated RBC % (auto) 0 % 01/07/24 13:24 Nucleated RBCs # 0.0 /100WBC 01/07/24 13:24 Sodium 135 mmol/L (136-145) L 01/07/24 13:24 Potassium 4.0 mmol/L (3.5-5.1) 01/07/24 13:24 Chloride 97 mmol/L (98-107) L 01/07/24 13:24 Carbon Dioxide 25 mmol/L (22-29) 01/07/24 13:24 Anion Gap 17.0 (5-19) 01/07/24 13:24 BUN 13 mg/dL (6-20) 01/07/24 13:24 Creatinine 1.0 mg/dL (0.7-1.2) 01/07/24 13:24 GFR Calculation 79.8 mL/min (90-130) L 01/07/24 13:24 Glucose 119 mg/dL (65-115) H 01/07/24 13:24 Calculated Osmolality 281 mOsm/kg (285-295) L 01/07/24 13:24 Calcium 9.1 mg/dL (8.5-10.5) 01/07/24 13:24 Total Bilirubin 0.7 mg/dL (0.15-1.2) 01/07/24 13:24 AST 13 U/L (0-40) 01/07/24 13:24 ALT 12 U/L (0-41) 01/07/24 13:24 Alkaline Phosphatase 80 U/L (40-130) 01/07/24 13:24 Total Protein 7.0 g/dL (6.6-8.7) 01/07/24 13:24 Albumin 4.4 g/dL (3.5-5.2) 01/07/24 13:24 Globulin 2.6 g/dL (1.3-4.6) 01/07/24 13:24 Urine Color Yellow (Yellow) 01/07/24 13:36 Urine Appearance Clear (CLEAR) 01/07/24 13:36 Urine pH 7.0 (5-7) 01/07/24 13:36 Ur Specific [place] 1.008 (1.005-1.030) 01/07/24 13:36 Urine Protein Negative (Negative) 01/07/24 13:36 Urine Glucose (UA) Negative (Normal) 01/07/24 13:36 Urine Ketones Negative (Negative) 01/07/24 13:36 Urine Blood Negative (Negative) 01/07/24 13:36 Urine Nitrate Negative (Negative) 01/07/24 13:36 Urine Bilirubin Negative (Negative) 01/07/24 13:36 Urine Urobilinogen 0.2 mg/dL (Negative) 01/07/24 13:36 Ur Leukocyte Esterase Negative (Negative) 01/07/24 13:36 Urine RBC 0-2 /hpf (0-2) 01/07/24 13:36 Urine WBC 0-5 /hpf (0-5) 01/07/24 13:36 Ur Squamous Epith Cells 0-5 /hpf (0-5) 01/07/24 13:36 Amorphous Sediment Not Reportable 01/07/24 13:36 Urine Bacteria None seen /hpf (NONE) 01/07/24 13:36 Hyaline Casts 0-4 /lpf H 01/07/24 13:36 Salicylates < 0.3 mg/dL (3-10) L 01/07/24 13:24 Urine Opiates Screen Negative ng/mL (Negative) 01/07/24 13:36 Acetaminophen < 5.0 ug/mL (10-30) L 01/07/24 13:24 Ur Barbiturates Screen Negative ng/mL (Negative) 01/07/24 13:36 Ur Phencyclidine Scrn Negative ng/mL (Negative) 01/07/24 13:36 Ur Amphetamines Screen Negative ng/mL (Negative) 01/07/24 13:36 U Benzodiazepines Scrn Negative ng/mL (Negative) 01/07/24 13:36 Urine Cocaine Screen Negative ng/mL (Negative) 01/07/24 13:36 U Marijuana (THC) Screen Negative ng/mL (Negative) 01/07/24 13:36 Ethyl Alcohol < 10 mg/dL (0-10) 01/07/24 13:24 All radiology interpretation(s) finalized by discharge Discharge Plan Discharge Patient Disposition: Admitted As Inpatient Clinical Impression: Suicidal ideation Condition: Stable Coding Level of Care Code ED Tongue Carrier for Nathan Agudelo
[2024-01-07 13:46] LABS: Alanine Aminotransferase 12 U/L (0-41); Albumin Level 4.4 g/dL (3.5-5.2); Alkaline Phosphatase 80 U/L (40-130); Aspartate Amino Transferase 13 U/L (0-40); Blood Urea Nitrogen 13 mg/dL (6-20); Calcium 9.1 mg/dL (8.5-10.5); Carbon Dioxide 25 mmol/L (22-29); Chloride 97 mmol/L (98-107); Creatinine Clr Calc Pharmacy 132.9855; Globulin 2.6 g/dL (1.3-4.6); Glomerular Filtration Rate 79.8 mL/min (90-130); Glucose 119 mg/dL (65-115); Osmolality Calculated 281 mOsm/kg (285-295); Sodium 135 mmol/L (136-145); Total Bilirubin 0.7 mg/dL (0.15-1.2)
[2024-01-07 14:01] LABS: Acetaminophen < 5.0 ug/mL (10-30); Alcohol Level < 10 mg/dL (0-10); Salicylate < 0.3 mg/dL (3-10)
[2024-01-07 14:06] LABS: Bilirubin Urine Negative (Negative); Blood Urine Negative (Negative); Glucose Urine UA Negative (Normal); Ketones Urine Negative (Negative); Leukocyte Esterase Urine Negative (Negative); Nitrate Urine Negative (Negative); Protein Urine Negative (Negative); Specific Gravity, Urine 1.008 (1.005-1.030); Urine Appearance Clear (CLEAR); Urine Color Yellow (Yellow); Urobilinogen Urine 0.2 mg/dL (Negative)
[2024-01-07 14:11] LABS: Add Urine Microscopic? YES; Bacteria Urine None Seen /hpf; Hyaline Casts Urine 0-4 /lpf; RBC Urine 0-2 /hpf (0-2); Squamous Epithelial Cell Urine 0-5 /hpf (0-5); WBC Urine 0-5 /hpf (0-5)
[2024-01-07 14:13] LABS: Amphetamines Screen Urine Negative (Negative); Barbiturates Screen Urine Negative (Negative); Benzodiazepines Screen Urine Negative (Negative); Cocaine Screen Urine Negative (Negative); Opiate Screen Urine Negative (Negative); PCP Screen Urine Negative (Negative); THC Screen Urine Negative (Negative)
[2024-01-07] MEDS: nicotine 2 mg Gum BUCCAL (16:38)
[2024-01-07 16:44] LABS: Glucose Point of Care 111 mg/dL (70-110)
--- NOTE | 2024-01-07 16:58 | PC.NURSE ---
Patient was recently discharged from [facility] on 01/05/24. Today he reported to the ER with SI with a plan to use a knife. Upon arrival to [facility] he states he no longer feels this way and just intermittently has these thoughts wash over him. Patient says he feels he may need a medication change. He was very short in his answers and appears to be a bit guarded. Rolling walker with him at this time as his gait is abnormal and mild weakness in bilateral legs. Patient denies any needs other than nicotine gum and tea at this time.
[2024-01-07] MEDS: risperiDONE 1 mg Tablet PO (18:28)
[2024-01-07] MEDS: metformin 500 mg Tablet PO (18:28)
[2024-01-07 20:08] LABS: Glucose Point of Care 303 mg/dL (70-110)
[2024-01-07] MEDS: PARoxetine 20 mg Tablet 60 MG PO (20:24)
[2024-01-07] MEDS: quetiapine 100 mg Tablet 200 MG PO (20:24)
[2024-01-08 00:10] VITALS: PULSE 66; RESP 8; O2SAT 93
[2024-01-08 04:47] VITALS: PULSE 81; RESP 8; O2SAT 95
[2024-01-08 06:00] VITALS: BP 103/72; PULSE 82; RESP 17; O2SAT 96
[2024-01-08 07:20] LABS: Glucose Point of Care 135 mg/dL (70-110)
[2024-01-08] MEDS: metformin 500 mg Tablet PO ×2 (08:28→18:11)
[2024-01-08] MEDS: aspirin 81 mg EC Tablet PO (08:28)
[2024-01-08] MEDS: atorvastatin 40 mg Tablet 20 MG PO (08:28)
[2024-01-08] MEDS: risperiDONE 1 mg Tablet PO ×2 (08:28→18:11)
[2024-01-08] MEDS: lisinopril 10 mg Tablet PO (08:29)
[2024-01-08] MEDS: nicotine 2 mg Gum BUCCAL ×2 (08:29→11:23)
[2024-01-08] MEDS: FUROsemide 40 mg Tablet PO (08:29)
[2024-01-08 11:06] LABS: Glucose Point of Care 136 mg/dL (70-110)
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
[2024-01-08 13:52] VITALS: BP 106/70; PULSE 96; RESP 16; TEMP 36.6; O2SAT 96
[2024-01-08 19:39] VITALS: BP 110/73; PULSE 68; RESP 16; TEMP 36.5; O2SAT 94
[2024-01-08] MEDS: hyDROXYzine 25 mg Capsule 50 MG PO (20:18)
[2024-01-08] MEDS: trazodone 50 mg Tablet PO (20:18)
[2024-01-08] MEDS: PARoxetine 20 mg Tablet 60 MG PO (20:18)
[2024-01-08] MEDS: quetiapine 100 mg Tablet 150 MG PO (20:18)
[2024-01-08 20:48] VITALS: PULSE 61; RESP 8; O2SAT 96
[2024-01-09 00:42] VITALS: PULSE 55; RESP 8; O2SAT 93
[2024-01-09 03:22] VITALS: PULSE 53; RESP 8; O2SAT 93
[2024-01-09 06:00] VITALS: BP 110/73; PULSE 62; RESP 18; TEMP 36.6; O2SAT 95; BMI 42.3
[2024-01-09 07:51] LABS: Glucose Point of Care 129 mg/dL (70-110)
[2024-01-09] MEDS: metformin 500 mg Tablet PO ×2 (07:54→18:40)
[2024-01-09] MEDS: FUROsemide 40 mg Tablet PO (07:54)
[2024-01-09] MEDS: aspirin 81 mg EC Tablet PO (07:54)
[2024-01-09] MEDS: risperiDONE 1 mg Tablet PO ×2 (07:54→18:40)
[2024-01-09] MEDS: ondansetron 4 MG Tablet PO (07:54)
[2024-01-09] MEDS: atorvastatin 40 mg Tablet 20 MG PO (07:54)
[2024-01-09] MEDS: lisinopril 10 mg Tablet PO (07:54)
--- NOTE | 2024-01-09 09:06 | PC.NURSE ---
Patient reporting vomiting and nausea. He was given zofran po earlier this morning. Bowels sounds are active, but not hyperactive. He denies any pain upon palpation. Vomiting not visualized by staff at this time. Patient given crackers and water and was asked to stay seated and that we would check in on him periodically, asking him to press call light if we were needed that way he did not fall. No dizziness reported at this time though. Dr. Lema was contacted for orders. Awaiting his response.
[2024-01-09] MEDS: pantoprazole DR 40 mg Tablet PO (12:03)
--- NOTE | 2024-01-09 13:59 | P.NPUPN_ITS ---
Subjective NPU 2 Subjective: 48-year-old male with mild cognitive imp airment admitted from an [facility] with suicidal ideation with multiple inpatient hospitalizations the last 12 months. He had reported that his mood was better. He reported not having suicidal thoughts today. He had reported abdominal discomfort. He was redirectable on the milieu with no evidence of aggression here. He continued to report feeling bored and reported having problems with managing his frustrations at the [facility]. Mental Status Exam 2 MSE Comments: This is an obese white male in hospital scrubs with limited grooming and eye contact. No abnormal movements except for mild psychomotor retardation. Cooperative with exam in no acute distress. Speech was normal in rate and normal in volume. Mood described as allright. His affect was restricted in range and mood incongruent. Thought process was linear. Thought content: Patient denied suicidal or homicidal ideation There were no delusions reported or noted, he denied any auditory or visual hallucinations. Attention and concentration were intact and memory appeared mostly reliable but none were formally tested. He is alert and oriented x 3. Insight and judgment appear limited, impulse control appeared fair at this time. Intellectual ability is commensurate with mild cognitive impairment. Vitals/I&O/Wt Last Vital Signs Temp 97.8 F 01/09/24 06:00 Pulse 62 01/09/24 06:00 Resp 18 01/09/24 06:00 BP 110/73 01/09/24 06:00 Pulse Ox 95 01/09/24 06:00 O2 Del Method Room Air 01/09/24 06:00 FiO2 21 01/09/24 03:22 Weight last 48 hrs Weight 141.521 kg Data NPU 01/07/24 13:24 01/07/24 13:24 A&P Assessment and plan (1) Intermittent explosive disorder: (2) Borderline intellectual functioning: (3) Mild intellectual disability: (4) Suicidal ideation: (5) Major depressive disorder: Plan This is a 47-year-old white male with a history of mild cognitive impairment, depression and intermittent explosive disorder who presents 3 days after recent discharge with history of explosive violent outbursts and verbal outbursts endorsing suicidal ideation in longterm setting. 1. Continue seroquel 150mg at night. Continue risperidone 1mg bid, Continue Paxil 60mg at night. 2. Continue every 15 minute checks for safety 3. Individual, group and milieu therapy. 4. Get collateral information from longterm regarding his previous functioning to assess risk. Involuntary Hold Information 2 96 Hour Hold: 96 Hour Involuntary Admission: No Attestations NPU 2 Medical Necessity Statement*: Inpatient hospitalization is medically necessary and the clinically appropriate attention at this time. We will monitor/initiate medications and make changes as indicated. He will be in the hospital for over 2 midnights. Likely length of stay 1-2 days. Coding Level of Care Code Acute Code for [facility] Fwd Diagnoses Intermittent explosive disorder F63.81 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
[2024-01-09 14:00] VITALS: BP 128/85; PULSE 89; RESP 16; TEMP 37; O2SAT 93
[2024-01-09 17:21] LABS: Glucose Point of Care 135 mg/dL (70-110)
[2024-01-09 18:28] LABS: Adenovirus Not Detected (NOT DETECT); Chlamydia Pneumoniae Not Detected (NOT DETECT); Coronavirus 229E,HKU1,NL63,OC4 Not Detected (NOT DETECT); Human Metapneumovirus Not Detected (NOT DETECT); Human Rhinovirus/Enterovirus Not Detected (NOT DETECT); Influenza A Not Detected (NOT DETECT); Influenza A H1 Not Detected (NOT DETECT); Influenza A H1-2009 Not Detected (NOT DETECT); Influenza A H3 Not Detected (NOT DETECT); Influenza B Not Detected (NOT DETECT); Mycoplasma Pneumoniae Not Detected (NOT DETECT); Parainfluenza Virus Type 1 Not Detected (NOT DETECT); Parainfluenza Virus Type 2 Not Detected (NOT DETECT); Parainfluenza Virus Type 3 Not Detected (NOT DETECT); Parainfluenza Virus Type 4 Not Detected (NOT DETECT); Respiratory Syncytial Virus A Not Detected (NOT DETECT); Respiratory Syncytial Virus B Not Detected (NOT DETECT); SARS-COV-2 Not Detected (NOT DETECT)
[2024-01-09] MEDS: PARoxetine 20 mg Tablet 60 MG PO (20:01)
[2024-01-09] MEDS: trazodone 50 mg Tablet PO (20:01)
[2024-01-09] MEDS: quetiapine 100 mg Tablet 150 MG PO (20:01)
[2024-01-09] MEDS: acetaminophen 325 mg Tablet 650 MG PO (20:01)
[2024-01-09 20:02] VITALS: BP 108/78; PULSE 70; RESP 18; TEMP 37.6; O2SAT 94
[2024-01-09 20:55] VITALS: PULSE 61; RESP 8; O2SAT 93
[2024-01-10 06:00] VITALS: BP 106/77; PULSE 78; RESP 20; O2SAT 96
[2024-01-10 07:24] LABS: Glucose Point of Care 171 mg/dL (70-110)
[2024-01-10] MEDS: metformin 500 mg Tablet PO (08:22)
[2024-01-10] MEDS: aspirin 81 mg EC Tablet PO (08:22)
[2024-01-10] MEDS: lisinopril 10 mg Tablet PO (08:22)
[2024-01-10] MEDS: FUROsemide 40 mg Tablet PO (08:22)
[2024-01-10] MEDS: risperiDONE 1 mg Tablet PO (08:22)
[2024-01-10] MEDS: atorvastatin 40 mg Tablet 20 MG PO (08:22)
--- NOTE | 2024-01-10 10:38 | PC.NURSE ---
PT CURRENTLY DENIES SI/HI/AH/VH. PT CURRENTLY DENIES DEPRESSION AND ANXIETY. PT IS QUICKLY CONSUMING WATER AT AN ALARMING RATE. PT DRANK 2 16 OZ GLASSES OF WATER S 1 4OZ JUICE IS THE SPAN OF ABOUT 20 MINUTES. PT DOES THIS TO THE POINT OF VOMITING SO PT ORAL INTAKE NOW TO BE MONITORED. PT CURRENT NEEDS ARE MET AT THIS TIME
--- NOTE | 2024-01-10 11:36 | P.NPUDS_ITS ---
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 detected (NO T DETECT) 01/09/24 16:16 Entero/Rhino (PCR) Not detected (NO T DETECT) 01/09/24 16:16 SARS-CoV-2 (PCR) Not detected (NO T DETECT) 01/09/24 16:16 SARS-CoV-2 Ag (Rap id) Cancelled 01/09/24 16:16 Vitals: Last Vital Signs Temp 99.6 F 01/09/24 20:02 Pulse 78 01/10/24 06:00 Resp 20 H 01/10/24 06:00 BP 106/77 01/10/24 06:00 Pulse Ox 96 01/10/24 06:00 O2 Del Method Room Air 01/09/24 14:00 FiO2 21 01/09/24 20:55 Discharge Plan Discharge Patient Disposition: Home Condition: Stable Prescriptions: New quetiapine 100 mg Tablet 150 mg PO BEDTIME 30 Days Qty: 45 1RF Continued risperidone [Risperdal] 1 mg tablet 1 mg PO BID Qty: 60 2RF acetaminophen [Tylenol Extra Strength] 500 mg tablet 1,000 mg PO Q6H PRN (Reason: fever) Qty: 100 0RF furosemide 40 mg tablet 40 mg PO DAILY metformin 500 mg tablet 500 mg PO BID Hold Instructions: Resume on 01/02/24. aspirin 81 mg Tablet,Delayed Release (Dr/Ec) 81 mg PO DAILY simvastatin 20 mg tablet 20 mg PO DAILY lisinopril 10 mg tablet 10 mg PO DAILY nitroglycerin 0.4 mg Tablet, Sublingual 0.4 mg SUBLINGUAL Q5M PRN (Reason: Chest Pain) Rx Instructions: do not exceed 3 doses per episode Paxil 30 mg tablet 60 mg PO 1999 Discontinued quetiapine 200 mg tablet 200 mg PO BEDTIME Discharge Orders: Discharge Order (Routine); Ordered 01/10/24 Ordered By: Luis Alberto Lema Referrals: Annie Cohen PMHNP [Staff Physician] - 01/11/24 2:15 pm Raj Kent MD [Primary Care Provider] - Discharge Diet: Usual diet Discharge Activity: Resume usual activity Patient Instructions: Help Prevent Suicide (DC), Opioid Safety Discharge Attestations NPU Time Spent in Discharge Care*: less than 30 min Specific Discharge Activities: Specific discharge activities: educating patient and discussing with case sealer/social workers/dc planners Coding Level of Care Code Acute Code for Chg Fwd Diagnoses Intermittent explosive disorder F63.81 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
[2024-01-10 12:05] VITALS: BP 106/77; PULSE 78; RESP 20; O2SAT 96
--- NOTE | 2024-01-10 13:09 | DCPLANNER ---
ANN completed verblly with Josi on 01/10/24 @ 4512 and copy of rights was given with discharge packet.
[2024-01-10 14:00] VITALS: BP 87/55; PULSE 91; RESP 16; TEMP 36.6; O2SAT 94
[2024-01-10 15:08] VITALS: BP 112/64
== END 2024-01-10 16:00 | disposition home or self-care (01) | DRG 883 ==
LOC: ER 14:23 → NP 16:03
PROVIDERS: Admitting Provider Psychiatry & Neurology Psychiatry; Emergency Provider Emergency Medicine; PCP Family Medicine; Visit Provider Psychiatry & Neurology Psychiatry
DX: F63.81 Intermittent explosive disorder (principal); R45.851 Suicidal ideations; Z11.52 Encounter for screening for COVID-19; G31.84 Mild cognitive impairment of uncertain or unknown etiology; F17.200 Nicotine dependence, unspecified, uncomplicated; F32.9 Major depressive disorder, single episode, unspecified
CPT/HCPCS: 36415; 36416; 80048; 80053; 80306; 80307; 81001; 82962; 85025; 87486; 87581; 87633; 94660; 97150; 97165; 99214; Q0162

== ENCOUNTER 2024-01-15 11:38 | Emergency (ER) | payer MEDICARE, MEDICAID, SELFPAY ==
[2024-01-15 11:39] VITALS: BP 122/86; PULSE 117; RESP 22; TEMP 36.4; O2SAT 99
--- NOTE | 2024-01-15 12:09 | W.ED.PSYCHS ---
HPI - Psych General: Chief Complaint: Psychiatric Symptoms Stated Complaint: MHE Time Seen by Provider: 01/15/24 11:47 History of Present Illness: 48-year-old male with borderline intellectual functioning resides in an ISL (assisted living of sorts). He is here with an employee of the facility. Patient reports he has thoughts . When asked about his thoughts, he says he sometimes has thoughts about suicide. When asked whether this thoughts are still present, he states no . When asked whether he would like to hurt himself or anyone else he says no. Patient says that he thinks it is because they started him on Wellbutrin during his last admission. The patient is also being tapered off of his Paxil. They have not had any behavior problems since his discharge. Patient has been in to the adult psychiatric unit twice recently. At the end of our conversation, the patient asked if he can go back home. No reported hallucinations or outbursts. He does have a diagnosis of intermittent explosive disorder. He has chronic intermittent suicidal ideation per chart review. ER staff are well acquainted with this gentleman. Patient discharged from [facility] less than one week ago. D/c summary reviewed. See below: Ronnie Guzman is a 48 year old male with a history of with a history of multiple inpatient hospitalizations along with a history of intermittent explosive disorder major depressive disorder and mild intellectual disability who presented to the emergency room accompanied by caregiver from his ISL with complaints of suicidal ideation. The patient had been earlier evaluated the crisis unit and had made complaints that he was having thoughts of cutting himself. He had reported having access to sharp items and he was later admitted to the neuropsychiatric unit for further evaluation and treatment. The patient had reported on interview that he had felt better when evaluated today and no longer felt suicidal. He had reported that he was not struggling with his peers and had not been aggressive towards others recently. He had reported compliance with his medications. He had reported no substantiative changes since his last hospitalization here although previous records had indicated that his Risperdal had been increased to 1 mg twice a day and that he had had a recent cholecystectomy in October 2023.The patient reports no feelings of hopelessness or worthlessness. He minimized any problems with anger. He denied any psychotic symptoms or paranoia. Psychiatric history: see below Current medications: Aspirin 81 mg daily, furosemide 40 mg daily, lisinopril 10 mg daily,metformin 500 mg twice a day, nitroglycerin as needed, Paxil 60 mg daily, Seroquel 200 mg at night, Risperdal 1 mg twice a day, simvastatin 20 mg daily. Further pertinent history: see below NPU Discharge Summary from 10/25/23 Diagnoses at Discharge Discharge Diagnosis (1) Borderline intellectual functioning: Status: Acute (2) Mild intellectual disability: Status: Acute (3) Intermittent explosive disorder: Status: Acute (4) Suicidal ideation: Status: Resolved Related Data Home Medications Medication Instructions Recorded Confirmed aspirin 81 mg tablet,delayed 81 mg PO DAILY 03/16/23 01/11/24 release furosemide 40 mg tablet 40 mg PO DAILY 03/16/23 01/11/24 lisinopril 10 mg tablet 10 mg PO DAILY 03/16/23 01/11/24 metformin 500 mg tablet 500 mg PO BID 03/16/23 01/11/24 simvastatin 20 mg tablet 20 mg PO DAILY 03/16/23 01/11/24 nitroglycerin 0.4 mg sublingual 0.4 mg sublingual Q5M PRN Chest 11/08/23 01/11/24 tablet Pain Previous Rx's Medication Instructions Recorded risperidone 1 mg tablet (Risperdal) 1 mg PO BID #60 tabs 11/17/23 acetaminophen 500 mg tablet 1,000 mg (2 x 500 mg) PO Q6H PRN 12/30/23 (Tylenol Extra Strength) fever #100 tabs bupropion HCl 150 mg 24 hr tablet, 150 mg PO QAM #30 tabs 01/11/24 extended release (Wellbutrin XL) paroxetine HCl 10 mg tablet (Paxil) 10 mg PO DAILY #7 tabs 01/11/24 paroxetine HCl 20 mg tablet (Paxil) 20 mg PO DAILY #7 tabs 01/11/24 paroxetine HCl 30 mg tablet (Paxil) 30 mg PO DAILY #7 tabs 01/11/24 quetiapine 200 mg tablet (Seroquel) 200 mg PO .HS #30 tabs 01/11/24 Allergies Allergy/AdvReac Type Severity Reaction Status Date / Time No Known Allergies Allergy Verified 01/11/24 14:24 Review of Systems General: Reports: 10 or more systems reviewed and unremarkable except in HPI and below PFSH ED PFSH: Medical History Moderate episode of recurrent major depressive disorder Psychiatric care Surgical History Hx laparoscopic cholecystectomy 11/09/23 Dr Lim Family History Brother Diabetes Denies family history of CAD (coronary artery disease) Congestive heart failure (CHF) Anemia Aneurysm Arrhythmia Atrial fibrillation TIA (transient ischemic attack) Heart disease Sudden cardiac Chronic kidney disease (CKD) Congenital heart disease Carotid artery disease Pulmonary embolism Cardiomyopathy Social History Smoking and tobacco/nicotine status: current every day tobacco/nicotine user Alcohol intake: never Physical Exam Const: COMMON NORMALS: no limitations, alert and well nourished EXAM LIMITATIONS: no altered mental status HENMT: COMMON NORMALS: normocephalic, atraumatic and external ears normal HEAD & SCALP: normocephalic and atraumatic EXTERNAL EAR: Yes external ears normal MOUTH: no muffled voice Eye: COMMON NORMALS: EOMs intact bilaterally, conjunctivae normal and no scleral icterus CONJUNCTIVA: Yes conjunctivae normal Neck/C-Spine: COMMON NORMALS: no JVD GENERAL: Yes normal visual inspection and Yes trachea midline Resp: COMMON NORMALS: normal respiratory effort and No use of accessory muscles Cardio: COMMON NORMALS: no JVD, regular rate and regular rhythm RATE: regular rate RHYTHM: regular rhythm Neuro: COMMON NORMALS: moves all extremities, no focal motor deficits and no sensory deficits noted SENSORIUM/ORIENTATION: Yes alert SPEECH: speech normal Psych: COMMON NORMALS: Normal thought process present, cooperative, normal affect and speech normal SPEECH: Yes normal speech THOUGHT PROCESS: Normal thought process present Skin: COMMON NORMALS: no rashes or lesions noted, turgor normal and no jaundice GENERAL SKIN EXAM: no rashes or lesions noted and turgor normal Course Vital Signs: Vital signs: Vital Signs Temperature 97.5 F L 01/15/24 11:39 Pulse Rate 117 H 01/15/24 11:39 Respiratory Rate 22 H 01/15/24 11:39 Blood Pressure 122/86 01/15/24 11:39 Pulse Oximetry 99 01/15/24 11:39 [facility] - Psych Medical Decision Making This is a pleasant cooperative 48-year-old male who reports he sometimes has suicidal thoughts. He evidently has been having them again recently. When I ask him whether he has them today he reports he does not. He does not want to hurt himself or anyone else per his report. He has normal eye contact. He is cooperative. The patient seems to be fixed on the fact that it could be his Wellbutrin. He has not had any behavior issues reported to me by the employee that is with him. I discussed this case with Dr. Monge, psychiatrist. Dr. Monge did some research and reports that he would prefer not to stop the Wellbutrin at this time until the patient's psychiatrist is notified. They are tapering off Paxil which could just as easily be the change that is causing him intermittent suicidal thoughts. Therefore, since patient does not have access to lethal means and is not endorsing suicidal thoughts any longer, he recommends discharge and contact [facility] on Wednesday. Patient feels comfortable with this plan. No radiology studies performed this visit Discharge Plan Discharge Patient Disposition: Home Clinical Impression: Medication care plan discussed with patient Condition: Stable Prescriptions: No Action paroxetine HCl [Paxil] 30 mg tablet 30 mg PO DAILY Qty: 7 0RF Rx Instructions: Paxil 30mg daily for 7 days then, Paxil 20mg daily for 7 days then, Paxil 10mg daily for 7 days then stop. paroxetine HCl [Paxil] 20 mg tablet 20 mg PO DAILY Qty: 7 0RF Rx Instructions: Paxil 30mg daily for 7 days then, Paxil 20mg daily for 7 days then, Paxil 10mg daily for 7 days then stop. paroxetine HCl [Paxil] 10 mg tablet 10 mg PO DAILY Qty: 7 0RF Rx Instructions: Paxil 30mg daily for 7 days then, Paxil 20mg daily for 7 days then, Paxil 10mg daily for 7 days then stop. quetiapine [Seroquel] 200 mg tablet 200 mg PO .HS Qty: 30 2RF bupropion HCl [Wellbutrin XL] 150 mg tablet extended release 24 hr 150 mg PO QAM Qty: 30 1RF risperidone [Risperdal] 1 mg tablet 1 mg PO BID Qty: 60 2RF acetaminophen [Tylenol Extra Strength] 500 mg tablet 1,000 mg PO Q6H PRN (Reason: fever) Qty: 100 0RF furosemide 40 mg tablet 40 mg PO DAILY metformin 500 mg tablet 500 mg PO BID Hold Instructions: Resume on 01/02/24. aspirin 81 mg Tablet,Delayed Release (Dr/Ec) 81 mg PO DAILY simvastatin 20 mg tablet 20 mg PO DAILY lisinopril 10 mg tablet 10 mg PO DAILY nitroglycerin 0.4 mg Tablet, Sublingual 0.4 mg SUBLINGUAL Q5M PRN (Reason: Chest Pain) Rx Instructions: do not exceed 3 doses per episode Discharge Orders: Discharge ED (Routine); Ordered 01/15/24 Ordered By: Jalil Araujo Referrals: Raj Kent MD [Primary Care Provider] - Patient Instructions: Suicidal Ideation Activity Restrictions/Additional Instructions: The patient is being tapered down on Paxil and Wellbutrin is being added. His intermittent thoughts may be a result of the Wellbutrin. However, they could equally likely be a result of decreasing Paxil. The psychiatrist recommends that [facility] is consulted on Wednesday by the patient's primary provider or sales representative printing to discuss whether Wellbutrin should be stopped and if so whether Paxil should continue to be stopped as well or to reinstate the Paxil. Coding Level of Care Code ED [employer] for Nathan Agudelo
[2024-01-15 13:38] VITALS: BP 123/92; PULSE 85; O2SAT 95
--- NOTE | 2024-01-17 14:17 | CSC.BTCR_ITS ---
[facility] Therapy/Crisis Response Current Presentation: Client states I am having bad thoughts again and I think about getting a knife and cutting myself . Ronnie reports these thoughts began yesterday pretty severely and continued into the current day, although he reports they are not as bad today. It is noted client does not have access to knives. Ronnie has also utilized NPU services twice over the past two weeks for SI with the same plan. When asked what about the NPU he feels was helpful in reducing his SI, Ronnie states I liked the groups and people . Currently, Ronnie is seeing a med provider with [facility] but is not currently utilizing therapy services. Client currently states he isn't engaged in any outpatient group settings but would be interested in doing so. Ronnie does attend [employer] and reports it did help some. Presenting Problem(s): Harm or threats to harm self (not suicidal) Intervention: This mortgage or loan underwriter used active listening to help deescalate client and assessed for safety. While client does endorse SI with a plan, [facility] staff have implemented appropriate measures to mitigate risk of harm including removing access to knives and sharps. Client does have staff present 24 hours a day. This mortgage or loan underwriter and client collaborated on strategies we can implement in replacement of NPU. Client did respond positively to the idea of group and individual therapy. [facility] staff, including manager cable, agree to schedule client therapy services through the porch. [facility] CSS reached out to [facility] to see what group sessions would be available to Ronnie. Today, staff will transport Ronnie to the department of [place] to help deescalate and practice mindfulness. Client does agree this will help reduce his SI. Client is aware he can return or call if thoughts of self harm worsen or persist. Client Response to Intervention: Client is agreeable to implement strategies as discussed. Client will return if symptoms persist or worsen. Final Disposition: Client left facility with intent to return if symptoms persist or worsen. Safety Plan Completed/Updated: Yes Risks Suicide Risk Assessment In the last 30 days have you... Total (If greater than 3 please do full PHQ-9): Yes Trouble falling or staying asleep, or sleeping too much: several days Feeling tired or having little energy: several days Poor appetite or overeating: several days Feeling bad about yourself - or that you are a failure or have let yourself or your family down: more than half the days Trouble concentrating on things, such as reading the newspaper or watching television: more than half the days Moving or speaking so slowly that other people could have noticed. Or the opposite - being so fidgety or restless that you have been moving around a lot more than usual: more than half the days Thoughts that you would be better off or of hurting yourself in some way: several days (Yesterday and Today) Have you had suicidal thoughts?: Several Days (Reports having SI yesterday and, and to a lesser extent, today) Do you ever wish you weren't alive anymore?: Several Days
--- NOTE | 2024-01-18 08:31 | DCPLANNER ---
message sent to [facility] to schedule appointment
== END 2024-01-15 13:40 | disposition home or self-care (01) ==
PROVIDERS: Emergency Provider Emergency Medicine; PCP Family Medicine
DX: R45.851 Suicidal ideations (principal); Z72.0 Tobacco use
CPT/HCPCS: 99283

== ENCOUNTER 2024-01-18 17:27 | Emergency (ER) | payer MEDICARE, MEDICAID, SELFPAY ==
[2024-01-18 17:38] VITALS: BP 127/75; PULSE 91; RESP 16; TEMP 36.9; O2SAT 91; BMI 43.7
[2024-01-18 17:55] VITALS: BP 127/75; PULSE 91; RESP 16; TEMP 36.9; O2SAT 91
--- NOTE | 2024-01-18 17:58 | W.ED.PSYCHS ---
HPI - Psych General: Chief Complaint: Psychiatric Symptoms Stated Complaint: SI Time Seen by Provider: 01/18/24 17:37 History of Present Illness: Patient presents to the ER with complaints of suicidal ideation. He says he had thoughts of walking into traffic but is just too far to walk. Patient has has these thoughts multiple times and has been seen here multiple times for same thoughts. Related Data Home Medications Medication Instructions Recorded Confirmed aspirin 81 mg tablet,delayed 81 mg PO DAILY 03/16/23 01/11/24 release furosemide 40 mg tablet 40 mg PO DAILY 03/16/23 01/11/24 lisinopril 10 mg tablet 10 mg PO DAILY 03/16/23 01/11/24 metformin 500 mg tablet 500 mg PO BID 03/16/23 01/11/24 simvastatin 20 mg tablet 20 mg PO DAILY 03/16/23 01/11/24 nitroglycerin 0.4 mg sublingual 0.4 mg sublingual Q5M PRN Chest 11/08/23 01/11/24 tablet Pain Previous Rx's Medication Instructions Recorded risperidone 1 mg tablet (Risperdal) 1 mg PO BID #60 tabs 11/17/23 acetaminophen 500 mg tablet 1,000 mg (2 x 500 mg) PO Q6H PRN 12/30/23 (Tylenol Extra Strength) fever #100 tabs bupropion HCl 150 mg 24 hr tablet, 150 mg PO QAM #30 tabs 01/11/24 extended release (Wellbutrin XL) paroxetine HCl 10 mg tablet (Paxil) 10 mg PO DAILY #7 tabs 01/11/24 paroxetine HCl 20 mg tablet (Paxil) 20 mg PO DAILY #7 tabs 01/11/24 paroxetine HCl 30 mg tablet (Paxil) 30 mg PO DAILY #7 tabs 01/11/24 quetiapine 200 mg tablet (Seroquel) 200 mg PO .HS #30 tabs 01/11/24 Allergies Allergy/AdvReac Type Severity Reaction Status Date / Time No Known Allergies Allergy Verified 01/11/24 14:24 Review of Systems General: Reports: 10 or more systems reviewed and unremarkable except in HPI and below PFSH ED PFSH: Medical History Moderate episode of recurrent major depressive disorder Psychiatric care Surgical History Hx laparoscopic cholecystectomy 11/09/23 Dr Lim Family History Brother Diabetes Denies family history of CAD (coronary artery disease) Congestive heart failure (CHF) Anemia Aneurysm Arrhythmia Atrial fibrillation TIA (transient ischemic attack) Heart disease Sudden cardiac Chronic kidney disease (CKD) Congenital heart disease Carotid artery disease Pulmonary embolism Cardiomyopathy Social History Smoking and tobacco/nicotine status: current every day tobacco/nicotine user Alcohol intake: never Physical Exam Const: COMMON NORMALS: no acute distress, average body habitus, patient oriented x3, no limitations, healthy appearing, alert and well nourished HENMT: COMMON NORMALS: normocephalic, atraumatic, hearing grossly normal bilaterally, external ears normal, Normal external nose present and moist oral mucous membranes HEAD & SCALP: normocephalic and atraumatic NOSE: Normal external nose present EXTERNAL EAR: Yes external ears normal Neck/C-Spine: COMMON NORMALS: no JVD Chest: COMMONS NORMALS: normal inspection of the chest and normal palpation of entire chest wall Resp: COMMON NORMALS: normal respiratory effort, No retractions, No use of accessory muscles and clear to auscultation bilaterally AUSCULTATION: clear to auscultation bilaterally Cardio: COMMON NORMALS: no JVD, regular rate, regular rhythm, S1 normal heart sound present, S2 normal heart sound present, No gallops present (Cardio), No clicks present (Cardio), No murmurs present (Cardio) and No rub (Cardio) RATE: regular rate RHYTHM: regular rhythm HEART SOUNDS: S1 normal heart sound present and S2 normal heart sound present GI: COMMON NORMALS: Normal to inspection, nondistended, normoactive bowel sounds present, Soft to palpation, non-tender, No hepatosplenomegaly present and no masses PALPATION: Yes Soft to palpation and Yes No hepatosplenomegaly present Neuro: COMMON NORMALS: patient oriented x3 SENSORIUM/ORIENTATION: Yes alert Course Vital Signs: Vital signs: Vital Signs Temperature 98.5 F 01/18/24 17:55 Pulse Rate 91 01/18/24 17:55 Respiratory Rate 16 01/18/24 17:55 Blood Pressure 127/75 01/18/24 17:55 Pulse Oximetry 91 01/18/24 17:55 Oxygen Delivery Me thod Room Air 01/18/24 17:55 MDM - Psych Medical Decision Making Evaluated patient, discussed case with Dr. Monge. We will keep her at around here for couple hours let him eat and drink reassess him. Once patient is reassessed he said he is no longer suicidal and is ready go home. Patient will be discharged home. Medical Records I reviewed the patient's medical records. Lab Data I reviewed the patient's lab results. No radiology studies performed this visit Discharge Plan Discharge Patient Disposition: Home Clinical Impression: Borderline intellectual functioning Condition: Stable Prescriptions: No Action paroxetine HCl [Paxil] 30 mg tablet 30 mg PO DAILY Qty: 7 0RF Rx Instructions: Paxil 30mg daily for 7 days then, Paxil 20mg daily for 7 days then, Paxil 10mg daily for 7 days then stop. paroxetine HCl [Paxil] 20 mg tablet 20 mg PO DAILY Qty: 7 0RF Rx Instructions: Paxil 30mg daily for 7 days then, Paxil 20mg daily for 7 days then, Paxil 10mg daily for 7 days then stop. paroxetine HCl [Paxil] 10 mg tablet 10 mg PO DAILY Qty: 7 0RF Rx Instructions: Paxil 30mg daily for 7 days then, Paxil 20mg daily for 7 days then, Paxil 10mg daily for 7 days then stop. quetiapine [Seroquel] 200 mg tablet 200 mg PO .HS Qty: 30 2RF bupropion HCl [Wellbutrin XL] 150 mg tablet extended release 24 hr 150 mg PO QAM Qty: 30 1RF risperidone [Risperdal] 1 mg tablet 1 mg PO BID Qty: 60 2RF acetaminophen [Tylenol Extra Strength] 500 mg tablet 1,000 mg PO Q6H PRN (Reason: fever) Qty: 100 0RF furosemide 40 mg tablet 40 mg PO DAILY metformin 500 mg tablet 500 mg PO BID Hold Instructions: Resume on 01/02/24. aspirin 81 mg Tablet,Delayed Release (Dr/Ec) 81 mg PO DAILY simvastatin 20 mg tablet 20 mg PO DAILY lisinopril 10 mg tablet 10 mg PO DAILY nitroglycerin 0.4 mg Tablet, Sublingual 0.4 mg SUBLINGUAL Q5M PRN (Reason: Chest Pain) Rx Instructions: do not exceed 3 doses per episode Discharge Orders: Discharge ED (Routine); Ordered 01/18/24 Ordered By: Alonso Augustin Referrals: Raj Ketn MD [Primary Care Provider] - 1 week Activity Restrictions/Additional Instructions: Thank you for choosing [facility] healthcare needs today. Please realize that you were seen in the emergency department and that we are providing you with an emergency medical screening exam and this may not be a complete and all exclusive of all testing and/or medical workup we may need to determine your element or severity of your illness. It is very important that you follow-up as instructed with your primary care provider or specialist for the additional evaluation and to discuss your medical treatment plan. You may return to the emergency department should you have concerns or if your condition changes or worsens in any way. Coding Level of Care Code ED Credit Review Officer for Nathan Agudelo
[2024-01-18 20:18] VITALS: BP 138/89; PULSE 98; O2SAT 96
== END 2024-01-18 20:15 | disposition home or self-care (01) ==
PROVIDERS: Emergency Provider Emergency Medicine; PCP Family Medicine
DX: R41.83 Borderline intellectual functioning (principal); Z72.0 Tobacco use; Z79.82 Long term (current) use of aspirin
CPT/HCPCS: 99285

== ENCOUNTER 2024-01-21 12:19 | Emergency (ER) | payer MEDICARE, MEDICAID, SELFPAY ==
--- NOTE | 2024-01-21 12:43 | ED.C_ITS ---
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 He is here with an employee of the facility. Patient is here recurrently for thoughts . He says that he continues to sometimes have thoughts of hurting himself. He has reported various different ways he would hurt himself to different people over the last several weeks. However the patient does not have access to any weapons, knives, ropes, medications, or any way in which to hurt himself. Patient reports he is bored at his facility. He reports he likes being here. When asked what he'd do if he went home, he says I'd go home and watch TV. I wouldn't do nothing. Pt reports his suicidal thoughts usually last up to 10 minutes at a time. Related Data Home Medications Medication Instructions Recorded Confirmed aspirin 81 mg tablet,delayed 81 mg PO DAILY 03/16/23 01/21/24 release furosemide 40 mg tablet 40 mg PO DAILY 03/16/23 01/21/24 lisinopril 10 mg tablet 10 mg PO DAILY 03/16/23 01/21/24 metformin 500 mg tablet 500 mg PO BID 03/16/23 01/21/24 simvastatin 20 mg tablet 20 mg PO DAILY 03/16/23 01/21/24 nitroglycerin 0.4 mg sublingual 0.4 mg sublingual Q5M PRN Chest 11/08/23 01/21/24 tablet Pain camphor-menthol 11 %-10 % topical 1 applic topical BID PRN Pain 01/21/24 01/21/24 cream ([place]) cetirizine 10 mg tablet 10 mg PO DAILY PRN allergies 01/21/24 01/21/24 naproxen 500 mg tablet 500 mg PO .COMPLEX PRN Pain 01/21/24 01/21/24 Previous Rx's Medication Instructions Recorded risperidone 1 mg tablet (Risperdal) 1 mg PO BID #60 tabs 11/17/23 bupropion HCl 150 mg 24 hr tablet, 150 mg PO QAM #30 tabs 01/11/24 extended release (Wellbutrin XL) paroxetine HCl 10 mg tablet (Paxil) 10 mg PO DAILY #7 tabs 01/11/24 paroxetine HCl 20 mg tablet (Paxil) 20 mg PO DAILY #7 tabs 01/11/24 paroxetine HCl 30 mg tablet (Paxil) 30 mg PO DAILY #7 tabs 01/11/24 quetiapine 200 mg tablet (Seroquel) 200 mg PO .HS #30 tabs 01/11/24 Allergies Allergy/AdvReac Type Severity Reaction Status Date / Time No Known Allergies Allergy Verified 01/11/24 14:24 Review of Systems General: Reports: 10 or more systems reviewed and unremarkable except in HPI and below PFSH ED PFSH: Medical History Moderate episode of recurrent major depressive disorder Psychiatric care Surgical History Hx laparoscopic cholecystectomy 11/09/23 Dr Lim Family History Brother Diabetes Denies family history of CAD (coronary artery disease) Congestive heart failure (CHF) Anemia Aneurysm Arrhythmia Atrial fibrillation TIA (transient ischemic attack) Heart disease Sudden cardiac Chronic kidney disease (CKD) Congenital heart disease Carotid artery disease Pulmonary embolism Cardiomyopathy Social History Smoking and tobacco/nicotine status: current every day tobacco/nicotine user Alcohol intake: never Physical Exam Narrative: EXAM NARRATIVE: Patient smiling and carefree as he explains intermittent thoughts . He explains that he likes being here. He explains that he is bored at his facility. Patient reports that he would not do anything to himself if he was discharged. He reports he has no access to weapons. He has poor insight and judgment. This is probably chronic. Patient does not have a suicidal plan or timeline on arrival to the ER. Const: COMMON NORMALS: no limitations, alert and well nourished EXAM LIMI TATIONS: no altered mental status HENMT: COMMON NORMALS: normocephalic, atraumatic and external ears normal HEAD & SCALP: normocephalic and atraumatic EXTERNAL EAR: Yes external ears normal MOUTH: no muffled voice Eye: COMMON NORMALS: EOMs intact bilaterally, conjunctivae normal and no scleral icterus CONJUNCTIVA: Yes conjunctivae normal Neck/C-Spine: GENERAL: Yes normal visual inspection and Yes trachea midline Resp: COMMON NORMALS: normal respiratory effort and No use of accessory muscles Extremity: COMMON NORMALS: normal to inspection Neuro: COMMON NORMALS: moves all extremities, no focal motor deficits and no sensory deficits noted SENSORIUM/ORIENTATION: Yes alert SPEECH: speech normal Psych: COMMON NORMALS: cooperative Skin: COMMON NORMALS: turgor normal and no jaundice GENERAL SKIN EXAM: turgor normal Course ED course: Discussed case with Dr. Monge. He is familiar with this patient. Recommends discharge and outpatient follow-up. Vital Signs: Vital signs: Vital Signs Temperature 98.8 F 01/21/24 12:45 Pulse Rate 89 01/21/24 12:45 Respiratory Rate 18 01/21/24 12:45 Blood Pressure 141/73 01/21/24 12:45 Pulse Oximetry 98 01/21/24 12:45 Oxygen Delivery Me thod Room Air 01/21/24 12:45 MDM - Psych Medical Decision Making Patient presents with fleeting thoughts of hurting himself without access or means. He has not attempted to hurt himself since 1997. He tells me he has no intention to do so. Overall, the patient has chronically impaired insight and judgment with borderline intellectual functioning. His paroxetine continues to be tapered down and he is on Wellbutrin. There was some thought that Wellbutrin could be causing this but last time I saw him, the psychiatrist deferred to his outpatient provider to decide whether to stop the Wellbutrin; if the Wellbutrin is going to be stopped, the decision would have to be made whether to increase paroxetine. Overall, the patient's risk for hurting himself or others is judged to be very low. I am going to touch base with the psychiatrist again for c onsultation. No radiology studies performed this visit Discharge Plan Discharge Patient Disposition: Home Clinical Impression: Encounter for medical screening examination Condition: Stable Prescriptions: No Action paroxetine HCl [Paxil] 30 mg tablet 30 mg PO DAILY Qty: 7 0RF Rx Instructions: Paxil 30mg daily for 7 days then, Paxil 20mg daily for 7 days then, Paxil 10mg daily for 7 days then stop. paroxetine HCl [Paxil] 20 mg tablet 20 mg PO DAILY Qty: 7 0RF Rx Instructions: Paxil 30mg daily for 7 days then, Paxil 20mg daily for 7 days then, Paxil 10mg daily for 7 days then stop. paroxetine HCl [Paxil] 10 mg tablet 10 mg PO DAILY Qty: 7 0RF Rx Instructions: Paxil 30mg daily for 7 days then, Paxil 20mg daily for 7 days then, Paxil 10mg daily for 7 days then stop. quetiapine [Seroquel] 200 mg tablet 200 mg PO .HS Qty: 30 2RF bupropion HCl [Wellbutrin XL] 150 mg tablet extended release 24 hr 150 mg PO QAM Qty: 30 1RF risperidone [Risperdal] 1 mg tablet 1 mg PO BID Qty: 60 2RF furosemide 40 mg tablet 40 mg PO DAILY metformin 500 mg tablet 500 mg PO BID Hold Instructions: Resume on 01/02/24. aspirin 81 mg Tablet,Delayed Release (Dr/Ec) 81 mg PO DAILY simvastatin 20 mg tablet 20 mg PO DAILY lisinopril 10 mg tablet 10 mg PO DAILY nitroglycerin 0.4 mg Tablet, Sublingual 0.4 mg SUBLINGUAL Q5M PRN (Reason: Chest Pain) Rx Instructions: do not exceed 3 doses per episode cetirizine 10 mg tablet 10 mg PO DAILY PRN (Reason: allergies) naproxen 500 mg tablet 500 mg PO .COMPLEX PRN (Reason: Pain) Rx Instructions: TAKE 1 TABLET BY MOUTH EVERY TWELVE HOURS for 7 days NEEDED FOR PAIN THEN NEEDED. STOP FOR stomach pain [place] 11-10 % cream 1 applic TOPICAL BID PRN (Reason: Pain) Discharge Orders: Discharge ED (Routine); Ordered 01/21/24 Ordered By: Jalil Araujo Referrals: Raj Kent MD [Primary Care Provider] - Patient Instructions: Suicide Prevention (ED), Suicidal Ideation Activity Restrictions/Additional Instructions: Dr. Monge did not recommend any medication changes at this time. Make sure the patient does not have any access to medications or weapons. If he attempts to hurt himself or others, return to the ER. Coding Level of Care Code ED Director Of Placement for Nathan Agudelo
[2024-01-21 12:45] VITALS: BP 141/73; PULSE 89; RESP 18; TEMP 37.1; O2SAT 98
--- NOTE | 2024-01-21 13:25 | PC.PHAR ---
Patient iS from [facility]
[2024-01-21 13:58] VITALS: BP 143/83; PULSE 98; O2SAT 94
== END 2024-01-21 14:00 | disposition home or self-care (01) ==
PROVIDERS: Emergency Provider Emergency Medicine; PCP Family Medicine
DX: Z00.8 Encounter for other general examination (principal); Z79.82 Long term (current) use of aspirin; Z79.84 Long term (current) use of oral hypoglycemic drugs; Z72.0 Tobacco use
CPT/HCPCS: 99283

== ENCOUNTER 2024-01-27 15:19 | Emergency (ER) | payer MEDICARE, MEDICAID, SELFPAY ==
[2024-01-27 15:24] VITALS: BP 117/76; PULSE 110; RESP 20; TEMP 36.5; O2SAT 97; BMI 43.8
--- NOTE | 2024-01-27 15:39 | ED.C_ITS ---
HPI - Psych General: Chief Complaint: Psychiatric Symptoms Stated Complaint: SI, MHE Time Seen by Provider: 01/27/24 15:36 Source: patient Mode of arrival: ambulatory Limitations: no limitations History of Present Illness: 48-year-old male is very well-known to t he ER has a history of electro disability has been admitted to our psych frias recently has been seen here recently multiple times for SI. He states he been having suicidal thoughts again with thoughts of slicing his throat. He does not have access to any sharps he lives in a senior living. Patient's had a history of malingering as well she likes to be admitted to the hospital and to the psych frias. Patient's resting comfortably no distress she did has no other complaints this time Associated symptoms: Reports depression and suicidal ideation Related Data Home Medications Medication Instructions Recorded Confirmed aspirin 81 mg tablet,delayed 81 mg PO DAILY 03/16/23 01/21/24 release furosemide 40 mg tablet 40 mg PO DAILY 03/16/23 01/21/24 lisinopril 10 mg tablet 10 mg PO DAILY 03/16/23 01/21/24 metformin 500 mg tablet 500 mg PO BID 03/16/23 01/21/24 simvastatin 20 mg tablet 20 mg PO DAILY 03/16/23 01/21/24 nitroglycerin 0.4 mg sublingual 0.4 mg sublingual Q5M PRN Chest 11/08/23 01/21/24 tablet Pain Benadryl Es Itch Stop Gel 1 applic topical TID PRN itching 01/21/24 01/21/24 camphor-menthol 11 %-10 % topical 1 applic topical BID PRN Pain 01/21/24 01/21/24 cream ([place]) cetirizine 10 mg tablet 10 mg PO DAILY PRN allergies 01/21/24 01/21/24 naproxen 500 mg tablet 500 mg PO .COMPLEX PRN Pain 01/21/24 01/21/24 Previous Rx's Medication Instructions Recorded risperidone 1 mg tablet (Risperdal) 1 mg PO BID #60 tabs 11/17/23 bupropion HCl 150 mg 24 hr tablet, 150 mg PO QAM #30 tabs 01/11/24 extended release (Wellbutrin XL) paroxetine HCl 10 mg tablet (Paxil) 10 mg PO DAILY #7 tabs 01/11/24 paroxetine HCl 20 mg tablet (Paxil) 20 mg PO DAILY #7 tabs 01/11/24 paroxetine HCl 30 mg tablet (Paxil) 30 mg PO DAILY #7 tabs 01/11/24 quetiapine 200 mg tablet (Seroquel) 200 mg PO .HS #30 tabs 01/11/24 Allergies Allergy/AdvReac Type Severity Reaction Status Date / Time No Known Allergies Allergy Verified 01/27/24 15:22 Review of Systems Const: Denies: fever(s), chills, body aches or change in appetite ENMT: Denies: throat pain or dental pain Card: Denies: chest pain Resp: Denies: dyspnea GI: Denies: abdominal pain, nausea, vomiting or diarrhea Musc: Denies: neck pain or back pain Skin/Breast: Denies: rash Neuro: Denies: headache(s) Psych: Reports: depression and suicidal ideation PFS ED PFSH: Medical History Moderate episode of recurrent major depressive disorder Psychiatric care Surgical History Hx laparoscopic cholecystectomy 11/09/23 Dr Lim Family History Brother Diabetes Denies family history of CAD (coronary artery disease) Congestive heart failure (CHF) Anemia Aneurysm Arrhythmia Atrial fibrillation TIA (transient ischemic attack) Heart disease Sudden cardiac Chronic kidney disease (CKD) Congenital heart disease Carotid artery disease Pulmonary embolism Cardiomyopathy Social History Smoking and tobacco/nicotine status: current every day tobacco/nicotine user Alcohol intake: never Physical Exam Const: COMMON NORMALS: no acute distress, patient oriented x3 and healthy appearing HENMT: COMMON NORMALS: normocephalic and atraumatic HEAD & SCALP: normocephalic and atraumatic Neck/C-Spine: COMMON NORMALS: full ROM and supple Chest: COMMONS NORMALS: normal inspection of the chest Resp: COMMON NORMALS: normal respiratory effort Extremity: COMMON NORMALS: normal to inspection and full ROM Neuro: COMMON NORMALS: patient oriented x3, moves all extremities and no focal motor deficits Psych: COMMON NORMALS: mental status grossly normal, Normal thought process present and cooperative THOUGHT PROCESS: Normal thought process present THOUGHT CONTENT: Yes Suicidality present Skin: COMMON NORMALS: no rashes or lesions noted and no wounds GENERAL SKIN EXAM: no rashes or lesions noted Course Vital Signs: Vital signs: Vital Signs Temperature 97.7 F 01/27/24 15:24 Pulse Rate 110 H 01/27/24 15:24 Respiratory Rate 20 H 01/27/24 15:24 Blood Pressure 117/76 01/27/24 15:24 Pulse Oximetry 97 01/27/24 15:24 MDM - Psych Medical Decision Making Patient presents here with depression along with standing is suicidal he is been seen here multiple times in the past I did speak to Dr. Monge our psychiatrist who knows patient well he had also been consulted and he saw patient here over FaceTime. He agrees that patient's not imminent threat to himself he is likely malingering will discharge at this time he is to follow-up with his next [facility] appointment return if worsening Medical Records I reviewed the patient's medical records. No radiology studies performed this visit Discharge Plan Discharge Patient Disposition: Home Clinical Impression: Depression Condition: Stable Prescriptions: No Action paroxetine HCl [Paxil] 30 mg tablet 30 mg PO DAILY Qty: 7 0RF Rx Instructions: Paxil 30mg daily for 7 days then, Paxil 20mg daily for 7 days then, Paxil 10mg daily for 7 days then stop. paroxetine HCl [Paxil] 20 mg tablet 20 mg PO DAILY Qty: 7 0RF Rx Instructions: Paxil 30mg daily for 7 days then, Paxil 20mg daily for 7 days then, Paxil 10mg daily for 7 days then stop. paroxetine HCl [Paxil] 10 mg tablet 10 mg PO DAILY Qty: 7 0RF Rx Instructions: Paxil 30mg daily for 7 days then, Paxil 20mg daily for 7 days then, Paxil 10mg daily for 7 days then stop. quetiapine [Seroquel] 200 mg tablet 200 mg PO .HS Qty: 30 2RF bupropion HCl [Wellbutrin XL] 150 mg tablet extended release 24 hr 150 mg PO QAM Qty: 30 1RF risperidone [Risperdal] 1 mg tablet 1 mg PO BID Qty: 60 2RF furosemide 40 mg tablet 40 mg PO DAILY metformin 500 mg tablet 500 mg PO BID Hold Instructions: Resume on 01/02/24. aspirin 81 mg Tablet,Delayed Release (Dr/Ec) 81 mg PO DAILY simvastatin 20 mg tablet 20 mg PO DAILY lisinopril 10 mg tablet 10 mg PO DAILY nitroglycerin 0.4 mg Tablet, Sublingual 0.4 mg SUBLINGUAL Q5M PRN (Reason: Chest Pain) Rx Instructions: do not exceed 3 doses per episode cetirizine 10 mg tablet 10 mg PO DAILY PRN (Reason: allergies) naproxen 500 mg tablet 500 mg PO .COMPLEX PRN (Reason: Pain) Rx Instructions: TAKE 1 TABLET BY MOUTH EVERY TWELVE HOURS for 7 days NEEDED FOR PAIN THEN NEEDED. STOP FOR stomach pain [place] 11-10 % cream 1 applic TOPICAL BID PRN (Reason: Pain) Benadryl Es Itch Stop Gel 1 applic topical TID PRN (Reason: itching ) Discharge Orders: Discharge ED (Routine); Ordered 01/27/24 Ordered By: Keyana Mcmillan Referrals: Raj Kent MD [Primary Care Provider] - Discharge Diet: Advance as tolerated Discharge Activity: Resume usual activity Patient Instructions: Depression (ED), Suicide Prevention (ED) Coding Level of Care Code ED Wilton Weaver for Ntahan Agudelo
[2024-01-27 15:57] VITALS: BP 125/83; PULSE 98; O2SAT 99
== END 2024-01-27 15:57 | disposition home or self-care (01) ==
PROVIDERS: Emergency Provider Emergency Medicine; PCP Family Medicine
DX: F32.A Depression, unspecified (principal); Z79.82 Long term (current) use of aspirin; Z79.84 Long term (current) use of oral hypoglycemic drugs; Z72.0 Tobacco use
CPT/HCPCS: 99284

== ENCOUNTER 2024-02-04 17:51 | Emergency (ER) | payer MEDICARE, MEDICAID, SELFPAY ==
[2024-02-04 17:58] VITALS: BP 125/86; PULSE 92; RESP 16; TEMP 36.5; O2SAT 95
--- NOTE | 2024-02-04 18:28 | ED.C_ITS ---
HPI - Psych General: Chief Complaint: Psychiatric Symptoms Stated Complaint: SI Time Seen by Provider: 02/04/24 17:54 History of Present Illness: Patient presents to the ER with complaints of having bad thoughts, suicidal ideation, he said he had a mildly long. Patient does not have a plan or does not intend to act. Patient is already asking to go home. Patient is a frequent history of the ER with similar thoughts and usually changes his mind and is allowed to go home. Related Data Home Medications Medication Instructions Recorded Confirmed aspirin 81 mg tablet,delayed 81 mg PO DAILY 03/16/23 01/21/24 release furosemide 40 mg tablet 40 mg PO DAILY 03/16/23 01/21/24 lisinopril 10 mg tablet 10 mg PO DAILY 03/16/23 01/21/24 metformin 500 mg tablet 500 mg PO BID 03/16/23 01/21/24 simvastatin 20 mg tablet 20 mg PO DAILY 03/16/23 01/21/24 nitroglycerin 0.4 mg sublingual 0.4 mg sublingual Q5M PRN Chest 11/08/23 01/21/24 tablet Pain Benadryl Es Itch Stop Gel 1 applic topical TID PRN itching 01/21/24 01/21/24 camphor-menthol 11 %-10 % topical 1 applic topical BID PRN Pain 01/21/24 01/21/24 cream ([place]) cetirizine 10 mg tablet 10 mg PO DAILY PRN allergies 01/21/24 01/21/24 naproxen 500 mg tablet 500 mg PO .COMPLEX PRN Pain 01/21/24 01/21/24 Previous Rx's Medication Instructions Recorded risperidone 1 mg tablet (Risperdal) 1 mg PO BID #60 tabs 11/17/23 bupropion HCl 150 mg 24 hr tablet, 150 mg PO QAM #30 tabs 01/11/24 extended release (Wellbutrin XL) paroxetine HCl 10 mg tablet (Paxil) 10 mg PO DAILY #7 tabs 01/11/24 paroxetine HCl 20 mg tablet (Paxil) 20 mg PO DAILY #7 tabs 01/11/24 paroxetine HCl 30 mg tablet (Paxil) 30 mg PO DAILY #7 tabs 01/11/24 quetiapine 200 mg tablet (Seroquel) 200 mg PO .HS #30 tabs 01/11/24 Allergies Allergy/AdvReac Type Severity Reaction Status Date / Time No Known Allergies Allergy Verified 01/27/24 15:22 Review of Systems General: Reports: 10 or more systems reviewed and unremarkable except in HPI and below PFSH ED PFSH: Medical History Moderate episode of recurrent major depressive disorder Psychiatric care Surgical History Hx laparoscopic cholecystectomy 11/09/23 Dr Lim Family History Brother Diabetes Denies family history of CAD (coronary artery disease) Congestive heart failure (CHF) Anemia Aneurysm Arrhythmia Atrial fibrillation TIA (transient ischemic attack) Heart disease Sudden cardiac Chronic kidney disease (CKD) Congenital heart disease Carotid artery disease Pulmonary embolism Cardiomyopathy Social History Smoking and tobacco/nicotine status: current every day tobacco/nicotine user Alcohol intake: never Physical Exam Const: COMMON NORMALS: no acute distress, average body habitus, patient oriented x3, no limitations, healthy appearing, alert and well nourished HENMT: COMMON NORMALS: normocephalic, atraumatic, hearing grossly normal bilaterally, external ears normal, Normal external nose present and moist oral mucous membranes HEAD & SCALP: normocephalic and atraumatic NOSE: Normal external nose present EXTERNAL EAR: Yes external ears normal Neck/C-Spine: COMMON NORMALS: no JVD Chest: COMMONS NORMALS: normal inspection of the chest and normal palpation of entire chest wall Resp: COMMON NORMALS: normal respiratory effort, No retractions, No use of accessory muscles and clear to auscultation bilaterally AUSCULTATION: clear to auscultation bilaterally Cardio: COMMON NORMALS: no JVD, regular rate, regular rhythm, S1 normal heart sound present, S2 normal heart sound present, No gallops present (Cardio), No clicks present (Cardio), No murmurs present (Cardio) and No rub (Cardio) RATE: regular rate RHYTHM: regular rhythm HEART SOUNDS: S1 normal heart sound present and S2 normal heart sound present GI: COMMON NORMALS: Normal to inspection, nondistended, normoactive bowel sounds present, Soft to palpation, non-tender, No hepatosplenomegaly present and no masses PALPATION: Yes Soft to palpation and Yes No hepatosplenomegaly present Neuro: COMMON NORMALS: patient oriented x3 SENSORIUM/ORIENTATION: Yes alert Course Vital Signs: Vital signs: Vital Signs Temperature 97.7 F 02/04/24 17:58 Pulse Rate 92 02/04/24 17:58 Respiratory Rate 16 02/04/24 17:58 Blood Pressure 125/86 02/04/24 17:58 Pulse Oximetry 95 02/04/24 17:58 Oxygen Delivery Me thod Room Air 02/04/24 17:58 MDM - Psych Medical Decision Making Old notes reviewed patient and care worker talked about situation. Patient says he had these thoughts just for a few minutes at a time. But is not having them now. Patient will be allowed to go home. Medical Records I reviewed the patient's medical records. Lab Data I reviewed the patient's lab results. No radiology studies performed this visit Discharge Plan Discharge Patient Disposition: Home Clinical Impression: Borderline intellectual functioning Condition: Stable Prescriptions: No Action paroxetine HCl [Paxil] 30 mg tablet 30 mg PO DAILY Qty: 7 0RF Rx Instructions: Paxil 30mg daily for 7 days then, Paxil 20mg daily for 7 days then, Paxil 10mg daily for 7 days then stop. paroxetine HCl [Paxil] 20 mg tablet 20 mg PO DAILY Qty: 7 0RF Rx Instructions: Paxil 30mg daily for 7 days then, Paxil 20mg daily for 7 days then, Paxil 10mg daily for 7 days then stop. paroxetine HCl [Paxil] 10 mg tablet 10 mg PO DAILY Qty: 7 0RF Rx Instructions: Paxil 30mg daily for 7 days then, Paxil 20mg daily for 7 days then, Paxil 10mg daily for 7 days then stop. quetiapine [Seroquel] 200 mg tablet 200 mg PO .HS Qty: 30 2RF bupropion HCl [Wellbutrin XL] 150 mg tablet extended release 24 hr 150 mg PO QAM Qty: 30 1RF risperidone [Risperdal] 1 mg tablet 1 mg PO BID Qty: 60 2RF furosemide 40 mg tablet 40 mg PO DAILY metformin 500 mg tablet 500 mg PO BID Hold Instructions: Resume on 01/02/24. aspirin 81 mg Tablet,Delayed Release (Dr/Ec) 81 mg PO DAILY simvastatin 20 mg tablet 20 mg PO DAILY lisinopril 10 mg tablet 10 mg PO DAILY nitroglycerin 0.4 mg Tablet, Sublingual 0.4 mg SUBLINGUAL Q5M PRN (Reason: Chest Pain) Rx Instructions: do not exceed 3 doses per episode cetirizine 10 mg tablet 10 mg PO DAILY PRN (Reason: allergies) naproxen 500 mg tablet 500 mg PO .COMPLEX PRN (Reason: Pain) Rx Instructions: TAKE 1 TABLET BY MOUTH EVERY TWELVE HOURS for 7 days NEEDED FOR PAIN THEN NEEDED. STOP FOR stomach pain [place] 11-10 % cream 1 applic TOPICAL BID PRN (Reason: Pain) Benadryl Es Itch Stop Gel 1 applic topical TID PRN (Reason: itching ) Discharge Orders: Discharge ED (Routine); Ordered 02/04/24 Ordered By: Alonso Augustin Referrals: Raj Kent MD [Primary Care Provider] - 1 week Activity Restrictions/Additional Instructions: Thank you for choosing [facility] for your healthcare needs today. Please realize that you were seen in the emergency department and that we are providing you with an emergency medical screening exam and this may not be a complete and all exclusive of all testing and/or medical workup we may need to determine your element or severity of your illness. It is very important that you follow-up as instructed with your primary care provider or specialist for the additional evaluation and to discuss your medical treatment plan. You may return to the emergency department should you have concerns or if your condition changes or worsens in any way. Coding Level of Care Code ED [employer] Attendant for Nathan Agudelo
[2024-02-04 19:17] VITALS: BP 137/90; PULSE 84; RESP 16; O2SAT 95
== END 2024-02-04 19:18 | disposition home or self-care (01) ==
PROVIDERS: Emergency Provider Emergency Medicine; PCP Family Medicine
DX: R41.83 Borderline intellectual functioning (principal); R45.851 Suicidal ideations
CPT/HCPCS: 99285

== ENCOUNTER 2024-02-17 16:24 | Emergency (ER) | payer MEDICARE, MEDICAID, SELFPAY ==
[2024-02-17 16:34] VITALS: BP 140/64; PULSE 106; RESP 16; TEMP 37.1; O2SAT 95; BMI 43.1
--- NOTE | 2024-02-17 17:04 | XRR_ITS ---
PROCEDURE INFORMATION: Exam: XR Chest Exam date and time: 02/17/2024 5:16 PM Age: 48 years old Clinical indication: Shortness of breath; Additional info: Psych workup TECHNIQUE: Imaging protocol: Radiologic exam of the chest. Views: 1 view. COMPARISON: CR XR chest 1V portable [id number] 12/17/2023 7:52 PM FINDINGS: Lungs: Unremarkable. No consolidation. Pleural spaces: Unremarkable. No pleural effusion. No pneumothorax. Heart/Mediastinum: Unremarkable. No cardiomegaly. Bones/joints: Unremarkable. XR/XR chest 1V portable [id number] IMPRESSION: No acute findings.
--- NOTE | 2024-02-17 17:27 | ED.C_ITS ---
HPI - Psych 2 General: Chief Complaint: Psychiatric Symptoms Stated Complaint: S.I. Time Seen by Provider: 02/17/24 16:35 History of Present Illness: 48-year-old man with intellectual and de velopmental delay, hypertension, hyperlipidemia and obesity who presents to the emergency room suicidal thoughts. He says he wants to hurt himself and that he would walk into traffic. Apparently he is here quite regularly with this. According to staff this is usually a behavior he displays whenever he does not get what he wants which is most often food and sodas. Related Data Home Medications Medication Instructions Recorded Confirmed aspirin 81 mg tablet,delayed 81 mg PO DAILY 03/16/23 02/12/24 release furosemide 40 mg tablet 40 mg PO DAILY 03/16/23 02/12/24 lisinopril 10 mg tablet 10 mg PO DAILY 03/16/23 02/12/24 metformin 500 mg tablet 500 mg PO BID 03/16/23 02/12/24 simvastatin 20 mg tablet 20 mg PO DAILY 03/16/23 02/12/24 nitroglycerin 0.4 mg sublingual 0.4 mg sublingual Q5M PRN Chest 11/08/23 02/12/24 tablet Pain Benadryl Es Itch Stop Gel 1 applic topical TID PRN itching 01/21/24 02/12/24 camphor-menthol 11 %-10 % topical 1 applic topical BID PRN Pain 01/21/24 02/12/24 cream ([place]) cetirizine 10 mg tablet 10 mg PO DAILY PRN allergies 01/21/24 02/12/24 naproxen 500 mg tablet 500 mg PO .COMPLEX PRN Pain 01/21/24 02/12/24 Previous Rx's Medication Instructions Recorded bupropion HCl 150 mg 24 hr tablet, 150 mg PO QAM #30 tabs 01/11/24 extended release (Wellbutrin XL) quetiapine 200 mg tablet (Seroquel) 200 mg PO .HS #30 tabs 01/11/24 doxycycline hyclate 100 mg capsule 100 mg PO BID 10 days #20 caps 02/12/24 risperidone 1 mg tablet (Risperdal) 1 mg PO BID #60 tabs 02/14/24 Allergies Allergy/AdvReac Type Severity Reaction Status Date / Time No Known Allergies Allergy Verified 02/12/24 12:41 Review of Systems 2 Narrative: Constitutional symptoms: Negative except as documented in HPI. Skin symptoms: Negative except as documented in HPI. Eye symptoms: Negative except as documented in HPI. ENMT symptoms: Negative except as documented in HPI. Respiratory symptoms: Negative except as documented in HPI. Cardiovascular symptoms: Negative except as documented in HPI. Gastrointestinal symptoms: Negative except as documented in HPI. Genitourinary symptoms: Negative except as documented in HPI. Musculoskeletal symptoms: Negative except as documented in HPI. Neurologic symptoms: Negative except as documented in HPI. Psychiatric symptoms: Negative except as documented in HPI. Endocrine symptoms: Negative except as documented in HPI. PFSH ED 2 PFSH: Medical History Moderate episode of recurrent major depressive disorder Psychiatric care Surgical History Hx laparoscopic cholecystectomy 11/09/23 Dr Lim Family History Brother Diabetes Denies family history of CAD (coronary artery disease) Congestive heart failure (CHF) Anemia Aneurysm Arrhythmia Atrial fibrillation TIA (transient ischemic attack) Heart disease Sudden cardiac Chronic kidney disease (CKD) Congenital heart disease Carotid artery disease Pulmonary embolism Cardiomyopathy Social History Smoking and tobacco/nicotine status: unknown if used tobacco/nicotine Alcohol intake: never Physical Exam 2 Narrative: EXAM NARRATIVE: General: Alert, no acute distress. Skin: Warm, dry. Head: Normocephalic, atraumatic. Neck: Supple, trachea midline. Eye: Extraocular movements are intact. Ears, nose, mouth and throat: mucosa moist. Cardiovascular: Regular, Normal peripheral perfusion. Respiratory: Lungs are clear to auscultation, respirations are non-labored, breath sounds are equal, Symmetrical chest wall expansion. Gastrointestinal: Soft, Nontender, Non distended Musculoskeletal: Normal ROM, no deformity. Neurological: Alert and oriented, No focal neurological deficit observed. Psychiatric: Cooperative, patient states he would walk into traffic if he could. Course 2 Vital Signs: Vital signs: Vital Signs Temperature 98.7 F 02/17/24 16:34 Pulse Rate 106 H 02/17/24 16:34 Respiratory Rate 16 02/17/24 16:34 Blood Pressure 140/64 02/17/24 16:34 Pulse Oximetry 95 02/17/24 16:34 Oxygen Delivery Me thod Room Air 02/17/24 16:34 MDM - Psych Medical Decision Making Consultation: I spoke at length with Dr. Monge who is on-call for psychiatry and is extremely familiar with the patient. He recommends discharge back to the longterm. That that he implement the plans that they have had for this before including not allowing him to go outside when he is displaying these behaviors. Also recommends prompt follow-up with his outpatient psychiatrist. Assessment and plan: Intellectual delay Statement of self-harm Behavioral issues - Discharged home - Discussed plan with patient and with caregiver who is present. Answered any questions. - Evaluation and treatment of this problem were appropriate in the emergency setting. Lab Data 02/17/24 17:26 02/17/24 17:26 Laboratory Results WBC 8.23 10^3/uL (3.29-11.43) 02/17/24 17:26 RBC 4.92 10^6/uL (3.85-5.65) 02/17/24 17:26 Hgb 14.90 g/dL (11.27-16.99) 02/17/24 17:26 Hct 44.9 % (37-53) 02/17/24 17:26 MCV 91.3 fl (82-101) 02/17/24 17:26 MCH 30.3 pg (27-33) 02/17/24 17:26 MCHC 33.2 g/dL (30-55) 02/17/24 17:26 RDW 13.9 % (12.1-15.1) 02/17/24 17:26 Plt Count 277 10^3/cmm (157-399) 02/17/24 17:26 MPV 9.8 fL (7.4-10.4) 02/17/24 17:26 Neut % (Auto) 75.0 % 02/17/24 17:26 Lymph % (Auto) 15.9 % 02/17/24 17:26 [place] % (Auto) 7.9 % 02/17/24 17:26 Eos % (Auto) 0.6 % 02/17/24 17:26 Baso % (Auto) 0.4 % 02/17/24 17:26 Neut # (Auto) 6.17 10^3/uL (1.8-7.7) 02/17/24 17:26 Lymph # (Auto) 1.3 10^3/uL (0.8-4.8) 02/17/24 17:26 [place] # (Auto) 0.7 10^3/uL (0.2-0.9) 02/17/24 17:26 Eos # (Auto) 0.1 10^3/uL (0.0-0.8) 02/17/24 17:26 Baso # (Auto) 0.0 10^3/uL (0.0-0.1) 02/17/24 17:26 Nucleated RBC % (auto) 0 % 02/17/24 17: Nucleated RBCs # 0.0 /100WBC 02/17/24 17:26 Amorphous Sediment Not Reportable 02/17/24 17:02 No radiology studies performed this visit Discharge Plan Discharge Patient Disposition: Home Clinical Impression: Borderline intellectual functioning, Thoughts of self-harm Condition: Stable Prescriptions: No Action quetiapine [Seroquel] 200 mg tablet 200 mg PO .HS Qty: 30 2RF bupropion HCl [Wellbutrin XL] 150 mg tablet extended release 24 hr 150 mg PO QAM Qty: 30 1RF doxycycline hyclate 100 mg capsule 100 mg PO BID 10 Days Qty: 20 0RF risperidone [Risperdal] 1 mg tablet 1 mg PO BID Qty: 60 2RF furosemide 40 mg tablet 40 mg PO DAILY metformin 500 mg tablet 500 mg PO BID Hold Instructions: Resume on 01/02/24. aspirin 81 mg Tablet,Delayed Release (Dr/Ec) 81 mg PO DAILY simvastatin 20 mg tablet 20 mg PO DAILY lisinopril 10 mg tablet 10 mg PO DAILY nitroglycerin 0.4 mg Tablet, Sublingual 0.4 mg SUBLINGUAL Q5M PRN (Reason: Chest Pain) Rx Instructions: do not exceed 3 doses per episode cetirizine 10 mg tablet 10 mg PO DAILY PRN (Reason: allergies) naproxen 500 mg tablet 500 mg PO .COMPLEX PRN (Reason: Pain) Rx Instructions: TAKE 1 TABLET BY MOUTH EVERY TWELVE HOURS for 7 days NEEDED FOR PAIN THEN NEEDED. STOP FOR stomach pain [place] 11-10 % cream 1 applic TOPICAL BID PRN (Reason: Pain) Benadryl Es Itch Stop Gel 1 applic topical TID PRN (Reason: itching ) Discharge Orders: Discharge ED (Routine); Ordered 02/17/24 Ordered By: Mary Jane Sneed Referrals: Raj Kent MD [Primary Care Provider] - Discharge Diet: Usual diet Discharge Activity: Increase activity as tolerated Patient Instructions: Opioid Safety, Pain Management Activity Restrictions/Additional Instructions: Please [facility] with [facility] tomorrow or the next day. Phone number is [phone]. There is a 24-hour crisis hotline with the number of [phone]. Hours of operation are 8 AM to 6 PM. Thank you for choosing [facility] for your healthcare needs today. Please realize this is an emergency room and that we are providing you with a medical screening exam and this may not be complete and all inclusive of all the testing and or work up that you may need to determine your ailment or severity of your illness. You have been screened and evaluated and felt safe for discharge. Health conditions do change or evolve sometimes and as such it is important that you follow up with your Primary Doctor to be re checked, 3-5 days is a general good time frame for follow up. You are always welcome to return to the ED for re assessment if your symptoms are worsening or you have new concerns Coding Level of Care Code ED Director Software for Nathan Agudelo
--- NOTE | 2024-02-17 17:37 | ECG_ITS ---
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 Measurements Intervals [place] Rate: 100 P: 39 IN: 191 QRS: 88 QRSD: 89 T: 51 QT: 318 QTc: 410 Interpretive Statements SINUS TACHYCARDIA WITH FREQUENT VENTRICULAR PREMATURE COMPLEXES INDETERMINATE AXIS LOW QRS VOLTAGE IN PRECORDIAL LEADS [QRS DEFLECTION < 1.0 mV IN CHEST LEADS] ANTEROSEPTAL MYOCARDIAL INFARCTION , PROBABLY OLD [40+ ms Q WAVE IN V1-V4] Compared to ECG 12/17/2023 19:40:12 No significant changes Electronically Signed On 02-17-2024 22:03:13 SPIKE MACHINE HEATER by Franck Redman M.D. [email or web address]
[2024-02-17 17:56] LABS: Basophils % 0.4 %; Eosinophils # 0.1 10^3/uL (0.0-0.8); Eosinophils % 0.6 %; Hematocrit 44.9 % (37-53); Lymphocytes # 1.3 10^3/uL (0.8-4.8); Lymphocytes % 15.9 %; Mean Corpuscular HGB Conc 33.2 g/dL (30-55); Mean Corpuscular Hemoglobin 30.3 pg (27-33); Mean Corpuscular Volume 91.3 fl (82-101); Mean Platelet Volume 9.8 fL (7.4-10.4); Monocytes # 0.7 10^3/uL (0.2-0.9); Monocytes % 7.9 %; Neutrophils # 6.17 10^3/uL (1.8-7.7); Nucleated Red Blood Cells % 0 %; Platelet Count 277 10^3/cmm (157-399); Red Blood Count 4.92 10^6/uL (3.85-5.65); Red Cell Distribution Width 13.9 % (12.1-15.1); White Blood Count 8.23 10^3/uL (3.29-11.43)
[2024-02-17 18:05] LABS: Bilirubin Urine Negative (Negative); Blood Urine Negative (Negative); Glucose Urine UA Negative (Normal); Ketones Urine Negative (Negative); Leukocyte Esterase Urine Negative (Negative); Nitrate Urine Negative (Negative); Protein Urine Negative (Negative); Specific Gravity, Urine 1.025 (1.005-1.030); Urine Appearance Cloudy (CLEAR); Urine Color Yellow (Yellow)
[2024-02-17 18:10] LABS: Bacteria Urine None Seen /hpf; RBC Urine 0-2 /hpf (0-2); Squamous Epithelial Cell Urine 0-5 /hpf (0-5); WBC Urine 0-5 /hpf (0-5)
[2024-02-17 18:13] LABS: Amphetamines Screen Urine Negative (Negative); Barbiturates Screen Urine Negative (Negative); Benzodiazepines Screen Urine Negative (Negative); Cocaine Screen Urine Negative (Negative); Opiate Screen Urine Negative (Negative); PCP Screen Urine Negative (Negative); THC Screen Urine Negative (Negative)
[2024-02-17 18:30] LABS: Alanine Aminotransferase 28 U/L (0-41); Albumin Level 4.4 g/dL (3.5-5.2); Alkaline Phosphatase 87 U/L (40-130); Anion Gap 16.1 (5-19); Aspartate Amino Transferase 13 U/L (0-40); Blood Urea Nitrogen 13 mg/dL (6-20); Calcium 8.9 mg/dL (8.5-10.5); Carbon Dioxide 27 mmol/L (22-29); Chloride 102 mmol/L (98-107); Creatinine Clr Calc Pharmacy 166.5213; Globulin 1.9 g/dL (1.3-4.6); Glomerular Filtration Rate 103.2 mL/min (90-130); Glucose 108 mg/dL (65-115); Osmolality Calculated 293 mOsm/kg (285-295); Potassium 4.1 mmol/L (3.5-5.1); Salicylate 0.4 mg/dL (3-10); Sodium 141 mmol/L (136-145); Thyroid Stimulating Hormone 2.52 uIU/mL (0.27-4.20); Total Bilirubin 0.4 mg/dL (0.15-1.2); Total Protein 6.3 g/dL (6.6-8.7)
[2024-02-17 18:32] VITALS: BP 135/88; PULSE 86; O2SAT 94
[2024-02-17 18:34] VITALS: BP 135/88; PULSE 86; O2SAT 94
[2024-02-17 18:36] LABS: Acetaminophen < 5.0 ug/mL (10-30); Alcohol Level < 10 mg/dL (0-10)
[2024-02-17 18:44] LABS: Add Urine Culture? No
== END 2024-02-17 18:34 | disposition home or self-care (01) ==
PROVIDERS: Emergency Provider Emergency Medicine; PCP Family Medicine
DX: R41.83 Borderline intellectual functioning (principal); R45.851 Suicidal ideations; Z79.84 Long term (current) use of oral hypoglycemic drugs; Z79.82 Long term (current) use of aspirin
CPT/HCPCS: 36415; 71045; 80053; 80306; 80307; 81001; 84443; 85025; 93005; 99285

== ENCOUNTER 2024-02-20 13:47 | Emergency (ER) | payer MEDICARE, MEDICAID, SELFPAY ==
[2024-02-20 13:51] VITALS: BMI 42.5
[2024-02-20 13:53] VITALS: BP 117/75; PULSE 83; RESP 18; TEMP 36.8; O2SAT 91
[2024-02-20 14:45] LABS: Basophils % 0.4 %; Eosinophils % 0.4 %; Hematocrit 44.2 % (37-53); Lymphocytes # 1.1 10^3/uL (0.8-4.8); Lymphocytes % 15.4 %; Mean Corpuscular HGB Conc 32.6 g/dL (30-55); Mean Corpuscular Hemoglobin 29.6 pg (27-33); Mean Corpuscular Volume 90.8 fl (82-101); Mean Platelet Volume 9.6 fL (7.4-10.4); Monocytes # 0.6 10^3/uL (0.2-0.9); Monocytes % 8.5 %; Neutrophils # 5.35 10^3/uL (1.8-7.7); Nucleated Red Blood Cells % 0 %; Platelet Count 278 10^3/cmm (157-399); Red Blood Count 4.87 10^6/uL (3.85-5.65); Red Cell Distribution Width 13.5 % (12.1-15.1); White Blood Count 7.14 10^3/uL (3.29-11.43)
[2024-02-20 15:07] LABS: Alanine Aminotransferase 17 U/L (0-41); Albumin Level 4.2 g/dL (3.5-5.2); Alcohol Level 12 mg/dL (0-10); Alkaline Phosphatase 82 U/L (40-130); Anion Gap 18.5 (5-19); Aspartate Amino Transferase 13 U/L (0-40); Blood Urea Nitrogen 14 mg/dL (6-20); Calcium 8.5 mg/dL (8.5-10.5); Carbon Dioxide 26 mmol/L (22-29); Chloride 98 mmol/L (98-107); Creatinine Clr Calc Pharmacy 146.9887; Globulin 2.6 g/dL (1.3-4.6); Glomerular Filtration Rate 90.1 mL/min (90-130); Glucose 185 mg/dL (65-115); Osmolality Calculated 291 mOsm/kg (285-295); Potassium 4.5 mmol/L (3.5-5.1); Salicylate 1.3 mg/dL (3-10); Sodium 138 mmol/L (136-145); Thyroid Stimulating Hormone 2.22 uIU/mL (0.27-4.20); Total Bilirubin 0.8 mg/dL (0.15-1.2); Total Protein 6.8 g/dL (6.6-8.7)
[2024-02-20 15:10] LABS: Acetaminophen < 5.0 ug/mL (10-30)
[2024-02-20 15:43] VITALS: BP 106/68; PULSE 94; O2SAT 97
--- NOTE | 2024-02-20 15:48 | ED.C_ITS ---
HPI - Psych 2 General: Chief Complaint: Psychiatric Symptoms Stated Complaint: MHE Time Seen by Provider: 02/20/24 13:51 History of Present Illness: This patient is a 48-year-old white male who presents to the emergency department with suicidal ideation. Patient states started having thoughts yesterday. He has been thinking about walking out into traffic. Patient was evaluated here on with suicidal thoughts as well. Patient has an extensive psychiatric history. He does [facility] a [facility]. Associated symptoms: Reports depression and suicidal ideation Related Data Home Medications Medication Instructions Recorded Confirmed aspirin 81 mg tablet,delayed 81 mg PO DAILY 03/16/23 02/12/24 release furosemide 40 mg tablet 40 mg PO DAILY 03/16/23 02/12/24 lisinopril 10 mg tablet 10 mg PO DAILY 03/16/23 02/12/24 metformin 500 mg tablet 500 mg PO BID 03/16/23 02/12/24 simvastatin 20 mg tablet 20 mg PO DAILY 03/16/23 02/12/24 nitroglycerin 0.4 mg sublingual 0.4 mg sublingual Q5M PRN Chest 11/08/23 02/12/24 tablet Pain Benadryl Es Itch Stop Gel 1 applic topical TID PRN itching 01/21/24 02/12/24 camphor-menthol 11 %-10 % topical 1 applic topical BID PRN Pain 01/21/24 02/12/24 cream ([place]) cetirizine 10 mg tablet 10 mg PO DAILY PRN allergies 01/21/24 02/12/24 naproxen 500 mg tablet 500 mg PO .COMPLEX PRN Pain 01/21/24 02/12/24 Previous Rx's Medication Instructions Recorded bupropion HCl 150 mg 24 hr tablet, 150 mg PO QAM #30 tabs 01/11/24 extended release (Wellbutrin XL) quetiapine 200 mg tablet (Seroquel) 200 mg PO .HS #30 tabs 01/11/24 doxycycline hyclate 100 mg capsule 100 mg PO BID 10 days #20 caps 02/12/24 risperidone 1 mg tablet (Risperdal) 1 mg PO BID #60 tabs 02/14/24 bacitracin 500 unit/gram topical 1 applic topical BID #30 grams 02/18/24 ointment Allergies Allergy/AdvReac Type Severity Reaction Status Date / Time No Known Allergies Allergy Verified 02/12/24 12:41 Review of Systems 2 General: Reports: 10 or more systems reviewed and unremarkable except in HPI and below Psych: Reports: depression and suicidal ideation PFSH ED 2 PFSH: Medical History Moderate episode of recurrent major depressive disorder Psychiatric care Surgical History Hx laparoscopic cholecystectomy 11/09/23 Dr Lim Family History Brother Diabetes Denies family history of CAD (coronary artery disease) Congestive heart failure (CHF) Anemia Aneurysm Arrhythmia Atrial fibrillation TIA (transient ischemic attack) Heart disease Sudden cardiac Chronic kidney disease (CKD) Congenital heart disease Carotid artery disease Pulmonary embolism Cardiomyopathy Social History Smoking and tobacco/nicotine status: unknown if used tobacco/nicotine Alcohol intake: never Physical Exam 2 Const: COMMON NORMALS: no acute distress, patient oriented x3 and no limitations GENERAL APPEARANCE: cooperative and comfortable HENMT: COMMON NORMALS: normocephalic, atraumatic, Normal nasal mucous membranes and turbinates present, moist oral mucous membranes and oropharynx normal HEAD & SCALP: normal to inspection, normocephalic and atraumatic F SAMIRA & SINUS: normal facial exam NOSE: Normal nasal mucous membranes and turbinates present Eye: COMMON NORMALS: Equal, round and reactive pupils present, EOMs intact bilaterally and conjunctivae normal GENERAL EYE: appearance normal, both eyes and all related structures CONJUNCTIVA: Yes conjunctivae normal PUPIL: Yes Equal, round and reactive pupils present Neck/C-Spine: COMMON NORMALS: supple and no JVD Chest: COMMONS NORMALS: normal inspection of the chest Resp: COMMON NORMALS: normal respiratory effort and clear to auscultation bilaterally AUSCULTATION: clear to auscultation bilaterally Cardio: COMMON NORMALS: no JVD, regular rate, regular rhythm, No gallops present (Cardio), No murmurs present (Cardio) and No rub (Cardio) RATE: r egular rate RHYTHM: regular rhythm GI: COMMON NORMALS: Normal to inspection, nondistended, normoactive bowel sounds present, Soft to palpation and non-tender AUSCULTATION: Yes normoactive bowel sounds PALPATION: Yes Soft to palpation : COMMON NORMALS: Yes no CVA tenderness BLADDER/KIDNEY EXAM: Yes no CVA tenderness Back/Pelvis: COMMON NORMALS: no CVA tenderness and thoracic and lumbar spine normal to inspection Extremity: COMMON NORMALS: normal to inspection Neuro: COMMON NORMALS: patient oriented x3 and CN's II-XII intact bilaterally Psych: COMMON NORMALS: mental status grossly normal, Normal thought process present, cooperative and speech normal ATTITUDE: Yes calm ACTIVITY/MOTOR BEHAVIOR: Yes appropriate eye contact SPEECH: Yes normal speech MOOD & AFFECT: Yes euthymic mood THOUGHT PROCESS: Normal thought process present THOUGHT CONTENT: Yes Suicidality present ATTENTION/CONCENTRATION: Yes attention grossly intact MEMORY/COGNITION: Yes memory grossly intact I NSIGHT: Limited insight present (Psych) JUDGEMENT: Limited judgement present (Psych) Skin: COMMON NORMALS: no rashes or lesions noted, turgor normal and no jaundice GENERAL SKIN EXAM: no rashes or lesions noted and turgor normal Course 2 Vital Signs: Vital signs: Vital Signs Temperature 98.3 F 02/20/24 13:53 Pulse Rate 94 02/20/24 15:43 Respiratory Rate 18 02/20/24 13:53 Blood Pressure 106/68 02/20/24 15:43 Pulse Oximetry 97 02/20/24 15:43 Oxygen Delivery Me thod Room Air 02/20/24 13:53 MDM - Psych Medical Decision Making Case was discussed with Dr. Monge, psychiatrist. Dr. Monge states the patient is chronically suicidal. They do have the ability to watch him closely at the home and put mechanisms in place to keep him safe. He does not feel that the patient needs to be admitted. He has been admitted numerous times. This was discussed with the patient and he is agreeable to going back to the penitentiary. Recommended to the staff member here with him that they continue with her protocols to keep him safe. He was discharged in stable condition. Lab Data 02/20/24 14:36 02/20/24 14:36 Laboratory Results WBC 7.14 10^3/uL (3.29-11.43) 02/20/24 14:36 RBC 4.87 10^6/uL (3.85-5.65) 02/20/24 14:36 Hgb 14.40 g/dL (11.27-16.99) 02/20/24 14:36 Hct 44.2 % (37-53) 02/20/24 14:36 MCV 90.8 fl (82-101) 02/20/24 14:36 MCH 29.6 pg (27-33) 02/20/24 14:36 MCHC 32.6 g/dL (30-55) 02/20/24 14:36 RDW 13.5 % (12.1-15.1) 02/20/24 14:36 Plt Count 278 10^3/cmm (157-399) 02/20/24 14:36 MPV 9.6 fL (7.4-10.4) 02/20/24 14:36 Neut % (Auto) 75.0 % 02/20/24 14:36 Lymph % (Auto) 15.4 % 02/20/24 14:36 [facility] % (Auto) 8.5 % 02/20/24 14:36 Eos % (Auto) 0.4 % 02/20/24 14:36 Baso % (Auto) 0.4 % 02/20/24 14:36 Neut # (Auto) 5.35 10^3/uL (1.8-7.7) 02/20/24 14:36 Lymph # (Auto) 1.1 10^3/uL (0.8-4.8) 02/20/24 14:36 [facility] # (Auto) 0.6 10^3/uL (0.2-0.9) 02/20/24 14:36 Eos # (Auto) 0.0 10^3/uL (0.0-0.8) 02/20/24 14:36 Baso # (Auto) 0.0 10^3/uL (0.0-0.1) 02/20/24 14:36 Nucleated RBC % (auto) 0 % 02/20/24 14:36 Nucleated RBCs # 0.0 /100WBC 02/20/24 14:36 Sodium 138 mmol/L (136-145) 02/20/24 14:36 Potassium 4.5 mmol/L (3.5-5.1) 02/20/24 14:36 Chloride 98 mmol/L (98-107) 02/20/24 14:36 Carbon Dioxide 26 mmol/L (22-29) 02/20/24 14:36 Anion Gap 18.5 (5-19) 02/20/24 14:36 BUN 14 mg/dL (6-20) 02/20/24 14:36 Creatinine 0.9 mg/dL (0.7-1.2) 02/20/24 14:36 GFR Calculation 90.1 mL/min (90-130) 02/20/24 14:36 Glucose 185 mg/dL (65-115) H 02/20/24 14:36 Calculated Osmolality 291 mOsm/kg (285-295) 02/20/24 14:36 Calcium 8.5 mg/dL (8.5-10.5) 02/20/24 14:36 Total Bilirubin 0.8 mg/dL (0.15-1.2) 02/20/24 14:36 AST 13 U/L (0-40) 02/20/24 14:36 ALT 17 U/L (0-41) 02/20/24 14:36 Alkaline Phosphatase 82 U/L (40-130) 02/20/24 14:36 Total Protein 6.8 g/dL (6.6-8.7) 02/20/24 14:36 Albumin 4.2 g/dL (3.5-5.2) 02/20/24 14:36 Globulin 2.6 g/dL (1.3-4.6) 02/20/24 14:36 TSH 2.22 uIU/mL (0.27-4.20) 02/20/24 14:36 Salicylates 1.3 mg/dL (3-10) L 02/20/24 14:36 Acetaminophen < 5.0 ug/mL (10-30) L 02/20/24 14:36 Ethyl Alcohol 12 mg/dL (0-10) H 02/20/24 14:36 No radiology studies performed this visit Discharge Plan Discharge Patient Disposition: Home Clinical Impression: Depression Qualifiers: Depression Type: major depressive disorder Major depression recurrence: r ecurrent Active/Remission status: currently active Major depression episode severity: moderate Qualified Code(s): F33.1 - Major depressive disorder, recurrent, moderate Condition: Stable Prescriptions: No Action quetiapine [Seroquel] 200 mg tablet 200 mg PO .HS Qty: 30 2RF bupropion HCl [Wellbutrin XL] 150 mg tablet extended release 24 hr 150 mg PO QAM Qty: 30 1RF doxycycline hyclate 100 mg capsule 100 mg PO BID 10 Days Qty: 20 0RF risperidone [Risperdal] 1 mg tablet 1 mg PO BID Qty: 60 2RF bacitracin 500 unit/gram ointment 1 applic topical BID Qty: 30 0RF furosemide 40 mg tablet 40 mg PO DAILY metformin 500 mg tablet 500 mg PO BID Hold Instructions: Resume on 01/02/24. aspirin 81 mg Tablet,Delayed Release (Dr/Ec) 81 mg PO DAILY simvastatin 20 mg tablet 20 mg PO DAILY lisinopril 10 mg tablet 10 mg PO DAILY nitroglycerin 0.4 mg Tablet, Sublingual 0.4 mg SUBLINGUAL Q5M PRN (Reason: Chest Pain) Rx Instructions: do not exceed 3 doses per episode cetirizine 10 mg tablet 10 mg PO DAILY PRN (Reason: allergies) naproxen 500 mg tablet 500 mg PO .COMPLEX PRN (Reason: Pain) Rx Instructions: TAKE 1 TABLET BY MOUTH EVERY TWELVE HOURS for 7 days NEEDED FOR PAIN THEN NEEDED. STOP FOR stomach pain [place] 11-10 % cream 1 applic TOPICAL BID PRN (Reason: Pain) Benadryl Es Itch Stop Gel 1 applic topical TID PRN (Reason: itching ) Discharge Orders: Discharge ED (Routine); Ordered 02/20/24 Ordered By: Yevgeniy Hoover Referrals: Raj Kent MD [Primary Care Provider] - Patient Instructions: Depression Coding Level of Care Code ED Parking Cashier for Nathan Agudelo
[2024-02-20 15:55] LABS: Covid PCR NEGATIVE (Negative); Influenza A NEGATIVE (Negative); Influenza B NEGATIVE (Negative); Respiratory Syncytial Virus Ce NEGATIVE (Negative)
== END 2024-02-20 15:45 | disposition home or self-care (01) ==
PROVIDERS: Emergency Provider Emergency Medicine; PCP Family Medicine
DX: F33.1 Major depressive disorder, recurrent, moderate (principal); Z79.84 Long term (current) use of oral hypoglycemic drugs; Z79.82 Long term (current) use of aspirin
CPT/HCPCS: 0241U; 36415; 80053; 80307; 84443; 85025; 99283

== ENCOUNTER → 2024-02-21 13:00 | Outpatient (BNVA) | payer MEDICARE, MEDICAID, SELFPAY | PROVIDERS: PCP Family Medicine; Visit Provider Thoracic Surgery (Cardiothoracic Vascular Surgery) | DX: E11.52 Type 2 diabetes mellitus with diabetic peripheral angiopathy with gangrene (principal); E11.621 Type 2 diabetes mellitus with foot ulcer; L97.521 Non-pressure chronic ulcer of other part of left foot limited to breakdown of skin | CPT/HCPCS: 99213 ==

== ENCOUNTER 2024-02-24 12:09 | Emergency (ER) | payer MEDICARE, MEDICAID, SELFPAY ==
[2024-02-24 12:10] VITALS: BP 112/73; PULSE 82; RESP 18; TEMP 36.7; O2SAT 98
--- NOTE | 2024-02-24 12:25 | W.ED.PSYCHS ---
HPI - Psych General: Chief Complaint: Psychiatric Symptoms Stated Complaint: mhe Time Seen by Provider: 02/24/24 12:10 Source: patient and EMS Mode of arrival: EMS Limitations: no limitations History of Present Illness: 48-year-old male well-known to the ER is here from his long-term complaining depression with some suicidal thoughts denies any specific plan denies any worse improving factors states has been going on for a day. He is calm and cooperative here Associated symptoms: Reports depression Related Data Home Medications Medication Instructions Recorded Confirmed aspirin 81 mg tablet,delayed 81 mg PO DAILY 03/16/23 02/12/24 release furosemide 40 mg tablet 40 mg PO DAILY 03/16/23 02/12/24 lisinopril 10 mg tablet 10 mg PO DAILY 03/16/23 02/12/24 metformin 500 mg tablet 500 mg PO BID 03/16/23 02/12/24 simvastatin 20 mg tablet 20 mg PO DAILY 03/16/23 02/12/24 nitroglycerin 0.4 mg sublingual 0.4 mg sublingual Q5M PRN Chest 11/08/23 02/12/24 tablet Pain Benadryl Es Itch Stop Gel 1 applic topical TID PRN itching 01/21/24 02/12/24 camphor-menthol 11 %-10 % topical 1 applic topical BID PRN Pain 01/21/24 02/12/24 cream ([place]) cetirizine 10 mg tablet 10 mg PO DAILY PRN allergies 01/21/24 02/12/24 naproxen 500 mg tablet 500 mg PO .COMPLEX PRN Pain 01/21/24 02/12/24 Previous Rx's Medication Instructions Recorded bupropion HCl 150 mg 24 hr tablet, 150 mg PO QAM #30 tabs 01/11/24 extended release (Wellbutrin XL) quetiapine 200 mg tablet (Seroquel) 200 mg PO .HS #30 tabs 01/11/24 doxycycline hyclate 100 mg capsule 100 mg PO BID 10 days #20 caps 02/12/24 risperidone 1 mg tablet (Risperdal) 1 mg PO BID #60 tabs 02/14/24 bacitracin 500 unit/gram topical 1 applic topical BID #30 grams 02/18/24 ointment miconazole nitrate 2 % topical 1 spray topical BID #133 grams 02/21/24 spray powder (Athlete's Foot) Allergies Allergy/AdvReac Type Severity Reaction Status Date / Time No Known Allergies Allergy Verified 02/12/24 12:41 Review of Systems Const: Denies: fever(s), chills, body aches or change in appetite ENMT: Denies: throat pain or dental pain Card: Denies: chest pain Resp: Denies: dyspnea GI: Denies: abdominal pain, nausea, vomiting or diarrhea Musc: Denies: neck pain or back pain Skin/Breast: Denies: rash Neuro: Denies: headache(s) Psych: Reports: depression PFSH ED PFSH: Medical History Moderate episode of recurrent major depressive disorder Psychiatric care Surgical History Hx laparoscopic cholecystectomy 11/09/23 Dr Lim Family History Brother Diabetes Denies family history of CAD (coronary artery disease) Congestive heart failure (CHF) Anemia Aneurysm Arrhythmia Atrial fibrillation TIA (transient ischemic attack) Heart disease Sudden cardiac Chronic kidney disease (CKD) Congenital heart disease Carotid artery disease Pulmonary embolism Cardiomyopathy Social History Smoking and tobacco/nicotine status: unknown if used tobacco/nicotine Alcohol intake: never Physical Exam Const: COMMON NORMALS: no acute distress, patient oriented x3 and healthy appearing HENMT: COMMON NORMALS: normocephalic and atraumatic HEAD & SCALP: normocephalic and atraumatic Neck/C-Spine: COMMON NORMALS: full ROM and supple Chest: COMMONS NORMALS: normal inspection of the chest Resp: COMMON NORMALS: normal respiratory effort Cardio: COMMON NORMALS: regular rate, regular rhythm and No murmurs present (Cardio) RATE: regular rate RHYTHM: regular rhythm Extremity: COMMON NORMALS: normal to inspection and full ROM Neuro: COMMON NORMALS: patient oriented x3 Psych: COMMON NORMALS: mental status grossly normal, Normal thought process present and cooperative THOUGHT PROCESS: Normal thought process present Skin: COMMON NORMALS: no rashes or lesions noted and no wounds GENERAL SKIN EXAM: no rashes or lesions noted Course Vital Signs: Vital signs: Vital Signs Temperature 98.1 F 02/24/24 12:10 Pulse Rate 82 02/24/24 12:10 Respiratory Rate 18 02/24/24 12:10 Blood Pressure 112/73 02/24/24 12:10 Pulse Oximetry 98 02/24/24 12:10 Oxygen Delivery Me thod Room Air 02/24/24 12:10 MDM - Psych Medical Decision Making Patient presents for depression stating he is suicidal he has been seen here multiple times known very well been admitted to our psych frias I did speak to psychiatrist Dr. Monge who knows him very well he is likely malingering and not really a threat to himself feel he stable for discharge Dr. Monge agrees will discharge him back to his long-term Medical Records I reviewed the patient's medical records. No radiology studies performed this visit Discharge Plan Discharge Patient Disposition: Home Clinical Impression: Depression Qualifiers: Depression Type: major depressive disorder Major depression recurrence: recurrent Active/Remission status: currently active Major depression episode severity: moderate Qualified Code(s): F33.1 - Major depressive disorder, recurrent, moderate Condition: Stable Prescriptions: No Action miconazole nitrate [Athlete's Foot] 2 % aerosol powder 1 spray topical BID Qty: 133 2RF quetiapine [Seroquel] 200 mg tablet 200 mg PO .HS Qty: 30 2RF bupropion HCl [Wellbutrin XL] 150 mg tablet extended release 24 hr 150 mg PO QAM Qty: 30 1RF doxycycline hyclate 100 mg capsule 100 mg PO BID 10 Days Qty: 20 0RF risperidone [Risperdal] 1 mg tablet 1 mg PO BID Qty: 60 2RF bacitracin 500 unit/gram ointment 1 applic topical BID Qty: 30 0RF furosemide 40 mg tablet 40 mg PO DAILY metformin 500 mg tablet 500 mg PO BID Hold Instructions: Resume on 01/02/24. aspirin 81 mg Tablet,Delayed Release (Dr/Ec) 81 mg PO DAILY simvastatin 20 mg tablet 20 mg PO DAILY lisinopril 10 mg tablet 10 mg PO DAILY nitroglycerin 0.4 mg Tablet, Sublingual 0.4 mg SUBLINGUAL Q5M PRN (Reason: Chest Pain) Rx Instructions: do not exceed 3 doses per episode cetirizine 10 mg tablet 10 mg PO DAILY PRN (Reason: allergies) naproxen 500 mg tablet 500 mg PO .COMPLEX PRN (Reason: Pain) Rx Instructions: TAKE 1 TABLET BY MOUTH EVERY TWELVE HOURS for 7 days NEEDED FOR PAIN THEN NEEDED. STOP FOR stomach pain [place] 11-10 % cream 1 applic TOPICAL BID PRN (Reason: Pain) Benadryl Es Itch Stop Gel 1 applic topical TID PRN (Reason: itching ) Discharge Orders: Discharge ED (Routine); Ordered 02/24/24 Ordered By: Keyana Mcmillan Referrals: Raj Kent MD [Primary Care Provider] - 4-7 days Discharge Diet: Advance as tolerated Discharge Activity: Resume usual activity Patient Instructions: General Headache (ED) Coding Level of Care Code ED Labelling Machine Operator for Nathan Agudelo
== END 2024-02-24 12:24 | disposition home or self-care (01) ==
PROVIDERS: Emergency Provider Emergency Medicine; PCP Family Medicine
DX: Z53.21 Procedure and treatment not carried out due to patient leaving prior to being seen by health care provider (principal); R45.851 Suicidal ideations

== ENCOUNTER → 2024-02-28 10:08 | Outpatient (BNVA) | payer MEDICARE, MEDICAID, SELFPAY | PROVIDERS: PCP Family Medicine; Visit Provider Thoracic Surgery (Cardiothoracic Vascular Surgery) | DX: Z09 Encounter for follow-up examination after completed treatment for conditions other than malignant neoplasm (principal); Z87.2 Personal history of diseases of the skin and subcutaneous tissue | CPT/HCPCS: 99212; A6219 ==

== ENCOUNTER → 2024-03-08 09:12 | Outpatient (BNVA) | payer MEDICARE, MEDICAID, SELFPAY | PROVIDERS: PCP Family Medicine; Visit Provider Nurse Practitioner Family | DX: I49.9 Cardiac arrhythmia, unspecified (principal); I50.30 Unspecified diastolic (congestive) heart failure; I49.3 Ventricular premature depolarization | CPT/HCPCS: 99213 ==

== ENCOUNTER 2024-03-13 09:41 | Emergency (ER) | payer MEDICARE, MEDICAID, SELFPAY ==
--- NOTE | 2024-03-13 09:48 | XR_ITS ---
WS: [id number] XR chest 1V portable [id number] REASON FOR EXAM: OD FINDINGS: Chest is unchanged compared to 02/17/2024. Heart and mediastinum are within normal limits. Calcified granulomas disease bilaterally. No acute pulmonary parenchymal or pleural abnormality. Bony thorax is intact with mild degenerative spondylosis in the mid and lower thoracic spine. XR/XR chest 1V portable [id number] IMPRESSION: Stable chest without acute abnormality.
[2024-03-13 10:00] VITALS: BP 146/88; PULSE 95; RESP 16; TEMP 36.7; O2SAT 94; BMI 33.9
--- NOTE | 2024-03-13 10:30 | PC.PHAR ---
Med rec completed by previous discharge list due to unable to verify with pt.
[2024-03-13 10:57] LABS: Bilirubin Urine Negative (Negative); Blood Urine Negative (Negative); Glucose Urine UA Negative (Normal); Ketones Urine Negative (Negative); Leukocyte Esterase Urine Negative (Negative); Nitrate Urine Negative (Negative); Protein Urine Negative (Negative); Specific Gravity, Urine 1.007 (1.005-1.030); Urine Appearance Clear (CLEAR); Urine Color Yellow (Yellow); Urobilinogen Urine 0.2 mg/dL (Negative); pH Urine 7.5 (5-7)
[2024-03-13 11:05] LABS: Amphetamines Screen Urine Negative (Negative); Barbiturates Screen Urine Negative (Negative); Benzodiazepines Screen Urine Negative (Negative); Cocaine Screen Urine Negative (Negative); Opiate Screen Urine Negative (Negative); PCP Screen Urine Negative (Negative); THC Screen Urine Negative (Negative)
[2024-03-13 11:10] LABS: Add Urine Microscopic? YES; Bacteria Urine None Seen /hpf; RBC Urine 0-2 /hpf (0-2); Squamous Epithelial Cell Urine 0-5 /hpf (0-5); WBC Urine 0-5 /hpf (0-5)
[2024-03-13 11:20] LABS: Basophils % 0.4 %; Eosinophils # 0.1 10^3/uL (0.0-0.8); Eosinophils % 0.9 %; Hematocrit 47.2 % (37-53); Mean Corpuscular HGB Conc 33.3 g/dL (30-55); Mean Corpuscular Hemoglobin 30.6 pg (27-33); Mean Platelet Volume 9.8 fL (7.4-10.4); Monocytes # 0.5 10^3/uL (0.2-0.9); Monocytes % 7.5 %; Neutrophils # 5.32 10^3/uL (1.8-7.7); Neutrophils % 76.9 %; Nucleated Red Blood Cells % 0 %; Platelet Count 277 10^3/cmm (157-399); Red Blood Count 5.13 10^6/uL (3.85-5.65); Red Cell Distribution Width 13.4 % (12.1-15.1); White Blood Count 6.92 10^3/uL (3.29-11.43)
[2024-03-13 11:40] LABS: Alanine Aminotransferase 18 U/L (0-41); Albumin Level 4.6 g/dL (3.5-5.2); Alkaline Phosphatase 85 U/L (40-130); Anion Gap 16.4 (5-19); Aspartate Amino Transferase 18 U/L (0-40); Blood Urea Nitrogen 14 mg/dL (6-20); Calcium 9.3 mg/dL (8.5-10.5); Carbon Dioxide 31 mmol/L (22-29); Chloride 98 mmol/L (98-107); Creatinine Clr Calc Pharmacy 130.5026; Globulin 2.7 g/dL (1.3-4.6); Glomerular Filtration Rate 90.1 mL/min (90-130); Glucose 96 mg/dL (65-115); Osmolality Calculated 292 mOsm/kg (285-295); Potassium 4.4 mmol/L (3.5-5.1); Sodium 141 mmol/L (136-145); Total Bilirubin 0.8 mg/dL (0.15-1.2); Total Protein 7.3 g/dL (6.6-8.7)
[2024-03-13 11:43] LABS: Acetaminophen < 5.0 ug/mL (10-30); Alcohol Level < 10 mg/dL (0-10); Salicylate < 0.3 mg/dL (3-10)
--- NOTE | 2024-03-13 11:54 | ED_ITS ---
HPI - Overdose 2 General: Chief Complaint: Overdose Stated Complaint: took bunch of pills Time Seen by Provider: 03/13/24 09:47 History of Present Illness: 48-year-old male who has borderline inte llectual function and some mental health issues. He was out on a pass from [employer] today when he returns today states he took excessive medications. He reports having taken around 10 vitamin E tablets and 10 vitamin C tablets 3 days ago. He said no apparent adverse effect. Related Data Home Medications Medication Instructions Recorded Confirmed aspirin 81 mg tablet,delayed 81 mg PO DAILY 03/16/23 03/13/24 release furosemide 40 mg tablet 40 mg PO DAILY 03/16/23 03/13/24 lisinopril 10 mg tablet 10 mg PO DAILY 03/16/23 03/13/24 metformin 500 mg tablet 500 mg PO BID 03/16/23 03/13/24 simvastatin 20 mg tablet 20 mg PO DAILY 03/16/23 03/13/24 nitroglycerin 0.4 mg sublingual 0.4 mg sublingual Q5M PRN Chest 11/08/23 03/13/24 tablet Pain Benadryl Es Itch Stop Gel 1 applic topical TID PRN itching 01/21/24 03/13/24 camphor-menthol 11 %-10 % topical 1 applic topical BID PRN Pain 01/21/24 03/13/24 cream ([place]) cetirizine 10 mg tablet 10 mg PO DAILY PRN allergies 01/21/24 03/13/24 naproxen 500 mg tablet 500 mg PO .COMPLEX PRN Pain 01/21/24 03/13/24 quetiapine 200 mg tablet (Seroquel) 200 mg PO BEDTIME 03/13/24 03/13/24 Previous Rx's Medication Instructions Recorded risperidone 1 mg tablet (Risperdal) 1 mg PO BID #60 tabs 02/14/24 bacitracin 500 unit/gram topical 1 applic topical BID #30 grams 02/18/24 ointment miconazole nitrate 2 % topical 1 spray topical BID #133 grams 02/21/24 spray powder (Athlete's Foot) bupropion HCl 300 mg 24 hr tablet, 300 mg PO QAM #30 tabs 03/06/24 extended release (Wellbutrin XL) neomycin 3.5 mg/g-polymyxin B 0.5 inch ophthalmic (eye) TID #3.5 03/07/24 10,000 unit/g-dexameth 0.1 % eye grams oint (Maxitrol) Allergies Allergy/AdvReac Type Severity Reaction Status Date / Time No Known Allergies Allergy Verified 03/08/24 09:18 Review of Systems 2 Const: Denies: fever(s) or chills Card: Denies: chest pain Resp: Denies: dyspnea GI: Denies: abdominal pain : Denies: dysuria, urinary frequency or urinary urgency Musc: Denies: neck pain or back pain Skin/Breast: Denies: rash PFSH ED 2 PFSH: Medical History Moderate episode of recurrent major depressive disorder Psychiatric care Surgical History Hx laparoscopic cholecystectomy 11/09/23 Dr Lim Family History Brother Diabetes Denies family history of CAD (coronary artery disease) Congestive heart failure (CHF) Anemia Aneurysm Arrhythmia Atrial fibrillation TIA (transient ischemic attack) Heart disease Sudden cardiac Chronic kidney disease (CKD) Congenital heart disease Carotid artery disease Pulmonary embolism Cardiomyopathy Social History Smoking and tobacco/nicotine status: current every day tobacco/nicotine user Alcohol intake: never Physical Exam 2 Const: COMMON NORMALS: no acute distress GENERAL APPEARANCE: cooperative and comfortable ORIENTATION/CONSCIOUSNESS: Yes awake HENMT: COMMON NORMALS: normocephalic, atraumatic and hearing grossly normal bilaterally HEAD & SCALP: normocephalic and atraumatic Resp: COMMON NORMALS: normal respiratory effort, No retractions, No use of accessory muscles and clear to auscultation bilaterally AUSCULTATION: clear to auscultation bilaterally Cardio: COMMON NORMALS: regular rate, regular rhythm and No murmurs present (Cardio) RATE: regular rate RHYTHM: regular rhythm GI: COMMON NORMALS: Soft to palpation and No hepatosplenomegaly present A USCULTATION: Yes normoactive bowel sounds PALPATION: Yes Soft to palpation, No Tenderness to palpation present (GI), No Guarding due to palpation present (GI) and Yes No hepatosplenomegaly present Extremity: COMMON NORMALS: normal to inspection, capillary refill normal, no clubbing, cyanosis or edema, no calf tenderness and no pedal edema Skin: COMMON NORMALS: no rashes or lesions noted GENERAL SKIN EXAM: no rashes or lesions noted Course 2 Vital Signs: Vital signs: Vital Signs Temperature 98.1 F 03/13/24 10:00 Pulse Rate 88 03/13/24 12:41 Respiratory Rate 16 03/13/24 10:00 Blood Pressure 146/88 03/13/24 12:41 Pulse Oximetry 96 03/13/24 12:41 Oxygen Delivery Me thod Room Air 03/13/24 10:00 MDM - Overdose Medical Decision Making Medical evaluation is normal no significant abnormality or toxidrome. I discussed his case with Dr. Monge who is on-call for psychiatry is very family this patient having been consulted on multiple times in the past. He does not feel at this time that the patient would benefit from inpatient care he recommends continuing supervised care in the [facility]. At [facility] they do not allow him access to medications except as he is to be taking his specific prescribed medications. Medical Records I reviewed the patient's medical records. Lab Data I reviewed the patient's lab results. 03/13/24 10:51 03/13/24 10:51 Radiology Impressions Chest X-Ray 03/13/24 09:48 IMPRESSION: Stable chest without acute abnormality. Laboratory Results WBC 6.92 10^3/uL (3.29-11.43) 03/13/24 10:51 RBC 5.13 10^6/uL (3.85-5.65) 03/13/24 10:51 Hgb 15.70 g/dL (11.27-16.99) 03/13/24 10:51 Hct 47.2 % (37-53) 03/13/24 10:51 MCV 92.0 fl (82-101) 03/13/24 10:51 MCH 30.6 pg (27-33) 03/13/24 10:51 MCHC 33.3 g/dL (30-55) 03/13/24 10:51 RDW 13.4 % (12.1-15.1) 03/13/24 10:51 Plt Count 277 10^3/cmm (157-399) 03/13/24 10:51 MPV 9.8 fL (7.4-10.4) 03/13/24 10:51 Neut % (Auto) 76.9 % 03/13/24 10:51 Lymph % (Auto) 14.0 % 03/13/24 10:51 [place] % (Auto) 7.5 % 03/13/24 10:51 Eos % (Auto) 0.9 % 03/13/24 10:51 Baso % (Auto) 0.4 % 03/13/24 10:51 Neut # (Auto) 5.32 10^3/uL (1.8-7.7) 03/13/24 10:51 Lymph # (Auto) 1.0 10^3/uL (0.8-4.8) 03/13/24 10:51 [place] # (Auto) 0.5 10^3/uL (0.2-0.9) 03/13/24 10:51 Eos # (Auto) 0.1 10^3/uL (0.0-0.8) 03/13/24 10:51 Baso # (Auto) 0.0 10^3/uL (0.0-0.1) 03/13/24 10:51 Nucleated RBC % (auto) 0 % 03/13/24 10:51 Nucleated RBCs # 0.0 /100WBC 03/13/24 10:51 Sodium 141 mmol/L (136-145) 03/13/24 10:51 Potassium 4.4 mmol/L (3.5-5.1) 03/13/24 10:51 Chloride 98 mmol/L (98-107) 03/13/24 10:51 Carbon Dioxide 31 mmol/L (22-29) H 03/13/24 10:51 Anion Gap 16.4 (5-19) 03/13/24 10:51 BUN 14 mg/dL (6-20) 03/13/24 10:51 Creatinine 0.9 mg/dL (0.7-1.2) 03/13/24 10:51 GFR Calculation 90.1 mL/min (90-130) 03/13/24 10:51 Glucose 96 mg/dL (65-115) 03/13/24 10:51 Calculated Osmolality 292 mOsm/kg (285-295) 03/13/24 10:51 Calcium 9.3 mg/dL (8.5-10.5) 03/13/24 10:51 Total Bilirubin 0.8 mg/dL (0.15-1.2) 03/13/24 10:51 AST 18 U/L (0-40) 03/13/24 10:51 ALT 18 U/L (0-41) 03/13/24 10:51 Alkaline Phosphatase 85 U/L (40-130) 03/13/24 10:51 Total Protein 7.3 g/dL (6.6-8.7) 03/13/24 10:51 Albumin 4.6 g/dL (3.5-5.2) 03/13/24 10:51 Globulin 2.7 g/dL (1.3-4.6) 03/13/24 10:51 Urine Color Yellow (Yellow) 03/13/24 10:50 Urine Appearance Clear (CLEAR) 03/13/24 10:50 Urine pH 7.5 (5-7) 03/13/24 10:50 Ur Specific [place] 1.007 (1.005-1.030) 03/13/24 10:50 Urine Protein Negative (Negative) 03/13/24 10:50 Urine Glucose (UA) Negative (Normal) 03/13/24 10:50 Urine Ketones Negative (Negative) 03/13/24 10:50 Urine Blood Negative (Negative) 03/13/24 10:50 Urine Nitrate Negative (Negative) 03/13/24 10:50 Urine Bilirubin Negative (Negative) 03/13/24 10:50 Urine Urobilinogen 0.2 mg/dL (Negative) 03/13/24 10:50 Ur Leukocyte Esterase Negative (Negative) 03/13/24 10:50 Urine RBC 0-2 /hpf (0-2) 03/13/24 10:50 Urine WBC 0-5 /hpf (0-5) 03/13/24 10:50 Ur Squamous Epith Cells 0-5 /hpf (0-5) 03/13/24 10:50 Amorphous Sediment Not Reportable 03/13/24 10:50 Urine Bacteria None seen /hpf (NONE) 03/13/24 10:50 Hyaline Casts 0.40 /lpf 03/13/24 10:50 Salicylates < 0.3 mg/dL (3-10) L 03/13/24 10:51 Urine Opiates Screen Negative ng/mL (Negative) 03/13/24 10:50 Acetaminophen < 5.0 ug/mL (10-30) L 03/13/24 10:51 Ur Barbiturates Screen Negative ng/mL (Negative) 03/13/24 10:50 Ur Phencyclidine Scrn Negative ng/mL (Negative) 03/13/24 10:50 Ur Amphetamines Screen Negative ng/mL (Negative) 03/13/24 10:50 U Benzodiazepines Scrn Negative ng/mL (Negative) 03/13/24 10:50 Urine Cocaine Screen Negative ng/mL (Negative) 03/13/24 10:50 U Marijuana (THC) Screen Negative ng/mL (Negative) 03/13/24 10:50 Ethyl Alcohol < 10 mg/dL (0-10) 03/13/24 10:51 No radiology studies performed this visit Discharge Plan Discharge Patient Disposition: Home Clinical Impression: Suicide attempt by drug overdose, Borderline intellectual functioning Condition: Stable Prescriptions: No Action miconazole nitrate [Athlete's Foot] 2 % aerosol powder 1 spray topical BID Qty: 133 2RF bupropion HCl [Wellbutrin XL] 300 mg tablet extended release 24 hr 300 mg PO QAM Qty: 30 1RF neomycin-polymyxin B-dexameth [Maxitrol] 3.5 mg/g-10,000 unit/g-0.1 % ointment 0.5 inch ophthalmic (eye) TID Qty: 3.5 0RF Rx Instructions: space evenly during waking hours risperidone [Risperdal] 1 mg tablet 1 mg PO BID Qty: 60 2RF bacitracin 500 unit/gram ointment 1 applic topical BID Qty: 30 0RF furosemide 40 mg tablet 40 mg PO DAILY metformin 500 mg tablet 500 mg PO BID Hold Instructions: Resume on 01/02/24. aspirin 81 mg Tablet,Delayed Release (Dr/Ec) 81 mg PO DAILY simvastatin 20 mg tablet 20 mg PO DAILY lisinopril 10 mg tablet 10 mg PO DAILY nitroglycerin 0.4 mg Tablet, Sublingual 0.4 mg SUBLINGUAL Q5M PRN (Reason: Chest Pain) Rx Instructions: do not exceed 3 doses per episode cetirizine 10 mg tablet 10 mg PO DAILY PRN (Reason: allergies) naproxen 500 mg tablet 500 mg PO .COMPLEX PRN (Reason: Pain) Rx Instructions: TAKE 1 TABLET BY MOUTH EVERY TWELVE HOURS for 7 days NEEDED FOR PAIN THEN NEEDED. STOP FOR stomach pain [place] 11-10 % cream 1 applic TOPICAL BID PRN (Reason: Pain) Benadryl Es Itch Stop Gel 1 applic topical TID PRN (Reason: itching ) quetiapine [Seroquel] 200 mg tablet 200 mg PO BEDTIME Discharge Orders: Discharge ED (Routine); Ordered 03/13/24 Ordered By: Alvarado Khoury Referrals: Raj Kent MD [Primary Care Provider] - Discharge Diet: Usual diet Discharge Activity: Resume usual activity Patient Instructions: Opioid Safety, Pain Management Activity Restrictions/Additional Instructions: Thank you for choosing [facility] for your healthcare needs today. It is very important that you follow up as instructed or that you return to the Emergency Department should you have concerns or if your condition changes or worsens in any way. You were seen in the emergency room after ingesting vitamin tablets. These are not harmful your laboratory tests are unremarkable I discussed with the on-call psychiatrist who is familiar with your case from previous consultations. He does not feel at this point that you need to be admitted to the hospital he recommends continuing under the supervision of your [facility]. Follow-up at [facility]. Coding Level of Care Code ED Bench Repair Technician for Nathan Agudelo
[2024-03-13 12:02] VITALS: BP 146/88; PULSE 87; O2SAT 96
[2024-03-13 12:41] VITALS: BP 146/88; PULSE 88; O2SAT 96
== END 2024-03-13 12:43 | disposition home or self-care (01) ==
PROVIDERS: Emergency Provider Family Medicine; PCP Family Medicine
DX: T50.902A Poisoning by unspecified drugs, medicaments and biological substances, intentional self-harm, initial encounter (principal); R41.83 Borderline intellectual functioning; X58.XXXA Exposure to other specified factors, initial encounter; Z79.82 Long term (current) use of aspirin; Z72.0 Tobacco use
CPT/HCPCS: 36415; 71045; 80053; 80306; 80307; 81001; 85025; 99284

== ENCOUNTER 2024-03-17 14:23 | Emergency (ER) | payer MEDICARE, MEDICAID, SELFPAY ==
--- NOTE | 2024-03-17 14:31 | ED.C_ITS ---
HPI - Psych General: Chief Complaint: Psychiatric Symptoms Stated Complaint: si Time Seen by Provider: 03/17/24 14:24 Source: patient and EMS Mode of arrival: EMS Limitations: no limitations History of Present Illness: 48-year-old male is very well-known to [facility] ER history of intellectual disability he lives in a [place] [facility] states he is suicidal he has been seen here multiple times in the past for same he denies any specific plans denies any worse improved factors Associated symptoms: Reports depression Related Data Home Medications Medication Instructions Recorded Confirmed aspirin 81 mg tablet,delayed 81 mg PO DAILY 03/16/23 03/17/24 release furosemide 40 mg tablet 40 mg PO DAILY 03/16/23 03/17/24 lisinopril 10 mg tablet 10 mg PO DAILY 03/16/23 03/17/24 metformin 500 mg tablet 500 mg PO BID 03/16/23 03/17/24 simvastatin 20 mg tablet 20 mg PO DAILY 03/16/23 03/17/24 nitroglycerin 0.4 mg sublingual 0.4 mg sublingual Q5M PRN Chest 11/08/23 03/17/24 tablet Pain Benadryl Es Itch Stop Gel 1 applic topical TID PRN itching 01/21/24 03/17/24 camphor-menthol 11 %-10 % topical 1 applic topical BID PRN Pain 01/21/24 03/17/24 cream ([place]) cetirizine 10 mg tablet 10 mg PO DAILY PRN allergies 01/21/24 03/17/24 naproxen 500 mg tablet 500 mg PO .COMPLEX PRN Pain 01/21/24 03/17/24 quetiapine 200 mg tablet (Seroquel) 200 mg PO BEDTIME 03/13/24 03/17/24 Previous Rx's Medication Instructions Recorded risperidone 1 mg tablet (Risperdal) 1 mg PO BID #60 tabs 02/14/24 bacitracin 500 unit/gram topical 1 applic topical BID #30 grams 02/18/24 ointment miconazole nitrate 2 % topical 1 spray topical BID #133 grams 02/21/24 spray powder (Athlete's Foot) bupropion HCl 300 mg 24 hr tablet, 300 mg PO QAM #30 tabs 03/06/24 extended release (Wellbutrin XL) neomycin 3.5 mg/g-polymyxin B 0.5 inch ophthalmic (eye) TID #3.5 03/07/24 10,000 unit/g-dexameth 0.1 % eye grams oint (Maxitrol) Allergies Allergy/AdvReac Type Severity Reaction Status Date / Time No Known Allergies Allergy Verified 03/17/24 10:59 Review of Systems Const: Denies: fever(s), chills, body aches or change in appetite ENMT: Denies: throat pain or dental pain Card: Denies: chest pain Resp: Denies: dyspnea GI: Denies: abdominal pain, nausea, vomiting or diarrhea Musc: Denies: neck pain or back pain Skin/Breast: Denies: rash Neuro: Denies: headache(s) Psych: Reports: depression PFSH ED PFSH: Medical History Moderate episode of recurrent major depressive disorder Psychiatric care Surgical History Hx laparoscopic cholecystectomy 11/09/23 Dr Lim Family History Brother Diabetes Denies family history of CAD (coronary artery disease) Congestive heart failure (CHF) Anemia Aneurysm Arrhythmia Atrial fibrillation TIA (transient ischemic attack) Heart disease Sudden cardiac Chronic kidney disease (CKD) Congenital heart disease Carotid artery disease Pulmonary embolism Cardiomyopathy Social History Smoking and tobacco/nicotine status: current every day tobacco/nicotine user Alcohol intake: never Physical Exam Const: COMMON NORMALS: no acute distress, patient oriented x3 and healthy appearing HENMT: COMMON NORMALS: normocephalic and atraumatic HEAD & SCALP: normocephalic and atraumatic Neck/C-Spine: COMMON NORMALS: full ROM and supple Chest: COMMONS NORMALS: normal inspection of the chest Resp: COMMON NORMALS: normal respiratory effort Cardio: COMMON NORMALS: regular rate RATE: regular rate Extremity: COMMON NORMALS: normal to inspection and full ROM Neuro: COMMON NORMALS: patient oriented x3, moves all extremities and no focal motor deficits Psych: COMMON NORMALS: mental status grossly normal, Normal thought process present and cooperative THOUGHT PROCESS: Normal thought process present Skin: COMMON NORMALS: no rashes or lesions noted and no wounds GENERAL SKIN EXAM: no rashes or lesions noted Course Vital Signs: Vital signs: Vital Signs Temperature 98.5 F 03/17/24 14:35 Pulse Rate 72 03/17/24 14:55 Respiratory Rate 17 03/17/24 14:35 Blood Pressure 108/65 03/17/24 14:55 Pulse Oximetry 93 03/17/24 14:55 Oxygen Delivery Me thod Room Air 03/17/24 14:35 MDM - Psych Medical Decision Making Patient presents for depression I do not believe that he is a threat to himself he has been seen here multiple times I did speak to Dr. oMnge who agrees that he is stable for discharge she is to follow-up with [facility] or crisis center return if worsening Medical Records I reviewed the patient's medical records. No radiology studies performed this visit Discharge Plan Discharge Patient Disposition: Home Clinical Impression: Major depressive disorder Condition: Stable Prescriptions: No Action miconazole nitrate [Athlete's Foot] 2 % aerosol powder 1 spray topical BID Qty: 133 2RF bupropion HCl [Wellbutrin XL] 300 mg tablet extended release 24 hr 300 mg PO QAM Qty: 30 1RF neomycin-polymyxin B-dexameth [Maxitrol] 3.5 mg/g-10,000 unit/g-0.1 % ointment 0.5 inch ophthalmic (eye) TID Qty: 3.5 0RF Rx Instructions: space evenly during waking hours risperidone [Risperdal] 1 mg tablet 1 mg PO BID Qty: 60 2RF bacitracin 500 unit/gram ointment 1 applic topical BID Qty: 30 0RF furosemide 40 mg tablet 40 mg PO DAILY metformin 500 mg tablet 500 mg PO BID Hold Instructions: Resume on 01/02/24. aspirin 81 mg Tablet,Delayed Release (Dr/Ec) 81 mg PO DAILY simvastatin 20 mg tablet 20 mg PO DAILY lisinopril 10 mg tablet 10 mg PO DAILY nitroglycerin 0.4 mg Tablet, Sublingual 0.4 mg SUBLINGUAL Q5M PRN (Reason: Chest Pain) Rx Instructions: do not exceed 3 doses per episode cetirizine 10 mg tablet 10 mg PO DAILY PRN (Reason: allergies) naproxen 500 mg tablet 500 mg PO .COMPLEX PRN (Reason: Pain) Rx Instructions: TAKE 1 TABLET BY MOUTH EVERY TWELVE HOURS for 7 days NEEDED FOR PAIN THEN NEEDED. STOP FOR stomach pain [place] 11-10 % cream 1 applic TOPICAL BID PRN (Reason: Pain) Benadryl Es Itch Stop Gel 1 applic topical TID PRN (Reason: itching ) quetiapine [Seroquel] 200 mg tablet 200 mg PO BEDTIME Discharge Orders: Discharge ED (Routine); Ordered 03/17/24 Ordered By: Keyana Mcmillan Referrals: Raj Kent MD [Primary Care Provider] - Discharge Diet: Advance as tolerated Discharge Activity: Resume usual activity Patient Instructions: Depression (ED) Coding Level of Care Code ED Screen Operator for Nathan Agudelo
[2024-03-17 14:35] VITALS: BP 120/71; PULSE 112; RESP 17; TEMP 36.9; O2SAT 94; BMI 29.2
--- NOTE | 2024-03-17 14:45 | PC.NURSE ---
Suicide precautions not done as pt was DC'ed prior to discharge.
[2024-03-17 14:55] VITALS: BP 108/65; PULSE 72; O2SAT 93
--- NOTE | 2024-03-17 17:33 | CSC.BTCR_ITS ---
CSC Therapy/Crisis Response Current Presentation: Client presented to the Crisis Center on referral from the ER. Ronnie reports visiting the ER for Suicidal Ideation. Ronnie does state he has been having bad thoughts again , reporting he is thinking about cutting himself. Ronnie is well known to this facility with his last visit being the day prior. Ronnie elaborated hist past NPU visit had helped with his SI. When pressed about the specific factors of the NPU that had been helpful, Ronnie reported he had been given Trazedone, which he felt helped. He states he no longer takes this medication. Ronnie was encouraged to bring this up to his medication provider if he felt it had been helpful. Ronnie agrees to bring this up during their next meeting. Presenting Problem(s): Currently suicidal Intervention: This senior grant writer reviewed current safety plan with client. Client, along with [facility] staff member, was encouraged to develop a calender in which Ronnie can creat a schedule of events and/or activities he find enjoyable. Client Response to Intervention: Client offered limited response to session. Final Disposition: Client left facility with no return plan established at this time. Safety Plan Completed/Updated: No Risks Suicide Risk Assessment In the last 30 days have you... Little interest or pleasure in doing things: not at all Feeling down, depressed, or hopeless: nearly every day PHQ-2 Score: 3 Total (If greater than 3 please do full PHQ-9): Yes Trouble falling or staying asleep, or sleeping too much: more than half the days Feeling tired or having little energy: more than half the days Poor appetite or overeating: not at all Feeling bad about yourself - or that you are a failure or have let yourself or your family down: more than half the days Trouble concentrating on things, such as reading the newspaper or watching television: more than half the days Moving or speaking so slowly that other people could have noticed. Or the opposite - being so fidgety or restless that you have been moving around a lot more than usual: more than half the days Thoughts that you would be better off or of hurting yourself in some way: nearly every day PHQ-9: Total score: 16 Have you had suicidal thoughts?: More Than Half The Days Do you ever wish you weren't alive anymore?: More Than Half The Days Suicide Risk Score: 7 Risk to Others Current or History of HI: Denies any homicidal thoughts, plans, intentions, or time frames Previous and/or current violence: No Previous and/or current threats (verbal/physical): No If both Yes, then complete full screening: No Other Self-Harm or Risk Taking Behaviors Other Risk Taking Behaviors:: Impulsive behaviors Protective Factors Protective Factors and Deterrents: Identifies a reason for living Final Disposition of Risk Screening Final Disposition: No Emergency response: Safety planning
--- NOTE | 2024-03-17 17:40 | CSC.DCP_ITS ---
[facility] Discharge Plan Current SI: Suicidal Thoughts/Behave (no plan discussed ) Current HI: Denies any homicidal thoughts, plans, intentions, or time frames Safety Plan Completed: Yes ( ) Patient agrees with discharge safety plan: Yes Was the client admitted to [facility]?: Yes Were medication services provided during today's visit?: No Client Presentation upon Discharge: Client was able to contract for safety. Current Progress Towards Recovery and Well-Being: Client was encouraged to follow safety plan. Continued Treatment Barriers: mental health, lack of transportation, limited socialization Treatment Goals Achieved During Program Participation: Mental health services Services referred from Center: Inpatient MH treatment (NPU) Care Provided-Services the individual received: Crisis Services [facility] Outcome: Transferred (ER to NPU) [facility] Discharge Disposition/Location: In Behavioral Health (NPU) Care Coordination Agencies Referred to:: Other (Therapy ) Client Follow up Plan to Referred agencies:: None
== END 2024-03-17 14:55 | disposition home or self-care (01) ==
PROVIDERS: Emergency Provider Emergency Medicine; PCP Family Medicine
DX: F32.9 Major depressive disorder, single episode, unspecified (principal); Z79.82 Long term (current) use of aspirin; Z72.0 Tobacco use
CPT/HCPCS: 3725F; 99283

== ENCOUNTER 2024-03-27 17:39 | Emergency (ER) | payer MEDICARE, MEDICAID, SELFPAY ==
[2024-03-27 17:40] VITALS: BP 117/76; PULSE 99; RESP 18; TEMP 36.4; O2SAT 96
--- NOTE | 2024-03-27 17:50 | W.ED.PSYCHS ---
HPI - Psych General: Chief Complaint: Psychiatric Symptoms Stated Complaint: SI Time Seen by Provider: 03/27/24 17:42 Source: patient and EMS Mode of arrival: EMS Limitations: no limitations History of Present Illness: 48-year-old male is very well-known to the ER has a history depression he has been seen here multiple times in the past for suicidality he states that he is having some depression passing suicidal thoughts denies any specific plan he does have appointment with [facility] this week he denies any worsening proving factors. Associated symptoms: Reports depression Related Data Home Medications Medication Instructions Recorded Confirmed aspirin 81 mg tablet,delayed 81 mg PO DAILY 03/16/23 03/22/24 release furosemide 40 mg tablet 40 mg PO DAILY 03/16/23 03/22/24 lisinopril 10 mg tablet 10 mg PO DAILY 03/16/23 03/22/24 metformin 500 mg tablet 500 mg PO BID 03/16/23 03/22/24 simvastatin 20 mg tablet 20 mg PO DAILY 03/16/23 03/22/24 nitroglycerin 0.4 mg sublingual 0.4 mg sublingual Q5M PRN Chest 11/08/23 03/22/24 tablet Pain Benadryl Es Itch Stop Gel 1 applic topical TID PRN itching 01/21/24 03/22/24 camphor-menthol 11 %-10 % topical 1 applic topical BID PRN Pain 01/21/24 03/22/24 cream ([place]) cetirizine 10 mg tablet 10 mg PO DAILY PRN allergies 01/21/24 03/22/24 naproxen 500 mg tablet 500 mg PO .COMPLEX PRN Pain 01/21/24 03/22/24 quetiapine 200 mg tablet (Seroquel) 200 mg PO BEDTIME 03/13/24 03/22/24 Previous Rx's Medication Instructions Recorded risperidone 1 mg tablet (Risperdal) 1 mg PO BID #60 tabs 02/14/24 bacitracin 500 unit/gram topical 1 applic topical BID #30 grams 02/18/24 ointment miconazole nitrate 2 % topical 1 spray topical BID #133 grams 02/21/24 spray powder (Athlete's Foot) bupropion HCl 300 mg 24 hr tablet, 300 mg PO QAM #30 tabs 03/06/24 extended release (Wellbutrin XL) neomycin 3.5 mg/g-polymyxin B 0.5 inch ophthalmic (eye) TID #3.5 03/07/24 10,000 unit/g-dexameth 0.1 % eye grams oint (Maxitrol) Allergies Allergy/AdvReac Type Severity Reaction Status Date / Time No Known Allergies Allergy Verified 03/22/24 09:00 Review of Systems Const: Denies: fever(s), chills, body aches or change in appetite ENMT: Denies: throat pain or dental pain Card: Denies: chest pain Resp: Denies: dyspnea GI: Denies: abdominal pain, nausea, vomiting or diarrhea Musc: Denies: neck pain or back pain Skin/Breast: Denies: rash Neuro: Denies: headache(s) Psych: Reports: depression PFSH ED PFSH: Medical History Moderate episode of recurrent major depressive disorder Psychiatric care Surgical History Hx laparoscopic cholecystectomy 11/09/23 Dr Lim Family History Brother Diabetes Denies family history of CAD (coronary artery disease) Congestive heart failure (CHF) Anemia Aneurysm Arrhythmia Atrial fibrillation TIA (transient ischemic attack) Heart disease Sudden cardiac Chronic kidney disease (CKD) Congenital heart disease Carotid artery disease Pulmonary embolism Cardiomyopathy Social History Smoking and tobacco/nicotine status: current every day tobacco/nicotine user Alcohol intake: never Physical Exam Const: COMMON NORMALS: no acute distress, patient oriented x3 and healthy appearing HENMT: COMMON NORMALS: normocephalic and atraumatic HEAD & SCALP: normocephalic and atraumatic Eye: COMMON NORMALS: conjunctivae normal CONJUNCTIVA: Yes conjunctivae normal Neck/C-Spine: COMMON NORMALS: full ROM and supple Chest: COMMONS NORMALS: normal inspection of the chest Resp: COMMON NORMALS: normal respiratory effort Cardio: COMMON NORMALS: regular rate, regular rhythm and No murmurs present (Cardio) RATE: regular rate RHYTHM: regular rhythm Extremity: COMMON NORMALS: normal to inspection and full ROM Neuro: COMMON NORMALS: patient oriented x3, moves all extremities and no focal motor deficits Psych: COMMON NORMALS: mental status grossly normal, Normal thought process present and cooperative THOUGHT PROCESS: Normal thought process present Skin: COMMON NORMALS: no rashes or lesions noted and no wounds GENERAL SKIN EXAM: no rashes or lesions noted Course Vital Signs: Vital signs: Vital Signs Temperature 97.6 F 03/27/24 17:40 Pulse Rate 99 03/27/24 17:40 Respiratory Rate 18 03/27/24 17:40 Blood Pressure 117/76 03/27/24 17:40 Pulse Oximetry 96 03/27/24 17:40 Oxygen Delivery Me thod Room Air 03/27/24 17:40 MDM - Psych Medical Decision Making Patient presents here with depression along with passing suicidal thoughts no specific plan he has been seen here multiple times for the same he has appoint with [facility] this week I talked to psychiatrist Dr. Johnson who agrees with me patient stable for discharge he is follow-up [facility] discharge back to [facility] return if worsening. Medical Records I reviewed the patient's medical records. No radiology studies performed this visit Discharge Plan Discharge Patient Disposition: Home Clinical Impression: Suicidal ideation Condition: Stable Prescriptions: No Action miconazole nitrate [Athlete's Foot] 2 % aerosol powder 1 spray topical BID Qty: 133 2RF bupropion HCl [Wellbutrin XL] 300 mg tablet extended release 24 hr 300 mg PO QAM Qty: 30 1RF neomycin-polymyxin B-dexameth [Maxitrol] 3.5 mg/g-10,000 unit/g-0.1 % ointment 0.5 inch ophthalmic (eye) TID Qty: 3.5 0RF Rx Instructions: space evenly during waking hours risperidone [Risperdal] 1 mg tablet 1 mg PO BID Qty: 60 2RF bacitracin 500 unit/gram ointment 1 applic topical BID Qty: 30 0RF furosemide 40 mg tablet 40 mg PO DAILY metformin 500 mg tablet 500 mg PO BID Hold Instructions: Resume on 01/02/24. aspirin 81 mg Tablet,Delayed Release (Dr/Ec) 81 mg PO DAILY simvastatin 20 mg tablet 20 mg PO DAILY lisinopril 10 mg tablet 10 mg PO DAILY nitroglycerin 0.4 mg Tablet, Sublingual 0.4 mg SUBLINGUAL Q5M PRN (Reason: Chest Pain) Rx Instructions: do not exceed 3 doses per episode cetirizine 10 mg tablet 10 mg PO DAILY PRN (Reason: allergies) naproxen 500 mg tablet 500 mg PO .COMPLEX PRN (Reason: Pain) Rx Instructions: TAKE 1 TABLET BY MOUTH EVERY TWELVE HOURS for 7 days NEEDED FOR PAIN THEN NEEDED. STOP FOR stomach pain [place] 11-10 % cream 1 applic TOPICAL BID PRN (Reason: Pain) Benadryl Es Itch Stop Gel 1 applic topical TID PRN (Reason: itching ) quetiapine [Seroquel] 200 mg tablet 200 mg PO BEDTIME Discharge Orders: Discharge ED (Routine); Ordered 03/27/24 Ordered By: Keyana Mcmillan Referrals: Raj Kent MD [Primary Care Provider] - Discharge Diet: Advance as tolerated Discharge Activity: Resume usual activity Patient Instructions: Depression (ED) Coding Level of Care Code ED Equipment Planner for Nathan Agudelo
[2024-03-27 18:04] VITALS: BP 121/73; PULSE 88; O2SAT 96
== END 2024-03-27 18:05 | disposition home or self-care (01) ==
PROVIDERS: Emergency Provider Emergency Medicine; PCP Family Medicine
DX: R45.851 Suicidal ideations (principal); Z79.84 Long term (current) use of oral hypoglycemic drugs; Z79.82 Long term (current) use of aspirin; Z72.0 Tobacco use
CPT/HCPCS: 99283

== ENCOUNTER 2024-04-03 10:50 | Emergency (ER) | payer MEDICARE, MEDICAID, SELFPAY ==
[2024-04-03 11:00] VITALS: BP 125/75; PULSE 73; RESP 18; TEMP 36.5; O2SAT 96; BMI 42.7
[2024-04-03 12:01] VITALS: BP 125/75; PULSE 73; O2SAT 96
--- NOTE | 2024-04-03 12:16 | W.ED.PSYCHS ---
HPI - Psych General: Chief Complaint: Psychiatric Symptoms Stated Complaint: mhe Time Seen by Provider: 04/03/24 10:51 History of Present Illness: 48-year-old male presents to the emergency room with complaints of suicidal ideation. Patient has been here multiple times for the same he has been managed in the past. He is never advanced lethality. Psychiatry generally has a chosen not to admit and he presents with this now. His presentation is no different than in the past. He states he is considering harming himself either by running in traffic or cutting himself. He lives in an [place]. They do monitor him continuously. Related Data Home Medications Medication Instructions Recorded Confirmed aspirin 81 mg tablet,delayed 81 mg PO DAILY 03/16/23 03/30/24 release furosemide 40 mg tablet 40 mg PO DAILY 03/16/23 03/30/24 lisinopril 10 mg tablet 10 mg PO DAILY 03/16/23 03/30/24 metformin 500 mg tablet 500 mg PO BID 03/16/23 03/30/24 simvastatin 20 mg tablet 20 mg PO DAILY 03/16/23 03/30/24 nitroglycerin 0.4 mg sublingual 0.4 mg sublingual Q5M PRN Chest 11/08/23 03/30/24 tablet Pain Benadryl Es Itch Stop Gel 1 applic topical TID PRN itching 01/21/24 03/30/24 camphor-menthol 11 %-10 % topical 1 applic topical BID PRN Pain 01/21/24 03/30/24 cream ([place]) cetirizine 10 mg tablet 10 mg PO DAILY PRN allergies 01/21/24 03/30/24 naproxen 500 mg tablet 500 mg PO .COMPLEX PRN Pain 01/21/24 03/30/24 quetiapine 200 mg tablet (Seroquel) 200 mg PO BEDTIME 03/13/24 03/30/24 Previous Rx's Medication Instructions Recorded risperidone 1 mg tablet (Risperdal) 1 mg PO BID #60 tabs 02/14/24 bacitracin 500 unit/gram topical 1 applic topical BID #30 grams 02/18/24 ointment miconazole nitrate 2 % topical 1 spray topical BID #133 grams 02/21/24 spray powder (Athlete's Foot) bupropion HCl 300 mg 24 hr tablet, 300 mg PO QAM #30 tabs 03/06/24 extended release (Wellbutrin XL) neomycin 3.5 mg/g-polymyxin B 0.5 inch ophthalmic (eye) TID #3.5 03/07/24 10,000 unit/g-dexameth 0.1 % eye grams oint (Maxitrol) Allergies Allergy/AdvReac Type Severity Reaction Status Date / Time No Known Allergies Allergy Verified 03/30/24 13:55 PFSH ED PFSH: Medical History Moderate episode of recurrent major depressive disorder Psychiatric care Surgical History Hx laparoscopic cholecystectomy 11/09/23 Dr Lim Family History Brother Diabetes Denies family history of CAD (coronary artery disease) Congestive heart failure (CHF) Anemia Aneurysm Arrhythmia Atrial fibrillation TIA (transient ischemic attack) Heart disease Sudden cardiac Chronic kidney disease (CKD) Congenital heart disease Carotid artery disease Pulmonary embolism Cardiomyopathy Social History Smoking and tobacco/nicotine status: current every day tobacco/nicotine user Alcohol intake: never Physical Exam Const: COMMON NORMALS: no acute distress GENERAL APPEARANCE: cooperative and comfortable ORIENTATION/CONSCIOUSNESS: Yes awake, Yes oriented to person, Yes oriented to place and Yes oriented to time HENMT: COMMON NORMALS: normocephalic, atraumatic and hearing grossly normal bilaterally HEAD & SCALP: normocephalic and atraumatic Extremity: COMMON NORMALS: normal to inspection, capillary refill normal, no clubbing, cyanosis or edema, no calf tenderness and no pedal edema Neuro: SENSORIUM/ORIENTATION: Yes oriented to person, Yes oriented to place and Yes oriented to time Skin: COMMON NORMALS: no rashes or lesions noted GENERAL SKIN EXAM: no rashes or lesions noted Course Vital Signs: Vital signs: Vital Signs Temperature 97.7 F 04/03/24 11:00 Pulse Rate 73 04/03/24 12:01 Respiratory Rate 18 04/03/24 11:00 Blood Pressure 125/75 04/03/24 12:01 Pulse Oximetry 96 04/03/24 12:01 Oxygen Delivery Me thod Room Air 04/03/24 11:00 MDM - Psych Medical Decision Making Reviewed history and presenting complaints today with Dr. Johnson is on-call for psychiatry does not recommend admission at this time. Will discharge patient home continue same medications follow-up with outpatient psychiatry team Medical Records I reviewed the patient's medical records. No radiology studies performed this visit Discharge Plan Discharge Patient Disposition: Home Clinical Impression: Suicidal ideation, Mild intellectual disability, Major depressive disorder Condition: Stable Prescriptions: No Action miconazole nitrate [Athlete's Foot] 2 % aerosol powder 1 spray topical BID Qty: 133 2RF bupropion HCl [Wellbutrin XL] 300 mg tablet extended release 24 hr 300 mg PO QAM Qty: 30 1RF neomycin-polymyxin B-dexameth [Maxitrol] 3.5 mg/g-10,000 unit/g-0.1 % ointment 0.5 inch ophthalmic (eye) TID Qty: 3.5 0RF Rx Instructions: space evenly during waking hours risperidone [Risperdal] 1 mg tablet 1 mg PO BID Qty: 60 2RF bacitracin 500 unit/gram ointment 1 applic topical BID Qty: 30 0RF furosemide 40 mg tablet 40 mg PO DAILY metformin 500 mg tablet 500 mg PO BID Hold Instructions: Resume on 01/02/24. aspirin 81 mg Tablet,Delayed Release (Dr/Ec) 81 mg PO DAILY simvastatin 20 mg tablet 20 mg PO DAILY lisinopril 10 mg tablet 10 mg PO DAILY nitroglycerin 0.4 mg Tablet, Sublingual 0.4 mg SUBLINGUAL Q5M PRN (Reason: Chest Pain) Rx Instructions: do not exceed 3 doses per episode cetirizine 10 mg tablet 10 mg PO DAILY PRN (Reason: allergies) naproxen 500 mg tablet 500 mg PO .COMPLEX PRN (Reason: Pain) Rx Instructions: TAKE 1 TABLET BY MOUTH EVERY TWELVE HOURS for 7 days NEEDED FOR PAIN THEN NEEDED. STOP FOR stomach pain [place] 11-10 % cream 1 applic TOPICAL BID PRN (Reason: Pain) Benadryl Es Itch Stop Gel 1 applic topical TID PRN (Reason: itching ) quetiapine [Seroquel] 200 mg tablet 200 mg PO BEDTIME Discharge Orders: Discharge ED (Routine); Ordered 04/03/24 Ordered By: Alvarado Khoury Referrals: Raj Kent MD [Primary Care Provider] - Discharge Diet: Usual diet Discharge Activity: Resume usual activity Patient Instructions: Opioid Safety, Pain Management Activity Restrictions/Additional Instructions: Thank you for choosing [facility] for your healthcare needs today. It is very important that you follow up as instructed or that you return to the Emergency Department should you have concerns or if your condition changes or worsens in any way. You were seen today with depression complaints of suicidal ideation. This has been reviewed several times in the past reviewed your case today with the on-call psychiatrist they did not feel that inpatient therapy would be helpful. They recommend continuing your current medications and following up with your outpatient psychiatry team. Coding Level of Care Code ED Superintendent Cemetery for Nathan Agudelo
== END 2024-04-03 12:04 | disposition home or self-care (01) ==
PROVIDERS: Emergency Provider Family Medicine; PCP Family Medicine
DX: R45.851 Suicidal ideations (principal); F70 Mild intellectual disabilities; F32.9 Major depressive disorder, single episode, unspecified; Z79.82 Long term (current) use of aspirin; Z79.84 Long term (current) use of oral hypoglycemic drugs; Z72.0 Tobacco use
CPT/HCPCS: 99283

== ENCOUNTER 2024-04-09 16:30 | Emergency (ER) | payer MEDICARE, MEDICAID, SELFPAY ==
--- NOTE | 2024-04-09 16:35 | ED.C_ITS ---
HPI - Psych General: Chief Complaint: Psychiatric Symptoms Stated Complaint: mhe Time Seen by Provider: 04/09/24 16:31 Source: patient Mode of arrival: ambulatory Limitations: no limitations History of Present Illness: 48-year-old male is very well-known to [facility] he has a history of intellectual disabilities been seen here multiple times when he is stated that he is suicidal. Patient states he has had some suicidal thoughts and related stated homicidal he denies that currently he denies any worsening improving factors. Associated symptoms: Reports depression Related Data Home Medications Medication Instructions Recorded Confirmed aspirin 81 mg tablet,delayed 81 mg PO DAILY 03/16/23 03/30/24 release furosemide 40 mg tablet 40 mg PO DAILY 03/16/23 03/30/24 lisinopril 10 mg tablet 10 mg PO DAILY 03/16/23 03/30/24 metformin 500 mg tablet 500 mg PO BID 03/16/23 03/30/24 simvastatin 20 mg tablet 20 mg PO DAILY 03/16/23 03/30/24 nitroglycerin 0.4 mg sublingual 0.4 mg sublingual Q5M PRN Chest 11/08/23 03/30/24 tablet Pain Benadryl Es Itch Stop Gel 1 applic topical TID PRN itching 01/21/24 03/30/24 camphor-menthol 11 %-10 % topical 1 applic topical BID PRN Pain 01/21/24 03/30/24 cream ([place]) cetirizine 10 mg tablet 10 mg PO DAILY PRN allergies 01/21/24 03/30/24 naproxen 500 mg tablet 500 mg PO .COMPLEX PRN Pain 01/21/24 03/30/24 quetiapine 200 mg tablet (Seroquel) 200 mg PO BEDTIME 03/13/24 03/30/24 Previous Rx's Medication Instructions Recorded risperidone 1 mg tablet (Risperdal) 1 mg PO BID #60 tabs 02/14/24 bacitracin 500 unit/gram topical 1 applic topical BID #30 grams 02/18/24 ointment miconazole nitrate 2 % topical 1 spray topical BID #133 grams 02/21/24 spray powder (Athlete's Foot) bupropion HCl 300 mg 24 hr tablet, 300 mg PO QAM #30 tabs 03/06/24 extended release (Wellbutrin XL) neomycin 3.5 mg/g-polymyxin B 0.5 inch ophthalmic (eye) TID #3.5 03/07/24 10,000 unit/g-dexameth 0.1 % eye grams oint (Maxitrol) Allergies Allergy/AdvReac Type Severity Reaction Status Date / Time No Known Allergies Allergy Verified 03/30/24 13:55 Review of Systems Const: Denies: fever(s), chills, body aches or change in appetite ENMT: Denies: throat pain or dental pain Card: Denies: chest pain Resp: Denies: dyspnea GI: Denies: abdominal pain, nausea, vomiting or diarrhea Musc: Denies: neck pain or back pain Skin/Breast: Denies: rash Neuro: Denies: headache(s) Psych: Reports: depression PFSH ED PFSH: Medical History Moderate episode of recurrent major depressive disorder Psychiatric care Surgical History Hx laparoscopic cholecystectomy 11/09/23 Dr Lim Family History Brother Diabetes Denies family history of CAD (coronary artery disease) Congestive heart failure (CHF) Anemia Aneurysm Arrhythmia Atrial fibrillation TIA (transient ischemic attack) Heart disease Sudden cardiac Chronic kidney disease (CKD) Congenital heart disease Carotid artery disease Pulmonary embolism Cardiomyopathy Social History Smoking and tobacco/nicotine status: current every day tobacco/nicotine user Alcohol intake: never Physical Exam Const: COMMON NORMALS: no acute distress, patient oriented x3 and healthy appearing HENMT: COMMON NORMALS: normocephalic and atraumatic HEAD & SCALP: normocephalic and atraumatic Neck/C-Spine: COMMON NORMALS: full ROM and supple Chest: COMMONS NORMALS: normal inspection of the chest Resp: COMMON NORMALS: normal respiratory effort Cardio: COMMON NORMALS: regular rate, regular rhythm and No murmurs present (Cardio) RATE: regular rate RHYTHM: regular rhythm Extremity: COMMON NORMALS: normal to inspection and full ROM Neuro: COMMON NORMALS: patient oriented x3, moves all extremities and no focal motor deficits Psych: COMMON NORMALS: mental status grossly normal, Normal thought process present and cooperative THOUGHT PROCESS: Normal thought process present Skin: COMMON NORMALS: no rashes or lesions noted and no wounds GENERAL SKIN EXAM: no rashes or lesions noted MDM - Psych Medical Decision Making Patient presents here with depression and suicidal ideations he has been seen here multiple times has a history of malingering I spoke to psychiatrist Dr. Monge who agrees patient stable for discharge back to senior care follow-up with [facility] return if worsening Medical Records I reviewed the patient's medical records. No radiology studies performed this visit Discharge Plan Discharge Patient Disposition: Home Clinical Impression: Depression Condition: Stable Prescriptions: No Action miconazole nitrate [Athlete's Foot] 2 % aerosol powder 1 spray topical BID Qty: 133 2RF bupropion HCl [Wellbutrin XL] 300 mg tablet extended release 24 hr 300 mg PO QAM Qty: 30 1RF neomycin-polymyxin B-dexameth [Maxitrol] 3.5 mg/g-10,000 unit/g-0.1 % ointment 0.5 inch ophthalmic (eye) TID Qty: 3.5 0RF Rx Instructions: space evenly during waking hours risperidone [Risperdal] 1 mg tablet 1 mg PO BID Qty: 60 2RF bacitracin 500 unit/gram ointment 1 applic topical BID Qty: 30 0RF furosemide 40 mg tablet 40 mg PO DAILY metformin 500 mg tablet 500 mg PO BID Hold Instructions: Resume on 01/02/24. aspirin 81 mg Tablet,Delayed Release (Dr/Ec) 81 mg PO DAILY simvastatin 20 mg tablet 20 mg PO DAILY lisinopril 10 mg tablet 10 mg PO DAILY nitroglycerin 0.4 mg Tablet, Sublingual 0.4 mg SUBLINGUAL Q5M PRN (Reason: Chest Pain) Rx Instructions: do not exceed 3 doses per episode cetirizine 10 mg tablet 10 mg PO DAILY PRN (Reason: allergies) naproxen 500 mg tablet 500 mg PO .COMPLEX PRN (Reason: Pain) Rx Instructions: TAKE 1 TABLET BY MOUTH EVERY TWELVE HOURS for 7 days NEEDED FOR PAIN THEN NEEDED. STOP FOR stomach pain [place] 11-10 % cream 1 applic TOPICAL BID PRN (Reason: Pain) Benadryl Es Itch Stop Gel 1 applic topical TID PRN (Reason: itching ) quetiapine [Seroquel] 200 mg tablet 200 mg PO BEDTIME Discharge Orders: Discharge ED (Routine); Ordered 04/09/24 Ordered By: Keyana Mcmillan Referrals: Raj Kent MD [Primary Care Provider] - 4-7 days Discharge Diet: Advance as tolerated Discharge Activity: Resume usual activity Patient Instructions: Depression (ED) Coding Level of Care Code ED Bar And Filler Assembler for Nathan Agudelo
[2024-04-09 16:54] VITALS: BP 131/68; PULSE 83; RESP 18; TEMP 36.8; O2SAT 98
[2024-04-09 16:58] VITALS: BP 146/73; PULSE 78; O2SAT 96
== END 2024-04-09 16:59 | disposition home or self-care (01) ==
PROVIDERS: Emergency Provider Emergency Medicine; PCP Family Medicine
DX: F32.A Depression, unspecified (principal); Z79.82 Long term (current) use of aspirin
CPT/HCPCS: 99283

== ENCOUNTER 2024-05-24 20:00 | Outpatient (CLI) | payer MEDICARE, MEDICAID, SELFPAY | END 2024-05-24 20:01 | disposition home or self-care (01) | LOC: SLEEP 22:55 | PROVIDERS: PCP Family Medicine; Visit Provider Family Medicine | DX: G47.33 Obstructive sleep apnea (adult) (pediatric) (principal) | CPT/HCPCS: 95810 ==

== ENCOUNTER 2024-07-01 10:20 | Emergency (ER) | payer MEDICARE, MEDICAID, SELFPAY ==
[2024-07-01 10:23] VITALS: BP 141/83; PULSE 86; RESP 18; TEMP 36.4; O2SAT 98
--- NOTE | 2024-07-01 10:24 | ED.C_ITS ---
HPI - Psych General: Stated Complaint: SI Time Seen by Provider: 07/01/24 10:21 Source: patient Mode of arrival: ambulatory Limitations: no limitations History of Present Illness: 48-year-old male who is very well-known to the ER has a history intellectual disability lives in a [place] [facility] has been seen here multiple times for claims being suicidal he states that he is suicidal he denies any worsening improving factors he had no previous attempts has had multiple admissions in the past Associated symptoms: Reports depression Related Data Home Medications ?Medication ?Instructions ?Recorded ?Confirmed aspirin 81 mg tablet,delayed 81 mg PO DAILY 03/16/23 0 06/22/24 release furosemide 40 mg tablet 40 mg PO DAILY 03/16/2306/10 lisinopril 10 mg tablet 10 mg PO DAILY 03/16/2306/10 metformin 500 mg tablet 500 mg PO BID 03/16/2306/22 simvastatin 20 mg tablet 20 mg PO DAILY 03/16/2306/10 nitroglycerin 0.4 mg sublingual 0.4 mg sublingual Q5M PRN Chest 11/08/23 06/22/24 tablet Pain Benadryl Es Itch Stop Gel 1 applic topical TID PRN it sherry 01/21/24 06/22/24 camphor-menthol 11 %-10 % topical 1 applic topical BID PRN Pain 01/21/24 06/22/24 cream ([place]) cetirizine 10 mg tablet 10 mg PO DAILY PRN allergies 01/21/24 06/22/24 naproxen 500 mg tablet 500 mg PO .COMPLEX PRN Pain 01/21/24 06/22/24 quetiapine 200 mg tablet (Seroquel) 200 mg PO BEDTIME 03/13/24 06/22/24 Previous Rx's ?Medication ?Instructions ?Recorded risperidone 1 mg tablet (Risperdal) 1 mg PO BID #60 ta bs 02/14/24 bacitracin 500 unit/gram topical 1 applic topical BID #30 grams 02/18/24 ointment miconazole nitrate 2 % topical 1 spray topical BID #13 3 grams 02/21/24 spray powder (Athlete's Foot) neomycin 3.5 mg/g-polymyxin B 0.5 inch ophthalmic (eye ) TID #3.5 11/26/24 10,000 unit/g-dexameth 0.1 % eye grams oint (Maxitrol) bupropion HCl 300 mg 24 hr tablet, 300 mg PO QAM #30 t abs 04/10/24 extended release (Wellbutrin XL) Allergies Allergy/AdvReac Type Severity Reaction Status Date / Time No Known Allergies Allergy Verified 06/22/24 12:19 Review of Systems Const: Denies: fever(s), chills, body aches or change in appetite ENMT: Denies: throat pain or dental pain Card: Denies: chest pain Resp: Denies: dyspnea GI: Denies: abdominal pain, nausea, vomiting or diarrhea Musc: Denies: neck pain or back pain Skin/Breast: Denies: rash Neuro: Denies: headache(s) Psych: Reports: depression PFSH ED PFSH: Medical History Nicotine use disorder Moderate episode of recurrent major depressive disorder Psychiatric care Surgical History Hx laparoscopic cholecystectomy 11/09/23 Dr Lim Family History Brother Diabetes Denies family history of CAD (coronary artery disease) Congestive heart failure (CHF) Anemia Aneurysm Arrhythmia Atrial fibrillation TIA (transient ischemic attack) Heart disease Sudden cardiac Chronic kidney disease (CKD) Congenital heart disease Carotid artery disease Pulmonary embolism Cardiomyopathy Social History Smoking and tobacco/nicotine status: current every day tobacco/nicotine user Alcohol intake: never Physical Exam Const: COMMON NORMALS: no acute distress, patient oriented x3 and healthy appearing HENMT: COMMON NORMALS: normocephalic and atraumatic HEAD & SCALP: normocephalic and atraumatic Eye: COMMON NORMALS: conjunctivae normal CONJUNCTIVA: Yes conjunctivae normal Neck/C-Spine: COMMON NORMALS: full ROM and supple Chest: COMMONS NORMALS: normal inspection of the chest Resp: COMMON NORMALS: normal respiratory effort Cardio: COMMON NORMALS: regular rate RATE: regular rate Extremity: COMMON NORMALS: normal to inspection and full ROM Neuro: COMMON NORMALS: patient oriented x3, moves all extremities and no focal motor deficits Psych: COMMON NORMALS: mental status grossly normal, Normal thought process present and cooperative THOUGHT PROCESS: Normal thought process present Skin: COMMON NORMALS: no rashes or lesions noted and no wounds GENERAL SKIN EXAM: no rashes or lesions noted MDM - Psych Medical Decision Making Patient presents here with depression I do not believe he is truly suicidal I spoke to Dr. Monge who knows patient well who agrees that he is safe for discharge she has to follow-up with [facility] return if worsening understand agree to plan Medical Records I reviewed the patient's medical records. No radiology studies performed this visit Discharge Plan Discharge Patient Disposition: Home Clinical Impression: Major depressive disorder Condition: Stable Prescriptions: No Action miconazole nitrate [Athlete's Foot] 2 % aerosol powder 1 spray topical BID Qty: 133 2RF neomycin-polymyxin B-dexameth [Maxitrol] 3.5 mg/g-10,000 unit/g-0.1 % ointment 0.5 inch ophthalmic (eye) TID Qty: 3.5 0RF Rx Instructions: space evenly during waking hours risperidone [Risperdal] 1 mg tablet 1 mg PO BID Qty: 60 2RF bacitracin 500 unit/gram ointment 1 applic topical BID Qty: 30 0RF bupropion HCl [Wellbutrin XL] 300 mg tablet extended release 24 hr 300 mg PO QAM Qty: 30 1RF furosemide 40 mg tablet 40 mg PO DAILY metformin 500 mg tablet 500 mg PO BID aspirin 81 mg Tablet,Delayed Release (Dr/Ec) 81 mg PO DAILY simvastatin 20 mg tablet 20 mg PO DAILY lisinopril 10 mg tablet 10 mg PO DAILY nitroglycerin 0.4 mg Tablet, Sublingual 0.4 mg SUBLINGUAL Q5M PRN (Reason: Chest Pain) Rx Instructions: do not exceed 3 doses per episode cetirizine 10 mg tablet 10 mg PO DAILY PRN (Reason: allergies) naproxen 500 mg tablet 500 mg PO .COMPLEX PRN (Reason: Pain) Rx Instructions: TAKE 1 TABLET BY MOUTH EVERY TWELVE HOURS for 7 days NEEDED FOR PAIN THEN NEEDED. STOP FOR stomach pain [place] 11-10 % cream 1 applic TOPICAL BID PRN (Reason: Pain) Benadryl Es Itch Stop Gel 1 applic topical TID PRN (Reason: itching ) quetiapine [Seroquel] 200 mg tablet 200 mg PO BEDTIME Discharge Orders: Discharge ED (Routine); Ordered 07/01/24 Ordered By: Keyana Mcmillan Referrals: Raj Kent MD [Primary Care Provider] - Discharge Diet: Advance as tolerated Discharge Activity: Resume usual activity Patient Instructions: Depression (ED) Print Language: [place] Sudanese Coding Level of Care Code ED Qa Engineer for Nathan Agudelo
[2024-07-01] MEDS: LORazepam 1 mg Tablet PO (10:25)
== END 2024-07-01 10:58 | disposition home or self-care (01) ==
PROVIDERS: Emergency Provider Emergency Medicine; PCP Family Medicine
DX: F32.9 Major depressive disorder, single episode, unspecified (principal); Z79.84 Long term (current) use of oral hypoglycemic drugs; Z79.82 Long term (current) use of aspirin; Z72.0 Tobacco use
CPT/HCPCS: 99283; J9999

== ENCOUNTER → 2024-07-04 11:34 | Outpatient (BNVA) | payer MEDICARE, MEDICAID, SELFPAY | PROVIDERS: PCP Family Medicine; Visit Provider Podiatrist Foot & Ankle Surgery | DX: E11.69 Type 2 diabetes mellitus with other specified complication (principal); L60.3 Nail dystrophy; Z79.84 Long term (current) use of oral hypoglycemic drugs | CPT/HCPCS: 99213 ==

== ENCOUNTER 2024-07-12 19:46 | Emergency (ER) | payer MEDICARE, MEDICAID, SELFPAY ==
--- NOTE | 2024-07-12 19:47 | XRR_ITS ---
PROCEDURE INFORMATION: Exam: XR Chest Exam date and time: 07/12/2024 7:55 PM Age: 48 years old Clinical indication: Shortness of breath; Additional info: SOB TECHNIQUE: Imaging protocol: Radiologic exam of the chest. Views: 1 view. COMPARISON: CR XR chest 1V portable [id number] 03/13/2024 10:17 AM FINDINGS: Lungs: Unremarkable. No consolidation. Pleural spaces: Unremarkable. No pleural effusion. No pneumothorax. Heart/Mediastinum: Unremarkable. No cardiomegaly. Bones/joints: Unremarkable. XR/XR chest 1V portable [id number] IMPRESSION: No acute findings.
--- NOTE | 2024-07-12 19:51 | W.ED.SOB ---
HPI - SOB/Dyspnea General: Chief Complaint: Shortness of Breath/Dyspnea Stated Complaint: sob Time Seen by Provider: 07/12/24 19:47 Source: patient and EMS Mode of arrival: EMS Limitations: no limitations History of Present Illness: HPI Narrative: 48-year-old male is very well-known to the ER states that over the last 2 days has been having some increasing cough along with some shortness of breath. Patient's been afebrile he is 94% here on room air. Does have a history of CHF no history of COPD he denies any chest pain. Associated symptoms: Deny abdominal pain, chest pain, fever(s), nausea or vomiting Related Data Home Medications ?Medication ?Instructions ?Recorded ?Confirmed furosemide 40 mg tablet 40 mg PO DAILY 03/16/23 07/04/24 lisinopril 10 mg tablet 10 mg PO DAILY 03/16/23 07/04/24 metformin 500 mg tablet 500 mg PO BID 03/16/23 07/04/24 simvastatin 20 mg tablet 20 mg PO DAILY 03/16/23 07/04/24 nitroglycerin 0.4 mg sublingual 0.4 mg sublingual Q5M PRN Chest 11/08/23 07/04/24 tablet Pain naproxen 500 mg tablet 500 mg PO Q12H PRN Pain 01/21/24 07/04/24 quetiapine 200 mg tablet (Seroquel) 200 mg PO BEDTIME 03/13/24 07/04/24 Previous Rx's ?Medication ?Instructions ?Recorded risperidone 1 mg tablet (Risperdal) 1 mg PO BID #60 tabs 02/14/24 bupropion HCl 300 mg 24 hr tablet, 300 mg PO QAM #30 tabs 04/10/24 extended release (Wellbutrin XL) ciclopirox 8 % topical solution 1 applic topical DAILY 4 weeks 07/04/24 #6.6 mL Allergies Allergy/AdvReac Type Severity Reaction Status Date / Time No Known Allergies Allergy Verified 07/04/24 11:39 Review of Systems Const: Denies: fever(s), chills, body aches or change in appetite ENMT: Denies: throat pain or dental pain Card: Denies: chest pain Resp: Reports: dyspnea and non-productive cough GI: Denies: abdominal pain, nausea, vomiting or diarrhea Musc: Denies: neck pain or back pain Skin/Breast: Denies: rash Neuro: Denies: headache(s) PFSH ED PFSH: Medical History Nicotine use disorder Moderate episode of recurrent major depressive disorder Psychiatric care Surgical History Hx laparoscopic cholecystectomy 11/09/23 Dr Lim Family History Brother Diabetes Denies family history of CAD (coronary artery disease) Congestive heart failure (CHF) Anemia Aneurysm Arrhythmia Atrial fibrillation TIA (transient ischemic attack) Heart disease Sudden cardiac Chronic kidney disease (CKD) Congenital heart disease Carotid artery disease Pulmonary embolism Cardiomyopathy Social History Smoking and tobacco/nicotine status: current every day tobacco/nicotine user Alcohol intake: never Physical Exam Const: COMMON NORMALS: no acute distress, patient oriented x3 and healthy appearing HENMT: COMMON NORMALS: normocephalic and atraumatic HEAD & SCALP: normocephalic and atraumatic Eye: COMMON NORMALS: Equal, round and reactive pupils present and EOMs intact bilaterally PUPIL: Yes Equal, round and reactive pupils present Neck/C-Spine: COMMON NORMALS: full ROM and supple Chest: COMMONS NORMALS: normal inspection of the chest and normal palpation of entire chest wall Resp: COMMON NORMALS: normal respiratory effort, No retractions, No use of accessory muscles and clear to auscultation bilaterally AUSCULTATION: clear to auscultation bilaterally Cardio: COMMON NORMALS: regular rate, regular rhythm and No murmurs present (Cardio) RATE: regular rate RHYTHM: regular rhythm GI: COMMON NORMALS: Normal to inspection, nondistended, normoactive bowel sounds present, Soft to palpation, non-tender and no masses PALPATION: Yes Soft to palpation Extremity: COMMON NORMALS: normal to inspection and full ROM Neuro: COMMON NORMALS: patient oriented x3, moves all extremities and no focal motor deficits Psych: COMMON NORMALS: mental status grossly normal, Normal thought process present and cooperative THOUGHT PROCESS: Normal thought process present Skin: COMMON NORMALS: no rashes or lesions noted and no wounds GENERAL SKIN EXAM: no rashes or lesions noted Course Vital Signs: Vital signs: Vital Signs Temperature 98.5 F 07/12/24 19:55 Pulse Rate 100 07/12/24 20:22 Respiratory Rate 20 H 07/12/24 20:22 Blood Pressure 117/75 07/12/24 20:22 Pulse Oximetry 93 07/12/24 20:22 Oxygen Delivery Me thod Room Air 07/12/24 20:22 MDM - SOB/Dyspnea Medical Decision Making Patient presents for shortness of breath patient's blood work here is normal his pulse ox is mid 90s here on room air. X-ray shows no pneumonia blood work is normal no signs of pulm embolism he is stable for discharge follow-up PCP. Medical Records I reviewed the patient's medical records. Lab Data I reviewed the patient's lab results. 07/12/24 19:59 07/12/24 19:59 Labs/Radiology: Laboratory Results WBC 4.39 10^3/uL (3.29-11.43) 07/12/24 19:59 RBC 4.47 10^6/uL (3.85-5.65) 07/12/24 19:59 Hgb 13.20 g/dL (11.27-16.99) 07/12/24 19:59 Hct 40.1 % (37-53) 07/12/24 19:59 MCV 89.7 fl (82-101) 07/12/24 19:59 MCH 29.5 pg (27-33) 07/12/24 19:59 MCHC 32.9 g/dL (30-55) 07/12/24 19:59 RDW 13.5 % (12.1-15.1) 07/12/24 19:59 Plt Count 207 10^3/cmm (157-399) 07/12/24 19:59 MPV 9.0 fL (7.4-10.4) 07/12/24 19:59 Neut % (Auto) 67.0 % 07/12/24 19:59 Lymph % (Auto) 15.0 % 07/12/24 19:59 [place] % (Auto) 17.1 % 07/12/24 19:59 Eos % (Auto) 0.5 % 07/12/24 19:59 Baso % (Auto) 0.2 % 07/12/24 19:59 Neut # (Auto) 2.94 10^3/uL (1.8-7.7) 07/12/24 19:59 Lymph # (Auto) 0.7 10^3/uL (0.8-4.8) L 07/12/24 19:59 [place] # (Auto) 0.8 10^3/uL (0.2-0.9) 07/12/24 19:59 Eos # (Auto) 0.0 10^3/uL (0.0-0.8) 07/12/24 19:59 Baso # (Auto) 0.0 10^3/uL (0.0-0.1) 07/12/24 19:59 Nucleated RBC % (auto) 0 % 07/12/24 19:59 Nucleated RBCs # 0.0 /100WBC 07/12/24 19:59 Sodium 137 mmol/L (136-145) 07/12/24 19:59 Potassium 4.3 mmol/L (3.5-5.1) 07/12/24 19:59 Chloride 99 mmol/L (98-107) 07/12/24 19:59 Carbon Dioxide 28 mmol/L (22-29) 07/12/24 19:59 Anion Gap 14.3 (5-19) 07/12/24 19:59 BUN 19 mg/dL (6-20) 07/12/24 19:59 Creatinine 1.1 mg/dL (0.7-1.2) 07/12/24 19:59 GFR Calculation 71.4 mL/min (90-130) L 07/12/24 19:59 Glucose 85 mg/dL (65-115) 07/12/24 19:59 Calculated Osmolality 286 mOsm/kg (285-295) 07/12/24 19:59 Calcium 8.8 mg/dL (8.5-10.5) 07/12/24 19:59 Total Bilirubin 0.5 mg/dL (0.15-1.2) 07/12/24 19:59 AST 17 U/L (0-40) 07/12/24 19:59 ALT 18 U/L (0-41) 07/12/24 19:59 Alkaline Phosphatase 84 U/L (40-130) 07/12/24 19:59 NT-Pro-B Natriuret Pep < 36 pg/mL (0-125) 07/12/24 19:59 Total Protein 6.4 g/dL (6.6-8.7) L 07/12/24 19:59 Albumin 4.0 g/dL (3.5-5.2) 07/12/24 19:59 Globulin 2.4 g/dL (1.3-4.6) 07/12/24 19:59 All radiology interpretation(s) finalized by discharge Discharge Plan Discharge Patient Disposition: Home Clinical Impression: Breath shortness Condition: Stable Prescriptions: No Action ciclopirox 8 % solution 1 applic topical DAILY 28 Days Qty: 6.6 0RF risperidone [Risperdal] 1 mg tablet 1 mg PO BID Qty: 60 2RF bupropion HCl [Wellbutrin XL] 300 mg tablet extended release 24 hr 300 mg PO QAM Qty: 30 1RF furosemide 40 mg tablet 40 mg PO DAILY metformin 500 mg tablet 500 mg PO BID simvastatin 20 mg tablet 20 mg PO DAILY lisinopril 10 mg tablet 10 mg PO DAILY nitroglycerin 0.4 mg Tablet, Sublingual 0.4 mg SUBLINGUAL Q5M PRN (Reason: Chest Pain) Rx Instructions: do not exceed 3 doses per episode naproxen 500 mg tablet 500 mg PO Q12H PRN (Reason: Pain) quetiapine [Seroquel] 200 mg tablet 200 mg PO BEDTIME Discharge Orders: Discharge ED (Routine); Ordered 07/12/24 Ordered By: Keyana Mcmillan Referrals: Raj Kent MD [Primary Care Provider] - Discharge Diet: Advance as tolerated Discharge Activity: Resume usual activity Patient Instructions: Shortness of Breath (ED) Print Language: Spanish Coding Level of Care Code ED Cold Type Artist for Nathan Agudelo
--- NOTE | 2024-07-12 19:53 | ECG_ITS ---
[employer] Test Date: 2024-07-12 Pat Name: Ronnie Guzman Department: Room: Gender: Male Set Up Operator: : 1975 Requested By: Keyana Mcmillan Order Number: [id number] Jamila MD: Bobo Bird M.D. Measurements Intervals [place] Rate: 101 P: 56 CO: 174 QRS: 103 QRSD: 109 T: 62 QT: 312 QTc: 404 Interpretive Statements SINUS TACHYCARDIA RIGHT AXIS DEVIATION [QRS AXIS > 100] LOW QRS VOLTAGE [QRS DEFLECTION < 0.5/1.0 mV IN LIMB/CHEST LEADS] ANTEROSEPTAL MYOCARDIAL INFARCTION , OF INDETERMINATE AGE [40+ ms Q WAVE IN V1-V4] Compared to ECG 02/17/2024 17:37:13 Right-axis deviation now present Ventricular premature complex(es) no longer present Indeterminate axis no longer present Myocardial infarct finding still present Electronically Signed On 07-13-2024 17:35:39 CDT by Bobo Bird M.D. [email or web address]
[2024-07-12 19:55] VITALS: BP 143/81; PULSE 105; RESP 21; TEMP 36.9; O2SAT 94; BMI 43.8
[2024-07-12 20:04] LABS: Basophils % 0.2 %; Eosinophils % 0.5 %; Hematocrit 40.1 % (37-53); Lymphocytes # 0.7 10^3/uL (0.8-4.8); Mean Corpuscular HGB Conc 32.9 g/dL (30-55); Mean Corpuscular Hemoglobin 29.5 pg (27-33); Mean Corpuscular Volume 89.7 fl (82-101); Monocytes # 0.8 10^3/uL (0.2-0.9); Monocytes % 17.1 %; Neutrophils # 2.94 10^3/uL (1.8-7.7); Nucleated Red Blood Cells % 0 %; Platelet Count 207 10^3/cmm (157-399); Red Blood Count 4.47 10^6/uL (3.85-5.65); Red Cell Distribution Width 13.5 % (12.1-15.1); White Blood Count 4.39 10^3/uL (3.29-11.43)
[2024-07-12 20:22] VITALS: BP 117/75; PULSE 100; RESP 20; O2SAT 93
[2024-07-12] MEDS: FUROsemide 10 mg/mL SDV 4mL 40 MG IVP (20:22)
[2024-07-12] MEDS: dexamethasone 10 mg/mL INJ IVP (20:22)
[2024-07-12 20:39] LABS: Alanine Aminotransferase 18 U/L (0-41); Alkaline Phosphatase 84 U/L (40-130); Anion Gap 14.3 (5-19); Aspartate Amino Transferase 17 U/L (0-40); Blood Urea Nitrogen 19 mg/dL (6-20); Calcium 8.8 mg/dL (8.5-10.5); Carbon Dioxide 28 mmol/L (22-29); Chloride 99 mmol/L (98-107); Creatinine Clr Calc Pharmacy 122.1602; Globulin 2.4 g/dL (1.3-4.6); Glomerular Filtration Rate 71.4 mL/min (90-130); Glucose 85 mg/dL (65-115); NT Pro B Type Natriuretic Pept < 36 pg/mL (0-125); Osmolality Calculated 286 mOsm/kg (285-295); Potassium 4.3 mmol/L (3.5-5.1); Sodium 137 mmol/L (136-145); Total Bilirubin 0.5 mg/dL (0.15-1.2); Total Protein 6.4 g/dL (6.6-8.7)
[2024-07-12 20:46] LABS: Influenza A NEGATIVE (Negative); Influenza B POSITIVE (Negative); Respiratory Syncytial Virus Ce NEGATIVE (Negative); SARS-CoV-2 PCR NEGATIVE (Negative)
[2024-07-12] MEDS: ipratropium-albuterol 3 mL Neb INHALATION (21:03)
[2024-07-12 21:04] VITALS: PULSE 110; RESP 20; O2SAT 92
[2024-07-12 21:20] VITALS: BP 130/76; PULSE 98; RESP 21; O2SAT 91
== END 2024-07-12 21:23 | disposition home or self-care (01) ==
PROVIDERS: Emergency Provider Emergency Medicine; PCP Family Medicine
DX: R06.02 Shortness of breath (principal); Z79.84 Long term (current) use of oral hypoglycemic drugs
CPT/HCPCS: 71045; 80053; 83880; 85025; 87637; 93005; 94640; 96374; 96375; 99285; J1100; J1940; J9999

== ENCOUNTER → 2024-10-25 10:51 | Outpatient (BNVA) | payer MEDICARE, MEDICAID, SELFPAY | PROVIDERS: PCP Family Medicine; Visit Provider Family Medicine | DX: M79.675 Pain in left toe(s) (principal) | CPT/HCPCS: 84550 ==

== ENCOUNTER → 2024-11-09 09:03 | Outpatient (BNVA) | payer MEDICARE, MEDICAID, SELFPAY | PROVIDERS: PCP Family Medicine; Visit Provider Podiatrist Foot & Ankle Surgery | DX: L60.3 Nail dystrophy (principal); L60.1 Onycholysis; E11.9 Type 2 diabetes mellitus without complications; S99.822D Other specified injuries of left foot, subsequent encounter; X58.XXXD Exposure to other specified factors, subsequent encounter | CPT/HCPCS: 11730; 99213 ==

== ENCOUNTER → 2024-12-01 11:35 | Outpatient (BNVA) | payer MEDICARE, MEDICAID, SELFPAY | PROVIDERS: PCP Family Medicine; Visit Provider Emergency Medicine | DX: S90.211A Contusion of right great toe with damage to nail, initial encounter (principal); X58.XXXA Exposure to other specified factors, initial encounter | CPT/HCPCS: 73630 ==

== ENCOUNTER → 2024-12-05 09:43 | Outpatient (BNVA) | payer MEDICARE, MEDICAID, SELFPAY | PROVIDERS: PCP Family Medicine; Visit Provider Podiatrist Foot & Ankle Surgery | DX: L60.1 Onycholysis (principal); L60.3 Nail dystrophy; E11.69 Type 2 diabetes mellitus with other specified complication | CPT/HCPCS: 99213 ==

== ENCOUNTER 2025-01-23 19:25 | Observation (INO) | payer MEDICARE, MEDICAID, SELFPAY ==
[2025-01-23] VITALS (9 sets, daily range): BP systolic 98–119; BP diastolic 62–86; PULSE 81–106; RESP 22; TEMP 36.8; O2SAT 88–92; BMI 38.0
--- NOTE | 2025-01-23 19:27 | ECG_ITS ---
[employer] Test Date: 2025-01-23 Pat Name: Ronnie Guzman Department: Room: Gender: Male Embroidery Finisher: : 1975 Requested By: Mary Jane Prakash Order Number: [id number] Marino MD: Bobo Bird M.D. Measurements Intervals [place] Rate: 105 P: 43 DE: 167 QRS: 96 QRSD: 102 T: 49 QT: 312 QTc: 413 Interpretive Statements SINUS TACHYCARDIA INDETERMINATE AXIS LOW QRS VOLTAGE [QRS DEFLECTION < 0.5/1.0 mV IN LIMB/CHEST LEADS] PATTERN CONSISTENT WITH PULMONARY DISEASE Compared to ECG 07/12/2024 19:53:08 Indeterminate axis now present Right-axis deviation no longer present Myocardial infarct finding no longer present Electronically Signed On 01-24-2025 16:53:16 CDT by Bobo Bird M.D. [email or web address]
--- NOTE | 2025-01-23 19:27 | XRR_ITS ---
PROCEDURE INFORMATION: Exam: XR Chest Exam date and time: 01/23/2025 7:30 PM Age: 49 years old Clinical indication: Pain; Chest pressure; Additional info: Chest pain TECHNIQUE: Imaging protocol: Radiologic exam of the chest. Views: 1 view. COMPARISON: CR XR chest 1V portable [id number] 07/12/2024 7:55 PM FINDINGS: Lungs: Unremarkable. No consolidation. Pleural spaces: Unremarkable. No pleural effusion. No pneumothorax. Heart/Mediastinum: Unremarkable. No cardiomegaly. Bones/joints: Unremarkable. XR/XR chest 1V portable [id number] IMPRESSION: No acute findings.
--- NOTE | 2025-01-23 19:31 | W.ED.SOB ---
Documented by User: Mary Jane Sneed MD 01/23/25 19:49 HPI - SOB/Dyspnea General: Chief Complaint: Shortness of Breath/Dyspnea Stated Complaint: sob Time Seen by Provider: 01/23/25 19:27 History of Present Illness: HPI Narrative: 49-year-old male with a history of morbid obesity, hypertension, hyperlipidemia, and COPD who presents emergency room with shortness of breath for the last 3 days. This been worsening. He has some pleuritic chest pain centrally. No known fevers. No lower extremity swelling. No cardiac history. No heart failure. No altered mental status. EMS reports his sats were in the low 90s and upper 80s on their presentation. They put him on a CPAP for work of breathing. He appears somewhat improved on presentation. Related Data Home Medications ?Medication ?Instructions ?Recorded ?Confirmed furosemide 40 mg tablet 40 mg PO DAILY 03/16/23 01/09/25 lisinopril 10 mg tablet 10 mg PO DAILY 03/16/23 01/09/25 simvastatin 20 mg tablet 20 mg PO DAILY 03/16/23 01/09/25 nitroglycerin 0.4 mg sublingual 0.4 mg sublingual Q5M PRN Chest 11/08/23 01/09/25 tablet Pain naproxen 500 mg tablet 500 mg PO Q12H PRN Pain 01/21/24 01/09/25 aspirin 81 mg tablet 81 mg PO DAILY 08/28/24 01/09/25 cetirizine 10 mg tablet (All Day 10 mg PO DAILY PRN 08/28/24 01/09/25 Allergy (cetirizine)) tamsulosin 0.4 mg capsule 0.4 mg PO DAILY 08/28/24 01/09/25 Previous Rx's ?Medication ?Instructions ?Recorded albuterol sulfate 90 mcg/actuation 2 puff inhalation Q6H PRN 07/13/24 aerosol inhaler shortness of breath or wheezing #8.5 grams cetirizine 10 mg tablet 10 mg PO DAILY #30 tabs 08/28/24 fluticasone propionate 50 2 spray intranasal DAILY 7 days 08/28/24 mcg/actuation nasal #16 grams spray,suspension (Flonase Allergy Relief) bupropion HCl 150 mg 24 hr tablet, 150 mg PO QAM #30 tabs 11/02/24 extended release (Wellbutrin XL) bupropion HCl 300 mg 24 hr tablet, 300 mg PO QAM #30 tabs 11/02/24 extended release (Wellbutrin XL) quetiapine 200 mg tablet (Seroquel) 200 mg PO BEDTIME #30 tabs 11/02/24 risperidone 1 mg tablet (Risperdal) 1 mg PO BID #60 tabs 11/02/24 mupirocin 2 % topical ointment 1 applic topical BID #22 grams 12/01/24 (Centany) azithromycin 250 mg tablet See Rx Instructions PO .COMPLEX #6 01/09/25 tabs budesonide-formoterol HFA 80 2 puff inhalation BID #10.2 grams 01/09/25 mcg-4.5 mcg/actuation aerosol inhaler prednisone 20 mg tablet 20 mg PO BID 5 days #10 tabs 01/09/25 Allergies Allergy/AdvReac Type Severity Reaction Status Date / Time No Known Allergies Allergy Verified 01/23/25 19:33 Review of Systems Narrative: Constitutional symptoms: Negative except as documented in HPI. Skin symptoms: Negative except as documented in HPI. Eye symptoms: Negative except as documented in HPI. ENMT symptoms: Negative except as documented in HPI. Respiratory symptoms: Negative except as documented in HPI. Cardiovascular symptoms: Negative except as documented in HPI. Gastrointestinal symptoms: Negative except as documented in HPI. Genitourinary symptoms: Negative except as documented in HPI. Musculoskeletal symptoms: Negative except as documented in HPI. Neurologic symptoms: Negative except as documented in HPI. Psychiatric symptoms: Negative except as documented in HPI. Endocrine symptoms: Negative except as documented in HPI. [facility] ED PFSH: Medical History (Updated 01/23/25 @ 21:15 by Sheela Rodríguez MD) Smoking addiction COPD with exacerbation Nicotine use disorder Moderate episode of recurrent major depressive disorder Psychiatric care Surgical History Hx laparoscopic cholecystectomy 11/09/23 Dr Lim Family History Brother Diabetes Denies family history of CAD (coronary artery disease) Congestive heart failure (CHF) Anemia Aneurysm Arrhythmia Atrial fibrillation TIA (transient ischemic attack) Heart disease Sudden cardiac Chronic kidney disease (CKD) Congenital heart disease Carotid artery disease Pulmonary embolism Cardiomyopathy Social History Smoking and tobacco/nicotine status: never used tobacco/nicotine Alcohol intake: never Physical Exam Narrative: EXAM NARRATIVE: General: Alert, no acute distress. Skin: Warm, dry. Head: Normocephalic, atraumatic. Neck: Supple, trachea midline. Eye: Extraocular movements are intact. Ears, nose, mouth and throat: Oral mucosa moist. Cardiovascular: Regular rate and rhythm, Normal peripheral perfusion. Respiratory: coarse, scattered wheeze, mild increased wob. tachypnea, breath sounds are equal, Symmetrical chest wall expansion. Gastrointestinal: Soft, Nontender, Non distended Musculoskeletal: Normal ROM, no deformity. Neurological: Alert and oriented, No focal neurological deficit observed. Psychiatric: Cooperative, appropriate mood & affect. Course Vital Signs: Vital signs: Vital Signs Temperature 98.3 F 01/23/25 19:26 Pulse Rate 97 01/23/25 20:10 Respiratory Rate 22 H 01/23/25 19:26 Blood Pressure 107/62 01/23/25 20:10 Pulse Oximetry 91 01/23/25 20:10 Oxygen Delivery Me thod Nasal Cannula 01/23/25 20:10 Oxygen Flow Rate 2 01/23/25 20:10 MDM - SOB/Dyspnea Medical Decision Making Differential diagnosis for patient with shortness of breath includes but is not limited to and based on the above HPI, review of systems and physical exam: Pneumonia. Bronchitis. Asthma or COPD with acute exacerbation. Acute coronary syndrome / RI. Pulmonary embolism. Anxiety. Congestive heart failure. Viral infections including influenza and Covid-19. Atrial fibrillation. Anxiety. Pleural effusion. Pneumothorax. Orders placed to evaluate differential diagnosis based on the above differential, HPI and physical exam EKG: Time 1934. Rate 105. Sinus tachycardia, No ST-T changes, no ectopy, normal VA & QRS intervals, This was reviewed and interpreted by myself the ER physician at 0 Patient care transitioned to . The primary on this patient. I only just saw him on presentation. Lab Data 01/23/25 19:29 01/23/25 19:29 Labs/Radiology: Radiology Impressions Chest X-Ray 01/23/25 19:27 IMPRESSION: No acute findings. Laboratory Results WBC 6.44 10^3/uL (3.29-11.43) 01/23/25 19:29 RBC 4.56 10^6/uL (3.85-5.65) 01/23/25 19: Hgb 13.60 g/dL (11.27-16.99) 01/23/25 19: Hct 40.5 % (37-53) 01/23/25 19: MCV 88.8 fl (82-101) 01/23/25 19: MCH 29.8 pg (27-33) 01/23/25: MCHC 33.6 g/dL (30-55) 01/23/25 19: RDW 13.8 % (12.1-15.1) 01/23/25: Plt Count 199 10^3/cmm (157-399) 01/23/25: MPV 9.9 fL (7.4-10.4) 01/23/25: Neut % (Auto) 69.5 % 01/23/25: Lymph % (Auto) 14.9 % 01/23/25: [place] % (Auto) 13.2 % 01/23/25: Eos % (Auto) 1.6 % 01/23/25: Baso % (Auto) 0.3 % 01/23/25: Neut # (Auto) 4.48 10^3/uL (1.8-7.7) 01/23/25: Lymph # (Auto) 1.0 10^3/uL (0.8-4.8) 01/23/25: [place] # (Auto) 0.9 10^3/uL (0.2-0.9) 01/23/25: Eos # (Auto) 0.1 10^3/uL (0.0-0.8) 01/23/25: Baso # (Auto) 0.0 10^3/uL (0.0-0.1) 01/23/25: Nucleated RBC % (auto) 0 % 01/23/25: Nucleated RBCs # 0.0 /100WBC 01/23/25:29 Specimen Type Arterial 01/23/25 19:52 Sample Site Radial, right 01/23/25 19:52 ABG pH 7.44 (7.35-7.45) 01/23/25 19:52 ABG pCO2 40.6 mmHg (35-45) 01/23/25 19:52 ABG pO2 54.5 mmHg (80.0-100.0) L 01/23/25 19:52 ABG PO2/FiO2 Ratio 259 01/23/25 19:52 ABG HCO3 27.4 mmol/L (22-26) H 01/23/25 19:52 ABG O2 Saturation 91.5 01/23/25 19:52 ABG Base Excess 2.9 mmol/L (-2.0-2.0) H 01/23/25 19:52 Christiano Test Pos 01/23/25 19:52 A-a O2 Gradient 6.0 mmHg (5-10) 01/23/25 19:52 Hematocrit 42.5 % (42-52) 01/23/25 19:52 Hgb O2 Saturation 86.4 % (95-100) L 01/23/25 19:52 Carboxyhemoglobin 4.5 %THgb (0.4-20.1) 01/23/25 19:52 Methemoglobin 1.0 % (0.4-1.5) 01/23/25 19:52 Total Hemoglobin 13.9 g/dL (14-18) L 01/23/25 19:52 Sodium 138.0 mmol/L (131-143) 01/23/25 19:52 Potassium 4.4 mmol/L (3.5-5.0) 01/23/25 19:52 Glucose 124.0 mg/dL (70-115) H 01/23/25 19:52 Ionized Calcium 1.2 mmol/L (1.1-1.4) 01/23/25 19:52 O2 Delivery Device Room air 01/23/25 19:52 FiO2 21.0 % 01/23/25 19:52 Extracorporeal Circulation Specialist ID [email or web address] 01/23/25 19:52 Sodium 138 mmol/L (136-145) 01/23/25 19:29 Potassium 4.4 mmol/L (3.5-5.1) 01/23/25 19:29 Chloride 100 mmol/L (98-107) 01/23/25 19:29 Carbon Dioxide 23 mmol/L (22-29) 01/23/25 19:29 Anion Gap 19.4 (5-19) H 01/23/25 19:29 BUN 17 mg/dL (6-20) 01/23/25 19:29 Creatinine 1.0 mg/dL (0.7-1.2) 01/23/25 19:29 GFR Calculation 79.4 mL/min (90-130) L 01/23/25 19:29 Glucose 122 mg/dL (65-115) H 01/23/25 19:29 Calculated Osmolality 289 mOsm/kg (285-295) 01/23/25 19:29 Lactic Acid 2.8 mmol/L (0.5-2.2) H 01/23/25 19:29 Calcium 8.8 mg/dL (8.5-10.5) 01/23/25 19: Total Bilirubin 0.5 mg/dL (0.15-1.2) 01/23/25 19: AST 29 U/L (0-40) 01/23/25 19:29 ALT 59 U/L (0-41) H 01/23/25 19:29 Alkaline Phosphatase 98 U/L (40-130) 01/23/25 19:29 Troponin T Baseline 17 ng/L (0-15) H 01/23/25 19:29 NT-Pro-B Natriuret Pep < 36 pg/mL (0-125) 01/23/25 19: Total Protein 6.2 g/dL (6.6-8.7) L 01/23/25 19:29 Albumin 3.9 g/dL (3.5-5.2) 01/23/25 19: Globulin 2.3 g/dL (1.3-4.6) 01/23/25 19:29 Influenza A (PCR) Negative (Negative) 01/23/25 20:09 Influenza Type B (PCR) Negative (Negative) 01/23/25 20:09 RSV (PCR) Negative (Negative) 01/23/25 20:09 SARS-CoV-2 (PCR) Negative (Negative) 01/23/25 20:09 Discharge Plan Discharge Patient Disposition: Admitted As Inpatient Clinical Impression: Community acquired bilateral lower lobe pneumonia, COPD with acute exacerbation Condition: Stable Coding Level of Care Code ED [employer] for [employer]g Fwd Documented by User: Sheela Rodríguez MD 01/23/25 21:15 HPI - SOB/Dyspnea General: Chief Complaint: Shortness of Breath/Dyspnea Stated Complaint: sob Time Seen by Provider: 01/23/25 19:27 Related Data Home Medications ?Medication ?Instructions ?Recorded ?Confirmed furosemide 40 mg tablet 40 mg PO DAILY 03/16/23 01/09/25 lisinopril 10 mg tablet 10 mg PO DAILY 03/16/23 01/09/25 simvastatin 20 mg tablet 20 mg PO DAILY 03/16/23 01/09/25 nitroglycerin 0.4 mg sublingual 0.4 mg sublingual Q5M PRN Chest 11/08/23 01/09/25 tablet Pain naproxen 500 mg tablet 500 mg PO Q12H PRN Pain 01/21/24 01/09/25 aspirin 81 mg tablet 81 mg PO DAILY 08/28/24 01/09/25 cetirizine 10 mg tablet (All Day 10 mg PO DAILY PRN 08/28/24 01/09/25 Allergy (cetirizine)) tamsulosin 0.4 mg capsule 0.4 mg PO DAILY 08/28/24 01/09/25 Previous Rx's ?Medication ?Instructions ?Recorded albuterol sulfate 90 mcg/actuation 2 puff inhalation Q6H PRN 07/13/24 aerosol inhaler shortness of breath or wheezing #8.5 grams cetirizine 10 mg tablet 10 mg PO DAILY #30 tabs 08/28/24 fluticasone propionate 50 2 spray intranasal DAILY 7 days 08/28/24 mcg/actuation nasal #16 grams spray,suspension (Flonase Allergy Relief) bupropion HCl 150 mg 24 hr tablet, 150 mg PO QAM #30 tabs 11/02/24 extended release (Wellbutrin XL) bupropion HCl 300 mg 24 hr tablet, 300 mg PO QAM #30 tabs 11/02/24 extended release (Wellbutrin XL) quetiapine 200 mg tablet (Seroquel) 200 mg PO BEDTIME #30 tabs 11/02/24 risperidone 1 mg tablet (Risperdal) 1 mg PO BID #60 tabs 11/02/24 mupirocin 2 % topical ointment 1 applic topical BID #22 grams 12/01/24 (Centany) azithromycin 250 mg tablet See Rx Instructions PO .COMPLEX #6 01/09/25 tabs budesonide-formoterol HFA 80 2 puff inhalation BID #10.2 grams 01/09/25 mcg-4.5 mcg/actuation aerosol inhaler prednisone 20 mg tablet 20 mg PO BID 5 days #10 tabs 01/09/25 Allergies Allergy/AdvReac Type Severity Reaction Status Date / Time No Known Allergies Allergy Verified 01/23/25 19:33 PFSH ED PFSH: Medical History (Updated 01/23/25 @ 21:15 by Sheela Rodríguez MD) Smoking addiction COPD with exacerbation Nicotine use disorder Moderate episode of recurrent major depressive disorder Psychiatric care Surgical History Hx laparoscopic cholecystectomy 11/09/23 Dr Lim Family History Brother Diabetes Denies family history of CAD (coronary artery disease) Congestive heart failure (CHF) Anemia Aneurysm Arrhythmia Atrial fibrillation TIA (transient ischemic attack) Heart disease Sudden cardiac Chronic kidney disease (CKD) Congenital heart disease Carotid artery disease Pulmonary embolism Cardiomyopathy Social History Smoking and tobacco/nicotine status: never used tobacco/nicotine Alcohol intake: never Course Vital Signs: Vital signs: Vital Signs Temperature 98.3 F 01/23/25 19:26 Pulse Rate 97 01/23/25 20:10 Respiratory Rate 22 H 01/23/25 19: Blood Pressure 107/62 01/23/25 20:10 Pulse Oximetry 91 01/23/25 20:10 Oxygen Delivery Me thod Nasal Cannula 01/23/25 20:10 Oxygen Flow Rate 2 01/23/25 20:10 MDM - SOB/Dyspnea Medical Decision Making Differential diagnosis for patient with shortness of breath includes but is not limited to and based on the above HPI, review of systems and physical exam: Pneumonia. Bronchitis. Asthma or COPD with acute exacerbation. Acute coronary syndrome / RI. Pulmonary embolism. Anxiety. Congestive heart failure. Viral infections including influenza and Covid-19. Atrial fibrillation. Anxiety. Pleural effusion. Pneumothorax. Orders placed to evaluate differential diagnosis based on the above differential, HPI and physical exam EKG: Time 1934. Rate 105. Sinus tachycardia, No ST-T changes, no ectopy, normal VA & QRS intervals, This was reviewed and interpreted by myself the ER physician at 1939 Patient care transitioned to . The primary on this patient. I only just saw him on presentation. ZS: I assumed care of this patient shortly after presentation. He is a 49yo M w/pmhx of COPD, not on home O2, w/cc of shortness of breath, subjective fever, productive cough for the past four days. He is experiencing some diffuse chest pain as well. He denies h/o CAD, CHF, leg swelling. He denies hemoptysis, fainting, asymmetric swelling, h/o DVT/PE. He is requiring oxygen and is on 2L of NC. I reviewed and interpreted patient's lab work which shows normal white blood cell count but mild elevation in lactic acid. He does not have any actionable electrolyte abnormalities, is not acidemic, has a normal anion gap and kidney function. COVID, flu and RSV negative. I personally reviewed chest x-ray and feel that he does have increased opacities in bilateral lower lobes and he does have rhonchi bilaterally with slight expiratory wheezing on exam. Patient was treated with IV dexamethasone, DuoNeb, IV ceftriaxone and p.o. azithromycin. I presume that the cause of his acute hypoxic respiratory failure is infectious and complicated by COPD exacerbation. He does have a normal BMP, does not appear to be fluid overloaded so I am less suspicious for acute congestive heart failure. Patient was admitted. Lab Data 01/23/25 19:01/23/25 19:29 Labs/Radiology: Radiology Impressions Chest X-Ray 01/23/25 19:27 IMPRESSION: No acute findings. Laboratory Results WBC 6.44 10^3/uL (3.29-11.43) 01/23/25 19: RBC 4.56 10^6/uL (3.85-5.65) 01/23/25 19:29 Hgb 13.60 g/dL (11.27-16.99) 01/23/25 19: Hct 40.5 % (37-53) 01/23/25 19: MCV 88.8 fl (82-101) 01/23/25 19: MCH 29.8 pg (27-33) 01/23/25 19: MCHC 33.6 g/dL (30-55) 01/23/25 19: RDW 13.8 % (12.1-15.1) 01/23/25 19: Plt Count 199 10^3/cmm (157-399) 01/23/25 19: MPV 9.9 fL (7.4-10.4) 01/23/25 19: Neut % (Auto) 69.5 % 01/23/25 19: Lymph % (Auto) 14.9 % 01/23/25: [place] % (Auto) 13.2 % 01/23/25: Eos % (Auto) 1.6 % 01/23/25: Baso % (Auto) 0.3 % 01/23/25: Neut # (Auto) 4.48 10^3/uL (1.8-7.7) 01/23/25: Lymph # (Auto) 1.0 10^3/uL (0.8-4.8) 01/23/25 19: [place] # (Auto) 0.9 10^3/uL (0.2-0.9) 01/23/25: Eos # (Auto) 0.1 10^3/uL (0.0-0.8) 01/23/25: Baso # (Auto) 0.0 10^3/uL (0.0-0.1) 01/23/25: Nucleated RBC % (auto) 0 % 01/23/25: Nucleated RBCs # 0.0 /100WBC 01/23/25 19: Specimen Type Arterial 01/23/25 19:52 Sample Site Radial, right 01/23/25 19:52 ABG pH 7.44 (7.35-7.45) 01/23/25 19:52 ABG pCO2 40.6 mmHg (35-45) 01/23/25 19:52 ABG pO2 54.5 mmHg (80.0-100.0) L 01/23/25 19:52 ABG PO2/FiO2 Ratio 259 01/23/25 19:52 ABG HCO3 27.4 mmol/L (22-26) H 01/23/25 19:52 ABG O2 Saturation 91.5 01/23/25 19:52 ABG Base Excess 2.9 mmol/L (-2.0-2.0) H 01/23/25 19:52 Christiano Test Pos 01/23/25 19:52 A-a O2 Gradient 6.0 mmHg (5-10) 01/23/25 19:52 Hematocrit 42.5 % (42-52) 01/23/25 19:52 Hgb O2 Saturation 86.4 % (95-100) L 01/23/25 19:52 Carboxyhemoglobin 4.5 %THgb (0.4-20.1) 01/23/25 19:52 Methemoglobin 1.0 % (0.4-1.5) 01/23/25 19:52 Total Hemoglobin 13.9 g/dL (14-18) L 01/23/25 19:52 Sodium 138.0 mmol/L (131-143) 01/23/25 19:52 Potassium 4.4 mmol/L (3.5-5.0) 01/23/25 19:52 Glucose 124.0 mg/dL (70-115) H 01/23/25 19:52 Ionized Calcium 1.2 mmol/L (1.1-1.4) 01/23/25 19:52 O2 Delivery Device Room air 01/23/25 19:52 FiO2 21.0 % 01/23/25 19:52 Extracorporeal Circulation Specialist ID [email or web address] 01/23/25 19:52 Sodium 138 mmol/L (136-145) 01/23/25 19:29 Potassium 4.4 mmol/L (3.5-5.1) 01/23/25 19:29 Chloride 100 mmol/L (98-107) 01/23/25 19:29 Carbon Dioxide 23 mmol/L (22-29) 01/23/25 19:29 Anion Gap 19.4 (5-19) H 01/23/25 19:29 BUN 17 mg/dL (6-20) 01/23/25 19:29 Creatinine 1.0 mg/dL (0.7-1.2) 01/23/25 19:29 GFR Calculation 79.4 mL/min (90-130) L 01/23/25 19:29 Glucose 122 mg/dL (65-115) H 01/23/25 19:29 Calculated Osmolality 289 mOsm/kg (285-295) 01/23/25 19: Lactic Acid 2.8 mmol/L (0.5-2.2) H 01/23/25 19: Calcium 8.8 mg/dL (8.5-10.5) 01/23/25 19: Total Bilirubin 0.5 mg/dL (0.15-1.2) 01/23/25 19: AST 29 U/L (0-40) 01/23/25 19: ALT 59 U/L (0-41) H 01/23/25 19: Alkaline Phosphatase 98 U/L (40-130) 01/23/25: Troponin T Baseline 17 ng/L (0-15) H 01/23/25 19: NT-Pro-B Natriuret Pep < 36 pg/mL (0-125) 01/23/25: Total Protein 6.2 g/dL (6.6-8.7) L 01/23/25 19: Albumin 3.9 g/dL (3.5-5.2) 01/23/25 19: Globulin 2.3 g/dL (1.3-4.6) 01/23/25 19:29 Influenza A (PCR) Negative (Negative) 01/23/25 20:09 Influenza Type B (PCR) Negative (Negative) 01/23/25 20:09 RSV (PCR) Negative (Negative) 01/23/25 20:09 SARS-CoV-2 (PCR) Negative (Negative) 01/23/25 20:09 All radiology interpretation(s) finalized by discharge Discharge Plan Discharge Patient Disposition: Admitted As Inpatient Clinical Impression: Community acquired bilateral lower lobe pneumonia, COPD with acute exacerbation Condition: Stable Coding Level of Care Code ED [employer] for Nathan Agudelo
[2025-01-23] MEDS: doxycycline 100 MG in sodium chloride 0.9% (plus) 100 ML IV (19:39)
[2025-01-23] MEDS: methylPREDNISolone sod succ 125 mg/2 mL INJ IVP (19:40)
[2025-01-23 19:43] LABS: Hematocrit 40.5 % (37-53); Hemoglobin 13.60 g/dL (11.27-16.99); Mean Corpuscular HGB Conc 33.6 g/dL (30-55); Mean Corpuscular Hemoglobin 29.8 pg (27-33); Mean Corpuscular Volume 88.8 fl (82-101); Nucleated Red Blood Cells % 0 %; Platelet Count 199 10^3/cmm (157-399); Red Blood Count 4.56 10^6/uL (3.85-5.65); White Blood Count 6.44 10^3/uL (3.29-11.43)
[2025-01-23 20:03] LABS: ABG PCO2 40.6 mmHg (35-45); ABG PH Result 7.44 (7.35-7.45); Alveolar-Arterial Oxygen Gradi 6.0 mmHg (5-10); Arterial Blood Gas Hematocrit 42.5 % (42-52); Blood Gas Allen Test Pos; Blood Gas Sample Site Radial, right; Blood Gas Sample Type Arterial; Carboxyhemoglobin 4.5 %THgb (0.4-20.1); Glucose Level-ABG 124.0 mg/dL (70-115); HCO3 ABG 27.4 mmol/L (22-26); Ionized Calcium Level - ABG 1.2 mmol/L (1.1-1.4); Methemoglobin 1.0 % (0.4-1.5); Oxygen Saturation ABG 91.5; PO2 ABG 54.5 mmHg (80.0-100.0); PO2 FiO2 Ratio Arterial Blood 259; Potassium Level - ABG 4.4 mmol/L (3.5-5.0); Sodium Level - ABG 138.0 mmol/L (131-143)
[2025-01-23 20:07] LABS: Lactic Sepsis W/Reflex 2.8 mmol/L (0.5-2.2)
[2025-01-23 20:09] LABS: Troponin(5th) Baseline 17 ng/L (0-15)
[2025-01-23 20:17] LABS: Alanine Aminotransferase 59 U/L (0-41); Albumin Level 3.9 g/dL (3.5-5.2); Alkaline Phosphatase 98 U/L (40-130); Anion Gap 19.4 (5-19); Aspartate Amino Transferase 29 U/L (0-40); Blood Urea Nitrogen 17 mg/dL (6-20); Calcium 8.8 mg/dL (8.5-10.5); Carbon Dioxide 23 mmol/L (22-29); Chloride 100 mmol/L (98-107); Creatinine Clr Calc Pharmacy 123.0553; Globulin 2.3 g/dL (1.3-4.6); Glucose 122 mg/dL (65-115); NT Pro B Type Natriuretic Pept < 36 pg/mL (0-125); Osmolality Calculated 289 mOsm/kg (285-295); Potassium 4.4 mmol/L (3.5-5.1); Sodium 138 mmol/L (136-145); Total Protein 6.2 g/dL (6.6-8.7)
[2025-01-23 20:53] LABS: Respiratory Syncytial Virus Ce NEGATIVE (Negative); SARS-CoV-2 PCR NEGATIVE (Negative)
[2025-01-23 21:24] LABS: Reflex Lactate Order REFLEX LACTIC ORDERD
[2025-01-23 21:31] LABS: Troponin 5 2HR 15.08 ng/L (0-15)
[2025-01-23 21:32] LABS: Troponin 5 2HR Delta -1.92 ABS# (0-10)
[2025-01-23] MEDS: cefTRIAXone 1,000 mg SDV 1000 MG IVP (21:39)
--- NOTE | 2025-01-23 22:21 | PM.HP ---
Providers/Chief Complaint Admitting Physician: Roshan márquez MD Primary Care Provider: Raj Kent MD Chief Complaint: SOB History of Present Illness as per the previous notes and the private registered phlebotomist part time since the patient is a poor historian and is not interactive and is alert,preferred to rest. Ronnie Guzman is a 49 year old male morbid obesity, hypertension, hyperlipidemia, and COPD who presents emergency room with shortness of breath for the last 3 days as per the caregiver. there was no history of fever or chills or any increase in sputum production. no LL swellings or any chest pain or pressure. He was doing a medical drill when his respite care provider saw the patient having sob and was not looking well to him. he called his company and checked his vitals. his HR was high above 120d and RR was also high. therefore he called EMS. No altered mental status. EMS reports his sats were in the low 90s and upper 80s on their presentation. the patient uses Bipap at night before sleeping. Review of Systems General: Reports: ROS unobtainable due to mental status Medications/Allergies Home Medications ?Medication ?Instructions ?Recorded ?Confirmed ?Last Taken ?Type furosemide 40 mg tablet 40 mg PO DAILY 03/16/23 01/09/25 01/21/24 08:00 History lisinopril 10 mg tablet 10 mg PO DAILY 03/16/23 01/09/25 01/21/24 08:00 History simvastatin 20 mg tablet 20 mg PO DAILY 03/16/23 01/09/25 01/21/24 08:00 History nitroglycerin 0.4 mg sublingual 0.4 mg sublingual Q5M PRN Chest 11/08/23 01/09/25 11/07/23 History tablet Pain naproxen 500 mg tablet 500 mg PO Q12H PRN Pain 01/21/24 01/09/25 Unknown History albuterol sulfate 90 mcg/actuation 2 puff inhalation Q6H PRN 07/13/24 01/09/25 Unknown Rx aerosol inhaler shortness of breath or wheezing #8.5 grams aspirin 81 mg tablet 81 mg PO DAILY 08/28/24 01/09/25 Unknown History cetirizine 10 mg tablet 10 mg PO DAILY #30 tabs 08/28/24 01/09/25 Unknown Rx cetirizine 10 mg tablet (All Day 10 mg PO DAILY PRN 08/28/24 01/09/25 Unknown History Allergy (cetirizine)) fluticasone propionate 50 2 spray intranasal DAILY 7 days 08/28/24 01/09/25 Unknown Rx mcg/actuation nasal #16 grams spray,suspension (Flonase Allergy Relief) tamsulosin 0.4 mg capsule 0.4 mg PO DAILY 08/28/24 01/09/25 Unknown History bupropion HCl 150 mg 24 hr tablet, 150 mg PO QAM #30 tabs 11/02/24 01/09/25 Unknown Rx extended release (Wellbutrin XL) bupropion HCl 300 mg 24 hr tablet, 300 mg PO QAM #30 tabs 11/02/24 01/09/25 Unknown Rx extended release (Wellbutrin XL) quetiapine 200 mg tablet (Seroquel) 200 mg PO BEDTIME #30 tabs 11/02/24 01/09/25 Unknown Rx risperidone 1 mg tablet (Risperdal) 1 mg PO BID #60 tabs 11/02/24 01/09/25 Unknown Rx mupirocin 2 % topical ointment 1 applic topical BID #22 grams 12/01/24 01/09/25 Unknown Rx (Centany) azithromycin 250 mg tablet See Rx Instructions PO .COMPLEX #6 01/09/25 01/09/25 Unknown Rx tabs budesonide-formoterol HFA 80 2 puff inhalation BID #10.2 grams 01/09/25 01/09/25 Unknown Rx mcg-4.5 mcg/actuation aerosol inhaler prednisone 20 mg tablet 20 mg PO BID 5 days #10 tabs 01/09/25 01/09/25 Unknown Rx Allergies Allergy/AdvReac Type Severity Reaction Status Date / Time No Known Allergies Allergy Verified 01/23/25 19:33 PFSH Acute PFSH: Medical History (Updated 01/23/25 @ 21:17 by Sheela Rodríguez MD) Smoking addiction COPD with exacerbation Nicotine use disorder Moderate episode of recurrent major depressive disorder Psychiatric care Surgical History Hx laparoscopic cholecystectomy 11/09/23 Dr Lim Family History Brother Diabetes Denies family history of CAD (coronary artery disease) Congestive heart failure (CHF) Anemia Aneurysm Arrhythmia Atrial fibrillation TIA (transient ischemic attack) Heart disease Sudden cardiac Chronic kidney disease (CKD) Congenital heart disease Carotid artery disease Pulmonary embolism Cardiomyopathy Social History Smoking and tobacco/nicotine status: never used tobacco/nicotine Alcohol intake: never Vitals/I&O/Wt Last Vital Signs Temp 98.3 F 01/23/25 19:26 Pulse 93 01/23/25 21:30 Resp 22 H 01/23/25 21:18 BP 119/69 01/23/25 21:30 Pulse Ox 91 01/23/25 21:30 O2 Del Method Nasal Cannula 01/23/25 21:30 O2 Flow Rate 3 01/23/25 21:30 01/23/25 01/23/25 01/23/25 06:59 14:59 22:59 Intake Total 100 / 100 Balance 100 / 100 Weight last 48 hrs Weight 127.006 kg Physical Exam Narrative: General: Alert, lying comfortably without any distress and on 2L NC HEENT: Normocephalic, atraumatic, grossly unremarkable exam Cardio: normal rate rhythm, normal S1-S2 without any murmurs, rubs, or gallops and JVD normal Respiratory: normal vascular breathing with equal air entry, exam limited due to thick chest wall GI: Abdomen soft, nontender, nondistended, normoactive bowel sounds present all 4 quadrants, Neuro: gross intact neuro system without any focal neurological deficit Behavior: Appropriate Extremities: Adequate palpable pulses, no edema or cyanosis observed Skin: grossly unremarkable exam Data 01/23/25 19:29 01/23/25 19:29 Micro: Microbiology 01/23/25 20:06 Blood Culture - Preliminary Blood SPECIMEN COLLECTED 01/23/25 20:06 Blood Culture - Preliminary Blood SPECIMEN COLLECTED A&P Assessment and plan 1. Acute hypoxemic respiratory failure: - no white count, based on the imaging and patient sob, likely COPD exacerbation - cont ceft ( 5-7 days) and azithromycin ( 3 days ) and further to assess the clinical response - prednisone 40mg daily for 5 days - bipap at night - oxygen supplementation to maintain O2 sats around 92 and above - monitor vitals - duonebs scheduled 2. COPD with acute exacerbation: as mentioned above chest phsio antibiotics duonebs oxygen supplementation prednisone 40mg daily for 5 days 3. Smoking addiction: Adequate emphasis and counseling to be provided 4. Major depressive disorder: Continue on home medications after reconciliation, Patient on bupropion, quetiapine risperidone and other medications 5. Dyslipidemia: Patient on simvastatin 20 mg, to continue after reconciliation 6. Benign essential HTN: Patient on lisinopril 10 mg daily, patient with a blood pressure to resume reconciliation 7. Atherosclerotic heart disease of [place] coronary artery with other forms of angina pectoris: On aspirin 81 mg and simvastatin. Resume after reconciliation 8. CHF (congestive heart failure), NYHA class II: Clinically stable and to monitor, Echo in 2023: Ejection fraction 49%. Continue furosemide 40 mg daily ordered as mentioned in the home medication after reconciliation 9. Mild intellectual disability: Continue to monitor, currently stable Need close observation while inpatient 10. Moderate episode of recurrent major depressive disorder: Continue home medications for depression after reconciliation 11. Intermittent explosive disorder: Home medication reconciliation and to resume the medications for mood disorders. PDMP PDMP Reviewed: Not Reviewed Attestations Medical Necessity Statement*: Ronnie Guzman's hospital stay will require less than 2 midnights for COPD exacerbation Time Spent in Patient Care: 16 - 35 minutes (>than 50% of time spent in counselling and/or direct pt care on unit). Other Attestations: Patient condition has been discussed at length with the patient/family, I have independently reviewed the chart labs imaging/diagnostics/EKG. the goals of care and code status with the patient/family/NOK/legal healthcare sales representative, and documented accordingly. The patient/family has been informed about the current condition and further plan of care. Agreed with the plan of care and understood without any language barrier. Every effort was made to ensure accuracy of wind plant manager. Any obvious errors or omissions should be clarified with the author of the document. Coding Level of Care Code Acute Code for g Fwd Diagnoses Acute hypoxemic respiratory failure J96.01 COPD with acute exacerbation J44.1 Smoking addiction F17.200 Major depressive disorder F32.9 Dyslipidemia E78.5 Benign essential HTN I10 Atherosclerotic heart disease of [place] coronary artery with other forms of angina pectoris I25.118 CHF (congestive heart failure), NYHA class II I50.9 Mild intellectual disability F70 Moderate episode of recurrent major depressive disorder F33.1 Intermittent explosive disorder F63.81
--- NOTE | 2025-01-23 22:23 | ECG_ITS ---
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
[2025-01-24] VITALS (103 sets, daily range): BP systolic 88–134; BP diastolic 56–91; PULSE 57–102; RESP 10–28; TEMP 36.5–36.9; O2SAT 77–99; BMI 43.8
[2025-01-24] LABS: Lactic Acid level (Lactate) 1.5 mmol/L (0.5-2.2)
[2025-01-24 00:13] LABS: Procalcitonin 0.04 ng/mL (0-0.5); Thyroid Stimulating Hormone 2.37 uIU/mL (0.27-4.20)
[2025-01-24 00:24] LABS: Magnesium 2.0 mg/dL (1.7-2.3)
[2025-01-24 01:44] LABS: Hematocrit 39.6 % (37-53); Hemoglobin 13.30 g/dL (11.27-16.99); Mean Corpuscular HGB Conc 33.6 g/dL (30-55); Mean Corpuscular Hemoglobin 30.2 pg (27-33); Mean Corpuscular Volume 90.0 fl (82-101); Nucleated Red Blood Cells % 0 %; Platelet Count 171 10^3/cmm (157-399); Red Blood Count 4.40 10^6/uL (3.85-5.65); White Blood Count 6.29 10^3/uL (3.29-11.43)
[2025-01-24 02:01] LABS: Alanine Aminotransferase 74 U/L (0-41); Albumin Level 4.0 g/dL (3.5-5.2); Alkaline Phosphatase 99 U/L (40-130); Anion Gap 17.3 (5-19); Aspartate Amino Transferase 43 U/L (0-40); Blood Urea Nitrogen 17 mg/dL (6-20); Calcium 9.0 mg/dL (8.5-10.5); Carbon Dioxide 24 mmol/L (22-29); Chloride 100 mmol/L (98-107); Creatinine Clr Calc Pharmacy 147.6784; Globulin 2.0 g/dL (1.3-4.6); Glucose 186 mg/dL (65-115); Osmolality Calculated 290 mOsm/kg (285-295); Potassium 4.3 mmol/L (3.5-5.1); Sodium 137 mmol/L (136-145); Total Protein 6.0 g/dL (6.6-8.7)
--- NOTE | 2025-01-24 08:31 | PC.PHAR ---
Addendum entered by Vale Verduzco 01/24/25 10:46: Most current med list completed with list from [employer] 01/24/25 Original Note: I have a call out to [employer] [phone] to obtain a current med list. 01/24/25 8:20am
--- NOTE | 2025-01-24 16:08 | P.PN_ITS ---
Subjective 2 Subjective: Overnight labs and H&P reviewed. Currently on 4 L/min supplemental O2. Complaining of persisting dyspnea. Medications: Reviewed: Yes Vitals/I&O/Wt Last Vital Signs Temp 97.8 F 01/24/25 12:45 Pulse 87 01/24/25 13:15 Resp 18 01/24/25 13:15 BP 120/77 01/24/25 13:15 Pulse Ox 99 01/24/25 13:15 O2 Del Method Nasal Cannula 01/24/25 12:45 O2 Flow Rate 4 01/24/25 12:45 FiO2 40 01/24/25 11:52 01/24/25 01/24/25 01/24/25 06:59 14:59 22:59 Intake Total 1160 / 1260 760 / 760 Output Total 650 / 650 900 / 900 Balance 510 / 610 -140 / -140 Weight last 48 hrs Weight 146.5 kg Weight 146.5 kg Weight 146.5 kg Weight 127.006 kg Physical Exam 2 Narrative: General: No acute distress, AO x3 HEENT: PERRLA, pupils bilaterally equal and reactive, pallors not present Chest: Diminished breath sounds bilateral axillary areas CVS: S1-S2 regular, no murmurs, no tachycardia, no gallops, no rubs Abdomen: Soft, nontender, no organomegaly, bowel sounds present Neuro: No focal deficits, no facial deformity, AO x3, power 5/5 in all limbs Extremities: 1+ pitting edema bilateral lower extremity Data 01/24/25 01:28 01/24/25 01:28 Micro: Microbiology 01/23/25 20:06 Blood Culture - Preliminary Blood SPECIMEN COLLECTED 01/23/25 20:06 Blood Culture - Preliminary Blood SPECIMEN COLLECTED A&P Assessment and plan 1. Acute hypoxemic respiratory failure: - no white count, based on the imaging and patient sob, likely COPD exacerbation - cont ceft ( 5-7 days) and azithromycin ( 3 days ) and further to assess the clinical response - prednisone 40mg daily for 5 days - bipap at night - oxygen supplementation to maintain O2 sats around 92 and above - monitor vitals - duonebs scheduled 2. COPD with acute exacerbation: as mentioned above chest phsio antibiotics duonebs oxygen supplementation prednisone 40mg daily for 5 days 3. Smoking addiction: Adequate emphasis and counseling to be provided 4. Major depressive disorder: Continue on home medications after reconciliation, Patient on bupropion, quetiapine risperidone and other medications 5. Dyslipidemia: Patient on simvastatin 20 mg, to continue after reconciliation 6. Benign essential HTN: Patient on lisinopril 10 mg daily, patient with a blood pressure to resume reconciliation 7. Atherosclerotic heart disease of [place] coronary artery with other forms of angina pectoris: On aspirin 81 mg and simvastatin. Resume after reconciliation 8. Congestive heart failure, NYHA class 2, unspecified congestive heart failure type: Clinically stable and to monitor, Echo in 2023: Ejection fraction 49%. Continue furosemide 40 mg daily ordered as mentioned in the home medication after reconciliation 9. Mild intellectual disability: Continue to monitor, currently stable Need close observation while inpatient 10. Moderate episode of recurrent major depressive disorder: Continue home medications for depression after reconciliation 11. Intermittent explosive disorder: Home medication reconciliation and to resume the medications for mood disorders. Plan: 49-year-old male with a past medical history of CHF, CAD, COPD, hypertension, dyslipidemia, ventricular arrhythmia, , Intellectual disability currently a resident at [facility]. Admitted via the emergency room overnight due to acute hypoxia with oxygen saturation in the 80s. He was admitted in view of acute hypoxemic respiratory failure. At this time patient was requiring 4 L/min supplemental O2. There is interval development of crackles on exam bilateral axillary areas. Do not hear any significant wheezing at this present time. He was started on steroids and antibiotics overnight for a COPD exacerbation. Start Lasix 40 mg IV every 24 hours for diuresis. review of chart shpws patient is on daily lasix. check D dimer, tropinin without significant elevation PDMP PDMP Reviewed: Not Reviewed Attestations 2 Medical Necessity Statement*: iv diuresis, check D dimer Coding Level of Care Code Acute Code for [facility] Diagnoses Acute hypoxemic respiratory failure J96.01 COPD with acute exacerbation J44.1 Smoking addiction F17.200 Major depressive disorder F32.9 Dyslipidemia E78.5 Benign essential HTN I10 Atherosclerotic heart disease of [place] coronary artery with other forms of angina pectoris I25.118 Congestive heart failure, NYHA class 2, unspecified congestive heart failure type I50.9 Congestive heart failure type: unspecified Mild intellectual disability F70 Moderate episode of recurrent major depressive disorder F33.1 Intermittent explosive disorder F63.81
[2025-01-24] MEDS: FUROsemide 10 mg/mL SDV 4mL 40 MG IVP (18:11)
--- NOTE | 2025-01-24 18:35 | PC.NURSE ---
SHift SUmmary: Uneventful shift. Up to a chair for meals. Started on home medications. Peripheral edema noted, lasix started near end of shift. Left lung still has has coarse rhonchi, but improved throughout the day. Lower lobes diminished.
[2025-01-24] MEDS: cefTRIAXone 1,000 mg SDV 1000 MG IVP (22:08)
[2025-01-25] VITALS (45 sets, daily range): BP systolic 97–128; BP diastolic 55–88; PULSE 54–89; RESP 13–27; TEMP 36.6–37.1; O2SAT 80–98
[2025-01-25 04:23] LABS: Hematocrit 39.7 % (37-53); Hemoglobin 13.00 g/dL (11.27-16.99); Mean Corpuscular HGB Conc 32.7 g/dL (30-55); Mean Corpuscular Hemoglobin 29.7 pg (27-33); Mean Corpuscular Volume 90.8 fl (82-101); Nucleated Red Blood Cells % 0 %; Platelet Count 223 10^3/cmm (157-399); Red Blood Count 4.37 10^6/uL (3.85-5.65); White Blood Count 10.14 10^3/uL (3.29-11.43)
[2025-01-25] MEDS: ATORVASTATIN 20 MG TABLET PO (04:29)
[2025-01-25 04:54] LABS: Alanine Aminotransferase 67 U/L (0-41); Albumin Level 3.6 g/dL (3.5-5.2); Alkaline Phosphatase 86 U/L (40-130); Aspartate Amino Transferase 29 U/L (0-40); Blood Urea Nitrogen 17 mg/dL (6-20); Calcium 8.5 mg/dL (8.5-10.5); Carbon Dioxide 23 mmol/L (22-29); Chloride 101 mmol/L (98-107); Creatinine Clr Calc Pharmacy 189.8722; Globulin 2.4 g/dL (1.3-4.6); Glucose 135 mg/dL (65-115); Osmolality Calculated 292 mOsm/kg (285-295); Sodium 139 mmol/L (136-145); Total Protein 6.0 g/dL (6.6-8.7)
[2025-01-25 04:55] LABS: Anion Gap 19.2 (5-19); Potassium 4.2 mmol/L (3.5-5.1)
--- NOTE | 2025-01-25 16:44 | PM.PN ---
Subjective Subjective: Patient states he does not feel his breathing is good, however objectively oxygen requirement is down to 1 L/min today. He appears to be much more comfortable in exam. Medications: Reviewed: Yes Vitals/I&O/Wt Last Vital Signs Temp 98.4 F 01/25/25 16:00 Pulse 81 01/25/25 16:07 Resp 22 H 01/25/25 16:00 BP 115/74 01/25/25 16:00 Pulse Ox 10 L 01/25/25 16:00 O2 Del Method Room Air 01/25/25 16:00 O2 Flow Rate 1 01/25/25 16:00 FiO2 40 01/25/25 03:26 01/25/25 01/25/25 01/25/25 06:59 14:59 22:59 Intake Total 850 / 850 Output Total 400 / 3950 2525 / 2525 Balance -400 / -2790 -1675 / -1675 Weight last 48 hrs Weight 144.696 kg Weight 144.696 kg Weight 146.5 kg Weight 146.5 kg Weight 146.5 kg Weight 127.006 kg Physical Exam Narrative: General: No acute distress, AO x3 HEENT: PERRLA, pupils bilaterally equal and reactive, pallors not present Chest: Wheezing to auscultation left lung worse than right CVS: S1-S2 regular, no murmurs, no tachycardia, no gallops, no rubs Abdomen: Soft, nontender, no organomegaly, bowel sounds present Neuro: No focal deficits, no facial deformity, AO x3, power 5/5 in all limbs Data 01/25/25 03:36 01/25/25 03:36 Micro: Microbiology 01/23/25 20:06 Blood Culture - Preliminary Blood NEGATIVE TO DATE 01/23/25 20:06 Blood Culture - Preliminary Blood NEGATIVE TO DATE A&P Assessment and plan 1. Acute hypoxemic respiratory failure: - no white count, based on the imaging and patient sob, likely COPD exacerbation - cont ceft ( 5-7 days) and azithromycin ( 3 days ) and further to assess the clinical response - prednisone 40mg daily for 5 days - bipap at night - oxygen supplementation to maintain O2 sats around 92 and above - monitor vitals - duonebs scheduled 2. COPD with acute exacerbation: as mentioned above chest phsio antibiotics duonebs oxygen supplementation prednisone 40mg daily for 5 days 3. Smoking addiction: Adequate emphasis and counseling to be provided 4. Major depressive disorder: Continue on home medications after reconciliation, Patient on bupropion, quetiapine risperidone and other medications 5. Dyslipidemia: Patient on simvastatin 20 mg, to continue after reconciliation 6. Benign essential HTN: Patient on lisinopril 10 mg daily, patient with a blood pressure to resume reconciliation 7. Atherosclerotic heart disease of [place] coronary artery with other forms of angina pectoris: On aspirin 81 mg and simvastatin. Resume after reconciliation 8. Congestive heart failure, NYHA class 2, unspecified congestive heart failure type: Clinically stable and to monitor, Echo in 2023: Ejection fraction 49%. Continue furosemide 40 mg daily ordered as mentioned in the home medication after reconciliation 9. Mild intellectual disability: Continue to monitor, currently stable Need close observation while inpatient 10. Moderate episode of recurrent major depressive disorder: Continue home medications for depression after reconciliation 11. Intermittent explosive disorder: Home medication reconciliation and to resume the medications for mood disorders. Plan: January 24, 2025 49-year-old male with a past medical history of CHF, CAD, COPD, hypertension, dyslipidemia, ventricular arrhythmia, , Intellectual disability currently a resident at [facility]. Admitted via the emergency room overnight due to acute hypoxia with oxygen saturation in the 80s. He was admitted in view of acute hypoxemic respiratory failure. At this time patient was requiring 4 L/min supplemental O2. There is interval development of crackles on exam bilateral axillary areas. Do not hear any significant wheezing at this present time. He was started on steroids and antibiotics overnight for a COPD exacerbation. Start Lasix 40 mg IV every 24 hours for diuresis. review of chart shpws patient is on daily lasix. check D dimer, tropinin without significant elevation January 25, 2025 Patient states his breathing is about the same, however per all objective criteria patient is clinically improving. He has been afebrile, hemodynamically stable. Oxygen requirement is down to 1 L/min from 4 L/min yesterday. Will repeat Lasix 40 mg IV today in addition to 40 mg p.o. given in the morning. Lower extremity edema is improved. Has wheezing on exam, left worse than right. Add budesonide and elevation 0.5 mg twice daily. Anticipate that with continued improvement he may be able to discharge home tomorrow after home oxygen evaluation. D-dimer screen negative.Unlikely PE. Last echocardiogram reviewed from 2023, normal LV size with slightly diminished EF of 49% with mild diffuse hypokinesia of the left ventricle. He had a stress test and follow-up in July 2023 which showed moderate area of persistent decreased uptake suggesting myocardial scarring in the distribution of the RCA. No significant coronary ischemia was noted. PDMP PDMP Reviewed: Not Reviewed Attestations Medical Necessity Statement*: Anticipate discharge in the upcoming 24 hours if continues to improve. Need for IV diuresis today. Coding Level of Care Code Acute Code for g Fwd Diagnoses Acute hypoxemic respiratory failure J96.01 COPD with acute exacerbation J44.1 Smoking addiction F17.200 Major depressive disorder F32.9 Dyslipidemia E78.5 Benign essential HTN I10 Atherosclerotic heart disease of [place] coronary artery with other forms of angina pectoris I25.118 Congestive heart failure, NYHA class 2, unspecified congestive heart failure type I50.9 Congestive heart failure type: unspecified Mild intellectual disability F70 Moderate episode of recurrent major depressive disorder F33.1 Intermittent explosive disorder F63.81
[2025-01-25] MEDS: FUROsemide 10 mg/mL SDV 4mL 40 MG IVP (16:49)
[2025-01-25] MEDS: cefTRIAXone 1,000 mg SDV 1000 MG IVP (21:28)
[2025-01-26] VITALS (11 sets, daily range): BP systolic 109–136; BP diastolic 69–83; PULSE 58–93; RESP 13–24; TEMP 36.9–37.1; O2SAT 88–93
[2025-01-26 04:42] LABS: Magnesium 2.1 mg/dL (1.7-2.3)
[2025-01-26 04:43] LABS: Alanine Aminotransferase 106 U/L (0-41); Albumin Level 4.0 g/dL (3.5-5.2); Alkaline Phosphatase 94 U/L (40-130); Anion Gap 17.5 (5-19); Aspartate Amino Transferase 41 U/L (0-40); Blood Urea Nitrogen 19 mg/dL (6-20); Calcium 9.0 mg/dL (8.5-10.5); Carbon Dioxide 26 mmol/L (22-29); Chloride 100 mmol/L (98-107); Creatinine Clr Calc Pharmacy 164.9982; Globulin 2.0 g/dL (1.3-4.6); Glucose 123 mg/dL (65-115); Osmolality Calculated 292 mOsm/kg (285-295); Potassium 4.5 mmol/L (3.5-5.1); Sodium 139 mmol/L (136-145); Total Protein 6.0 g/dL (6.6-8.7)
[2025-01-26] MEDS: ATORVASTATIN 20 MG TABLET PO (04:46)
[2025-01-26 05:07] LABS: Hematocrit 40.8 % (37-53); Hemoglobin 13.40 g/dL (11.27-16.99); Mean Corpuscular HGB Conc 32.8 g/dL (30-55); Mean Corpuscular Hemoglobin 29.3 pg (27-33); Mean Corpuscular Volume 89.3 fl (82-101); Nucleated Red Blood Cells % 0 %; Platelet Count 218 10^3/cmm (157-399); Red Blood Count 4.57 10^6/uL (3.85-5.65); White Blood Count 8.20 10^3/uL (3.29-11.43)
--- NOTE | 2025-01-26 15:40 | P.DS_ITS ---
Discharge Providers Date of Admission: 01/23/25 21:15 Date of Discharge: January 26, 2025 Attending Provider at Admission: Roshan Fernandez MD Attending Provider at Discharge: Sahara Jorgensen MD Primary Care Provider: Raj Kent MD Diagnoses at Discharge Discharge Diagnosis 1. Acute hypoxemic respiratory failure: 2. COPD with acute exacerbation: 3. Smoking addiction: 4. Major depressive disorder: 5. Dyslipidemia: 6. Benign essential HTN: 7. 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 Congestive heart failure, NYHA class 2, unspecified congestive heart failure type: 9. Mild intellectual disability: 10. Intermittent explosive disorder: Reason for Visit Reason for Visit: SOB Hospital Course Hospital Course 49-year-old male with a past medical history of CHF, CAD, COPD, hypertension, dyslipidemia, ventricular arrhythmia, , Intellectual disability currently a resident at [facility]. Admitted via the emergency room overnight due to acute hypoxia with oxygen saturation in the 80s. He was admitted in view of acute hypoxemic respiratory failure. He was requiring 4 L/min supplemental O2. Exam was notable for crackles and wheezing. He was started on steroids and antibiotics for COPD exacerbation. Also received iv Lasix 40 mg IV every 24 hours for diuresis in view of acute on chronic systolic CHF exacerbation. D dimer was negative, troponin series without significant elevation. he responded well to treatment and is being dicsharged in stable condition . Exam is clear to auscultation today Physical Exam Narrative: General: No acute distress, AO x3 HEENT: PERRLA, pupils bilaterally equal and reactive, pallors not present Chest: Normal vesicular breath sounds, no added sounds, equal good air entry bi laterally CVS: S1-S2 regular, no murmurs, no tachycardia, no gallops, no rubs Abdomen: Soft, nontender, no organomegaly, bowel sounds present Neuro: No focal deficits, no facial deformity, AO x3, power 5/5 in all limbs Discharge Data Studies Completed and Pending Completed Studies During Hospitalization Category Date Time Status XR chest 1V portable [id number] Stat Exams 01/23/25 19:27 Completed Pending at discharge Category Date Time Status Blood Culture Stat Lab 01/23/25 20:06 Results Radiology Impressions Chest X-Ray 01/23/25 19:27 IMPRESSION: No acute findings. Laboratory Results WBC 8.20 10^3/uL (3.29-11.43) 01/26/25 04:25 Corrected WBC Cancelled 01/26/25 03:35 RBC 4.57 10^6/uL (3.85-5.65) 01/26/25 04:25 Hgb 13.40 g/dL (11.27-16.99) 01/26/25 04:25 Hct 40.8 % (37-53) 01/26/25 04:25 MCV 89.3 fl (82-101) 01/26/25 04:25 MCH 29.3 pg (27-33) 01/26/25 04:25 MCHC 32.8 g/dL (30-55) 01/26/25 04:25 RDW 13.8 % (12.1-15.1) 01/26/25 04:25 Plt Count 218 10^3/cmm (157-399) 01/26/25 04:25 MPV 10.0 fL (7.4-10.4) 01/26/25 04:25 Gran % Cancelled 01/26/25 03:35 Neut % (Auto) 87.2 % 01/26/25 04:25 Lymph % (Auto) 8.0 % 01/26/25 04:25 Placer % (Auto) 4.1 % 01/26/25 04:25 Eos % (Auto) 0.0 % 01/26/25 04:25 Baso % (Auto) 0.2 % 01/26/25 04:25 Neut # (Auto) 7.14 10^3/uL (1.8-7.7) 01/26/25 04:25 Lymph # (Auto) 0.7 10^3/uL (0.8-4.8) L 01/26/25 04:25 [place] # (Auto) 0.3 10^3/uL (0.2-0.9) 01/26/25 04:25 Eos # (Auto) 0.0 10^3/uL (0.0-0.8) 01/26/25 04:25 Baso # (Auto) 0.0 10^3/uL (0.0-0.1) 01/26/25 04:25 Absolute Gran (auto) Cancelled 01/26/25 03:35 Nucleated RBC % (auto) 0 % 01/26/25 04:25 Nucleated RBCs # 0.0 /100WBC 01/26/25 04:25 D-Dimer 0.30 ug/mLFEU (0-0.59) 01/24/25 17:13 Specimen Type Arterial 01/23/25 19:52 Sample Site Radial, right 01/23/25 19:52 ABG pH 7.44 (7.35-7.45) 01/23/25 19:52 ABG pCO2 40.6 mmHg (35-45) 01/23/25 19:52 ABG pO2 54.5 mmHg (80.0-100.0) L 01/23/25 19:52 ABG PO2/FiO2 Ratio 259 01/23/25 19:52 ABG HCO3 27.4 mmol/L (22-26) H 01/23/25 19:52 ABG O2 Saturation 91.5 01/23/25 19:52 ABG Base Excess 2.9 mmol/L (-2.0-2.0) H 01/23/25 19:52 Christiano Test Pos 01/23/25 19:52 A-a O2 Gradient 6.0 mmHg (5-10) 01/23/25 19:52 Hematocrit 42.5 % (42-52) 01/23/25 19:52 Hgb O2 Saturation 86.4 % (95-100) L 01/23/25 19:52 Carboxyhemoglobin 4.5 %THgb (0.4-20.1) 01/23/25 19:52 Methemoglobin 1.0 % (0.4-1.5) 01/23/25 19:52 Total Hemoglobin 13.9 g/dL (14-18) L 01/23/25 19:52 Sodium 138.0 mmol/L (131-143) 01/23/25 19:52 Potassium 4.4 mmol/L (3.5-5.0) 01/23/25 19:52 Glucose 124.0 mg/dL (70-115) H 01/23/25 19:52 Ionized Calcium 1.2 mmol/L (1.1-1.4) 01/23/25 19:52 O2 Delivery Device Room air 01/23/25 19:52 FiO2 21.0 % 01/23/25 19:52 Teletypewriter Installer ID [id number] 01/23/25 19:52 Sodium 139 mmol/L (136-145) 01/26/25 03:35 Potassium 4.5 mmol/L (3.5-5.1) 01/26/25 03:35 Chloride 100 mmol/L (98-107) 01/26/25 03:35 Carbon Dioxide 26 mmol/L (22-29) 01/26/25 03:35 Anion Gap 17.5 (5-19) 01/26/25 03:35 BUN 19 mg/dL (6-20) 01/26/25 03:35 Creatinine 0.8 mg/dL (0.7-1.2) 01/26/25 03:35 GFR Calculation 102.7 mL/min (90-130) 01/26/25 03:35 Glucose 123 mg/dL (65-115) H 01/26/25 03:35 POC Glucose 153 mg/dL (70-110) H 01/24/25 07:56 Calculated Osmolality 292 mOsm/kg (285-295) 01/26/25 03:35 Lactic Acid 2.8 mmol/L (0.5-2.2) H 01/23/25 19:29 Lactic Acid (Sepsis) 1.5 mmol/L (0.5-2.2) 01/23/25 23:28 Calcium 9.0 mg/dL (8.5-10.5) 01/26/25 03:35 Phosphorus 2.9 mg/dL (2.5-4.5) 01/23/25 23:28 Magnesium 2.1 mg/dL (1.7-2.3) 01/26/25 03:35 Total Bilirubin 0.4 mg/dL (0.15-1.2) 01/26/25 03:35 AST 41 U/L (0-40) H 01/26/25 03:35 ALT 106 U/L (0-41) H 01/26/25 03:35 Alkaline Phosphatase 94 U/L (40-130) 01/26/25 03:35 Troponin T Baseline 17 ng/L (0-15) H 01/23/25 19:29 Troponin T 120 Minute 15.08 ng/L (0-15) H 01/23/25 21:07 Delta Troponin T -1.92 ABS# (0-10) L 01/23/25 21:07 NT-Pro-B Natriuret Pep < 36 pg/mL (0-125) 01/23/25 19:29 Total Protein 6.0 g/dL (6.6-8.7) L 01/26/25 03:35 Albumin 4.0 g/dL (3.5-5.2) 01/26/25 03:35 Globulin 2.0 g/dL (1.3-4.6) 01/26/25 03:35 Procalcitonin 0.04 ng/mL (0-0.5) 01/23/25 23:28 TSH 2.37 uIU/mL (0.27-4.20) 01/23/25 23:28 Influenza A (PCR) Negative (Negative) 01/23/25 20:09 Influenza Type B (PCR) Negative (Negative) 01/23/25 20:09 RSV (PCR) Negative (Negative) 01/23/25 20:09 SARS-CoV-2 (PCR) Negative (Negative) 01/23/25 20:09 Vitals Last Vital Signs Temp 98.5 F 01/26/25 11:03 Pulse 93 01/26/25 11:25 Resp 16 01/26/25 11:25 BP 136/69 01/26/25 11:03 Pulse Ox 92 01/26/25 11:25 O2 Del Method Nasal Cannula 01/26/25 11:25 O2 Flow Rate 3 01/26/25 11:25 FiO2 40 01/25/25 03:26 Discharge Plan Discharge Patient Disposition: Home Condition: Stable Prescriptions: New prednisone 20 mg Tablet 40 mg PO Q24H 5 Days Qty: 10 0RF Continued tamsulosin 0.4 mg capsule 0.4 mg PO BID aspirin 81 mg tablet 81 mg PO DAILY cetirizine 10 mg tablet 10 mg PO DAILY Qty: 30 0RF fluticasone propionate [Flonase Allergy Relief] 50 mcg/actuation spray,suspension 2 spray intranasal DAILY 7 Days Qty: 16 0RF Rx Instructions: administer into each nostril bupropion HCl [Wellbutrin XL] 300 mg tablet extended release 24 hr 300 mg PO QAM Qty: 30 2RF Rx Instructions: Along with XL 150mg pa=821ol total daily. bupropion HCl [Wellbutrin XL] 150 mg tablet extended release 24 hr 150 mg PO QAM Qty: 30 2RF Rx Instructions: Along with XL 300mg he=[id number] total daily. risperidone [Risperdal] 1 mg tablet 1 mg PO BID Qty: 60 2RF quetiapine [Seroquel] 200 mg tablet 200 mg PO BEDTIME Qty: 30 2RF mupirocin [Centany] 2 % ointment 1 applic topical BID Qty: 22 0RF budesonide-formoterol 80-4.5 mcg/actuation HFA aerosol inhaler 2 puff inhalation BID Qty: 10.2 0RF simvastatin 20 mg tablet 20 mg PO QAM lisinopril 10 mg tablet 10 mg PO QAM nitroglycerin 0.4 mg Tablet, Sublingual 0.4 mg SUBLINGUAL Q5M PRN (Reason: Chest Pain) Rx Instructions: do not exceed 3 doses per episode naproxen 500 mg tablet 500 mg PO Q12H PRN (Reason: Pain) urea 40 % Cream 1 applic TOPICAL BID PRN (Reason: Dry Skin) acetaminophen 500 mg Tablet 500 - 1,000 mg PO Q6H PRN (Reason: Pain) [place] Ointment 1 applic TOPICAL BID PRN (Reason: Pain) [id number] [Bromfed DM] 2-30-10 mg/5 mL Syrup 5 ml PO Q6H PRN (Reason: Cold Symptoms) Changed furosemide 40 mg tablet 40 mg PO BID 5 Days Qty: 30 0RF Rx Instructions: take $0mg bid for 5 days, then reduce dose to 40 mg daily as usual Discharge Order = DC NOW: Discharge Order (Routine); Ordered 01/26/25 Ordered By: Sahara Jorgensen Other Ambulatory Orders: DME: Oxygen (Order) Location: None Selected Ordered By: Sahara Jorgensen Referrals: Raj Kent MD [Primary Care Provider, [facility]] - 01/29/25 2:30 pm Patient Instructions: Prednisone (By mouth), CHF Stoplight, COPD Stoplight, Opioid Safety, Patient Portal & Oneal Instructions Discharge Attestations Time Spent in Discharge Care*: greater than 30 min Quality Metrics Clinical Quality Measures [ No reported AMI, CVA or VTE this stay] Coding Level of Care Code Acute Code for Chg Fwd Diagnoses Acute hypoxemic respiratory failure J96.01 COPD with acute exacerbation J44.1 Smoking addiction F17.200 Major depressive disorder F32.9 Dyslipidemia E78.5 Benign essential HTN I10 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
== END 2025-01-26 13:21 | disposition home or self-care (01) ==
LOC: ER 22:23 → ICU 01-24 08:54 → MEDSURG 01-26 05:46
PROVIDERS: Emergency Medicine; Admitting Provider Student in an Organized Health Care Education/Training Program; Emergency Provider Emergency Medicine; PCP Family Medicine; Visit Provider Student in an Organized Health Care Education/Training Program
DX: J96.01 Acute respiratory failure with hypoxia (principal); J44.1 Chronic obstructive pulmonary disease with (acute) exacerbation; F17.200 Nicotine dependence, unspecified, uncomplicated; F32.9 Major depressive disorder, single episode, unspecified; E78.5 Hyperlipidemia, unspecified; I25.118 Atherosclerotic heart disease of native coronary artery with other forms of angina pectoris; I50.9 Heart failure, unspecified; I11.0 Hypertensive heart disease with heart failure; F70 Mild intellectual disabilities; F63.81 Intermittent explosive disorder; Z79.82 Long term (current) use of aspirin
CPT/HCPCS: 36415; 36416; 71045; 80051; 80053; 82330; 82805; 82962; 83605; 83735; 83880; 84100; 84145; 84443; 84484; 85025; 85378; 87040; 87637; 93005; 94640; 94660; 94760; 96365; 96367; 96372; 96375; 96376; 99285; G0378; J0696; J1100; J1650; J1938; J2919; J3490; J7120; J7512; J7613; J7626; J9999; Q0144

== ENCOUNTER 2025-02-03 09:31 | Emergency (ER) | payer MEDICARE, MEDICAID, SELFPAY ==
[2025-02-03 09:36] VITALS: BP 104/69; PULSE 102; RESP 18; TEMP 36.7; O2SAT 95; BMI 43.0
--- NOTE | 2025-02-03 09:40 | ECG_ITS ---
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: : 1975 Requested By: Alvarado Prakash Order Number: [id number] Reading MD: SHARMILA GRIGSBY Measurements Intervals [place] Rate: 102 P: 32 IL: 154 QRS: -60 QRSD: 110 T: 50 QT: 330 QTc: 430 Interpretive Statements SINUS TACHYCARDIA LOW QRS VOLTAGE [QRS DEFLECTION < 0.5/1.0 mV IN LIMB/CHEST LEADS] POSSIBLE ANTERIOR MYOCARDIAL INFARCTION , PROBABLY OLD [30 ms Q WAVE IN V3/V4, OR R < 0.2 mV IN V4] INFERIOR MYOCARDIAL INFARCTION , PROBABLY OLD [40+ ms Q WAVE AND/OR ST/T ABNORMALITY IN II/aVF] Compared to ECG 01/23/2025 22:23:46 Sinus rhythm no longer present Ventricular premature complex(es) no longer present Indeterminate axis no longer present Myocardial infarct finding still present Electronically Signed On 02-04-2025 22:26:17 CDT by SHARMILA GRIGSBY [email or web address] [id number]
--- NOTE | 2025-02-03 10:25 | XRR_ITS ---
PROCEDURE INFORMATION: Exam: XR Chest Exam date and time: 02/03/2025 10:48 AM Age: 49 years old Clinical indication: Cough; Additional info: SOB; Dyspnea/cough; Hypotension TECHNIQUE: Imaging protocol: Radiologic exam of the chest. Views: 1 view. COMPARISON: CR (CHEST, ) 01/23/2025 7:30 PM FINDINGS: Lungs: Unremarkable. No consolidation. Pleural spaces: Unremarkable. No pleural effusion. No pneumothorax. Heart/Mediastinum: Unremarkable. No cardiomegaly. Bones/joints: Unremarkable. XR/XR chest 1V portable [id number] IMPRESSION: No acute findings.
[2025-02-03 10:54] LABS: Hematocrit 43.6 % (37-53); Hemoglobin 14.50 g/dL (11.27-16.99); Mean Corpuscular HGB Conc 33.3 g/dL (30-55); Mean Corpuscular Hemoglobin 29.6 pg (27-33); Mean Corpuscular Volume 89.0 fl (82-101); Nucleated Red Blood Cells % 0 %; Platelet Count 216 10^3/cmm (157-399); Red Blood Count 4.90 10^6/uL (3.85-5.65); White Blood Count 11.73 10^3/uL (3.29-11.43)
[2025-02-03 11:21] LABS: NT Pro B Type Natriuretic Pept < 36 pg/mL (0-125); Procalcitonin 0.03 ng/mL (0-0.5)
--- NOTE | 2025-02-03 11:31 | W.ED.SOB ---
HPI - SOB/Dyspnea General: Chief Complaint: Shortness of Breath/Dyspnea Stated Complaint: sob Time Seen by Provider: 02/03/25 10:26 History of Present Illness: HPI Narrative: 49-year-old male presents emergency room complaining of shortness of breath. He was recently discharged from the hospital after being admitted for pneumonia he was discharged home on 3 L by nasal cannula. He is complaining of increasing shortness of breath to his staff today and he was brought to the emergency room for evaluation. Patient has cognitive delay and he is part of an ISL. The he has completed the antibiotics he was prescribed at the time of discharge. Associated symptoms: Deny abdominal pain, chest pain or fever(s) Related Data Home Medications ?Medication ?Instructions ?Recorded ?Confirmed lisinopril 10 mg tablet 10 mg PO QAM 03/16/23 02/02/25 simvastatin 20 mg tablet 20 mg PO QAM 03/16/23 02/02/25 naproxen 500 mg tablet 500 mg PO Q12H PRN Pain 01/21/24 02/02/25 aspirin 81 mg tablet 81 mg PO DAILY 08/28/24 02/02/25 tamsulosin 0.4 mg capsule 0.4 mg PO BID 08/28/24 02/02/25 acetaminophen 500 mg tablet 500 - 1,000 mg PO Q6H PRN Pain 01/24/25 02/02/25 csobowxxhzwjuuh-gyqwoxsdffwuhft-AM 5 ml PO Q6H PRN Cold Symptoms 01/24/25 02/02/25 2 mg-30 mg-10 mg/5 mL oral syrup (Bromfed DM) camphor-menthol topical ointment 1 applic topical BID PRN Pain 01/24/25 02/02/25 ([place] topical ointment) urea 40 % topical cream 1 applic topical BID PRN Dry Skin 01/24/25 02/02/25 Previous Rx's ?Medication ?Instructions ?Recorded cetirizine 10 mg tablet 10 mg PO DAILY #30 tabs 08/28/24 fluticasone propionate 50 2 spray intranasal DAILY 7 days 08/28/24 mcg/actuation nasal #16 grams spray,suspension (Flonase Allergy Relief) budesonide-formoterol HFA 80 2 puff inhalation BID #10.2 grams 01/09/25 mcg-4.5 mcg/actuation aerosol inhaler furosemide 40 mg tablet 40 mg PO BID 5 days #30 tabs 01/26/25 bupropion HCl 150 mg 24 hr tablet, 150 mg PO QAM #30 tabs 02/02/25 extended release (Wellbutrin XL) bupropion HCl 300 mg 24 hr tablet, 300 mg PO QAM #30 tabs 02/02/25 extended release (Wellbutrin XL) quetiapine 200 mg tablet (Seroquel) 200 mg PO BEDTIME #30 tabs 02/02/25 risperidone 1 mg tablet (Risperdal) 1 mg PO BID #60 tabs 02/02/25 Allergies Allergy/AdvReac Type Severity Reaction Status Date / Time No Known Allergies Allergy Verified 02/02/25 10:42 Review of Systems Const: Denies: fever(s) or chills Card: Denies: chest pain Resp: Reports: dyspnea; Denies: productive cough or non-productive cough GI: Denies: abdominal pain : Denies: dysuria, urinary frequency or urinary urgency Skin/Breast: Denies: rash PFSH ED PFSH: Medical History Smoking addiction COPD with exacerbation Nicotine use disorder Moderate episode of recurrent major depressive disorder Psychiatric care Surgical History Hx laparoscopic cholecystectomy 11/09/23 Dr Lim Family History Brother Diabetes Denies family history of CAD (coronary artery disease) Congestive heart failure (CHF) Anemia Aneurysm Arrhythmia Atrial fibrillation TIA (transient ischemic attack) Heart disease Sudden cardiac Chronic kidney disease (CKD) Congenital heart disease Carotid artery disease Pulmonary embolism Cardiomyopathy Social History Smoking and tobacco/nicotine status: never used tobacco/nicotine Alcohol intake: never Physical Exam Const: COMMON NORMALS: no acute distress GENERAL APPEARANCE: cooperative and comfortable ORIENTATION/CONSCIOUSNESS: Yes awake HENMT: COMMON NORMALS: normocephalic, atraumatic and hearing grossly normal bilaterally HEAD & SCALP: normocephalic and atraumatic Resp: COMMON NORMALS: normal respiratory effort, No retractions, No use of accessory muscles and clear to auscultation bilaterally AUSCULTATION: clear to auscultation bilaterally Cardio: COMMON NORMALS: regular rate, regular rhythm and No murmurs present (Cardio) RATE: regular rate RHYTHM: regular rhythm GI: COMMON NORMALS: Soft to palpation and No hepatosplenomegaly present AUSCULTATION: Yes normoactive bowel sounds PALPATION: Yes Soft to palpation, No Tenderness to palpation present (GI), No Guarding due to palpation present (GI) and Yes No hepatosplenomegaly present Extremity: COMMON NORMALS: normal to inspection, capillary refill normal, no clubbing, cyanosis or edema, no calf tenderness and no pedal edema Skin: COMMON NORMALS: no rashes or lesions noted GENERAL SKIN EXAM: no rashes or lesions noted Course Vital Signs: Vital signs: Vital Signs Temperature 98.1 F 02/03/25 09:36 Pulse Rate 85 02/03/25 12:38 Respiratory Rate 18 02/03/25 09:36 Blood Pressure 99/58 02/03/25 12:38 Pulse Oximetry 95 02/03/25 12:38 Oxygen Delivery Me thod Nasal Cannula 02/03/25 12:38 MDM - SOB/Dyspnea Medical Decision Making Patient discharged home From most recent hospitalization on 3 L by nasal cannula still satting normally on 2 to 3 L. He has no respiratory distress auscultation of his lungs is normal chest x-ray does not show any acute findings. Patient is otherwise stable and no emergent condition is noted will discharge home continue discharge instructions from this most recent hospitalization. Medical Records I reviewed the patient's medical records. Lab Data I reviewed the patient's lab results. 02/03/25 10:43 02/03/25 10:43 Labs/Radiology: Radiology Impressions Chest X-Ray 02/03/25 10:25 IMPRESSION: No acute findings. Laboratory Results WBC 11.73 10^3/uL (3.29-11.43) H 02/03/25 10:43 RBC 4.90 10^6/uL (3.85-5.65) 02/03/25 10:43 Hgb 14.50 g/dL (11.27-16.99) 02/03/25 10:43 Hct 43.6 % (37-53) 02/03/25 10:43 MCV 89.0 fl (82-101) 02/03/25 10:43 MCH 29.6 pg (27-33) 02/03/25 10:43 MCHC 33.3 g/dL (30-55) 02/03/25 10:43 RDW 13.2 % (12.1-15.1) 02/03/25 10:43 Plt Count 216 10^3/cmm (157-399) 02/03/25 10:43 MPV 9.2 fL (7.4-10.4) 02/03/25 10:43 Neut % (Auto) 78.5 % 02/03/25 10:43 Lymph % (Auto) 12.0 % 02/03/25 10:43 [place] % (Auto) 8.3 % 02/03/25 10:43 Eos % (Auto) 0.3 % 02/03/25 10:43 Baso % (Auto) 0.3 % 02/03/25 10:43 Neut # (Auto) 9.21 10^3/uL (1.8-7.7) H 02/03/25 10:43 Lymph # (Auto) 1.4 10^3/uL (0.8-4.8) 02/03/25 10:43 [place] # (Auto) 1.0 10^3/uL (0.2-0.9) H 02/03/25 10:43 Eos # (Auto) 0.0 10^3/uL (0.0-0.8) 02/03/25 10:43 Baso # (Auto) 0.0 10^3/uL (0.0-0.1) 02/03/25 10:43 Nucleated RBC % (auto) 0 % 02/03/25 10:43 Nucleated RBCs # 0.0 /100WBC 02/03/25 10:43 Sodium 133 mmol/L (136-145) L 02/03/25 10:43 Potassium 3.7 mmol/L (3.5-5.1) 02/03/25 10:43 Chloride 96 mmol/L (98-107) L 02/03/25 10:43 Carbon Dioxide 23 mmol/L (22-29) 02/03/25 10:43 Anion Gap 17.7 (5-19) 02/03/25 10:43 BUN 12 mg/dL (6-20) 02/03/25 10:43 Creatinine 1.0 mg/dL (0.7-1.2) 02/03/25 10:43 GFR Calculation 79.4 mL/min (90-130) L 02/03/25 10:43 Glucose 112 mg/dL (65-115) 02/03/25 10:43 Calculated Osmolality 277 mOsm/kg (285-295) L 02/03/25 10:43 Calcium 8.6 mg/dL (8.5-10.5) 02/03/25 10:43 Total Bilirubin 1.1 mg/dL (0.15-1.2) 02/03/25 10:43 AST 12 U/L (0-40) 02/03/25 10:43 ALT 26 U/L (0-41) 02/03/25 10:43 Alkaline Phosphatase 80 U/L (40-130) 02/03/25 10:43 NT-Pro-B Natriuret Pep < 36 pg/mL (0-125) 02/03/25 10:43 Total Protein 6.3 g/dL (6.6-8.7) L 02/03/25 10:43 Albumin 3.8 g/dL (3.5-5.2) 02/03/25 10:43 Globulin 2.5 g/dL (1.3-4.6) 02/03/25 10:43 Procalcitonin 0.03 ng/mL (0-0.5) 02/03/25 10:43 Influenza A (PCR) Negative (Negative) 02/03/25 11:15 Influenza Type B (PCR) Negative (Negative) 02/03/25 11:15 RSV (PCR) Negative (Negative) 02/03/25 11:15 SARS-CoV-2 (PCR) Negative (Negative) 02/03/25 11:15 All radiology interpretation(s) finalized by discharge EKG Data EKG 1: I personally reviewed and interpreted this EKG as follows: Interpretation: EKG 02/03/2025 9:40 AM sinus tachycardia rate 102. IA interval 154 QTc 430. Compared to EKG from 01/23/2025 sinus rhythm replaced by sinus tachycardia otherwise no acute new findings noted Discharge Plan Discharge Patient Disposition: Home Clinical Impression: Borderline intellectual functioning, Type 2 diabetes mellitus CHF (congestive heart failure), NYHA class II Qualifiers: Congestive heart failure type: unspecified Qualified Code(s): I50.9 - Heart failure, unspecified Condition: Stable Prescriptions: No Action tamsulosin 0.4 mg capsule 0.4 mg PO BID aspirin 81 mg tablet 81 mg PO DAILY cetirizine 10 mg tablet 10 mg PO DAILY Qty: 30 0RF fluticasone propionate [Flonase Allergy Relief] 50 mcg/actuation spray,suspension 2 spray intranasal DAILY 7 Days Qty: 16 0RF Rx Instructions: administer into each nostril budesonide-formoterol 80-4.5 mcg/actuation HFA aerosol inhaler 2 puff inhalation BID Qty: 10.2 0RF bupropion HCl [Wellbutrin XL] 300 mg tablet extended release 24 hr 300 mg PO QAM Qty: 30 2RF Rx Instructions: Along with XL 150mg [id number] total daily. bupropion HCl [Wellbutrin XL] 150 mg tablet extended release 24 hr 150 mg PO QAM Qty: 30 2RF Rx Instructions: Along with XL 300mg [id number] total daily. risperidone [Risperdal] 1 mg tablet 1 mg PO BID Qty: 60 2RF quetiapine [Seroquel] 200 mg tablet 200 mg PO BEDTIME Qty: 30 2RF simvastatin 20 mg tablet 20 mg PO QAM lisinopril 10 mg tablet 10 mg PO QAM naproxen 500 mg tablet 500 mg PO Q12H PRN (Reason: Pain) urea 40 % Cream 1 applic TOPICAL BID PRN (Reason: Dry Skin) acetaminophen 500 mg Tablet 500 - 1,000 mg PO Q6H PRN (Reason: Pain) [place] Ointment 1 applic TOPICAL BID PRN (Reason: Pain) zuehnibwaxprpil-wwmxxzzen-VN [Bromfed DM] 2-30-10 mg/5 mL Syrup 5 ml PO Q6H PRN (Reason: Cold Symptoms) furosemide 40 mg tablet 40 mg PO BID 5 Days Qty: 30 0RF Rx Instructions: take $0mg bid for 5 days, then reduce dose to 40 mg daily as usual Discharge Orders: Discharge ED (Routine); Ordered 02/03/25 Ordered By: Alvarado Khoury Referrals: Raj Kent MD [Primary Care Provider, Family Practice] Patient Instructions: Opioid Safety, Pain Management, Patient Portal & Oneal Instructions Activity Restrictions/Additional Instructions: Thank you for choosing [facility] for your healthcare needs today. It is very important that you follow up as instructed or that you return to the Emergency Department should you have concerns or if your condition changes or worsens in any way. Emergency department visits are focused on emergent conditions, in some cases you may require further evaluation on an outpatient basis. You were seen with complaints shortness of breath chest x-ray appeared normal. Your white count is very slightly elevated consistent with your recent infection continue the current medications you are on do not recommend any changes at this time follow-up with your primary care doctor. Continue to use your oxygen at 3 L/min. No emergent condition noted at this time. (Please note that included in your discharge packet is information concerning opioid safety and pain management. This information is given to all patients were discharged from the ER regardless of their discharge diagnosis or the medicines they usually take or are prescribed.) Print Language: Estonian Coding Level of Care Code ED Yard Labor Supervisor for Nathan Agudelo
[2025-02-03 11:32] LABS: Alanine Aminotransferase 26 U/L (0-41); Albumin Level 3.8 g/dL (3.5-5.2); Alkaline Phosphatase 80 U/L (40-130); Aspartate Amino Transferase 12 U/L (0-40); Blood Urea Nitrogen 12 mg/dL (6-20); Calcium 8.6 mg/dL (8.5-10.5); Carbon Dioxide 23 mmol/L (22-29); Chloride 96 mmol/L (98-107); Creatinine Clr Calc Pharmacy 131.5400; Globulin 2.5 g/dL (1.3-4.6); Glucose 112 mg/dL (65-115); Osmolality Calculated 277 mOsm/kg (285-295); Sodium 133 mmol/L (136-145); Total Protein 6.3 g/dL (6.6-8.7)
[2025-02-03 11:36] LABS: Anion Gap 17.7 (5-19); Potassium 3.7 mmol/L (3.5-5.1)
[2025-02-03 12:03] LABS: Respiratory Syncytial Virus Ce NEGATIVE (Negative); SARS-CoV-2 PCR NEGATIVE (Negative)
[2025-02-03 12:38] VITALS: BP 99/58; PULSE 85; O2SAT 95
== END 2025-02-03 13:22 | disposition home or self-care (01) ==
PROVIDERS: Emergency Provider Family Medicine; PCP Family Medicine
DX: R41.83 Borderline intellectual functioning (principal); E11.9 Type 2 diabetes mellitus without complications; I50.9 Heart failure, unspecified; Z11.52 Encounter for screening for COVID-19; Z79.82 Long term (current) use of aspirin; J44.9 Chronic obstructive pulmonary disease, unspecified
CPT/HCPCS: 36415; 71045; 80053; 83880; 84145; 85025; 87637; 93005; 99285; J7030

== ENCOUNTER 2025-02-04 12:46 | Emergency (ER) | payer MEDICARE, MEDICAID, SELFPAY ==
--- NOTE | 2025-02-04 12:48 | ECG_ITS ---
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1975 Requested By: Keyana Mcmillan Order Number: [id number] Reading MD: SHARMILA GRIGSBY Measurements Intervals [place] Rate: 98 P: 54 CO: 174 QRS: 56 QRSD: 105 T: 51 QT: 323 QTc: 413 Interpretive Statements SINUS RHYTHM LOW QRS VOLTAGE [QRS DEFLECTION < 0.5/1.0 mV IN LIMB/CHEST LEADS] POSSIBLE ANTERIOR MYOCARDIAL INFARCTION , PROBABLY OLD [30 ms Q WAVE IN V3/V4, OR R < 0.2 mV IN V4] Compared to ECG 02/03/2025 09:40:17 Sinus tachycardia no longer present Myocardial infarct finding still present Electronically Signed On 02-04-2025 22:24:08 CDT by SHARMILA GRIGSBY [email or web address] [id number]
--- NOTE | 2025-02-04 12:48 | XRR_ITS ---
PROCEDURE INFORMATION: Exam: XR Chest Exam date and time: 02/04/2025 2:27 PM Age: 49 years old Clinical indication: Chest pressure; Mid chest pain; Additional info: Cp TECHNIQUE: Imaging protocol: Radiologic exam of the chest. Views: 1 view. COMPARISON: CR (CHEST, ) 02/03/2025 10:48 AM FINDINGS: Lungs: A new possible infiltrate is identified in the left lung base. The lungs are otherwise stable in appearance. Pleural spaces: Unremarkable. No pleural effusion. No pneumothorax. Heart/Mediastinum: Unremarkable. No cardiomegaly. Bones/joints: Unremarkable. XR/XR chest 1V portable [id number] IMPRESSION: Possible early inflammatory infiltrate, left lung base.
[2025-02-04 13:00] VITALS: BP 97/61; PULSE 98; RESP 18; TEMP 37.3; O2SAT 91
[2025-02-04 13:33] LABS: Hematocrit 42.8 % (37-53); Hemoglobin 14.10 g/dL (11.27-16.99); Mean Corpuscular HGB Conc 32.9 g/dL (30-55); Mean Corpuscular Hemoglobin 29.5 pg (27-33); Mean Corpuscular Volume 89.5 fl (82-101); Nucleated Red Blood Cells % 0 %; Platelet Count 234 10^3/cmm (157-399); Red Blood Count 4.78 10^6/uL (3.85-5.65); White Blood Count 12.18 10^3/uL (3.29-11.43)
[2025-02-04 13:58] LABS: Troponin(5th) Baseline 19 ng/L (0-15)
[2025-02-04 14:07] LABS: Alanine Aminotransferase 19 U/L (0-41); Albumin Level 3.7 g/dL (3.5-5.2); Alkaline Phosphatase 78 U/L (40-130); Anion Gap 16.9 (5-19); Aspartate Amino Transferase 9 U/L (0-40); Blood Urea Nitrogen 11 mg/dL (6-20); Calcium 8.8 mg/dL (8.5-10.5); Carbon Dioxide 27 mmol/L (22-29); Chloride 96 mmol/L (98-107); Globulin 2.9 g/dL (1.3-4.6); Glucose 97 mg/dL (65-115); NT Pro B Type Natriuretic Pept < 36 pg/mL (0-125); Osmolality Calculated 281 mOsm/kg (285-295); Potassium 3.9 mmol/L (3.5-5.1); Sodium 136 mmol/L (136-145); Total Protein 6.6 g/dL (6.6-8.7)
--- NOTE | 2025-02-04 14:32 | W.ED.CHESTPA ---
HPI - Chest Pain General: Chief Complaint: Chest Pain Stated Complaint: chest pain Time Seen by Provider: 02/04/25 14:18 Source: patient Mode of arrival: ambulatory Limitations: no limitations History of Present Illness: 49-year-old male well-known to the ER here from a [facility] has a history of intellectual disability states he has been having some mild chest pain since 11. States the pain has been constant in nature he denies any shortness of breath denies any worse improved factors denies any nausea or diaphoresis. Related Data Home Medications ?Medication ?Instructions ?Recorded ?Confirmed lisinopril 10 mg tablet 10 mg PO QAM 03/16/23 02/02/25 simvastatin 20 mg tablet 20 mg PO QAM 03/16/23 02/02/25 naproxen 500 mg tablet 500 mg PO Q12H PRN Pain 01/21/24 02/02/25 aspirin 81 mg tablet 81 mg PO DAILY 08/28/24 02/02/25 tamsulosin 0.4 mg capsule 0.4 mg PO BID 08/28/24 02/02/25 acetaminophen 500 mg tablet 500 - 1,000 mg PO Q6H PRN Pain 01/24/25 02/02/25 knuxqpbzvvypnpx-yvmljivvdqvuqoy-AV 5 ml PO Q6H PRN Cold Symptoms 01/24/25 02/02/25 2 mg-30 mg-10 mg/5 mL oral syrup (Bromfed DM) camphor-menthol topical ointment 1 applic topical BID PRN Pain 01/24/25 02/02/25 (Hume [place]ton topical ointment) urea 40 % topical cream 1 applic topical BID PRN Dry Skin 01/24/25 02/02/25 Previous Rx's ?Medication ?Instructions ?Recorded cetirizine 10 mg tablet 10 mg PO DAILY #30 tabs 08/28/24 fluticasone propionate 50 2 spray intranasal DAILY 7 days 08/28/24 mcg/actuation nasal #16 grams spray,suspension (Flonase Allergy Relief) budesonide-formoterol HFA 80 2 puff inhalation BID #10.2 grams 01/09/25 mcg-4.5 mcg/actuation aerosol inhaler furosemide 40 mg tablet 40 mg PO BID 5 days #30 tabs 01/26/25 bupropion HCl 150 mg 24 hr tablet, 150 mg PO QAM #30 tabs 02/02/25 extended release (Wellbutrin XL) bupropion HCl 300 mg 24 hr tablet, 300 mg PO QAM #30 tabs 02/02/25 extended release (Wellbutrin XL) quetiapine 200 mg tablet (Seroquel) 200 mg PO BEDTIME #30 tabs 02/02/25 risperidone 1 mg tablet (Risperdal) 1 mg PO BID #60 tabs 02/02/25 Allergies Allergy/AdvReac Type Severity Reaction Status Date / Time No Known Allergies Allergy Verified 02/02/25 10:42 Review of Systems Card: Reports: chest pain [facility] ED PFSH: Medical History Smoking addiction COPD with exacerbation Nicotine use disorder Moderate episode of recurrent major depressive disorder Psychiatric care Surgical History Hx laparoscopic cholecystectomy 11/09/23 Dr Lim Family History Brother Diabetes Denies family history of CAD (coronary artery disease) Congestive heart failure (CHF) Anemia Aneurysm Arrhythmia Atrial fibrillation TIA (transient ischemic attack) Heart disease Sudden cardiac Chronic kidney disease (CKD) Congenital heart disease Carotid artery disease Pulmonary embolism Cardiomyopathy Social History Smoking and tobacco/nicotine status: never used tobacco/nicotine Alcohol intake: never Physical Exam Const: COMMON NORMALS: no acute distress, patient oriented x3 and healthy appearing HENMT: COMMON NORMALS: normocephalic and atraumatic HEAD & SCALP: normocephalic and atraumatic Neck/C-Spine: COMMON NORMALS: full ROM and supple Chest: COMMONS NORMALS: normal inspection of the chest and normal palpation of entire chest wall Resp: COMMON NORMALS: normal respiratory effort, No retractions, No use of accessory muscles and clear to auscultation bilaterally AUSCULTATION: clear to auscultation bilaterally Cardio: COMMON NORMALS: regular rate, regular rhythm and No murmurs present (Cardio) RATE: regular rate RHYTHM: regular rhythm GI: COMMON NORMALS: Normal to inspection, nondistended, normoactive bowel sounds present, Soft to palpation, non-tender and no masses PALPATION: Yes Soft to palpation Extremity: COMMON NORMALS: normal to inspection and full ROM Neuro: COMMON NORMALS: patient oriented x3, moves all extremities and no focal motor deficits Psych: COMMON NORMALS: mental status grossly normal, Normal thought process present and cooperative THOUGHT PROCESS: Normal thought process present Skin: COMMON NORMALS: no rashes or lesions noted and no wounds GENERAL SKIN EXAM: no rashes or lesions noted Course Vital Signs: Vital signs: Vital Signs Temperature 99.2 F 02/04/25 13:00 Pulse Rate 98 02/04/25 13:00 Respiratory Rate 18 02/04/25 13:00 Blood Pressure 97/61 02/04/25 13:00 Pulse Oximetry 91 02/04/25 13:00 Oxygen Delivery Me thod Nasal Cannula 02/04/25 13:00 Oxygen Flow Rate 3 02/04/25 13:00 MDM - Chest Pain Medical Decision Making Patient presents for chest pain differential includes pulmonary emboli, ACS, atypical chest pain, aortic dissection. Patient has no signs of pulm emboli here chest x-ray here was normal no signs of pneumonia pneumothorax or mediastinal widening with no signs of dissection. His initial and repeat troponins here are normal his pain is atypical in nature no signs of ACS. His EKG shows normal sinus rhythm heart rate [address] elevation QRS 105 QTc 378. I feel patient is stable for discharge at this time I did review images labs and EKG with patient he is stable for discharge she is to follow-up with PCP return if worsening understand agree to plan Medical Records I reviewed the patient's medical records. Lab Data I reviewed the patient's lab results. 02/04/25 13:26 02/04/25 13:26 Radiology Impressions Chest X-Ray 02/04/25 12:48 IMPRESSION: Possible early inflammatory infiltrate, left lung base. Laboratory Results WBC 12.18 10^3/uL (3.29-11.43) H 02/04/25 13: RBC 4.78 10^6/uL (3.85-5.65) 02/04/25 13: Hgb 14.10 g/dL (11.27-16.99) 02/04/25 13: Hct 42.8 % (37-53) 02/04/25 13: MCV 89.5 fl (82-101) 02/04/25 13: MCH 29.5 pg (27-33) 02/04/25 13:26 MCHC 32.9 g/dL (30-55) 02/04/25 13:26 RDW 13.2 % (12.1-15.1) 02/04/25 13: Plt Count 234 10^3/cmm (157-399) 02/04/25 13:26 MPV 9.2 fL (7.4-10.4) 02/04/25 13:26 Neut % (Auto) 80.9 % 02/04/25 13:26 Lymph % (Auto) 10.7 % 02/04/25 13:26 [place] % (Auto) 7.2 % 02/04/25 13: Eos % (Auto) 0.3 % 02/04/25 13: Baso % (Auto) 0.3 % 02/04/25 13: Neut # (Auto) 9.85 10^3/uL (1.8-7.7) H 02/04/25 13:26 Lymph # (Auto) 1.3 10^3/uL (0.8-4.8) 02/04/25 13:26 [place] # (Auto) 0.9 10^3/uL (0.2-0.9) 02/04/25 13: Eos # (Auto) 0.0 10^3/uL (0.0-0.8) 02/04/25 13:26 Baso # (Auto) 0.0 10^3/uL (0.0-0.1) 02/04/25 13: Nucleated RBC % (auto) 0 % 02/04/25 13: Nucleated RBCs # 0.0 /100WBC 02/04/25 13:26 Sodium 136 mmol/L (136-145) 02/04/25 13:26 Potassium 3.9 mmol/L (3.5-5.1) 02/04/25 13:26 Chloride 96 mmol/L (98-107) L 02/04/25 13:26 Carbon Dioxide 27 mmol/L (22-29) 02/04/25 13:26 Anion Gap 16.9 (5-19) 02/04/25 13:26 BUN 11 mg/dL (6-20) 02/04/25 13:26 Creatinine 1.1 mg/dL (0.7-1.2) 02/04/25 13:26 GFR Calculation 71.1 mL/min (90-130) L 02/04/25 13:26 Glucose 97 mg/dL (65-115) 02/04/25 13:26 Calculated Osmolality 281 mOsm/kg (285-295) L 02/04/25 13:26 Calcium 8.8 mg/dL (8.5-10.5) 02/04/25 13:26 Total Bilirubin 1.4 mg/dL (0.15-1.2) H 02/04/25 13:26 AST 9 U/L (0-40) 02/04/25 13:26 ALT 19 U/L (0-41) 02/04/25 13:26 Alkaline Phosphatase 78 U/L (40-130) 02/04/25 13:26 Troponin T Baseline 19 ng/L (0-15) H 02/04/25 13:26 Troponin T 120 Minute 16.59 ng/L (0-15) H 02/04/25 15:03 Delta Troponin T -2.41 ABS# (0-10) L 02/04/25 15:03 NT-Pro-B Natriuret Pep < 36 pg/mL (0-125) 02/04/25 13:26 Total Protein 6.6 g/dL (6.6-8.7) 02/04/25 13:26 Albumin 3.7 g/dL (3.5-5.2) 02/04/25 13:26 Globulin 2.9 g/dL (1.3-4.6) 02/04/25 13:26 All radiology interpretation(s) finalized by discharge EKG Data EKG 1: I personally reviewed and interpreted this EKG as follows: EKG interpretation date: 02/04/25 EKG interpretation time: 13:00 Interpretation: nsr hr [address] elevation qrs 105 qtc 378 EKG 2: I personally reviewed and interpreted this EKG as follows: EKG interpretation date: 02/04/25 EKG interpretation time: 15:26 Interpretation: nsr hr [address] elevation qrs 108 qtc 390 Discharge Plan Discharge Patient Disposition: Home Clinical Impression: Chest pain Qualifiers: Chest pain type: unspecified Qualified Code(s): R07.9 - Chest pain, unspecified Condition: Stable Prescriptions: No Action tamsulosin 0.4 mg capsule 0.4 mg PO BID aspirin 81 mg tablet 81 mg PO DAILY cetirizine 10 mg tablet 10 mg PO DAILY Qty: 30 0RF fluticasone propionate [Flonase Allergy Relief] 50 mcg/actuation spray,suspension 2 spray intranasal DAILY 7 Days Qty: 16 0RF Rx Instructions: administer into each nostril budesonide-formoterol 80-4.5 mcg/actuation HFA aerosol inhaler 2 puff inhalation BID Qty: 10.2 0RF bupropion HCl [Wellbutrin XL] 300 mg tablet extended release 24 hr 300 mg PO QAM Qty: 30 2RF Rx Instructions: Along with XL 150mg zm=295pu total daily. bupropion HCl [Wellbutrin XL] 150 mg tablet extended release 24 hr 150 mg PO QAM Qty: 30 2RF Rx Instructions: Along with XL 300mg jo=210yt total daily. risperidone [Risperdal] 1 mg tablet 1 mg PO BID Qty: 60 2RF quetiapine [Seroquel] 200 mg tablet 200 mg PO BEDTIME Qty: 30 2RF simvastatin 20 mg tablet 20 mg PO QAM lisinopril 10 mg tablet 10 mg PO QAM naproxen 500 mg tablet 500 mg PO Q12H PRN (Reason: Pain) urea 40 % Cream 1 applic TOPICAL BID PRN (Reason: Dry Skin) acetaminophen 500 mg Tablet 500 - 1,000 mg PO Q6H PRN (Reason: Pain) Hume Carlton Ointment 1 applic TOPICAL BID PRN (Reason: Pain) hjvgwczrzeyzgla-rncbkojbu-ER [Bromfed DM] 2-30-10 mg/5 mL Syrup 5 ml PO Q6H PRN (Reason: Cold Symptoms) furosemide 40 mg tablet 40 mg PO BID 5 Days Qty: 30 0RF Rx Instructions: take $0mg bid for 5 days, then reduce dose to 40 mg daily as usual Discharge Orders: Discharge ED (Routine); Ordered 02/04/25 Ordered By: Keyana Mcmillan Referrals: Raj Kent MD [Primary Care Provider, Family Practice] - 4-7 days Discharge Diet: Advance as tolerated Discharge Activity: Resume usual activity Patient Instructions: Chest Pain (ED) Print Language: Mongolian Coding Level of Care Code ED [employer] 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
--- NOTE | 2025-02-04 14:48 | ECG_ITS ---
[employer] Test Date: 2025-02-04 Pat Name: Ronnie Guzman Department: Room: Gender: Male [employer] Supervisor: : 1975 Requested By: Keyana Mcmillan Order Number: [id number] Reading MD: SHARMILA GRIGSBY Measurements Intervals [place] Rate: 95 P: 45 ND: 169 QRS: 22 QRSD: 108 T: 56 QT: 338 QTc: 425 Interpretive Statements SINUS RHYTHM INDETERMINATE AXIS LOW QRS VOLTAGE [QRS DEFLECTION < 0.5/1.0 mV IN LIMB/CHEST LEADS] PATTERN CONSISTENT WITH PULMONARY DISEASE Compared to ECG 02/04/2025 13:00:03 Indeterminate axis now present Myocardial infarct finding no longer present Electronically Signed On 02-04-2025 22:27:58 CDT by SHARMILA GRIGSBY [email or web address]
[2025-02-04 15:28] LABS: Troponin 5 2HR 16.59 ng/L (0-15)
[2025-02-04 15:31] LABS: Troponin 5 2HR Delta -2.41 ABS# (0-10)
[2025-02-04 15:51] VITALS: BP 116/69; PULSE 99; O2SAT 93
== END 2025-02-04 15:52 | disposition home or self-care (01) ==
PROVIDERS: Emergency Provider Emergency Medicine; PCP Family Medicine
DX: R07.9 Chest pain, unspecified (principal); Z79.82 Long term (current) use of aspirin; J44.9 Chronic obstructive pulmonary disease, unspecified
CPT/HCPCS: 71045; 80053; 83880; 84484; 85025; 93005; 99285; J9999

== ENCOUNTER 2025-03-07 11:54 | Outpatient (CLI) | payer MEDICARE, MEDICAID, SELFPAY ==
--- NOTE | 2025-03-07 12:01 | USCV_ITS ---
Ronnie Guzman Age: 49 Gender: M : 1975 Exam Date: 03/07/2025 12:17 Ordering Phys: Raj Kent MD Technologist: Exam [place] [facility] [place]ication: cp sob BP: 140 / 80 HR: 86 Rhythm: Sinus Technical Quality: Adequate MEASUREMENTS (Male / Female) Normal Values 2D ECHO LV Diastolic Diameter PLAX 4.2 cm 4.2 - 5.9 / 3.9 - 5.3 cm IVS Diastolic Thickness 1.3 cm 0.6 - 1.0 / 0.6 - 0.9 cm IVS Systolic Thickness 1.8 cm LVPW Diastolic Thickness 1.5 cm 0.6 - 1.0 / 0.6 - 0.9 cm LVPW Systolic Thickness 2.1 cm LVOT Diameter 2.7 cm LV Ejection Fraction 2D Teich 62.9 % LV Ejection Fraction MOD 4C 69.4 % LV Ejection Fraction MOD 2C 69.8 % LV Ejection Fraction 2C AL 70.3 % LA Diameter 4.2 cm RA Systolic Volume 4C AL 57.7 ml RA Systolic Volume 4C MOD 54.2 ml Aorta at Sinotubular Diameter 3.4 cm IVC Diameter 2.2 cm M-MODE LA Ao Ratio MM 1.0 AV Cusp Separation MM 3.0 cm DOPPLER AV Peak Velocity 114.0 cm/s LVOT Peak Velocity 85.0 cm/s AV Area Cont Eq vti 5.4 cm squared AV Area Cont Eq pk 4.2 cm squared MV Peak Velocity 63.0 cm/s MV Area PHT 5.6 cm squared TV Peak Velocity 185.5 cm/s TR Peak Velocity 283.0 cm/s TR Peak Gradient 32.0 mmHg TV Peak E Velocity 69.0 cm/s PV Peak Velocity 117.0 cm/s FINDINGS Left Ventricle Normal left ventricular size, systolic function and wall thickness, with no regional wall motion abnormalities. Left ventricular ejection fraction is estimated at 65 %. Right Ventricle Normal right ventricular size and systolic function. Right Atrium Normal right atrial size. Left Atrium Normal left atrial size. IA Septum Normal interatrial septum. Mitral Valve Structurally normal mitral valve. Trace mitral valve regurgitation. Aortic Valve Structurally normal trileaflet aortic valve. No aortic valve stenosis. Tricuspid Valve Structurally normal tricuspid valve. Trace tricuspid valve regurgitation. TVPG 25 mmHg. High normal pulmonary pressures (30-35 mmHg). Pulmonic Valve Pulmonic valve not well visualized. Trace pulmonary valve regurgitation. Pericardium No pericardial effusion. Aorta Normal size aortic root and proximal ascending aorta. IVC Mildly dilated IVC with blunt variation response to respiration. CONCLUSIONS Normal LV systolic function. Estimated LVEF normal 65%. Normal right ventricle size and RV systolic function. No significant valvular abnormality noted. Upper normal right heart and pulmonary pressures (30 to 35 mmHg). Alla Zelaya MD (Electronically Signed) Final Date: 07 March 2025 15:53 S
== END 2025-03-07 11:55 | disposition home or self-care (01) ==
PROVIDERS: PCP Family Medicine; Visit Provider Family Medicine
DX: R07.9 Chest pain, unspecified (principal); R06.02 Shortness of breath
CPT/HCPCS: 93306

== ENCOUNTER 2025-03-17 11:29 | Outpatient (CLI) | payer MEDICARE, MEDICAID, SELFPAY ==
--- NOTE | 2025-03-17 12:28 | XRR_ITS ---
PROCEDURE INFORMATION: Exam: XR Chest Exam date and time: 03/17/2025 12:29 PM Age: 49 years old Clinical indication: Dyspnea TECHNIQUE: Imaging protocol: Radiologic exam of the chest. Views: 2 views. Total images: 2 COMPARISON: 1. CR (CHEST, ) 02/04/2025 2:27 PM 2. CR (CHEST, ) 02/03/2025 10:48 AM 3. CR (CHEST, ) 01/23/2025 7:30 PM 4. CR XR chest 1V portable [id number] 07/12/2024 7:55 PM FINDINGS: Lungs: Unremarkable. No consolidation. No lung consolidation, mass, or acute pulmonary abnormality identified. Pleural spaces: No pathologic pleural thickening, significant pleural effusion or pneumothorax. Heart/Mediastinum: Normal heart size. Bones/joints: Mild generalized degenerative changes of the vertebral column characterized primarily by multilevel osteophyte formation, and degenerative facet arthrosis commensurate with patient's age. No intrinsic osseous abnormality identified. Soft tissues: Soft tissues are normal as visualized, demonstrating no masses or swelling/induration. XR/XR chest 2V* [id number] IMPRESSION: 1. No new acute cardiopulmonary disease or adverse interval change radiographically. 2. Mild skeletal degenerative; and other chronic/non-acute findings as described above.
== END 2025-03-17 11:30 | disposition home or self-care (01) ==
PROVIDERS: PCP Family Medicine; Visit Provider Emergency Medicine
DX: R06.00 Dyspnea, unspecified (principal); M25.78 Osteophyte, vertebrae; R93.7 Abnormal findings on diagnostic imaging of other parts of musculoskeletal system
CPT/HCPCS: 71046